=== PATIENT | male | born 1950 | race Caucasian/White ===

== ENCOUNTER → 2018-06-12 11:51 | Outpatient (CLI) | payer MEDICARE, SELFPAY ==
--- NOTE | 2018-06-12 13:00 | MRI_ITS ---
STUDY: MR PELVIS WITH T WITHOUT CONTRAST REASON FOR EXAM: Male, 67 years old. History of rectal cancer with colectomy. Elevated CEA. Abnormal CT scan. TECHNIQUE: Standardized fat and water weighted pulse sequences were obtained in all 3 orthogonal planes, pre-and post contrast administration. 20 IV Dotarem was administered for the contrast portion of the examination. COMPARISON: CT abdomen and pelvis 05/16/2018, 04/04/2016. FINDINGS: Osseous structures: Abnormal marrow signal characteristics of the pattern most consistent with red marrow reconversion. No defined focal lytic or blastic lesions are apparent. Body wall soft tissues: No acute process. Small bowel: Evaluated portions of small bowel appear normal. Mesentery: No mesenteric lymphadenopathy. Lymphadenopathy: There is no apparent inguinal, iliac chain or perirectal lymphadenopathy. Urinary bladder: Mild circumferential thickening of the wall with minimal trabeculation. Prostate: Normal seminal vesicles. No significant prostatomegaly. There are no defined T2 hypointense lesions of the central or peripheral prostate gland. Large bowel: There is mild scattered diverticulosis of the sigmoid colon. Anastomosis of the distal sigmoid colon at the anorectal angle, rectal resection. No evidence of acute diverticulitis. At the level of the anastomosis, anteriorly, along the right anterolateral margin of the rectum, spanning between the 9:00 and 12:00 positions, cystlike macrolobulated focus which may represent a cluster of cysts closely contiguous, measuring approximately 17 mm transverse, 9.1 mm anterior-posterior, 8.7 mm craniocaudal. Process is nonenhancing, no soft tissue masslike features. Distal to the cystlike process, the anus appears normal. Small lobulations similar to the cystlike cluster, in the same position, and of the same size or visible on the CT scan of 04/04/2016. No apparent significant change. MRI/Pelvis W/WO Contrast IMPRESSION: Thin-walled cystlike process without enhancement associated with the right anterior lateral margin of the rectal wall at and immediately below the margin of the anastomosis appear to be stable in size and morphology compared to CT imaging of 04/04/2016 with no evidence of masslike soft tissue or abnormal enhancement. Most likely associated with postsurgical changes. Electronically Signed: Nahid Hdz MD at 11:00 EDT Tel , Service support ,
== END ==
PROVIDERS: Family Provider Family Medicine; PCP Family Medicine; Referring Provider Family Medicine; Visit Provider Family Medicine
DX: R97.0 Elevated carcinoembryonic antigen [CEA] (principal); R93.89 Abnormal findings on diagnostic imaging of other specified body structures; Z85.048 Personal history of other malignant neoplasm of rectum, rectosigmoid junction, and anus
CPT/HCPCS: 72197; A9575

== ENCOUNTER → 2020-09-01 10:07 | Outpatient (CLI) | payer MEDICARE, SELFPAY ==
[2020-06-18 08:22] VITALS: BMI 33.1
--- NOTE | 2020-09-01 12:44 | PFTCOMP ---
COMPLETE PULMONARY FUNCTION TEST INTERPRETATION Brief HPI: Patient is a 69 year old male, currently under the care of myself, who presents to [facility] for complete pulmonary function tests secondary to diagnosis of dyspnea. Respiratory therapist reports good effort and reproducible results. Interpretation: Forced expiration spirometry shows no large airways obstructive ventilatory defect with an FEV1 of 87% predicted. There is no significant bronchodilator response by strict ATS criteria. Spirograms are of good quality and plateau normally. The respiratory flow volume loop shows a normal pattern. Lung volumes by body plethysmography show a decreased total lung capacity at 4.8 L, 80% predicted. All other lung volumes are reduced symmetrically. Diffusion capacity by carbon monoxide is decreased at 53% predicted. The airway resistance is normal. No previous pulmonary function tests were available for review. Impression: Mild restrictive ventilatory defect with a disproportionate reduction in diffusing capacity
== END ==
PROVIDERS: PCP Family Medicine; Referring Provider Internal Medicine Critical Care Medicine; Visit Provider Internal Medicine Critical Care Medicine
DX: R06.00 Dyspnea, unspecified (principal); R93.89 Abnormal findings on diagnostic imaging of other specified body structures
CPT/HCPCS: 94060; 94726; 94729

== ENCOUNTER → 2020-09-03 10:51 | Outpatient (CLI) | payer MEDICARE, SELFPAY ==
[2020-06-18 08:22] VITALS: BMI 33.1
[2020-09-03 11:10] VITALS: PULSE 56; PULSE 63; PULSE 71; PULSE 77; PULSE 80; PULSE 82; PULSE 94; O2SAT 91; O2SAT 92; O2SAT 93; O2SAT 96
--- NOTE | 2020-09-03 14:19 | PCM.PSN.6M ---
PSN 6 Minute Walk Test 6 Minute Walk Test 6 Minute Walk Test: 6 Minute Walk Test PSN:6-Minute Walk Test Start: 09/03/20 11:10 Freq: Status: Active Protocol: RESP.6MINW Document 09/03/20 11:10 CORRIE (Rec: 09/03/20 11:13 [id number]) 6 Minute Walk Test Date Performed 09/03/20 Time Performed 11:15 Height 5 ft 8 in Weight: 94.347 kg Weight in Pounds 208.[address]: Collin Benson FIO2 (% Oxygen) 21 Assistive device used: None Pre-test Oxygen Delivery Method Room Air Pulse Ox (%) 96 Pulse Rate (60-100 beats/min) 56 L Dyspnea Anupama Scale (0-10) 0 Exertion Anupama Scale (6-20) 6 1st minute Oxygen Delivery Method Room Air Pulse Ox (%) 93 Pulse Rate (60-100 beats/min) 82 2nd minute Oxygen Delivery Method Room Air Pulse Ox (%) 91 Pulse Rate (60-100 beats/min) 94 3rd minute Oxygen Delivery Method Room Air Pulse Ox (%) 91 Pulse Rate (60-100 beats/min) 80 4th minute Oxygen Delivery Method Room Air Pulse Ox (%) 92 Pulse Rate (60-100 beats/min) 82 5th minute Oxygen Delivery Method Room Air Pulse Ox (%) 92 Pulse Rate (60-100 beats/min) 71 6th minute Oxygen Delivery Method Room Air Pulse Ox (%) 92 Pulse Rate (60-100 beats/min) 77 Post-test Oxygen Delivery Method Room Air Pulse Ox (%) 96 Pulse Rate (60-100 beats/min) 63 Dyspnea Anupama Scale (0-10) 2 Exertion Anupama Scale (6-20) 6 Full Laps Walked 13 Partial Lap, Number of Tiles Walked 20 Total Distance Walked (ft) 787 Interpretation Interpretation: The patient was able to ambulate 787 feet over the course of 6 minutes on room air with no assistive devices or breaks. The patient did experience significant desaturation from a baseline of 96% to as low as 91%. No significant tachycardia was noted. These findings are consistent with a respiratory limitation exercise tolerance. Recommendations Recommendations: No supplemental oxygen is indicated at this time. However, patient will need to be followed closely given level of desaturation.
== END ==
PROVIDERS: PCP Family Medicine; Referring Provider Internal Medicine Critical Care Medicine; Visit Provider Internal Medicine Critical Care Medicine
DX: R93.89 Abnormal findings on diagnostic imaging of other specified body structures (principal)
CPT/HCPCS: 94618

== ENCOUNTER → 2020-11-09 12:45 | Outpatient (CLI) | payer MEDICARE, SELFPAY ==
[2020-09-22 05:39] VITALS: BMI 32.3
== END ==
PROVIDERS: PCP Family Medicine; Visit Provider Internal Medicine Critical Care Medicine
DX: G47.10 Hypersomnia, unspecified (principal)
CPT/HCPCS: 95806

== ENCOUNTER 2021-04-19 11:00 | Outpatient (CLI) | payer MEDICARE, SELFPAY | END 2021-04-19 23:59 | disposition home or self-care (01) | LOC: SL 12:24 | PROVIDERS: PCP Family Medicine; Visit Provider Nurse Practitioner Acute Care | DX: G47.33 Obstructive sleep apnea (adult) (pediatric) (principal) | CPT/HCPCS: 98960; G0463 ==

== ENCOUNTER → 2023-10-11 | Outpatient (CLI) | payer MEDICARE, SELFPAY ==
[2023-10-11 13:36] LABS: Amphetamine Urine VISTA NEGATIVE (<1000 ng/mL); Barbiturate Urine VISTA NEGATIVE (< 200 ng/mL); Benzodiazepine Urine VISTA NEGATIVE (< 200 ng/mL); Cocaine Urine VISTA NEGATIVE (< 300 ng/mL); Ecstacy Urine VISTA NEGATIVE (< 500 ng/mL); Methadone Urine VISTA NEGATIVE (< 300 ng/mL); PCP Urine VISTA NEGATIVE (< 25 ng/mL); THC Urine VISTA NEGATIVE (< 50 ng/mL); Vista UDS pH Range 7
== END | disposition home or self-care (01) ==
PROVIDERS: PCP Family Medicine; Referring Provider Anesthesiology Pain Medicine; Visit Provider Anesthesiology Pain Medicine
DX: F11.20 Opioid dependence, uncomplicated (principal)
CPT/HCPCS: 80307

== ENCOUNTER → 2023-12-01 | Outpatient (CLI) | payer MEDICARE, SELFPAY | END | disposition home or self-care (01) | PROVIDERS: PCP Family Medicine; Referring Provider Nurse Practitioner Acute Care; Visit Provider Nurse Practitioner Acute Care | DX: J84.10 Pulmonary fibrosis, unspecified (principal) | CPT/HCPCS: 94010; 94060; 94726; 94729 ==

== ENCOUNTER → 2023-12-05 | Outpatient (CLI) | payer MEDICARE, SELFPAY ==
[2023-12-05 13:00] VITALS: PULSE 74; PULSE 77; PULSE 79; PULSE 91; PULSE 94; PULSE 99; O2SAT 80; O2SAT 87; O2SAT 88; O2SAT 91; O2SAT 92; O2SAT 98
--- NOTE | 2023-12-05 13:41 | CPS ---
Pt states he wears oxygen at 3 lpm pulse dose. Pt wanted to be placed on oxygen at continuous flow when qualification requirement was met. Pt does not feel the pulse dose is enough for him. Pt was started on room air and at 1 minute into walk pt was placed on 2 lpm continuous. At minute 3 pt went up to 3 lpm. Minute 4 pt was increased to 4lpm and minute 5 to 6lpm (tank does not offer a 5 lpm flow). Pt finished walk at 6 lpm continous. Pt stated his S.O.B was somewhat severe at rest on room air and continued to feel the same throughout the test. Pt states he feels he has become unaware of any change in how S.O.B he feels since he feels it is severe all the time.
--- NOTE | 2023-12-11 10:03 | PCM.PSN.6M ---
PSN 6 Minute Walk Test 6 Minute Walk Test 6 Minute Walk Test: 6 Minute Walk Test PSN:6-Minute Walk Test Start: 12/05/23 13:35 Freq: Status: Active Protocol: RESP.6MINW Document 12/05/23 13:00 AE (Rec: 12/05/23 13:55 AEH [id number]) 6 Minute Walk Test Date Performed 12/05/23 Time Performed 13:00 Height 5 ft 8 in Weight: 220 lb Weight in Pounds 220.[address]: Cristi Assistive device used: Cane Pre-test Oxygen Delivery Method Room Air Pulse Ox (%) 92 Pulse Rate (60-100 beats/min) 74 Dyspnea Anupama Scale (0-10) 3 Exertion Anupama Scale (6-20) 0 1st minute Oxygen Delivery Method Room Air Pulse Ox (%) 80 Pulse Rate (60-100 beats/min) 79 Dyspnea Anupama Scale (0-10) 3 Reported Symptoms Increased Work of Breathing 2nd minute Oxygen Flow Rate (L/min) (L/min) 2 Oxygen Delivery Method Nasal Cannula Pulse Ox (%) 91 Pulse Rate (60-100 beats/min) 99 Dyspnea Anupama Scale (0-10) 3 Reported Symptoms Increased Work of Breathing 3rd minute Oxygen Flow Rate (L/min) (L/min) 2 Oxygen Delivery Method Nasal Cannula Pulse Ox (%) 87 Pulse Rate (60-100 beats/min) 99 Dyspnea Anupama Scale (0-10) 3 Reported Symptoms Increased Work of Breathing 4th minute Oxygen Flow Rate (L/min) (L/min) 3 Oxygen Delivery Method Nasal Cannula Pulse Ox (%) 87 Pulse Rate (60-100 beats/min) 91 Dyspnea Anupama Scale (0-10) 3 Reported Symptoms Increased Work of Breathing 5th minute Oxygen Flow Rate (L/min) (L/min) 4 Oxygen Delivery Method Nasal Cannula Pulse Ox (%) 88 Pulse Rate (60-100 beats/min) 99 Dyspnea Anupama Scale (0-10) 3 Reported Symptoms Increased Work of Breathing 6th minute Oxygen Flow Rate (L/min) (L/min) 6 Oxygen Delivery Method Nasal Cannula Pulse Ox (%) 91 Pulse Rate (60-100 beats/min) 94 Dyspnea Anupama Scale (0-10) 3 Exertion Anupama Scale (6-20) 13 Reported Symptoms Increased Work of Breathing Post-test Oxygen Flow Rate (L/min) (L/min) 6 Oxygen Delivery Method Nasal Cannula Pulse Ox (%) 98 Pulse Rate (60-100 beats/min) 77 Dyspnea Anupama Scale (0-10) 3 Full Laps Walked 8 Partial Lap, Number of Tiles Walked 0 Total Distance Walked (ft) 472 12/05/23 13:41 Cardiopulmonary Services by [facility] Basilio Pt states he wears oxygen at 3 lpm pulse dose. Pt wanted to be placed on oxygen at continuous flow when qualification requirement was met. Pt does not feel the pulse dose is enough for him. Pt was started on room air and at 1 minute into walk pt was placed on 2 lpm continuous. At minute 3 pt went up to 3 lpm. Minute 4 pt was increased to 4lpm and minute 5 to 6lpm (tank does not offer a 5 lpm flow). Pt finished walk at 6 lpm continous. Pt stated his S.O.B was somewhat severe at rest on room air and continued to feel the same throughout the test. Pt states he feels he has become unaware of any change in how S.O.B he feels since he feels it is severe all the time. Initialized on 12/05/23 13:41 - END OF NOTE Interpretation Interpretation: The patient ambulated 472 feet over the course of 6 minutes beginning on room air with use of a cane. Pretesting oxygen saturation was noted to be 92% on room air. With ambulation, the patient desaturated on several occasions requiring supplemental oxygen at 6 L/min to maintain appropriate saturations with exertion. This testing indicated the presence of impaired walk distance along with significant exertional oxygen desaturation, consistent with a pulmonary limitation to exercise tolerance. Recommendations Recommendations: 6 L/min of continuous flow supplemental oxygen should be utilized with exertion.
== END | disposition home or self-care (01) ==
LOC: PSN 12:44
PROVIDERS: PCP Family Medicine; Referring Provider Nurse Practitioner Acute Care; Visit Provider Nurse Practitioner Acute Care
DX: J84.10 Pulmonary fibrosis, unspecified (principal)
CPT/HCPCS: 94618

== ENCOUNTER → 2023-12-26 | Outpatient (CLI) | payer MEDICARE, SELFPAY | END | disposition home or self-care (01) | LOC: SL 09:59 | PROVIDERS: PCP Family Medicine; Visit Provider Nurse Practitioner Acute Care | DX: G47.33 Obstructive sleep apnea (adult) (pediatric) (principal) | CPT/HCPCS: 98960; G0463 ==

== ENCOUNTER → 2023-12-28 | Outpatient (CLI) | payer MEDICARE, SELFPAY ==
--- OUTSIDE RECORDS SUMMARY | 2023-12-28 20:56 | XMS RPT_ITS | CCD ---
Author Organization [facility] Inform ion 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 Sabina Frank Attending Unavaila chandler Rivas, Dr. Sabina Frank Primary Care Unavaila chandler Rivas, Dr. Sabina Frank Primary Care Unavaila chandler Rivas, Dr. Sabina Frank Attending Unavaila ble Evelyn, Dr. Sabina Frank Attending Unavaila chandler Rivas, Dr. Sabina Frank Primary Care Unavaila Sabina Jernigan MD Primary Care Provider [phone] Sabina Rivas MD Primary Care Provider Sabina Rivas MD Primary Care Provider Sahra Holliday MD Primary Care Provider [phone] Sahra Holliday MD Unavailable Sahra Holliday MD Unavailable OSCAR PAYTON Attending Unavailable SABINA RIVAS Primary Care Unavailable OSCAR PAYTON Referring Unavailable OSCAR PAYTON Attending Unavailable SABINA RIVAS Referring Unavailable SABINA RIVAS Primary Care Unavailable SABINA RIVAS Primary Care Unavailable OSCAR PAYTON Attending Unavailable DAWNA BERNAL Referring Unavailable SABINA RVIAS Primary Care Unavailable OSCAR PAYTON Attending Unavailable DAWNA BERNAL Referring Unavailable SABINA RIVAS Primary Care Unavailable OSCAR PAYTON Referring Unavailable ROBERTO PURCELL Attending Unavailable OSCAR PAYTON Attending Unavailable DAWNA BERNAL Referring Unavailable SABINA RIVAS Primary Care Unavailable OSCAR PAYTON Attending Unavailable OSCAR PAYTON Referring Unavailable TOMSABINA LOREDO Primary Care Unavailable OSCAR PAYTON Attending Unavailable TOMSABINA LOREDO Primary Care Unavailable OSCAR PAYTON Referring Unavailable TOMBRENTONKSABINA Primary Care Unavailable HOMSY, ROBERTO Hawkins Attending Unavailable HOMSY, ROBERTO Hawkins Referring Unavailable TOMCHAKSABINA Referring Unavailable TOMCHAKSABINA Primary Care Unavailable HOMSY, ROBERTO Hawkins Attending Unavailable Sahra Holliday MD Primary Care Provider SAHRA HOLLIDAY Primary Care Unavailable FITZGERALD, JUAN CARLOS Borwn Referring Unavailable FITZGERALDJUAN CARLOS Attending Unavailable SABINA RIVAS Referring Unavailable TOMFACUNDO, SABINA FRANK Primary Care Unavailable TOMFACUNDO, SABINA FRANK Attending Unavailable TOMSABINA LOREDO Referring Unavailable TOMFACUNDO, SABINA FRANK Primary Care Unavailable TOMSABINA LOREDO Attending Unavailable SHYAM ALMANZAR Attending Unavailable SAHRA HOLLIDAY Primary Care Unavailable SABINA RIVAS Attending Unavailable SABINA RIVAS Referring Unavailable TOMSABINA LOREDO Primary Care Unavailable Sabina Rivas MD Primary Care Provider Sahra Holliday MD Primary Care Provider DANA ELDER Attending Unavailable SAHRA HOLLIDAY Primary Care Unavailable SAHRA HOLLIDAY Admitting Unavailable SABINA RIVAS Primary Care Unavailable ASMITA, ATISH P Attending Unavailable SAHRA HOLLIDAY Referring Unavailable SAHRA HOLLIDAY Primary Care Unavailable DANA ELDER Attending Unavailable CHRIS RAMSEY Attending Unavaila ble SABINA RIVAS Primary Care Unavailable ASMITA, ATISH P Admitting Unavailable ASMITA, ATISH P Attending Unavailable SABINA RIVAS Primary Care Unavailable SAHRA HOLLIDAY Primary Care Unavailable DANA ELDER Attending Unavailable DANA ELDER Referring Unavailable SAHRA HOLLIDAY Primary Care Unavailable SAHRA HOLLIDAY Primary Care Unavailable SABINA RIVAS Primary Care Unavailable ASMITA, ATISH P Attending Unavailable ASMITA, ATISH P Referring Unavailable TOMSABINA LOREDO Primary Care Unavailable ASMITA, ATISH P Attending Unavailable ASMITA, ATISH P Referring Unavailable SABINA RIVAS Primary Care Unavailable SAHRA HOLLIDAY Primary Care Unavailable Sahra Holliday MD Primary Care Provider [phone] VINNY HAN Referring Unavailable YEATER, SAHRA M Primary Care Unavailable VINNY HAN Referring Unavailable YEATER, SAHRA M Primary Care Unavailable VINNY HAN Referring Unavailable YEATER, SAHRA M Primary Care Unavailable VINNY HAN Referring Unavailable YEATER, SAHRA M Primary Care Unavailable HAN, VINNY WINSTON Referring Unavailable YEATER, SAHRA M Primary Care Unavailable RYANN AMBRIZ Attending Unavailable VINNY HAN Referring Unavailable YEATER, SAHRA M Primary Care Unavailable TOMCHAKevin, SABINA Garsia Primary Care Unavailable GABE MICHELE Attending Unavailable VINNY HAN Referring Unavailable YEATER, SAHRA M Primary Care Unavailable YEATER, SAHRA M Referring Unavailable YEATER, SAHRA M Primary Care Unavailable YEATER, SAHRA M Referring Unavailable YEATER, SAHRA M Primary Care Unavailable YEATER, SAHRA M Primary Care Unavailable YEATER, SAHRA M Primary Care Unavailable TOMFACUNDO, SABINA Garsia Primary Care Unavailable YEATER, SAHRA M Primary Care Unavailable SABINA PEREZ Referring Unavailable TOMCHAKevin, SABINA Garsia Primary Care Unavailable SABINA PEREZ Attending Unavailable SABINA PEREZ Attending Unavailable SABINA PEREZ Referring Unavailable TOMSABINA LOREDO Primary Care Unavailable SABINA PEREZ Attending Unavailable JERROD NORMAN Referring Unavailable TOMFACUNDO, SABINA Garsia Primary Care Unavailable JERROD NORMAN Attending Unavailable JERROD NORMAN Referring Unavailable TOMFACUNDO, SABINA Garsia Primary Care Unavailable JERROD NORMAN Attending Unavailable SABINA RIVAS Primary Care Unavailable SELF, SELF Referring Unavailable MEGA REED Attending Unavailable SABINA PEREZ Referring Unavailable TOMSABINA LOREDO Primary Care Unavailable TOMFACUNDO, SABINA Garsia Primary Care Unavailable SABINA PEREZ Attending Unavailable SELF, SELF Referring Unavailable MEGA REED Attending Unavailable VERONICA MEGA E Referring Unavailable TOMSABINA LOREDO Primary Care Unavailable TOMEKA ESCOBAR Attending Unavailable TOMSABINA LOREDO Primary Care Unavailable MEGA REED Referring Unavailable TOMFACUNDO, SABINA Garsia Primary Care Unavailable VERONICA, MEGA E Referring Unavailable TOMEKA ESCOBAR Attending Unavailable TOMFACUNDO, SAIBNA Garsia Primary Care Unavailable KENNY MASSEY Attending Unavailab SABINA Busby Referring Unavailable YEATER, SAHRA Pollard Attending Unavailable YEATER, SAHRA M Primary Care Unavailable YEATER, SAHRA M Attending Unavailable YEATER, SAHRA M Primary Care Unavailable YEATER, SAHRA M Attending Unavailable YEATER, SAHRA M Primary Care Unavailable YEATER, SAHRA M Attending Unavailable YEATER, SAHRA M Primary Care Unavailable YEATER, SAHRA M Attending Unavailable YEATER, SAHRA M Primary Care Unavailable YEATER, SAHRA M Attending Unavailable YEATER, SAHRA M Primary Care Unavailable YEATER, SAHRA M Attending Unavailable YEATER, SAHRA M Primary Care Unavailable YEATER, SAHRA M Attending Unavailable YEATER, SAHRA M Primary Care Unavailable YEATER, SAHRA M Attending Unavailable YEATER, SAHRA M Referring Unavailable YEATER, SAHRA M Primary Care Unavailable YEATER, SAHRA M Attending Unavailable YEATER, SAHRA M Primary Care Unavailable YEATER, SAHRA M Attending Unavailable YEATER, SAHRA M Primary Care Unavailable YEATER, SAHRA M Attending Unavailable YEATER, SAHRA M Referring Unavailable YEATER, SAHRA M Primary Care Unavailable YEATER, SAHRA M Attending Unavailable YEATER, SAHRA M Primary Care Unavailable YEATER, SAHRA M Attending Unavailable YEATER, SAHRA M Primary Care Unavailable YEATER, SAHRA M Attending Unavailable YEATER, SAHRA M Primary Care Unavailable YEATER, SAHRA M Attending Unavailable YEATER, SAHRA M Primary Care Unavailable YEATER, SAHRA M Attending Unavailable YEATER, SAHRA M Primary Care Unavailable YEATER, SAHRA M Attending Unavailable YEATER, SAHRA M Primary Care Unavailable YEATER, SAHRA M Attending Unavailable YEATER, SAHRA M Primary Care Unavailable YEATER, SAHRA M Attending Unavailable YEATER, SAHRA M Primary Care Unavailable YEATER, SAHRA M Attending Unavailable YEATER, SAHRA M Primary Care Unavailable YEATER, SAHRA M Attending Unavailable YEATER, SAHRA M Primary Care Unavailable YEATER, SAHRA M Attending Unavailable YEATER, SAHRA M Primary Care Unavailable YEATER, SAHRA M Attending Unavailable YEATER, SAHRA M Primary Care Unavailable Medications Current Medications Medication Drug Class(es) Dates Sig (Normalized) Sig (Original) acetaminophen 325 mg / HYDROcodone bitartrate 5 mg oral tablet (20 sources) Opioid Agonist Start: 2023 End: 2023 take 1 tablet by mouth every four hours for pain HYDROcodone-aceta minophen ([place]) 5-325 mg tablet Indications: Right leg pain Take 1 tablet by mouth every 4 hours if needed for severe pain (7 - 10). 20 tablet 2023 Active Start: 03-27-2023 End: 04-10-2023 take 1 tablet by mouth twice daily HYDROcodone-acetaminophen ([place]) 5-325 mg tablet Take 1 tablet by mouth 2 times a day. 0 03/27/2023 04/10/2023 Start: 03-23-2018 End: 03-22-2023 take 5-325 tablets by mouth every six hours as needed hydroCODone-acetaminophen 5-325 MG table t Take by mouth every 6 hours as needed. 07/19/2022 Active Comment on above: Take 1 tablet by edil th every 6 hours as needed. [id number] 200 actuat albuterol 0.09 mg/actuat metered dose inhaler (20 sources) beta2-Adrenergic Agonist Start: 11-09-2023 take 2 puff(s) by inhalation every four hours for wheezing albuterol 90 mcg/actuation inhaler Indications: IPF (idiopathic pulmonary fibrosis) (Multi) Inhale 2 puffs every 4 hours if needed for wheezing or shortness of breath. 36 g 3 11/09/2023 Active Start: 07-13-2023 take 2 puff(s) by in halation every four hours for wheezing albuterol 90 mcg/actuation inhaler Indications: IPF (idiopathic pulmonary fibrosis) (Multi) Inhale 2 puffs every 4 hours if needed for wheezing or shortness of breath. 36 g 3 07/13/2023 Active Start: 04-26-2022 End: 07-13-2023 take 2 puff(s) by inhalation every four hours as needed Albuterol 108 (90 Base) MCG/ACT Aero Soln inhaler Inhale 2 puffs every 4 hours as needed. 07/19/2022 Active Start: 04-26-2022 take 2 puff(s) by in halation every four to six hours as needed albuterol 90 mcg/actuation inhaler 2 (two) puffs every 4 to 6 hours as needed . 04/26/2022 Active Comment on above: Inhale 2 Puffs as in structed every 4 hours as needed. amLODIPine 5 mg oral tablet (20 sources) Dihydropyridine Calcium Channel Margarita Start: 05-29-19 End: 06-14-19 take 1 tablet by mouth once daily amLODIPine (Norvasc) 5 mg tablet Indications: Hypertension, unspecified type Take 1 tablet (5 mg) by mouth once daily. 90 tablet 3 06/14/2023 06/13/2024 Active Comment on above: Take 1 tablet by edil th once daily. amoxicillin 875 mg / clavulanate 125 mg oral tablet (3 sources) Penicillin-class Antibacterial Start: 12-14-19 End: 12-21-19 take 1 tablet by mouth twice daily Amoxicillin-clavula jordan 875-125 MG tablet Take 1 tablet by mouth 2 times daily. 2023 Active baclofen 10 mg oral tablet (6 sources) gamma-Aminobutyric Acid-ergic Agonist End: 12-22-19 take 1 tablet by mouth in the morning baclofen (Lioresal) 10 mg tablet Take 1 tablet (10 mg) by mouth at 3:00 in the morning. Active carvedilol 12.5 mg oral tablet (20 sources) alpha-Adrenergic Margarita, beta-Adrenergic Margarita Start: 07-19-19 End: 04-28-19 take 1 tablet by mouth twice daily at mealtime carvedilol (Coreg) 12.5 mg tablet Indications: Pulmonary hypertension (Multi) Take 1 tablet (12.5 mg) by mouth 2 times a day with meals. 180 tablet 3 04/28/2023 04/27/2024 Active Start: 05-27-2020 End: 05-29-2020 take 12.5 mg by mouth twice daily at mealtime 12.5 mg, Oral, 2 times daily, First dose on Mon05/27/20 at 2130 Give carvedilol with food to reduce risk of hypotension / dizziness. Separate from admin of HAILY inhibitors by two hours. Comment on above: Take 1 tablet (12.5 mg) by mouth 2 times a day with meals. celecoxib 200 mg oral capsule (20 sources) Nonsteroidal Anti-inflammatory Drug Start: 05-27-2020 End: 05-29-2020 take 200 mg by mouth twice daily at mealtime 200 mg, Oral, 2 times daily, First dose on Mon05/27/20 at 2130 Give with Food Start: 07-31-2003 End: 07-31-2024 take 1 capsule by mouth once daily celecoxib (CeleBREX) 200 mg capsule Indications: Right leg pain Take 1 capsule (200 mg) by mouth once daily. 90 capsule 3 08/01/2023 07/31/2024 Active Comment on above: Take one(1) capsule daily. cephalexin 500 mg oral capsule (2 sources) Cephalosporin Antibacterial Start: take 1 capsule by mouth three times daily cephALEXin (KEFLEX) 500 MG capsule Take 1 (one) capsule (500 mg total) by mouth 3 (three) times a day . 9 capsule 06/28/2023 Active cholecalciferol 0.05 mg oral tablet (16 sources) Vitamin D take 1 tablet by mouth once daily cholecalciferol (Vitamin D3) 50 MCG (2000 UT) tablet Take 1 tablet (50 mcg) by mouth once daily. Active clotrimazole 10 mg oral lozenge (17 sources) Azole Antifungal Start: take 1 tablet by mouth four times daily as needed clotrimazole (Mycelex) 10 mg ashlyn Indications: Oral yeast infection Take 1 tablet (10 mg) by mouth 4 times a day as needed (as needed). 90 Ashlyn 1 10/03/2023 Active take 1 tablet by mouth five time s daily Clotrimazole 10 MG Ashlyn 1 tablet by Mouth/Throat route 5 times daily. Active take 1 tablet by mouth five time s daily clotrimazole (Mycelex) 10 mg ashlyn Take 1 tablet (10 mg) by mouth 5 times a day. Active dexamethasone 1 mg/ml / neomycin 3.5 mg/ml / polymyxin b [id number] unt/ml ophthalmic suspension (8 sources) Aminoglycoside Antibacterial, Polymyxin-class Antibacterial, Corticosteroid Start: 11-13-2023 take 1 drop(s) into the eye(s) once daily [id number] (Maxitrol) 3.5mg/mL-10,000 unit/mL-0.1 % ophthalmic suspension Indications: Watery eyes Administer 1 drop into both eyes once daily. 11856 mL 1 11/13/2023 Active Start: 05-22-2023 take 1 drop(s) into the eye(s) once daily rhesowag-xeyyqpyhn-lzcCLCMRdmfha (Maxitr ol) 3.5mg/mL-10,000 unit/mL-0.1 % ophthalmic suspension Administer 1 drop into both eyes once daily. 05/22/2023 Active Start: 05-22-2023 End: 06-05-2023 take 1 drop(s) into the eye(s) four times daily GGYHYTUQ-[id number]-[id number] 3.5 MG/ML-10 ,000 UNIT/ML-0.1% EYE DROPS Use 1 Drop in both eyes four times daily for 14 days. 5 mL 0 05/22/2023 06/05/2023 Active Comment on above: Use 1 Drop in both e yes four times daily for 14 days. doxycycline hyclate 100 mg oral capsule (5 sources) Tetracycline-class Drug Start: 06-08-2023 End: 06-15-2023 doxycycline (Vibramycin) 100 mg capsule Indications: Congestion of nasal sinus Take 1 capsule (100 mg) by mouth 2 times a day for 7 days. Take with at least 8 ounces (large glass) of water, do not lie down for 30 minutes after 14 capsule 06/08/2023 06/15/2023 Active Start: 01-30-2023 End: 02-15-2023 take 1 tablet by mouth twice daily doxycycline (Adoxa) 100 mg tablet Indications: Cellulitis of hand, right Take 1 tablet (100 mg) by mouth 2 times a day for 10 days. Take with a full glass of water and do not lie down for at least 30 minutes after 20 tablet 0 01/30/2023 02/15/2023 Discontinued (Med List Cleanup) finasteride 5 mg oral tablet (20 sources) 5-alpha Reductase Inhibitor Start: 05-09-2022 End: 05-14-2024 take 1 tablet by mouth once daily finasteride (Proscar) 5 mg tablet Indications: Benign prostatic hyperplasia with nocturia Take 1 tablet (5 mg) by mouth once daily. 90 tablet 3 05/15/2023 05/14/2024 Active Comment on above: Take 1 tablet (5 mg) by mouth once daily. fluticasone propionate 0.05 mg/actuat metered dose nasal spray (17 sources) Corticosteroid Start: 10-26-2023 take 2 spray(s) nasal route once daily fluticasone (Flonase) 50 mcg/actuation nasal spray Indications: Nasal congestion Administer 2 sprays into each nostril once daily. 16 g 3 10/26/2023 Active Start: 07-27-2023 take 2 spray(s) nasa l route once daily fluticasone (Flonase) 50 mcg/actuation nasal spray Indications: Nasal congestion Administer 2 sprays into each nostril once daily. 16 g 3 07/27/2023 Active Start: 12-22-2020 End: 07-27-2023 take 2 spray(s) nasal route once daily fluticasone (Flonase) 50 mcg/actuation nasal spray Administer 2 sprays into each nostril once daily. 12/22/2020 07/27/2023 Discontinued (Reorder) 60 actuat fluticasone propionate 0.25 mg/actuat / salmeterol 0.05 mg/actuat dry powder inhaler (20 sources) Corticosteroid, beta2-Adrenergic Agonist Start: 06-18-2022 take 1 puff(s) by mouth twice daily Advair Diskus 250-50 mcg/dose diskus inhaler INHALE 1 PUFF TWICE DAILY EVERY DAY. Rinse mouth after use. 06/18/2022 Active fluticasone-umecl idin-vilanter (Trelegy Ellipta) 200-62.5-25 mcg DsDv (11 sources) Start: 07-14-2022 End: 07-14-2023 fluticasone-umecl idin-vilanter (Trelegy Ellipta) 200-62.5-25 mcg DsDv Indications: Obstructive lung disease (generalized) (HCC) Inhale 1 (one) Inhalation. daily . 60 each 11 07/14/2022 07/14/2023 Active furosemide 40 mg oral tablet (20 sources) Loop Diuretic Start: 10-27-2023 End: 10-26-2024 take 1 tablet by mouth twice daily furosemide (Lasix) 40 MG tablet Take 1 (one) tablet (40 mg total) by mouth 2 (two) times a day . 60 tablet 11 10/27/2023 10/26/2024 Active Start: 04-19-2023 End: 09-11-2024 take 1 tablet by mouth once daily furosemide (Lasix) 40 mg tablet Indications: IPF (idiopathic pulmonary fibrosis) (Multi) , Chronic hypoxemic respiratory failure (Multi) , Peripheral edema Take 1 tablet (40 mg) by mouth once daily. 60 tablet 3 09/12/2023 09/11/2024 Active End: 10-27-2023 take 2 tablets by mouth once daily furosemide (LASIX) 20 MG tablet Take 2 (two) tablets (40 mg total) by mouth daily . 10/27/2023 Discontinued (Prescriber Discontinued) Comment on above: Take 1 tablet by [facility] once daily. gabapentin 300 mg oral capsule (20 sources) Anti-epileptic Agent Start: 12-22-2023 End: 01-21-2024 take 1 capsule by mouth twice daily Gabapentin 300 MG capsule Take 1 capsule by mouth 2 times daily. 60 capsule 12/22/2023 01/21/2024 Active Start: 08-28-2023 End: 12-22-2023 take 1 capsule by mouth once daily gabapentin (Neurontin) 300 mg capsule Indications: Right leg pain Take 1 capsule (300 mg) by mouth once daily. 90 capsule 1 08/28/2023 Active Start: 07-03-2023 take [address] [facility] once daily gabapentin (Neurontin) 100 mg capsule Indications: Right leg pain Take 1 capsule (100 mg) by mouth once daily. 90 capsule 2 07/03/2023 Active Start: 05-27-2023 End: 07-03-2023 take 1 capsule by mouth twice daily gabapentin (Neurontin) 100 mg capsule Take 1 capsule (100 mg) by mouth 2 times a day. 05/27/2023 07/03/2023 Discontinued (Reorder) Start: 01-07-2023 End: 04-26-2023 take 1 capsule by mouth twice daily gabapentin (Neurontin) 100 mg capsule Take 1 capsule (100 mg) by mouth 2 times a day. 0 01/07/2023 04/26/2023 Discontinued (Therapy completed) Start: 01-07-2023 take [address] [facility] once daily, then take 1 capsule by mouth once daily in the morning, then take 1 capsule by mouth once daily in the morning gabapentin (Neurontin) 100 mg capsule TAKE 1 CAPSULE BY MOUTH NIGHTLY FOR 3 DAYS then 1 capule EVERY MORNING and NIGHTLY FOR 3 DAYS then 1 capsule EVERY MORNING at lunch and NIGHTLY 0 01/07/2023 Active hydroCHLOROthiazide 12.5 mg / losartan potassium 100 mg oral tablet (20 sources) Thiazide Diuretic, Angiotensin 2 Receptor Margarita Start: 04-13-2023 take 1 tablet by mouth once losartan-hydroCHLOROthiazide (HYZAAR) 100-12.5 mg per tablet Take 1 tablet by mouth every afternoon. 0 04/13/2023 Active Start: 07-18-2022 End: 07-12-2024 take 1 tablet by mouth once daily losartan-hydrochlorothiazide (Hyzaar) 100-12.5 mg tablet Indications: Hypertension, unspecified type Take 1 tablet by mouth once daily. 90 tablet 3 07/13/2023 07/12/2024 Active Comment on above: Take 1 tablet by edil th every afternoon. lidocaine 0.05 mg/mg medicated patch (4 sources) Antiarrhythmic, Amide Local Anesthetic Start: 08-28-19 End: 12-26-19 apply 1 dose transdermal route every twelve hours, then apply 1 dose transdermal route every twelve hours lidocaine (Lidoderm) 5 % patch Indications: Right leg pain Place 1 patch over 12 hours on the skin once daily. Remove & discard patch within 12 hours or as directed by MD. 60 patch 2 12/26/2023 Active montelukast 10 mg oral tablet (20 sources) Leukotriene Receptor Antagonist Start: 09-07-19 End: 11-03-19 take 1 tablet by mouth once daily at bedtime montelukast (Singulair) 10 mg tablet Indications: Interstitial lung disease (Multi) Take 1 tablet (10 mg) by mouth once daily at bedtime. 90 tablet 3 02/08/2023 Active Comment on above: Take 1 tablet (10 mg ) by mouth once daily at bedtime. multivitamin (Multiple Vitamins) tablet (16 sources) Start: 10-26-19 take 1 tablet by mouth once daily multivitamin (Multiple Vitamins) tablet Take 1 tablet by mouth once daily. 10/25/2002 Active Start: 10-25-2002 take 1 tablet by edil th once daily multivitamin (Multiple Vitamins) tablet Take 1 tablet by mouth once daily. 0 10/25/2002 Active multivitamin with minerals tablet (20 sources) take 1 tablet by edil th once daily multivitamin with minerals tablet Take 1 (one) tablet by mouth daily . Active take 1 tablet by mouth once gabbie y multivitamin with minerals tablet Take 1 tablet by mouth once daily. Active take 1 tablet by mouth once gabbie y multivitamin with minerals tablet Take 1 tablet by mouth once daily. 0 Active take 1 tablet by mouth once gabbie y multivitamin with minerals tablet Take 1 (one) tablet by mouth daily . 0 Active take 1 tablet by mouth once gabbie y multivitamin with minerals tablet Take 1 tablet by mouth daily . 0 Active take 1 tablet by mouth once gabbie y multivitamin with minerals tablet Take 1 tablet by mouth daily . 0 Suspended mycophenolate mofetil 500 mg oral tablet (20 sources) Start: 05-12-2023 End: 12-26-2023 take 2 tablets by mouth twice daily mycophenolate (Cellcept) 500 mg tablet Indications: Interstitial lung disease (Multi) Take 2 tablets (1,000 mg) by mouth 2 times a day. 120 tablet 1 12/26/2023 Active Start: 12-26-2022 End: 03-10-2023 take 1 tablet by mouth twice daily, then take 2 tablets by mouth twice daily Mycophenolate mofetil (CELLCEPT) 500 MG tablet Indications: Interstitial lung disease , Hypersensitivity pneumonitis Take 1 tablet by mouth 2 times daily for 14 days, THEN 2 tablets 2 times daily. 268 tablet 12/26/2022 Active Comment on above: Take 2 tablets by [facility] two times a day. Naloxone (5 sources) Opioid Antagonist Start: 10-31-2023 End: 10-31-2023 naloxone 4 MG/0.1ML 1 spray by Nasal route once for 1 dose. Use only in case of medication overdose. Can repeat in alternating nostrils q 2-3 minutes if needed. 1 Each 10/31/2023 Active Start: 10-31-2023 naloxone (Narc an) 4 mg/0.1 mL nasal spray Administer 1 spray (4 mg) into affected nostril(s) if needed for respiratory depression. 10/31/2023 Active Oxygen (8 sources) oxygen gas Inhal e 4 L As directed. Active oxygen gas Inhal e 3 L As directed. 0 Active oxygen DME/Hospice (O2) ther apy (18 sources) oxygen DME/Hospi ce (O2) therapy Inhale 4 L/min at 240,000 mL/hr if needed for dizziness. via nasal canula Active oxygen DME/Hospi ce (O2) therapy Inhale 4 L/min at 240,000 mL/hr if needed for dizziness. via nasal canula 0 Active phenylephrine hydrochloride 25 mg/ml ophthalmic solution (1 source) alpha-1 Adrenergic Agonist Start: 05-22-2023 End: 05-22-2023 PHENYLephrine 2.5 % 1 Drop (AK-DILATE, ELIZABETH-SYNEPHRINE) microencapsulated potassium chloride 20 meq extended release oral tablet (12 sources) Start: 04-26-2023 End: 10-26-2024 take 1 tablet by mouth once daily Potassium chloride 20 MEQ Tab CR tablet Take 1 tablet by mouth daily. 04/26/2023 04/25/2024 Active Start: 05-27-2020 End: 05-27-2020 potassium chloride SA (K-DUR ,KLOR-CON) CR tablet 40 mEq Comment on above: Take 1 tablet by edil once daily. predniSONE 10 mg oral tablet (20 sources) Start: 06-08-2023 End: 06-13-2023 take 2 tablets by mouth once daily predniSONE (Deltasone) 20 mg tablet Indications: Congestion of nasal sinus Take 2 tablets (40 mg) by mouth once daily for 5 days. 10 tablet 06/08/2023 06/13/2023 Active Start: 05-18-2023 End: 06-14-2023 take 1 tablet by mouth once daily predniSONE (Deltasone) 5 mg tablet Indications: IPF (idiopathic pulmonary fibrosis) (Multi) , Chronic hypoxemic respiratory failure (Multi) Take 1 tablet (5 mg) by mouth once daily. 30 tablet 05/18/2023 06/14/2023 Discontinued (Med List Cleanup) Start: 04-19-2023 End: 03-10-2024 take 1 tablet by mouth once daily predniSONE (Deltasone) 10 mg tablet Indications: Interstitial lung disease (Multi) , Pulmonary hypertension (Multi) Take 1 tablet (10 mg) by mouth once daily. 90 tablet 1 09/12/2023 03/10/2024 Active Start: 03-29-2023 End: 04-19-2023 take 1 tablet by mouth once daily predniSONE (Deltasone) 20 mg tablet Indications: IPF (idiopathic pulmonary fibrosis) (CMS/HCC) , Chronic hypoxemic respiratory failure (CMS/HCC) Take 1 tablet (20 mg) by mouth once daily. 90 tablet 0 03/29/2023 04/19/2023 Discontinued (Reorder) Start: 12-26-2022 End: 03-10-2023 take 1 tablet by mouth once daily predniSONE (Deltasone) 20 mg tablet Indications: Interstitial lung disease (CMS/HCC) Take 1 tablet (20 mg) by mouth once daily. 30 tablet 0 02/08/2023 03/10/2023 Active Start: 12-22-2022 End: 02-22-2023 take 2 tablets by mouth once daily, then take 1.5 tablets by mouth once daily, then take 1 tablet by mouth once daily predniSONE 20 MG tablet Indications: Hypersensitivity pneumonitis Take 2 tablets by mouth daily for 14 days, THEN 1.5 tablets daily for 14 days, THEN 1 tablet daily. 79 tablet 0 12/26/2022 02/22/2023 Active Start: 07-06-2022 End: 07-20-2022 take 1 tablet by mouth once daily predniSONE (DELTASONE) 20 MG tablet Indications: ILD (interstitial lung disease) (HCC) Take 1 (one) tablet (20 mg total) by mouth daily for 14 days . 14 tablet 0 07/06/2022 07/20/2022 Active Comment on above: Take 1 tablet (5 mg) by mouth once daily. proparacaine hydrochloride 5 mg/ml ophthalmic solution (1 source) Local Anesthetic Start: 05-22-19 End: 05-22-19 proparacaine 0.5 % 1 Drop (ALCAINE) tamsulosin hydrochloride 0.4 mg oral capsule (20 sources) alpha-Adrenergic Margarita Start: 06-08-19 End: 02-09-20 take 1 capsule by mouth once daily tamsulosin (Flomax) 0.4 mg 24 hr capsule Indications: Benign prostatic hyperplasia with urinary frequency Take 1 capsule (0.4 mg) by mouth once daily. 90 capsule 3 02/08/2023 Active Trelegy Ellipta 200-62.5-25 mcg blister with device (19 sources) Start: 07-19-19 take 1 puff(s) by inhalation once daily Trelegy Ellipta 200-62.5-25 mcg blister with device Indications: Interstitial lung disease (Multi) Inhale 1 puff once daily. 60 each 5 07/19/2023 Active take 1 puff(s) by inhalation onc e daily Trelegy Ellipta 200-62.5-25 mcg blister with device Inhale 1 puff once daily. Active take 1 puff(s) by inhalation onc e daily Trelegy Ellipta 200-62.5-25 mcg blister with device Inhale 1 puff once daily. 0 Active Trelegy Ellipta 200-62.5-25 MCG/ACT Aerosol Powder, breath activated (8 sources) Start: 08-23-2022 take 1 puff(s) by inhalation once daily Trelegy Ellipta 200-62.5-25 MCG/ACT Aerosol Powder, breath activated Inhale 1 puff daily. 08/23/2022 Active Start: 08-23-2022 take 1 puff(s) by in halation once daily Trelegy Ellipta 200-62.5-25 MCG/ACT Aerosol Powder, breath activated Inhale 1 puff daily. 0 08/23/2022 Active tropicamide 10 mg/ml ophthalmic solution (1 source) Anticholinergic Start: 05-22-2023 End: 05-22-2023 tropicamide 1 % 1 Drop (MYDRIACYL) ubidecarenone 50 mg chewable tablet (16 sources) ubidecarenone (c oenzyme Q10) 50 mg tablet,chewable Chew 50 mg once daily. Active Completed/Discontinued Medications Medication Drug Class(es) Dates Sig (Normalized) Sig (Original) acetaminophen 325 mg oral tablet (2 sources) Start: End: take 1 tablet by mouth every six hours as needed acetaminophen (TYLENOL) tablet 650 mg albuterol 0.833 mg/ml / ipratropium bromide 0.167 mg/ml inhalant solution (1 source) Anticholinergic, beta2-Adrenergic Agonist Start: End: 1 take 3 mL by inhalation every two hours as needed 3 mL, Inhalation, Every 2 hour PRN (RT), wheezing, shortness of breath, Starting 05/27/20 at 2030 azithromycin 250 mg oral tablet (2 sources) Macrolide Antimicrobial Start: 4 End: 4 azithromycin (Zithromax) 250 mg tablet Indications: Interstitial lung disease (Multi) , Productive cough Take 2 tablets (500 mg) by mouth once daily for 1 day, THEN 1 tablet (250 mg) once daily for 4 days. Take 2 tabs (500 mg) by mouth today, than 1 daily for 4 days.. 6 tablet 2023 12/18/2023 cefTRIAXone (ROCEPHIN) 1000 mg in sodium chloride (NS) 0.9% 50 mL (vialmate) (FSED) (1 source) Start: 1 End: 1 cefTRIAXone (ROCEPHIN) 1000 mg in sodium chloride (NS) 0.9% 50 mL (vialmate) (FSED) esomeprazole 20 mg delayed release oral capsule (20 sources) Proton Pump Inhibitor Start: 3 NEXIUM 20MG CAPSULE Take one (1) capsule daily 0 10/25/2002 Active Comment on above: Take one (1) capsule daily 1 ml heparin sodium, porcine 5000 unt/ml injection (1 source) Unfractionated Heparin, Anti-coagulant Start: 1 End: 1 inject 5000 [IU] by subcutaneous injection every eight hours 5,000 Units, Subcutaneous, Every 8 hours scheduled, First dose on Mon05/27/20 at 2200 Notify physician if patient refuses. hydrOXYzine hydrochloride 25 mg oral tablet (17 sources) Antihistamine Start: 3 End: 4 hydrOXYzine HCL (Atarax) 25 mg tablet Take 1 tablet (25 mg) by mouth as needed at bedtime. 03/18/2022 2023 Discontinued (Med List Cleanup) 100 ml levoFLOXacin 5 mg/ml injection (1 source) Quinolone Antimicrobial Start: 1 End: 1 500 mg, Intravenous, at 100 mL/hr, Every 24 hours scheduled, First dose on Mon05/27/20 at 2130 Indication: Acute Bacterial exacerbation of Bronchitis (COPD) losartan potassium 100 mg oral tablet (1 source) Angiotensin 2 Receptor Margarita Start: 9 take 1 tablet by mouth once daily losartan (COZAAR) 100 mg tablet Take 100 mg by mouth once daily. 0 06/21/2018 Active Comment on above: Take 100 mg by mouth once daily. losartan (COZAAR) 100 mg, hydroCHLOROthiazide (HYDRODIURIL) 12.5 mg combo tab (1 source) Start: 1 End: 1 take 1 dose by mouth once daily Oral, Daily, First dose on Raquel 05/28/20 at 0900 MULTIPLE VITAMIN TABLET (1 source) Start: 3 MULTIPLE VITAMIN TABLET Take one(1) tablet daily. 0 10/25/2002 Active Comment on above: Take one(1) tablet d aily. yjmguzrt-ybsv-EW-calcium -mins 9 mg iron-400 mcg tablet 1 tablet (1 source) Start: 1 End: 1 take 1 tablet by mouth once daily 1 tablet, Oral, Daily, First dose on Raquel 05/28/20 at 0900 nitroglycerin 0.4 mg sublingual tablet (1 source) Nitrate Vasodilator Start: 1 End: 1 nitroGLYCERIN (NITROSTAT) SL tablet 0.4 mg 2 ml ondansetron 2 mg/ml injection (1 source) Serotonin-3 Receptor Antagonist Start: 1 End: 1 take 4 mg intravenous route every six hours as needed 4 mg, Intravenous, Every 6 hours PRN, nausea, vomiting, Starting 05/27/20 at 2030 oxyCODONE hydrochloride 5 mg oral tablet (15 sources) Opioid Agonist Start: 3 End: 4 take 1 tablet by mouth every six hours as needed oxyCODONE (Roxicodone) 5 mg immediate release tablet Take 1 tablet (5 mg) by mouth every 6 hours if needed for severe pain (7 - 10). 02/14/2023 2023 Discontinued (Med List Cleanup) pantoprazole 40 mg delayed release oral tablet (1 source) Proton Pump Inhibitor Start: End: take 40 mg by mouth once daily 40 mg, Oral, Daily, First dose on Raquel 05/28/20 at 0900 DO NOT CRUSH OR CHEW. perfluorohexyloctane, PF, (MIEBO) 100 % drop (1 source) Start: 4 take 1 drop(s) into the eye(s) four times daily perfluorohexyloct ane, PF, (MIEBO) 100 % drop Use 1 Drop in both eyes four times daily. 5 mL 2 05/22/2023 Active Comment on above: Use 1 Drop in both e yes four times daily. perflutren lipid microspheres (DEFINITY) 0.143 mg/mL solution 0-10 mL of mixture (1 source) Start: 1 End: 1 perflutren lipid microspheres (DEFINITY) 0.143 mg/mL solution 0-10 mL of mixture SAW PALMETTO ORAL (14 sources) End: 4 take 1200 mg by mouth once daily SAW PALMETTO ORAL Take 1,200 mg by mouth once daily. 2023 Discontinued (Med List Cleanup) take 1200 mg by mouth once daily SAW PALMETTO ORAL Take 1,200 mg by mouth once daily. Active take 1200 mg by mouth once daily SAW PALMETTO ORAL Take 1,200 mg by mouth once daily. 0 Active Sodium Chloride (1 source) Start: 05-27-2020 End: 05-27-2020 sodium chloride (PF) (NS) flush 5 mL TRELEGY ELLIPTA 200-62.5-25 mcg inhalation powder (1 source) Start: 05-12-2023 take 1 puff(s) by inhalation once daily TRELEGY ELLIPTA 200-62.5-25 mcg inhalation powder Inhale 1 Puff as instructed once daily. 0 05/12/2023 Active Comment on above: Inhale 1 Puff as ins tructed once daily. Problems Active Problems Problem Classification Problem Date Documented Da te Episodic/Chronic Cancer of colon (4 sources) Malignant tumor of colon; Translations: [Malignant neoplasm of colon, unspecified] Onset: 10-04-2023 02-09-2006 Chronic Cancer of rectum and anus (1 source) Malignant tumor of rectum; Translations: [Malignant neoplasm of rectum] Onset: 01-25-2005 01-25-2005 Chronic Cataract (1 source) Bilateral senile combined form cataracts of eyes; Translations: [Combined forms of age-related cataract, bilateral] 05-22-2023 Chronic Chronic obstructive pulmonary disease and bronchiectasis (1 source) Bronchiectasis, uncomplicated; Translations: [Bronchiectasis, uncomplicated] Onset: 06-16-2022 Chronic Chronic obstructive pulmonary disease and bronchiectasis (1 source) Bronchitis; Translations: [Bronchitis, not specified as acute or chronic] 12-22-2022 Episodic Conditions associated with dizziness or vertigo (1 source) Dizziness; Translations: [Dizziness] Episodic Congestive heart failure; nonhypertensive (6 sources) Chronic diastolic (congestive) heart failure; Translations: [Heart failure, unspecified] Onset: 11-09-2023 Chronic Coronary atherosclerosis and other heart disease (1 source) Atherosclerotic heart disease of [place] coronary artery without angina pectoris; Translations: [Athscl heart disease of [place] coronary artery w/o ang pctrs] Onset: 06-16-2022 Chronic Diabetes mellitus without complication (20 sources) Type 2 diabetes mellitus without complication; Translations: [Type 2 diabetes mellitus without complications] Onset: 04-19-2023 04-19-2023 Chronic Essential hypertension (5 sources) Essential hypertension; Translations: [Essential (primary) hypertension] Onset: 06-14-2023 05-22-2023 Chronic Heart valve disorders (20 sources) Mitral valve regurgitation; Translations: [Nonrheumatic mitral (valve) insufficiency] Onset: 02-02-2023 02-08-2023 Chronic Hyperplasia of prostate (20 sources) Urinary frequency due to benign prostatic hypertrophy; Translations: [Benign prostatic hyperplasia with lower urinary tract symptoms] Onset: 02-23-2023 02-08-2023 Chronic Immunizations and screening for infectious disease (1 source) Increased immunoglobulin; Translations: [Other specified abnormal immunological findings in serum] 09-01-2022 Episodic Inflammation; infection of eye (except that caused by tuberculosis or sexually transmitteddisease) (1 source) Bilateral punctate keratitis of eyes; Translations: [Punctate keratitis, bilateral] 05-22-2023 Chronic Late effects of cerebrovascular disease (20 sources) Residual cognitive deficit as late effect of cerebrovascular accident; Translations: [Unspecified symptoms and signs involving cognitive functions following cerebral infarction] Onset: 02-15-2023 02-15-2023 Chronic Lung disease due to external agents (5 sources) Bird-fanciers' lung; 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 fancier's lung] Onset: 05-01-2023 11-03-2022 Chronic Lymphadenitis (1 source) Localized enlarged lymph nodes; Translations: [Localized enlarged lymph nodes] Onset: 06-16-2022 Episodic Nonspecific chest pain (3 sources) Chest pain; Translations: [Chest pain, unspecified] Onset: 10-27-2023 10-27-2023 Episodic Open wounds of extremities (5 sources) Laceration of lower limb; Translations: [Laceration without foreign body, left lower leg, subsequent encounter] Onset: 06-28-2023 07-03-2023 Episodic Osteoarthritis (18 sources) Bilateral primary osteoarthritis of hip; Translations: [Primary coxarthrosis, bilateral] Onset: 11-09-2021 04-07-2023 Chronic Other aftercare (2 sources) Taking high risk medication; Translations: [Other child care worker (current) drug therapy] 12-26-2022 Episodic Other aftercare (2 sources) Other fdc (current) drug therapy; Translations: [Other child care worker (current) drug therapy] Onset: 05-01-2023 Episodic Other aftercare (2 sources) Encounter for therapeutic drug level monitoring; Translations: [Encounter for therapeutic drug level monitoring] Onset: 12-22-2023 Episodic Other bone disease and musculoskeletal deformities (2 sources) Other osteonecrosis, left femur; Translations: [Other osteonecrosis, left femur (CMS/HCC)] Onset: 04-07-2023 Chronic Other circulatory disease (4 sources) Respiratory crackles; Translations: [Other specified symptoms and signs involving the circulatory and respiratory systems] 04-19-2023 Episodic Other connective tissue disease (1 source) Pain in right thigh; Translations: [Pain in right thigh] Onset: 04-22-2022 Episodic Other connective tissue disease (20 sources) Pain in right lower limb; Translations: [Pain in right leg] Onset: 04-07-2023 02-08-2023 Episodic Other eye disorders (1 source) Bilateral epiphora of eyes; Translations: [Unspecified epiphora, bilateral] 05-18-2023 Episodic Other eye disorders (1 source) Bilateral epiphora of eyes due to tear drainage disorder; Translations: [Epiphora due to insufficient drainage, bilateral] 05-22-2023 Episodic Other eye disorders (1 source) Meibomian gland dysfunction of bilateral eyes; Translations: [Meibomian gland dysfunction right eye, upper and lower eyelids] 05-22-2023 Episodic Other gastrointestinal disorders (4 sources) Diarrhea; Translations: [Diarrhea, unspecified] Onset: 10-04-2023 02-14-2006 Episodic Other injuries and conditions due to external causes (3 sources) Unspecified injury of right quadriceps muscle, fascia and tendon, initial encounter; Translations: [Unsp injury of right quadriceps musc/fasc/tend, init] Onset: 04-22-2022 Episodic Other injuries and conditions due to external causes (1 source) Injury of quadriceps muscle; Translations: [Unspecified injury of unspecified quadriceps muscle, fascia and tendon, initial encounter] 03-15-2023 Episodic Other lower respiratory disease (3 sources) Pulmonary fibrosis, unspecified; Translations: [Pulmonary fibrosis, unspecified] Onset: 06-16-2022 Chronic Other lower respiratory disease (20 sources) Interstitial lung disease; Translations: [Interstitial pulmonary disease, unspecified] Onset: 09-19-2022 07-06-2022 Chronic Other lower respiratory disease (20 sources) Idiopathic pulmonary fibrosis; Translations: [Idiopathic pulmonary fibrosis] Onset: 03-01-2023 09-01-2022 Chronic Other lower respiratory disease (6 sources) Idiopathic pulmonary fibrosis; Translations: [Idiopathic pulmonary fibrosis] Onset: 09-01-2022 Chronic Other lower respiratory disease (14 sources) Interstitial pulmonary disease, unspecified; Translations: [Interstitial pulmonary disease, unspecified] Onset: 09-19-2022 Chronic Other lower respiratory disease (4 sources) Productive cough ; Translations: [Productive cough] 2023 Episodic Other lower respiratory disease (2 sources) Shortness of breath; Translations: [Shortness of breath] Onset: 11-13-2023 Episodic Other nervous system disorders (1 source) Right leg peripheral neuropathy; Translations: [Meralgia paresthetica, right lower limb] 12-22-2023 Chronic Other nervous system disorders (2 sources) Meralgia paresthetica, right lower limb; Translations: [Meralgia paresthetica, right lower limb] Onset: 12-22-2023 Chronic Other nutritional; endocrine; and metabolic disorders (9 sources) Obese class I; Translations: [Obesity, unspecified] Onset: 09-19-2022 12-26-2022 Chronic Other nutritional; endocrine; and metabolic disorders (2 sources) Obesity, unspecified; Translations: [Obesity, unspecified] Onset: 09-19-2022 Chronic Other nutritional; endocrine; and metabolic disorders (6 sources) Morbid obesity; Translations: [Morbid (severe) obesity due to excess calories] Onset: 09-12-2023 10-04-2023 Chronic Other upper respiratory disease (3 sources) Congestion of nasal sinus; Translations: [Nasal congestion] 03-01-2023 Episodic Pulmonary heart disease (20 sources) Pulmonary hypertension; Translations: [Pulmonary hypertension, unspecified] Onset: 02-08-2023 07-06-2022 Chronic Pulmonary heart disease (1 source) Other diseases of pulmonary vessels; Translations: [Other diseases of pulmonary vessels] Onset: 06-16-2022 Episodic Residual codes; unclassified (2 sources) Peripheral edema; Translations: [Edema, unspecified] 06-14-2023 Episodic Respiratory failure; insufficiency; arrest (adult) (20 sources) Chronic hypoxemic respiratory failure; Translations: [Chronic respiratory failure with hypoxia] Onset: 12-26-2022 09-01-2022 Chronic Retinal detachments; defects; vascular occlusion; and retinopathy (1 source) Nonexudative age-related macular degeneration; Translations: [Nonexudative age-related macular degeneration, bilateral, early dry stage] 05-22-2023 Chronic Secondary malignancies (20 sources) Secondary malignant neoplasm of intrapelvic lymph nodes; Translations: [Secondary and unspecified malignant neoplasm of intrapelvic lymph nodes] Onset: 01-25-2005 03-01-2023 Chronic Spondylosis; intervertebral disc disorders; other back problems (4 sources) Lumbosacral radiculopathy; Translations: [Radiculopathy, lumbosacral region] Onset: 12-01-2023 10-31-2023 Episodic Substance-related disorders (5 sources) Abuse of nonpsychotropic analgesic drugs; Translations: [Abuse of other non-psychoactive substances] Onset: 04-19-2023 04-19-2023 Chronic Unclassified (2 sources) mitral valve disease Onset: 03-24-2023 Unclassified (2 sources) Other specified cough; Translations: [Other specified cough] Onset: 10-26-2023 Unclassified (2 sources) discuss pending surgery Onset: 02-23-2023 Past or Other Problems Problem Classification Problem Date Documented Da te Episodic/Chronic Administrative/social admission (20 sources) Patient encounter status; Translations: [Persons encountering health services in other specified circumstances] Onset: 02-23-2023 02-08-2023 Episodic Fluid and electrolyte disorders (7 sources) Hypokalemia; Translations: [Hypokalemia] Onset: 04-26-2023 04-26-2023 Episodic Genitourinary symptoms and ill-defined conditions (4 sources) Nocturia; Translations: [Frequency of micturition] Onset: 02-08-2023 Episodic Other circulatory disease (2 sources) Other specified symptoms and signs involving the circulatory and respiratory systems; Translations: [Other specified symptoms and signs involving the circulatory and respiratory systems] Onset: 04-19-2023 Episodic Other connective tissue disease (2 sources) Pain in right leg; Translations: [Pain in right leg] Onset: 04-26-2023 Episodic Other diseases of kidney and ureters (2 sources) Disorder of kidney and ureter, unspecified; Translations: [Disorder of kidney and ureter, unspecified] Onset: 01-30-2023 Episodic Other eye disorders (2 sources) Unspecified epiphora, bilateral; Translations: [Unspecified epiphora, bilateral] Onset: 05-18-2023 Episodic Other injuries and conditions due to external causes (2 sources) Unspecified injury of left lower leg, initial encounter; Translations: [Unspecified injury of left lower leg, initial encounter] Onset: 12-28-2022 Episodic Other injuries and conditions due to external causes (2 sources) Unspecified injury of unspecified quadriceps muscle, fascia and tendon, initial encounter; Translations: [Unspecified injury of unspecified quadriceps muscle, fascia and tendon, initial encounter] Onset: 03-15-2023 Episodic Other lower respiratory disease (2 sources) Dyspnea, unspecified; Translations: [Dyspnea, unspecified] Onset: 12-28-2022 Episodic Other non-traumatic joint disorders (9 sources) Pain in right hip; Translations: [Pain in right hip] Onset: 11-09-2021 Episodic Other non-traumatic joint disorders (10 sources) Pain in right hip joint; Translations: [Pain in right hip] Onset: 04-07-2023 04-07-2023 Episodic Other non-traumatic joint disorders (6 sources) Hip pain; Translations: [Pain in right hip] Onset: 05-11-2023 10-04-2023 Episodic Other upper respiratory disease (2 sources) Nasal congestion; Translations: [Nasal congestion] Onset: 06-08-2023 07-27-2023 Episodic Other upper respiratory disease (1 source) Nasal congestion; Translations: [Nasal congestion] Onset: 06-08-2023 Episodic Pneumonia (except that caused by tuberculosis or sexually transmitted disease) (20 sources) Community acquired pneumonia; Translations: [Pneumonia] Onset: 05-27-2020 05-27-2020 Episodic Residual codes; unclassified (2 sources) Edema, unspecified; Translations: [Edema, unspecified] Onset: 07-13-2023 Episodic Skin and subcutaneous tissue infections (3 sources) Cellulitis of right hand; Translations: [Cellulitis of right upper limb] Onset: 01-30-2023 01-30-2023 Episodic Sprains and strains (5 sources) Rupture of quadriceps tendon; Translations: [Strain of right quadriceps muscle, fascia and tendon, subsequent encounter] Onset: 02-15-2023 02-15-2023 Episodic Unclassified (18 sources) Onset: 02-08-2023 Resolved: 10-26-2023 02-08-2023 Unclassified (2 sources) Other specified cough; Translations: [Other specified cough] Onset: 10-26-2023 Results Test Name Value Interpretation Reference Range Facility HbA1c (Bld) [Mass fraction]o n 12-15-2023 Average glucose Estimated from glycated hemoglobin (Bld) [Mass/Vol] 186 mg/dL Not Established [facility] Interpretation and review of laboratory results Abnormal [facility] Diagnosis of Diabetes-Adults Non-Diabetic: < or = 5.6% Increased risk for developing diabetes: 5.7-6.4% Diagnostic of diabetes: > or = 6.5% [facility] Hemoglobin A1con 12-15-2023 HbA1c (Bld) [Mass fraction] 8.1 % High See comment [facility] XR Chest 2 Viewson 4 1. Worsening bilater al multifocal patchy airspace is worse at the bases with worse multifocal pneumonia high in the differential. A component of mild edema may be present. Recommend radiographic follow-up to resolution in 3-[address] for complete evaluation MACRO: None Signed by: Dc Gross 12/15/2023 5:42 PM Dictation workstation: [id number] [facility] Interpreted By: Dc Bae, STUDY: XR CHEST 2 VIEWS; 2023 11:49 am INDICATION: Signs/Symptoms:increasing shortness of breath, look for pneumonia. ,J84.9 Interstitial pulmonary disease, unspecified,R05.8 Other specified cough COMPARISON: 11/13/2023 ACCESSION NUMBER(S): [id number] ORDERING CLINICIAN: SAHRA HOLLIDAY FINDINGS: CARDIOMEDIASTINAL SILHOUETTE: There is moderate large of the cardiac silhouette. LUNGS: There is patchy airspace disease in the lungs bilaterally especially at the bases. There is a component of vascular congestion. Aeration has worsened from the prior. There is no effusion ABDOMEN: No remarkable upper abdominal findings. BONES: No acute osseous changes. [facility] Dc Gross MD - 12/15/2023 Interpreted By: Dc Gross, STUDY: XR CHEST 2 VIEWS; 2023 11:49 am INDICATION: Signs/Symptoms:increasing shortness of breath, look for pneumonia. ,J84.9 Interstitial pulmonary disease, unspecified,R05.8 Other specified cough COMPARISON: 11/13/2023 ACCESSION NUMBER(S): [id number] ORDERING CLINICIAN: SAHRA HOLLIDAY FINDINGS: CARDIOMEDIASTINAL SILHOUETTE: There is moderate large of the cardiac silhouette. LUNGS: There is patchy airspace disease in the lungs bilaterally especially at the bases. There is a component of vascular congestion. Aeration has worsened from the prior. There is no effusion ABDOMEN: No remarkable upper abdominal findings. BONES: No acute osseous changes. IMPRESSION: 1. Worsening bilateral multifocal patchy airspace is worse at the bases with worse multifocal pneumonia high in the differential. A component of mild edema may be present. Recommend radiographic follow-up to resolution in 3-[address] for complete evaluation MACRO: None Signed by: Dc Gross 12/15/2023 5:42 PM Dictation workstation: [id number] [facility] Work Phone: XR Chest 2 ViewsOrdered By: Dc Gross on 12-15-2023 [facility] Work Phone: Basic metabolic 2000 panelon 2023 Anion gap [Moles/Vol] 16 mmol/L 10 - 20 mmol/L [facility] Calcium [Mass/Vol] 9.3 mg/dL 8.6 - 10. 3 mg/dL [facility] Chloride [Moles/Vol] 95 mmol/L Low 98 - 107 mmol/L [facility] CO2 [Moles/Vol] 33 mmol/L High 21 - 32 mmol/L [facility] Creatinine [Mass/Vol] 1.47 mg/dL High 0.50 - 1.30 mg/dL [facility] GFR/1.73 sq M.predicted among non-blacks MDRD (S/P/Bld) [Vol rate/Area] 50 mL/min/{1.73_m2} Low - PINF [facility] Comment on above: Calculations of dee mated GFR are performed using the 2020 CKD-EPI Study Refit equation without the race variable for the IDMS-Traceable creatinine methods. https://jasn.asnjournals.org/content/early/ASN.14018922 88 Glucose [Mass/Vol] 137 mg/dL High 74 - 99 mg/dL [facility] Interpretation and review of laboratory results Abnormal [facility] Potassium [Moles/Vol] 3.7 mmol/L 3.5 - 5.3 mmol/L [facility] Sodium [Moles/Vol] 140 mmol/L 136 - 145 mmol/L [facility] Urea nitrogen [Mass/Vol] 26 mg/dL High 6 - 23 mg/dL [facility] Anion gap [Moles/Vol] 16 mmol/L Normal 10-20 [facility] Comment on above: Performed By: #### 2 4321-2 #### FLORI PIKE ([id number]) [facility] ([facility]) [facility] [place] [address] Calcium [Mass/Vol] 9.3 mg/dL Normal 8.6-10.3 [facility] Comment on above: Performed By: #### 2 4321-2 #### FLORI PIKE ([id number]) [facility] ([facility]) [address] [place] [address] Chloride [Moles/Vol] 95 mmol/L Low 98-107 [facility] Comment on above: Performed By: #### 2 4321-2 #### FLORI PIKE ([id number]) [facility] ([facility]) [facility] [place] [address] CO2 [Moles/Vol] 33 mmol/L High 21-32 [facility] Comment on above: Performed By: #### 2 4321-2 #### FLORI PIKE ([id number]) [facility] ([facility]) [address] [place] [address] Creatinine [Mass/Vol] 1.47 mg/dL High 0.50-1.30 [facility] Comment on above: Performed By: #### 2 4321-2 #### FLORI PIKE ([id number]) [facility] ([facility]) [address] [place] [address] Glomerular filtration rate/1.73 sq M.predicted 50 mL/min/1.73m*2 Low >60 [facility] Comment on above: Result Comment: Calc ulations of estimated GFR are performed using the 2020 CKD-EPI Study Refit equation without the race variable for the IDMS-Traceable creatinine methods. https://jasn.asnjournals.org/content//ASN.00095978 88 Performed By: #### 2 4321-2 #### FLORI PIKE ([id number]) [facility] ([facility]) [address] [place] [address] Glucose [Mass/Vol] 137 mg/dL High 74-99 [facility] Comment on above: Performed By: #### 2 4321-2 #### FLORI PIKE ([id number]) [facility] ([facility]) [address] [place] [address] Potassium [Moles/Vol] 3.7 mmol/L Normal 3.5-5.3 [facility] Comment on above: Performed By: #### 2 4321-2 #### FLORI PIKE ([id number]) [facility] ([facility]) [address] [place] [address] Sodium [Moles/Vol] 140 mmol/L Normal 136-145 [facility] Comment on above: Performed By: #### 2 4321-2 #### FLORI PIKE ([id number]) [facility] ([facility]) [address] [place] [address] Urea nitrogen [Mass/Vol] 26 mg/dL High 6-23 [facility] Comment on above: Performed By: #### 2 4321-2 #### FLORI PIKE ([id number]) [facility] ([facility]) [address] [place] [address] HbA1c (Bld) [Mass fraction]o n 2023 Average glucose Estimated from glycated hemoglobin (Bld) [Mass/Vol] 186 mg/dL Normal Not Established [facility] Comment on above: Order Comment: Diagn osis of Diabetes-Adults Non-Diabetic: < or = 5.6% Increased risk for developing diabetes: 5.7-6.4% Diagnostic of diabetes: > or = 6.5% Performed By: #### 4 548-4 #### SHANNEN Hawkins ([id number]) [facility] ([facility]) [id number] [place] [address] Hemoglobin A1c/Hemoglobin.to justin 2023 HbA1c (Bld) [Mass fraction] 8.1 % High See comment [facility] Comment on above: Order Comment: Diagn osis of Diabetes-Adults Non-Diabetic: < or = 5.6% Increased risk for developing diabetes: 5.7-6.4% Diagnostic of diabetes: > or = 6.5% Performed By: #### 4 548-4 #### SHANNEN Hawkins ([id number]) [facility] ([facility]) [address] [place] [address] XR CHEST 2 VIEWSon XR CHEST 2 VIEWS Interpreted By: Dc Bae, STUDY: XR CHEST 2 VIEWS; 2023 11:49 am INDICATION: Signs/Symptoms:increasing shortness of breath, look for pneumonia. ,J84.9 Interstitial pulmonary disease, unspecified,R05.8 Other specified cough COMPARISON: 11/13/2023 ACCESSION NUMBER(S): [id number] ORDERING CLINICIAN: SAHRA HOLLIDAY FINDINGS: CARDIOMEDIASTINAL SILHOUETTE: There is moderate large of the cardiac silhouette. LUNGS: There is patchy airspace disease in the lungs bilaterally especially at the bases. There is a component of vascular congestion. Aeration has worsened from the prior. There is no effusion ABDOMEN: No remarkable upper abdominal findings. BONES: No acute osseous changes. IMPRESSION: 1. Worsening bilateral multifocal patchy airspace is worse at the bases with worse multifocal pneumonia high in the differential. A component of mild edema may be present. Recommend radiographic follow-up to resolution in 3-[address] for complete evaluation MACRO: None Signed by: Dc Gross 12/15/2023 5:42 PM Dictation workstation: [id number] [facility] XR Chest 2 Viewson Radiology Study observation (narrative) [facility] Work Phone: BASIC METABOLIC PANELon 11-27 Anion gap [Moles/Vol] 21 mmol/L High 10-20 [facility] Comment on above: Order Comment: [facility] has implemented the eGFR calculation approach that does not have a coefficient for race that conforms to the NKF-ASN Task Force Recommendations. Performed By: #### 4 6124 #### LAB [address] [address] Adair Krishna M.D. [id number] Calcium [Mass/Vol] 10.1 mg/dL Normal 8.4-10.2 [facility] Comment on above: Order Comment: [facility] has implemented the eGFR calculation approach that does not have a coefficient for race that conforms to the NKF-ASN Task Force Recommendations. Performed By: #### 4 6124 #### LAB [address] [address] Adair Krishna M.D. [id number] Chloride [Moles/Vol] 93 mmol/L Low 98-108 [facility] Comment on above: Order Comment: [facility] has implemented the eGFR calculation approach that does not have a coefficient for race that conforms to the NKF-ASN Task Force Recommendations. Performed By: #### 4 6124 #### [facility] [address] [address] Adair Krishna M.D. [id number] Creatinine [Mass/Vol] 1.54 mg/dL High 0.80-1.30 [facility] Comment on above: Order Comment: [facility] has implemented the eGFR calculation approach that does not have a coefficient for race that conforms to the NKF-ASN Task Force Recommendations. Performed By: #### 4 6160 #### LAB [address] [address] Adair Krishna M.D. [id number] EGFR 47 mL/min/1.73 m2 Low >=60 [facility] Comment on above: Order Comment: [facility] has implemented the eGFR calculation approach that does not have a coefficient for race that conforms to the NKF-ASN Task Force Recommendations. Result Comment: Dee mated GFR was calculated using the 2020 CKD-EPI creatinine equation. Performed By: #### 4 6115 #### LAB [address] [address] Adair Krishna M.D. [id number] Glucose [Mass/Vol] 163 mg/dL High 65-99 [facility] Comment on above: Order Comment: [facility] has implemented the eGFR calculation approach that does not have a coefficient for race that conforms to the NKF-ASN Task Force Recommendations. Performed By: #### 4 6124 #### LAB [address] [address] Adair Krishna M.D. [id number] HCO3 (Bld) [Moles/Vol] 28 mmol/L Normal 21-32 [facility] Comment on above: Order Comment: [facility] has implemented the eGFR calculation approach that does not have a coefficient for race that conforms to the NKF-ASN Task Force Recommendations. Performed By: #### 4 6150 #### [facility] LAB [address] [place], [place] [address] Adair Krishna M.D. [id number] Potassium [Moles/Vol] 3.0 mmol/L Low 3.5-5.1 [facility] Comment on above: Order Comment: [facility] has implemented the eGFR calculation approach that does not have a coefficient for race that conforms to the NKF-ASN Task Force Recommendations. Performed By: #### 4 6155 #### [facility] [address] [place], [place] [address] Adair Krishna M.D. [id number] Sodium [Moles/Vol] 139 mmol/L Normal 135-145 [facility] Comment on above: Order Comment: [facility] has implemented the eGFR calculation approach that does not have a coefficient for race that conforms to the NKF-ASN Task Force Recommendations. Performed By: #### 4 6124 #### LAB [address] [address] Adair Krishna M.D. [id number] Urea nitrogen [Mass/Vol] 52 mg/dL High 8-25 [facility] Comment on above: Order Comment: [facility] has implemented the eGFR calculation approach that does not have a coefficient for race that conforms to the NKF-ASN Task Force Recommendations. Performed By: #### 4 6124 #### LAB [address] [address] Adair Krishna M.D. [id number] Urea nitrogen/Creatinine [Mass ratio] 33.8 mg/mg High 10.0-20.0 [facility] Comment on above: Order Comment: [facility] has implemented the eGFR calculation approach that does not have a coefficient for race that conforms to the NKF-ASN Task Force Recommendations. Performed By: #### 4 6124 #### LAB [address] [place], [place] [address] Adair Krishna M.D. [id number] MRI SPINE LUMBAR WITHOUT CON TRASTon 12-03-2023 MRI SPINE LUMBAR WITHOUT CONTRAST EXAM: MRI SPINE LUMBAR WITHOUT CONTRAST HISTORY: Low back pain with right leg pain and paresthesias. Right hip pain for one year. COMPARISON: Lumbar spine x-rays from 10/31/2023. TECHNIQUE: Multiplanar and multisequence imaging of the lumbar spine was performed without contrast. FINDINGS: Anterolisthesis of L5 on S1 measures 10 mm and relates to chronic L5 pars defects. There is moderate to severe degenerative disc disease at L3-L4, L4-L5 and L5-S1 with disc height loss and endplate spurring. There is also moderate to severe degenerative disc disease at T11-T12. Heterogeneity of the bone marrow signal is most consistent with mixed red and fatty marrow. The visualized aorta is normal in diameter. The upper sacrum is intact. The conus terminates at the L1 level. L5-S1: Anterolisthesis of L5 on S1 measures 10 mm and relates to chronic L5 pars defects. There is moderate to severe degenerative disc disease and severe right greater than left facet arthropathy. A broad-based disc protrusion measures 5 mm in AP dimension with changes resulting in severe left greater than right foraminal narrowing and abutment of the L5 nerve roots bilaterally. L4-L5: There is a broad-based disc protrusion measuring up to 7 mm in AP dimension with moderate to severe facet arthropathy and prominent posterior epidural fat. Changes result in moderate lateral recess narrowing bilaterally and severe right and moderate left foraminal narrowing with abutment and compression of the right L4 nerve root. Correlation for right L4 radiculopathy would be helpful. L3-L4: A broad-based disc protrusion measures 6 mm in AP dimension with moderate to severe facet arthropathy and prominent posterior epidural fat. Changes result in moderate central narrowing with the thecal sac measuring 7 mm in AP dimension. There is moderate to marked lateral recess narrowing bilaterally and moderately severe right and mild to moderate left foraminal narrowing. L2-L3: There is a broad-based disc protrusion and moderate facet arthropathy resulting in mild bilateral foraminal narrowing without central stenosis. L1-L2: There is no focal disc herniation. There is no central or foraminal stenosis. IMPRESSION: 1. Anterolisthesis of L5 on S1 measures 10 mm with chronic L5 pars defects. There is a broad-based disc protrusion resulting in severe bilateral foraminal narrowing with abutment of the L5 nerve roots bilaterally. 2. There is also a broad-based disc protrusion at L4-L5 with moderate to severe facet arthropathy resulting in severe right and moderate left foraminal narrowing with abutment and compression of the right L4 nerve root. Correlation for right L4 radiculopathy would be helpful. 3. There is moderate central narrowing at L3-L4 related to a broad-based disc protrusion, facet arthropathy and prominent posterior epidural fat. Moderately severe right and mild to moderate left foraminal narrowing is also present at L3-L4. Normal [facility] BASIC METABOLIC PANELon 09- Anion gap [Moles/Vol] 22 mmol/L High -20 [facility] Comment on above: Order Comment: [facility] has implemented the eGFR calculation approach that does not have a coefficient for race that conforms to the NKF-ASN Task Force Recommendations. Performed By: #### 4 6124 #### LAB [address] [place], [place] [address] Adair Krishna M.D. [id number] Calcium [Mass/Vol] 9.4 mg/dL Normal 8.4-10.2 [facility] Comment on above: Order Comment: [facility] has implemented the eGFR calculation approach that does not have a coefficient for race that conforms to the NKF-ASN Task Force Recommendations. Performed By: #### 4 6124 #### LAB [address] [address] Adair Krishna M.D. [id number] Chloride [Moles/Vol] 94 mmol/L Low 98-108 [facility] Comment on above: Order Comment: [facility] has implemented the eGFR calculation approach that does not have a coefficient for race that conforms to the NKF-ASN Task Force Recommendations. Performed By: #### 4 6124 #### LAB [address] [address] Adair Krishna M.D. [id number] Creatinine [Mass/Vol] 1.31 mg/dL High 0.80-1.30 [facility] Comment on above: Order Comment: [facility] has implemented the eGFR calculation approach that does not have a coefficient for race that conforms to the NKF-ASN Task Force Recommendations. Performed By: #### 4 6155 #### LAB [address] [place], [place] [address] Adair Krishna M.D. [id number] EGFR 57 mL/min/1.73 m2 Low >=60 [facility] Comment on above: Order Comment: [facility] has implemented the eGFR calculation approach that does not have a coefficient for race that conforms to the NKF-ASN Task Force Recommendations. Result Comment: Dee mated GFR was calculated using the 2020 CKD-EPI creatinine equation. Performed By: #### 4 6170 #### LAB [address] [address] Adair Krishna M.D. [id number] Glucose [Mass/Vol] 220 mg/dL High 65-99 [facility] Comment on above: Order Comment: [facility] has implemented the eGFR calculation approach that does not have a coefficient for race that conforms to the NKF-ASN Task Force Recommendations. Performed By: #### 4 6124 #### LAB [address] [address] Adair Krishna M.D. [id number] HCO3 (Bld) [Moles/Vol] 23 mmol/L Normal 21-32 [facility] Comment on above: Order Comment: [facility] has implemented the eGFR calculation approach that does not have a coefficient for race that conforms to the NKF-ASN Task Force Recommendations. Performed By: #### 4 6124 #### LAB [address] [address] Adair Krishna M.D. [id number] Potassium [Moles/Vol] 3.8 mmol/L Normal 3.5-5.1 [facility] Comment on above: Order Comment: [facility] has implemented the eGFR calculation approach that does not have a coefficient for race that conforms to the NKF-ASN Task Force Recommendations. Performed By: #### 4 6124 #### LAB [address] [address] Adair Krishna M.D. [id number] Sodium [Moles/Vol] 135 mmol/L Normal 135-145 [facility] Comment on above: Order Comment: [facility] has implemented the eGFR calculation approach that does not have a coefficient for race that conforms to the NKF-ASN Task Force Recommendations. Performed By: #### 4 6124 #### [facility] [address] [address] Adair Krishna M.D. [id number] Urea nitrogen [Mass/Vol] 33 mg/dL High 8-25 [facility] Comment on above: Order Comment: [facility] has implemented the eGFR calculation approach that does not have a coefficient for race that conforms to the NKF-ASN Task Force Recommendations. Performed By: #### 4 6124 #### LAB [address] [place], [place] [address] Adair Krishna M.D. [id number] Urea nitrogen/Creatinine [Mass ratio] 25.2 mg/mg High 10.0-20.0 [facility] Comment on above: Order Comment: [facility] has implemented the eGFR calculation approach that does not have a coefficient for race that conforms to the NKF-ASN Task Force Recommendations. Performed By: #### 4 6124 #### LAB [address] [place], [place] [address] Adair Krishna M.D. [id number] XR CHEST 2 VIEWSon XR CHEST 2 VIEWS Interpreted By: Dc Bae, STUDY: XR CHEST 2 VIEWS; 11/13/2023 4:31 pm INDICATION: Signs/Symptoms:shortness of breath. ,J84.9 Interstitial pulmonary disease, unspecified (Multi),I27.20 Pulmonary hypertension, unspecified (Multi),I34.0 Nonrheumatic mitral (valve) insufficiency COMPARISON: 01/06/2021 ACCESSION NUMBER(S): [id number] ORDERING CLINICIAN: SAHRA HOLLIDAY FINDINGS: CARDIOMEDIASTINAL SILHOUETTE: There is enlarged of the cardiac silhouette, similar to the prior. There is mild pulmonary edema.. LUNGS: The lungs are hyperinflated with areas of scarring and fibrosis. No focal lung consolidation or effusion seen ABDOMEN: No remarkable upper abdominal findings. BONES: No acute osseous changes. IMPRESSION: 1. Chronic lung disease with areas of fibrosis and scarring 2. Enlarged cardiac silhouette with mild edema MACRO: None Signed by: Dc Gross 11/14/2023 8:25 PM Dictation workstation: [id number] [facility] XR SPINE LUMBAR 4+ VIEWSon 0 11-01-2023 XR SPINE LUMBAR 4+ VIEWS EXAM: XR SPINE LUMBAR 4+ VIEWS CLINICAL INDICATION: LBP COMPARISON: None TECHNIQUE: 5 views of the lumbar spine obtained FINDINGS: There are 5 nonrib-bearing lumbar-type vertebra. Vertebral body heights are maintained without evidence for acute fracture. Grade 2 anterolisthesis of L5 on S1. Alignment is not significantly changed with flexion and extension. Mild to moderate multilevel degenerative changes of the lumbar spine. IMPRESSION: Mild to moderate multilevel degenerative changes of the lumbar spine without evidence for acute fracture or dynamic instability. Normal [facility] XR Spine Lumbar and Sacrum 5 Viewson 11-01-2023 IMPRESSION: Mild to moderate multilevel degenerative changes of the lumbar spine without evidence for acute fracture or dynamic instability. RADIOLOGY EXAM: XR SPINE LUMBA R 4+ VIEWS CLINICAL INDICATION: LBP COMPARISON: None TECHNIQUE: 5 views of the lumbar spine obtained FINDINGS: There are 5 nonrib-bearing lumbar-type vertebra. Vertebral body heights are maintained without evidence for acute fracture. Grade 2 anterolisthesis of L5 on S1. Alignment is not significantly changed with flexion and extension. Mild to moderate multilevel degenerative changes of the lumbar spine. RADIOLOGY Florentino Gandara MD - 11/01/2023 EXAM: XR SPINE LUMBAR 4+ VIEWS CLINICAL INDICATION: LBP COMPARISON: None TECHNIQUE: 5 views of the lumbar spine obtained FINDINGS: There are 5 nonrib-bearing lumbar-type vertebra. Vertebral body heights are maintained without evidence for acute fracture. Grade 2 anterolisthesis of L5 on S1. Alignment is not significantly changed with flexion and extension. Mild to moderate multilevel degenerative changes of the lumbar spine. IMPRESSION IMPRESSION: Mild to moderate multilevel degenerative changes of the lumbar spine without evidence for acute fracture or dynamic instability. [facility] XR Spine Lumbar and Sacrum 5 ViewsOrdered By: Florentino Gandara on 11-01-2023 [facility] Work Phone: XR Spine Lumbar and Sacrum 5 Viewson 10-31-2023 Radiology Study observation (narrative) [facility] CBC WITH AUTO DIFFERENTIALon 10-27-2023 AUTO NRBC 0.0 % Normal [facility] Comment on above: Performed By: #### L [id number] #### [facility] LAB [address] [place], [place] [address] Adair Krishna M.D. [id number] AUTO NRBC ABS COUNT 0.00 K/mcL Normal 0.00-0.00 [facility] Comment on above: Performed By: #### L [id number] #### [facility] LAB [address] [address] Adair Krishna M.D. [id number] BASOPHILS ABSOLUTE COUNT 0.04 K/mcL Normal 0.00-0.30 [facility] Comment on above: Performed By: #### L [id number] #### LAB [address] [address] Adair Krishna M.D. [id number] Basophils/100 WBC (Bld) 0.5 % Normal [facility] Comment on above: Performed By: #### L [id number] #### [facility] [address] [address] Adair Krishna M.D. [id number] Eosinophils (Bld) [#/Vol] 0.11 10*3/uL Normal 0.00-0.50 [facility] Comment on above: Performed By: #### L [id number] #### LAB [address] [place] [address] Adair Krishna M.D. [id number] Eosinophils/100 WBC (Bld) 1.5 % Normal [facility] Comment on above: Performed By: #### L [id number] #### LAB [address] [place] [address] Adair Krishna M.D. [id number] Erythrocyte distribution width (RBC) [Ratio] 13.0 % Normal 11.6-14.8 [facility] Comment on above: Performed By: #### L [id number] #### LAB [address] [address] Adair Krishna M.D. [id number] Hematocrit (Bld) [Volume fraction] 35.1 % Low 41.0-53.0 [facility] Comment on above: Performed By: #### L [id number] #### LAB [address] [place] [address] Adair Krishna M.D. [id number] Hemoglobin (Bld) [Mass/Vol] 11.5 g/dL Low 13.5-17.5 [facility] Comment on above: Performed By: #### L [id number] #### LAB [address] [address] Adair Krishna M.D. [id number] IG ABSOLUTE 0.12 K/mcL Normal 0.00-0.30 [facility] Comment on above: Performed By: #### L [id number] #### LAB [address] [address] Adair Krishna M.D. [id number] IG PERCENT 1.60 % Normal [facility] Comment on above: Result Comment: The IG parameter is the percentage of metamyelocytes, myelocytes and promyelocytes. An immature granulocyte count (IG) of 1% or more suggests the possibility of infection, an IG count of 3% is very likely related to an infection. Performed By: #### L [id number] #### LAB [address] [address] Adair Krishna M.D. [id number] Lymphocytes (Bld) [#/Vol] 0.81 10*3/uL Low 0.90-4.00 [facility] Comment on above: Performed By: #### L [id number] #### LAB [address] [address] Adair Krishna M.D. [id number] Lymphocytes/100 WBC (Bld) 10.9 % Normal [facility] Comment on above: Performed By: #### L [id number] #### LAB [address] [address] Adair Krishna M.D. [id number] MCH (RBC) [Entitic mass] 36.1 pg High 26.0-34.0 [facility] Comment on above: Performed By: #### L [id number] #### LAB [address] [address] Adair Krishna M.D. [id number] MCV (RBC) [Entitic vol] 110.0 fL High 80.0-100.0 [facility] Comment on above: Performed By: #### L [id number] #### LAB [address] [place] [address] Adair Krishna M.D. [id number] MEAN CORPUSCULAR HEMOGLOBIN CONC 32.8 g/dL Normal 31.0-37.0 [facility] Comment on above: Performed By: #### L [id number] #### LAB [address] [address] Adair Krishna M.D. [id number] Monocytes (Bld) [#/Vol] 0.64 10*3/uL Normal 0.30-0.90 [facility] Comment on above: Performed By: #### L [id number] #### LAB [address] [address] Adair Krishna M.D. [id number] Monocytes/100 WBC (Bld) 8.6 % Normal [facility] Comment on above: Performed By: #### L [id number] #### LAB [address] [address] Adair Krishna M.D. [id number] NEUTROPHILS ABSOLUTE COUNT 5.69 K/mcL Normal 1.70-7.00 [facility] Comment on above: Performed By: #### L [id number] #### LAB [address] [address] Adair Krishna M.D. [id number] Neutrophils/100 WBC (Bld) 76.9 % Normal [facility] Comment on above: Performed By: #### L [id number] #### LAB [address] [address] Adair Krishna M.D. [id number] Platelet mean volume (Bld) [Entitic vol] 9.8 fL Normal 9.4-12.4 [facility] Comment on above: Performed By: #### L [id number] #### LAB [address] [address] Adair Krishna M.D. [id number] Platelets (Bld) [#/Vol] 166 10*3/uL Normal 150-400 [facility] Comment on above: Performed By: #### L [id number] #### LAB [address] [place] [address] Adair Krishna M.D. [id number] RBC (Bld) [#/Vol] 3.19 10*6/uL Low 4.50-5.90 [facility] Comment on above: Performed By: #### L [id number] #### LAB [address] [place], [place] [address] Adair Krishna M.D. [id number] WBC (Bld) [#/Vol] 7.41 10*3/uL Normal 4.50-11.00 [facility] Comment on above: Performed By: #### L [id number] #### LAB [address] [place], [place] [address] Adair Krishna M.D. [id number] NT PRO BNPon 10-27-2023 Natriuretic peptide.B prohormone N-Terminal [Mass/Vol] 85 pg/mL 0 - 300 pg/mL [facility] Natriuretic peptide B (Bld) [Mass/Vol] 85 pg/mL Normal 0-300 [facility] Comment on above: Order Comment: Pride Study Cut-offs Rule In: < /= 50 Years >450 pg/mL 51 Years - 75 Years >900 pg/mL 76 Years - 99 Years >1800 pg/mL Rule Out: All patients <300 pg/mL Performed By: #### 4 [id number] #### LAB [address] [place], [place] [address] Adair Krishna M.D. [id number] Natriuretic peptide.B prohor fernanda N-Terminal [Mass/Vol]on 10-27-2023 Interpretation and review of laboratory results Normal [facility] Pride Study Cut-offs Rule In: < /= 50 Years >450 pg/mL 51 Years - 75 Years >900 pg/mL 76 Years - 99 Years >1800 pg/mL Rule Out: All patients <300 pg/mL [facility] XR CHEST AP/PA AND LATon XR CHEST AP/PA AND LAT EXAMINATION: XR CHEST AP/PA AND LAT HISTORY: ORDERING SYSTEM PROVIDED HISTORY: dyspnea, TECHNOLOGIST PROVIDED HISTORY: Illness/Other Reason for exam: dyspnea, Mitral valve insufficiency, unspecified etiology Cancer History: yes Surgery, RadiationHistory: unk Encounter Type: Initial Additional signs and symptoms: pt states SOB x 2weeks, former smoker, denies chest pain ORDERING SYSTEM PROVIDED DIAGNOSIS CODES: I34.0 Mitral valve insufficiency, unspecified etiology COMPARISON: 12/28/2022 FINDINGS: Two-view chest x-ray. No pneumothorax, pleural effusion or focal airspace consolidation. Cardiomegaly. Mild diffuse pulmonary vascular congestion, progressed from prior. Bony thorax is unremarkable. IMPRESSION: Mild CHF. Workstation ID: [id number] Dictated by: FLORENTINO GANDARA on MonOct 27, 2023 2:01:23 PM EDT Transcribed by: FLORENTINO GANDARA on MonOct 27, 2023 2:01:23 PM EDT Finalized by: FLORENTINO GANDARA on MonOct 27, 2023 2:01:23 PM EDT [facility] Comment on above: Order Comment: Injur y/Trauma or Illness?:Illness/Other How long have you had these symptoms (acute/chronic)?:Acute Reason for exam?:dyspnea, Mitral valve insufficiency, unspecified etiology History of cancer?:yes Surgeries, chemotherapy, or radiation?:unk Type of Exam?:Initial Additional signs and symptoms?:pt states SOB x 2weeks, former smoker, denies chest pain XR Chest PA and Lateral and AP lateral-decubituson 10-27-2023 Mild CHF. Workstation ID: [id number] Truckily EXAMINATION: XR CHEST AP/PA AND LAT HISTORY: ORDERING SYSTEM PROVIDED HISTORY: dyspnea, TECHNOLOGIST PROVIDED HISTORY: Illness/Other Reason for exam: dyspnea, Mitral valve insufficiency, unspecified etiology Cancer History: yes Surgery, RadiationHistory: unk Encounter Type: Initial Additional signs and symptoms: pt states SOB x 2weeks, former smoker, denies chest pain ORDERING SYSTEM PROVIDED DIAGNOSIS CODES: I34.0 Mitral valve insufficiency, unspecified etiology COMPARISON: 12/28/2022 FINDINGS: Two-view chest x-ray. No pneumothorax, pleural effusion or focal airspace consolidation. Cardiomegaly. Mild diffuse pulmonary vascular congestion, progressed from prior. Bony thorax is unremarkable. [employer] Florentino Gandara MD - 10/27/2023 EXAMINATION: XR CHEST AP/PA AND LAT HISTORY: ORDERING SYSTEM PROVIDED HISTORY: dyspnea, TECHNOLOGIST PROVIDED HISTORY: Illness/Other Reason for exam: dyspnea, Mitral valve insufficiency, unspecified etiology Cancer History: yes Surgery, RadiationHistory: unk Encounter Type: Initial Additional signs and symptoms: pt states SOB x 2weeks, former smoker, denies chest pain ORDERING SYSTEM PROVIDED DIAGNOSIS CODES: I34.0 Mitral valve insufficiency, unspecified etiology COMPARISON: 12/28/2022 FINDINGS: Two-view chest x-ray. No pneumothorax, pleural effusion or focal airspace consolidation. Cardiomegaly. Mild diffuse pulmonary vascular congestion, progressed from prior. Bony thorax is unremarkable. IMPRESSION: Mild CHF. Workstation ID: [id number] [facility] Radiology Study observation (narrative) [facility] XR Chest PA and Lateral and AP lateral-decubitusOrdered By: Florentino Gandara on 10-27-2023 [facility] Work Phone: Suture Removalon 07-13-2023 Sahra Holliday MD 07/13/2023 12:11 PM Suture Removal Date/Time: 07/13/2023 12:06 PM Performed by: Sahra Holliday MD Authorized by: Sahra Holliday MD Consent: Consent obtained: Verbal Consent given by: Patient Risks, benefits, and alternatives were discussed: yes Risks discussed: Bleeding, pain and wound separation Alternatives discussed: Delayed treatment Sondheimer protocol: Patient identity confirmed: Verbally with patient Location: Location: Lower extremity Lower extremity location: Leg Leg location: L lower leg Procedure details: Wound appearance: No signs of infection, good wound healing and clean Number of naomi removed: 12 Post-procedure details: Post-removal: Dressing applied Procedure completion: Tolerated well, no immediate complications [facility] Work Phone: [facility] Work Phone: ED Prov Noteon 06-28-2023 ED Prov Note HPI: 06/28/2023, Time: @NOWNR@ Annie Matthews Kvng is a 72 y.o. male presenting to the ED for laceration to the left leg after 8 foot gait fell onto his leg, beginning earlier today ago. The complaint has been constant, moderate in severity, and worsened by changing position. Bleeding nearly controlled. No numbness of the leg and no foreign body sensation ROS: Pertinent positives and negatives are stated within HPI, all other systems reviewed and are negative. PAST HISTORY Past Medical History: @[facility]@ Past Surgical History: has a past surgical history that includes Colectomy; rotator cuff surgery (Bilateral); tonsillectomy; Cardiac catheterization (Bilateral, 03/24/2023); and Cardiac Catheterization (N/A, 03/24/2023). Social History: reports that he has quit smoking. His smoking use included cigarettes. He smoked an average of 2 packs per day. He has never used smokeless tobacco. He reports that he does not currently use alcohol. He reports that he does not use drugs. Family History: family history includes COPD in his sister; Cancer in his brother; Heart attack in his son; Heart disease in his mother and son. The patient's home medications have been reviewed. Allergies: Patient has no known allergies. RESULTS All laboratory and radiology results have been personally reviewed by myself LABS: Results for orders placed or performed during the hospital encounter of 03/24/23 Basic Metabolic Panel Result Value Ref Range Sodium 140 135 - 145 mmol/L Potassium 4.0 3.5 - 5.1 mmol/L Chloride 104 98 - 108 mmol/L Bicarbonate 28 21 - 32 mmol/L Anion Gap 12 10 - 20 mmol/L Glucose 123 (H) 65 - 99 mg/dL BUN 21 8 - 25 mg/dL Creatinine 1.04 0.80 - 1.30 mg/dL eGFR 75 >=60 mL/min/1.73 m2 BUN/Creatinine Ratio 20.2 (H) 10.0 - 20.0 Calcium 9.6 8.4 - 10.2 mg/dL CBC Auto Differential Result Value Ref Range WBC 9.70 4.50 - 11.00 K/mcL RBC 3.37 (L) 4.50 - 5.90 M/mcL Hemoglobin 12.6 (L) 13.5 - 17.5 g/dL Hematocrit 37.7 (L) 41.0 - 53.0 % MCV 111.9 (H) 80.0 - 100.0 fL MCH 37.4 (H) 26.0 - 34.0 pg MCHC 33.4 31.0 - 37.0 g/dL Platelets 188 150 - 400 K/mcL RDW - CV 13.5 11.6 - 14.8 % MPV 9.4 9.4 - 12.4 fL Neutrophils 70.9 % Lymphocytes 19.8 % Monocytes 7.4 % Eosinophils 0.2 % Basophils 0.3 % IG Percent 1.40 % Neutrophils Abs 6.87 1.70 - 7.00 K/mcL Lymphocytes Abs 1.92 0.90 - 4.00 K/mcL Monocytes Abs 0.72 0.30 - 0.90 K/mcL Eosinophils Abs 0.02 0.00 - 0.50 K/mcL Basophils Abs 0.03 0.00 - 0.30 K/mcL IG Absolute 0.14 0.00 - 0.30 K/mcL Nucleated RBC 0.0 % Nucleated RBC Abs 0.00 0.00 - 0.00 K/mcL RADIOLOGY: Interpreted by Radiologist. No orders to display NURSING NOTES AND VITALS REVIEWED - The nursing notes within the ED encounter and vital signs as below have been reviewed. BP (!) 156/91 (BP Location: Left arm, Patient Position: Sitting) Pulse 89 Temp 97.5 degrees F (36.4 degrees C) (Oral) Resp 18 Ht 5' 8 Wt 96.2 kg (212 lb) SpO2 91% BMI 32.23 kg/m Oxygen Saturation Interpretation: Normal P HYSICAL EXAM Constitutional/General: Alert and oriented x3, well appearing, non toxic in NAD Head: NC/AT Eyes: PERRL, EOMI Mouth: Oropharynx clear, handling secretions, no trismus Neck: Supple, full ROM, no meningeal signs Pulmonary: Lungs clear to auscultation bilaterally, no wheezes, rales, or rhonchi. Not in respiratory distress Cardiovascular: Regular rate and rhythm, no murmurs, gallops, or rubs. 2+ distal pulses Abdomen: Soft, non tender, non distended, Extremities: Moves all extremities x 4. Warm and well perfused, left le cm long laceration and about point 5 cm wide, no foreign body, sensation intact Skin: warm and dry without rash Neurologic: GCS 15, Psych: Normal Affect ---- ED COURSE/MEDICAL DECISION MAKING -- Medications cephALEXin (KEFLEX) capsule 500 mg (has no administration in time range) Medical Decision Making: Wound cleaned thoroughly with Betadine and normal saline solution and irrigated with 250 mL of normal saline, reapproximated with #12 naomi with no complications and procedure tolerated well Counseling: The emergency provider has spoken with the patient and discussed today's results, in addition to providing specific details for the plan of care and counseling regarding the diagnosis and prognosis. Questions are answered at this time and they are agreeable with the plan. ------- IMPRESSION AND DISPOSITION ------- IMPRESSION 1. Laceration of left lower extremity, initial encou (more content not included)... Normal [facility] Basic metabolic 2000 panelon 05-15-2023 Anion gap [Moles/Vol] 13 mmol/L Normal 10-20 [facility] Comment on above: Performed By: #### 2 4321-2 #### FLORI PIKE ([id number]) [facility] ([facility]) [address] [place] [address] Calcium [Mass/Vol] 8.8 mg/dL Normal 8.6-10.3 [facility] Comment on above: Performed By: #### 2 4321-2 #### FLORI PIKE ([id number]) [facility] ([facility]) [address] [place] [address] Chloride [Moles/Vol] 101 mmol/L Normal 98-107 [facility] Comment on above: Performed By: #### 2 4321-2 #### FLORI PIKE ([id number]) [facility] ([facility]) [address] [place] [address] CO2 [Moles/Vol] 30 mmol/L Normal 21-32 [facility] Comment on above: Performed By: #### 2 4321-2 #### FLORI PIKE ([id number]) [facility] ([facility]) [address] [place] [address]65[address] Creatinine [Mass/Vol] 1.16 mg/dL Normal 0.50-1.30 [facility] Comment on above: Performed By: #### 2 4321-2 #### FLORI PIKE ([id number]) [facility] ([facility]) [address] [place] [address]7912 Glomerular filtration rate/1.73 sq M.predicted 66 mL/min/1.73m*2 Normal >60 [facility] Comment on above: Result Comment: Calc ulations of estimated GFR are performed using the 2020 CKD-EPI Study Refit equation without the race variable for the IDMS-Traceable creatinine methods. https://jasn.asnjournals.org/content/early/ASN.95785531 88 Performed By: #### 2 4321-2 #### FLORI PIKE ([id number]) [facility] ([facility]) [address] [place] [address] Glucose [Mass/Vol] 111 mg/dL High 74-99 [facility] Comment on above: Performed By: #### 2 4321-2 #### FLORI PIKE ([id number]) [facility] ([facility]) [address] [place] [address]75 Potassium [Moles/Vol] 3.5 mmol/L Normal 3.5-5.3 [facility] Comment on above: Performed By: #### 2 4321-2 #### FLORI PIKE ([id number]) [facility] ([facility]) [address] [place] [address] 50007 Sodium [Moles/Vol] 140 mmol/L Normal 136-145 [facility] Comment on above: Performed By: #### 2 4321-2 #### FLORI PIKE ([id number]) [facility] ([facility]) [address] [place] [address] Urea nitrogen [Mass/Vol] 23 mg/dL Normal 6-23 [facility] Comment on above: Performed By: #### 2 4321-2 #### FLORI PIKE ([id number]) [facility] ([facility]) [address] [place] [address] Acetaminophenon 04-19-2023 Acetaminophen [Mass/Vol] 10.8 ug/mL Normal 10.0-30.0 [facility] Comment on above: Performed By: #### 3 298-7 #### FLORI PIKE ([id number]) [facility] ([facility]) [address] [place] [address] Comprehensive metabolic 2000 panelon 04-19-2023 Albumin BCP dye [Mass/Vol] 3.9 g/dL Normal 3.4-5.0 [facility] Comment on above: Performed By: #### 2 4323-8 #### FLORI PIKE ([id number]) [facility] ([facility]) [address] [place] [address]80 ALP [Catalytic activity/Vol] 41 U/L Normal 33-136 [facility] Comment on above: Performed By: #### 2 4323-8 #### FLORI PIKE ([id number]) [facility] ([facility]) [address] [place] [address] ALT With P-5'-P [Catalytic activity/Vol] 30 U/L Normal 10-52 [facility] Comment on above: Result Comment: Kelly ents treated with Sulfasalazine may generate falsely decreased results for ALT. Performed By: #### 2 4323-8 #### FLORI PIKE ([id number]) [facility] ([facility]) [address] [place] [address] Anion gap [Moles/Vol] 15 mmol/L Normal 10-20 [facility] Comment on above: Performed By: #### 2 4323-8 #### FLORI PIKE ([id number]) [facility] ([facility]) [address] [place] [address] AST With P-5'-P [Catalytic activity/Vol] 17 U/L Normal 9-39 [facility] Comment on above: Performed By: #### 2 4323-8 #### FLORI PIKE ([id number]) [facility] ([facility]) [address] [place] [address] Bilirubin [Mass/Vol] 0.4 mg/dL Normal 0.0-1.2 [facility] Comment on above: Performed By: #### 2 4323-8 #### FLORI PIKE ([id number]) [facility] ([facility]) [address] [place] [address] Calcium [Mass/Vol] 9.2 mg/dL Normal 8.6-10.3 [facility] Comment on above: Performed By: #### 2 4323-8 #### FLORI PIKE ([id number]) [facility] ([facility]) [address] [place] [address] Chloride [Moles/Vol] 105 mmol/L Normal 98-107 [facility] Comment on above: Performed By: #### 2 4323-8 #### FLORI PIKE ([id number]) [facility] ([facility]) [address] [place] [address] CO2 [Moles/Vol] 25 mmol/L Normal 21-32 [facility] Comment on above: Performed By: #### 2 4323-8 #### FLORI PIKE ([id number]) [facility] ([facility]) [address] [place] [address] Creatinine [Mass/Vol] 0.98 mg/dL Normal 0.50-1.30 [facility] Comment on above: Performed By: #### 2 4323-8 #### FLORI PIKE ([id number]) [facility] ([facility]) [address] [place] [address] 24597 Glomerular filtration rate/1.73 sq M.predicted 81 mL/min/1.73m*2 Normal >60 [facility] Comment on above: Result Comment: Calc ulations of estimated GFR are performed using the 2020 CKD-EPI Study Refit equation without the race variable for the IDMS-Traceable creatinine methods. https://jasn.asnjournals.org/content//ASN.70787384 88 Performed By: #### 2 4323-8 #### FLORI PIKE ([id number]) [facility] ([facility]) [address] [place] [address] 60493 Glucose [Mass/Vol] 117 mg/dL High 74-99 [facility] Comment on above: Performed By: #### 2 432-8 #### FLORI PIKE ([id number]) [facility] ([facility]) [address] [place] [address]64[address] Potassium [Moles/Vol] 3.3 mmol/L Low 3.5-5.3 [facility] Comment on above: Performed By: #### 2 4323-8 #### FLORI PIKE ([id number]) [facility] ([facility]) [address] [place] [address] 32675 Protein [Mass/Vol] 6.4 g/dL Normal 6.4-8.2 [facility] Comment on above: Performed By: #### 2 4323-8 #### FLORI PIKE ([id number]) [facility] ([facility]) [address] [place] [address] Sodium [Moles/Vol] 142 mmol/L Normal 136-145 [facility] Comment on above: Performed By: #### 2 4323-8 #### FLORI PIKE ([id number]) [facility] ([facility]) [address] [place] [address] Urea nitrogen [Mass/Vol] 31 mg/dL High 6-23 [facility] Comment on above: Performed By: #### 2 4323-8 #### FLORI PIKE ([id number]) [facility] ([facility]) [facility] [place] [address] HbA1c (Bld) [Mass fraction]o n 04-19-2023 Average glucose Estimated from glycated hemoglobin (Bld) [Mass/Vol] 177 mg/dL Normal Not Established [facility] Comment on above: Order Comment: Diagn osis of Diabetes-Adults Non-Diabetic: < or = 5.6% Increased risk for developing diabetes: 5.7-6.4% Diagnostic of diabetes: > or = 6.5% Monitoring of Diabetes Age (y)....................... Therapeutic Goal (%) Adults: >18.........................<7.0 Pediatrics: 13-18...................<7.5 Pediatrics: 7-12....................<8.0 Pediatrics: 0-6..................... 7.5-8.5 [place] [employer]. Diabetes Care 33(S1), Feb 2009 Performed By: #### 4 548-4 #### FLORI PIKE ([id number]) [facility] ([facility]) [address] [place] [address] 30068 Hemoglobin A1c/Hemoglobin.to justin 04-19-2023 HbA1c (Bld) [Mass fraction] 7.8 % High see below [facility] Comment on above: Order Comment: Diagn osis of Diabetes-Adults Non-Diabetic: < or = 5.6% Increased risk for developing diabetes: 5.7-6.4% Diagnostic of diabetes: > or = 6.5% Monitoring of Diabetes Age (y)....................... Therapeutic Goal (%) Adults: >18.........................<7.0 Pediatrics: 13-18...................<7.5 Pediatrics: 7-12....................<8.0 Pediatrics: 0-6..................... 7.5-8.5 [place] [employer]. Diabetes Care 33(S1), Feb 2009 Performed By: #### 4 548-4 #### RUBY SHAHZAD ([id number]) [facility] ([facility]) [address] [place] [address] LEFT AND RIGHT HEART CATHon 03-24-2023 LEFT AND RIGHT HEART CATH This is a summary report. The complete report is available in the patient's medical record. If you cannot access the medical record, please contact the sending organization for a detailed fax or copy. Impression: Non obstructive coronary artery disease Mild pre-capillary pulmonary hypertension Normal right heart filling pressures Normal left heart filling pressures Normal cardiac output and cardiac index Recommendations: Continue medical therapy Follow-up with primary care physician Evaluate for non-cardiac etiologies Continue to follow with pulmonology for his ILD Coronary Findings Diagnostic Dominance: Right Left Main: The vessel was visualized by angiography, is moderate in size and is angiographically normal. Left Anterior Descending: The vessel was visualized by angiography. There is mild diffuse disease throughout the vessel. Left Circumflex: The vessel was visualized by angiography. There is mild diffuse disease throughout the vessel. Right Coronary Artery: The vessel was visualized by angiography. There is mild diffuse disease throughout the vessel. Intervention No interventions have been documented. Right Heart Catheterization The right heart filling pressure was normal. The pulmonary capillary wedge pressure was normal. The mean pulmonary arterial pressure was elevated. Normal cardiac output/index by Mlyes. The pulmonary artery pressure index was normal. Hemodynamic Findings: Left Heart: Aortic Opening Pressure: 210/133/159 mmHg Aortic Closing Pressure: 165/97/120 mmHg LV Pressure: 163 mmHg, LV end diastolic pressure 18 mmHg Systolic LV pressure in LV prior to pullback: 163 mmHg Systolic pressure in aorta after pullback: 163 mmHg, aortic valve gradient not significant Right Heart Catheterization: Right Atrial Pressure: A wave 11 mmHg, V wave 10 mmHg, mean RA 5 mmHg Right Ventricular Pressure: 47 mmHg, RV end diastolic pressure 5 mmHg Pulmonary Artery Pressure: 48/17 mmHg, mean PA 22 mmHg Pulmonary Capillary Wedge Pressure: A wave 16 mmHg, V wave 17 mmHg, mean PCWP 11 mmHg Cardiac Output: 5.2 L/min Cardiac Index: 2.5 L/min/m2 PA saturation 60.4 % RA saturation 60.2 % AO saturation 87.0 % SVR 1633 dynes*sec/cm5 PVR 167 dynes*sec/cm5 . Normal [facility] ECHOCARDIOGRAM TRANSESOPHAGE Christine 03-20-2023 ECHOCARDIOGRAM TRANSESOPHAGEAL Patient Info Name: ANNIE CALDERON Age: 72 years : 1950 Gender: Male Ht: 173 cm Wt: 96 kg BSA: 2.17 m2 HR: 92 bpm BP: 120 / 78 mmHg Heart Rhythm: Sinus Rhythm Technical Quality: Good Exam Date: 03/20/2023 8:48 AM Patient Status: Outpatient Plasma Processor: Yuki Luther RCDS Exam Type: ECHOCARDIOGRAM TRANSESOPHAGEAL Study Info Indications I34.0 - Nonrheumatic mitral (valve) insufficiency Referring Physician: CARLOS GONZÁLES [id number] BMI: 32.08 kg/m2 Summary 1. Bileaflet mitral valve prolase involving the A2/P2 scallops with flail chordal structure seen on view 47. 2. Mitral valve regurgitant volume by PISA is mild to moderate, 31 ml. Mitral valve effective regurgitant orifice by PISA is 0.2 cm2 . MR VCA .2 cm2 on 3 d. VCD .2 cm. 3. Left ventricular systolic function is normal with an estimated ejection fraction of 65%. History/Risk Factors Hypertension: Yes Chronic Lung Disease: Yes Tobacco Use: Former Family History: Coronary Artery Disease History/Risk Factors Interstitial lung disease on home O2. Medications See anesthesia note. Procedure Details The patient arrived in a fasting state after obtaining informed consent. Timeout performed. The transesophageal probe was passed into the posterior pharynx, mid-esophagus, distal esophagus. Imaging was performed at multiple levels. The patient tolerated the procedure well and there were no complications. The patient was transferred out of the examination area in satisfactory condition. 3D images were acquired. 9ml agitated saline administered. H and p reviewed and pt examined-I concur with recent H and P. No changes. it is papropriate to proceed with the procedure. risks and benefits have been reviewed and infromed consent obtained. Left Ventricle Left ventricular chamber dimension is normal. Left ventricular systolic function is normal with an estimated ejection fraction of 65%. Mitral valve doppler does not suggest restrictive physiology. Right Ventricle Right ventricular size and systolic function are normal. Procedure(s): Complete two-dimensional, color flow and Doppler transesophageal study is performed. Left Atria Left atrial chamber dimension is moderately enlarged. Right Atria Right atrium was not well visualized. Atrial Septum There is no right to left shunting on saline contrast injection. No obvious interatrial shunt is evident on color flow Doppler. Aortic Valve The aortic valve is trileaflet. There is no aortic valve regurgitation. There is no aortic valve stenosis. The aortic valve is trileaflet. There is no aortic valve stenosis. There is no aortic valve regurgitation. Pulmonic Valve The pulmonic valve is normal. There is no pulmonic valve stenosis. There is no pulmonic regurgitation. Mitral Valve Mitral valve regurgitant volume by PISA is mild to moderate, 31 ml. Mitral valve effective regurgitant orifice by PISA is 0.2 cm2 . MR VCA .2 cm2 on 3 d. VCD .2 cm. Tricuspid Valve There is no pulmonary hypertension, estimated right ventricle systolic pressure is 34 mmHg. The tricuspid valve leaflets are normal. There is no significant tricuspid valve stenosis. There is trace tricuspid valve regurgitation. There is no pulmonary hypertension, estimated right ventricle systolic pressure is 34 mmHg. Pulmonary Veins Doppler velocity profiles are normal indicating no obstruction of flow, normal left-sided filling pressures. Pericardium/Pleural There is a trivial pericardial effusion. The pericardium appears normal. There is a trivial pericardial effusion. Aorta Normal aortic root appearance and dimension. No atheromatous plaque was detected in the visualized segment(s) of the aorta. The aortic root is normal measuring 3.5 cm with an index of 1.6 cm/m2. Mitral Valve Name Value Normal MV Regurgitation Doppler MR VTI 163 cm MR PISA Radius 0.7 cm MR PISA Alias Velocity 33 cm/s MR ERO (PISA) 0.19 cm2 MR Volume (PISA) 31 ml MV Diastolic Function MV E Peak Velocity 0.61 m/s MV A Peak Velocity 0.54 m/s MV E/A 1.1 Tricuspid Valve Name Value Normal TV Regurgitation Doppler TR Peak Velocity 2.43 m/s TR Peak Gradient 24 mmHg Estimated PAP/RSVP PA Systolic Pressure 34 mmHg <=36 Aorta --------- (more content not included)... Normal [facility] Basic metabolic 2000 panelon 02-28-2023 Anion gap [Moles/Vol] 12 mmol/L 10 - 20 mmol/L [facility] Calcium [Mass/Vol] 8.7 mg/dL 8.4 - 10. 2 mg/dL [facility] Chloride [Moles/Vol] 105 mmol/L 98 - 108 mmol/L [facility] Creatinine [Mass/Vol] 1.10 mg/dL 0.80 - 1.30 mg/dL [facility] GFR/1.73 sq M.predicted CKD-EPI (S/P/Bld) [Vol rate/Area] 70 - PINF [facility] Comment on above: Estimated GFR was ca lculated using the 2020 CKD-EPI creatinine equation. Glucose [Mass/Vol] 181 mg/dL High 65 - 99 mg/dL [facility] HCO3 [Moles/Vol] 25 mmol/L 21 - 32 mmol/L [facility] Interpretation and review of laboratory results Abnormal [facility] Potassium [Moles/Vol] 3.8 mmol/L 3.5 - 5.1 mmol/L [facility] Sodium [Moles/Vol] 138 mmol/L 135 - 145 mmol/L [facility] Urea nitrogen [Mass/Vol] 24 mg/dL 8 - 25 mg/dL [facility] Urea nitrogen/Creatinine [Mass ratio] 21.8 mg/mg High 10.0 - 20.0 [facility] has implemented the eGFR calculation approach that does not have a coefficient for race that conforms to the NKF-ASN Task Force Recommendations. [facility] ECG 12 leadon 02-28-2023 Atrial Rate [facility] P [place] [facility] P-R Interval [facility] Q-T Interval [facility] Q-T Interval (corrected) [facility] QRS Duration [facility] QTC Calculation (Bezet) [facility] R [place] [facility] T [place] [facility] Ventricular Rate [facility] th [facility] ECHOCARDIOGRAM LIMITEDon ECHOCARDIOGRAM LIMITED Patient Info Name: ANNIE CALDERON Age: 72 years : 1950 Gender: Male Ht: 173 cm Wt: 93 kg BSA: 2.14 m2 HR: 94 bpm BP: 169 / 98 mmHg Heart Rhythm: Sinus Rhythm Technical Quality: Fair Exam Date: 02/22/2023 2:21 PM Patient Status: Outpatient Plasma Processor: Ryann Leonardo, MICHAEL, RVT Exam Type: ECHOCARDIOGRAM LIMITED Study Info Indications I34.0 - Nonrheumatic mitral (valve) insufficiency Referring Physician: CARLOS GONZÁLES [id number] BMI: 31.17 kg/m2 Summary 1. Limited two-dimensional, Doppler interrogation and color flow transthoracic echocardiogram is performed. 2. RV size and function not well assessed on this limited imaging. 3. Grossly normal LV size and function based on limited imaging. 4. Mitral valve leaflets not well-visualized. Do not appear thickened or prolapsed. ERO 0.3 cm2, regurgitant volume 52 cc. Consistent with at least moderate MR. No pulmonary vein Doppler obtained. 5. No tricuspid Doppler obtained therefore RVSP unable to be estimate. History/Risk Factors Hypertension: Yes Dyslipidemia: No Myocardial Infarction (IL): No Diabetes Mellitus: No COPD: No Tobacco Use: Former Family History: Coronary Artery Disease History/Risk Factors asthma, murmur, PHTN. Prior Interventions Pacemaker: No PCI: No CABG: No ICD: No Procedure(s): Limited two-dimensional, Doppler interrogation and color flow transthoracic echocardiogram is performed. Left Ventricle Grossly normal LV size and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 0.9 % Normal 0.0 - 2.0 [facility] Comment on above: Performed By: #### C BCDF #### [address] [address] Eosinophils (Bld) [#/Vol] 0.10 10*3/uL Normal 0.00 - 0.40 [facility] Comment on above: Performed By: #### C BCDF #### [address] [address] Eosinophils/100 WBC (Bld) 2.8 % Normal 0.0 - 6.0 [facility] Comment on above: Performed By: #### C BCDF #### [address] [address] Erythrocyte distribution width (RBC) [Ratio] 12.5 % Normal 11.5 - 14.5 [facility] Comment on above: Performed By: #### C BCDF #### [address] [address] Hematocrit (Bld) [Volume fraction] 39.7 % Low 41.0 - 52.0 [facility] Comment on above: Performed By: #### C BCDF #### [address] [address] Hemoglobin (Bld) [Mass/Vol] 14.1 g/dL Normal 13.5 - 17.5 [facility] Comment on above: Performed By: #### C BCDF #### [address] [address] Lymphocytes (Bld) [#/Vol] 1.40 10*3/uL Normal 0.80 - 3.00 [facility] Comment on above: Performed By: #### C BCDF #### [address] [address] Lymphocytes/100 WBC (Bld) 32.0 % Normal 13.0 - 44.0 [facility] Comment on above: Performed By: #### C BCDF #### [address] [address] MCHC (RBC) [Mass/Vol] 35.6 g/dL Normal 32.0 - 36.0 [facility] Comment on above: Performed By: #### C BCDF #### [address] [address] MCV (RBC) [Entitic vol] 106 fL High 80 - 100 [facility] Comment on above: Performed By: #### C BCDF #### [address] [address] Monocytes (Bld) [#/Vol] 0.40 10*3/uL Normal 0.05 - 0.80 [facility] Comment on above: Performed By: #### C BCDF #### [address] [address] Monocytes/100 WBC (Bld) 9.7 % Normal 2.0 - 10.0 [facility] Comment on above: Performed By: #### C BCDF #### [address] [address] Neutrophils (Bld) [#/Vol] 2.30 10*3/uL Normal 1.60 - 5.50 [facility] Comment on above: Result Comment: Perc ent differential counts (%) should be interpreted in the context of the absolute cell counts (cells/L). Performed By: #### C BCDF #### [address] [address] Neutrophils/100 WBC (Bld) 54.6 % Normal 40.0 - 80.0 [facility] Comment on above: Performed By: #### C BCDF #### [address] [address] Platelets (Bld) [#/Vol] 191 10*3/uL Normal 150 - 450 [facility] Comment on above: Performed By: #### C BCDF #### [address] [address] RBC 3.75 x10E12/L Low 4.50 - 5.90 [facility] Comment on above: Performed By: #### C BCDF #### [address] [address] WBC (Bld) [#/Vol] 4.2 10*3/uL Low 4.4 - 11.3 [facility] Comment on above: Performed By: #### C BCDF #### [address] [address] COMPREHENSIVE PANELon 2021 Albumin [Mass/Vol] 4.3 g/dL Normal 3.4 - 5.0 [facility] Comment on above: Performed By: #### C MP #### [address] [address] ALP [Catalytic activity/Vol] 39 U/L Normal 33 - 136 [facility] Comment on above: Performed By: #### C MP #### [address] [address] ALT [Catalytic activity/Vol] 22 U/L Normal 10 - 52 [facility] Comment on above: Result Comment: Kelly ents treated with Sulfasalazine may generate falsely decreased results for ALT. Performed By: #### C MP #### [address] [address] Anion gap [Moles/Vol] 11 mmol/L Normal 10 - 20 [facility] Comment on above: Performed By: #### C MP #### [address] [address] AST [Catalytic activity/Vol] 22 U/L Normal 9 - 39 [facility] Comment on above: Performed By: #### C MP #### [address] [address] Bilirubin [Mass/Vol] 0.8 mg/dL Normal 0.0 - 1.2 [facility] Comment on above: Performed By: #### C MP #### [address] [address] Calcium [Mass/Vol] 9.3 mg/dL Normal 8.6 - 10.3 [facility] Comment on above: Performed By: #### C MP #### [address] [address] Chloride [Moles/Vol] 105 mmol/L Normal 98 - 107 [facility] Comment on above: Performed By: #### C MP #### [address] [address] Creatinine [Mass/Vol] 0.95 mg/dL Normal 0.50 - 1.30 [facility] Comment on above: Performed By: #### C MP #### [address] [address] GFR/1.73 sq M.predicted among non-blacks MDRD (S/P/Bld) [Vol rate/Area] 85 mL/min/{1.73_m2} Normal >90 [facility] Comment on above: Result Comment: CALC ULATIONS OF ESTIMATED GFR ARE PERFORMED USING THE 2020 CKD-EPI STUDY REFIT EQUATION WITHOUT THE RACE VARIABLE FOR THE IDMS-TRACEABLE CREATININE METHODS. https://jasn.asnjournals.org/content//ASN.90999529 88 Performed By: #### C MP #### [address] [address] Glucose [Mass/Vol] 117 mg/dL High 74 - 99 [facility] Comment on above: Performed By: #### C MP #### [address] [address] HCO3 (Bld) [Moles/Vol] 27 mmol/L Normal 21 - 32 [facility] Comment on above: Performed By: #### C MP #### [address] [address] Potassium [Moles/Vol] 3.6 mmol/L Normal 3.5 - 5.3 [facility] Comment on above: Performed By: #### C MP #### [address] [address] Protein [Mass/Vol] 7.4 g/dL Normal 6.4 - 8.2 [facility] Comment on above: Performed By: #### C MP #### [address] [address] Sodium [Moles/Vol] 139 mmol/L Normal 136 - 145 [facility] Comment on above: Performed By: #### C MP #### [address] [address] Urea nitrogen [Mass/Vol] 19 mg/dL Normal 6 - 23 [facility] Comment on above: Performed By: #### C MP #### [address] [address] FERRITINon 05-04-2021 FERRITIN 559 ug/L High 20 - 300 [facility] Comment on above: Performed By: #### F ERRI #### [address] [address] HEMOGLOBIN A1Con 05-04-2021 Glucose [Mass/Vol] 120 mg/dL Normal [facility] Comment on above: Performed By: #### H BA1E #### [address] [address] HbA1c (Bld) [Mass fraction] 5.8 % Abnormal [facility] Comment on above: Result Comment: Diag nosis of Diabetes-Adults Non-Diabetic: < or = 5.6% Increased risk for developing diabetes: 5.7-6.4% Diagnostic of diabetes: > or = 6.5% . Monitoring of Diabetes Age (y) Therapeutic Goal (%) Adults: >18 <7.0 Pediatrics: 13-18 <7.5 7-12 <8.0 0- 6 7.5-8.5 [place] [employer]. Diabetes Care 33(S1), Feb 2009. Performed By: #### H BA1E #### [address] [address] IRON + TIBCon 05-04-2021 % SATURATION 48 % High 25 - 45 [facility] Comment on above: Performed By: #### I RONT #### [address] [address] Iron [Mass/Vol] 139 ug/dL Normal 35 - 150 [facility] Comment on above: Performed By: #### I RONT #### [address] [address] TIBC 289 ug/dL Normal 240 - 445 [facility] Comment on above: Performed By: #### I RONT #### [address] [address] LIPID PANEL (CORONARY RISK 2 )on 05-04-2021 Cholesterol [Mass/Vol] 138 mg/dL Normal 0 - 199 [facility] Comment on above: Result Comment: . AGE DESIRABLE BORDERLINE HIGH HIGH 0-19 Y 0 - 169 170 - 199 >/= 200 20-24 Y 0 - 189 190 - 224 >/= 225 >24 Y 0 - 199 200 - 239 >/= 240 All ranges are based on fasting samples. Specific therapeutic targets will vary based on patient-specific cardiac risk. . Pediatric guidelines reference:Pediatrics 2011, 128(S5). Adult guidelines reference: NCEP ATPIII Guidelines, WILIAN 2001, 258:2486-97 . Venipuncture immediately after or during the administration of Metamizole may lead to falsely low results. Testing should be performed immediately prior to Metamizole dosing. Performed By: #### L IPID #### [address] [address] Cholesterol in HDL [Mass/Vol] 36.0 mg/dL Abnormal [facility] Comment on above: Result Comment: . AGE VERY LOW LOW NORMAL HIGH 0-19 Y < 35 < 40 40-45 ---- 20-24 Y ---- < 40 >45 ---- >24 Y ---- < 40 40-60 >60 . Performed By: #### L IPID #### [address] [address] Cholesterol in LDL [Mass/Vol] 68 mg/dL Normal 0 - 99 [facility] Comment on above: Result Comment: . NEAR BORD AGE DESIRABLE OPTIMAL HIGH HIGH VERY HIGH 0-19 Y 0 - 109 --- 110-129 >/= 130 ---- 20-24 Y 0 - 119 --- 120-159 >/= 160 ---- >24 Y 0 - 99 100-129 130-159 160-189 >/=190 . Performed By: #### L IPID #### [address] [address] Cholesterol in VLDL [Mass/Vol] 34 mg/dL Normal 0 - 40 [facility] Comment on above: Performed By: #### L IPID #### [address] [address] Cholesterol.total/C holesterol in HDL [Mass ratio] 3.8 {ratio} Normal [facility] Comment on above: Result Comment: REF VALUES DESIRABLE < 3.4 HIGH RISK > 5.0 Performed By: #### L IPID #### [address] [address] Triglyceride [Mass/Vol] 171 mg/dL High 0 - 149 [facility] Comment on above: Result Comment: . AGE DESIRABLE BORDERLINE HIGH HIGH VERY HIGH 0 D-90 D 19 - 174 ---- ---- ---- 91 D- 9 Y 0 - 74 75 - 99 >/= 100 ---- 10-19 Y 0 - 89 90 - 129 >/= 130 ---- 20-24 Y 0 - 114 115 - 149 >/= 150 ---- >24 Y 0 - 149 150 - 199 200- 499 >/= 500 . Venipuncture immediately after or during the administration of Metamizole may lead to falsely low results. Testing should be performed immediately prior to Metamizole dosing. Performed By: #### L IPID #### [address] [address] MAGNESIUMon 05-04-2021 Magnesium [Mass/Vol] 1.88 mg/dL Normal 1.60 - 2.40 [facility] Comment on above: Performed By: #### M G #### [address] [address] RED CELL MORPHOLOGYon 2021 RBC morphology finding Nom (Bld) SEE BELOW Normal [facility] Comment on above: Performed By: #### M ORP2 #### [address] [address] VITAMIN D, 25-HYDROXYon VITAMIN D, 25-HYDROXY 31 ng/mL Normal [facility] Comment on above: Result Comment: . DEFICIENCY: < 20 NG/ML INSUFFICIENCY: 20-29 NG/ML SUFFICIENCY: 30-100 NG/ML THIS ASSAY ACCURATELY QUANTIFIES THE SUM OF VITAMIN D3, 25-HYDROXY AND VIT D2,25-HYDROXY. Performed By: #### H BA1E #### [address] [address] COMPREHENSIVE PANELon 2020 Albumin [Mass/Vol] 4.0 g/dL Normal 3.4 - 5.0 [facility] Comment on above: Performed By: #### C MP #### [address] [address] ALP [Catalytic activity/Vol] 37 U/L Normal 33 - 136 [facility] Comment on above: Performed By: #### C MP #### [address] [address] ALT [Catalytic activity/Vol] 31 U/L Normal 10 - 52 [facility] Comment on above: Result Comment: Kelly ents treated with Sulfasalazine may generate falsely decreased results for ALT. Performed By: #### C MP #### [address] [address] Anion gap [Moles/Vol] 13 mmol/L Normal 10 - 20 [facility] Comment on above: Performed By: #### C MP #### [address] [address] AST [Catalytic activity/Vol] 28 U/L Normal 9 - 39 [facility] Comment on above: Performed By: #### C MP #### [address] [address] Bilirubin [Mass/Vol] 0.8 mg/dL Normal 0.0 - 1.2 [facility] Comment on above: Performed By: #### C MP #### [address] [address] Calcium [Mass/Vol] 8.9 mg/dL Normal 8.6 - 10.3 [facility] Comment on above: Performed By: #### C MP #### [address] [address] Chloride [Moles/Vol] 105 mmol/L Normal 98 - 107 [facility] Comment on above: Performed By: #### C MP #### [address] [address] Creatinine [Mass/Vol] 0.99 mg/dL Normal 0.50 - 1.30 [facility] Comment on above: Performed By: #### C MP #### [address] [address] GFR- AM. >60 Normal >60 [facility] Comment on above: Result Comment: CALC ULATIONS OF ESTIMATED GFR ARE PERFORMED USING THE MDRD STUDY EQUATION FOR THE IDMS-TRACEABLE CREATININE METHODS. CLIN CHEM 2007;53:766-72 Performed By: #### C MP #### [address] [address] GFR-NON AM. >60 Normal >60 [facility] Comment on above: Performed By: #### C MP #### [address] [address] Glucose [Mass/Vol] 112 mg/dL High 74 - 99 [facility] Comment on above: Performed By: #### C MP #### [address] [address] HCO3 (Bld) [Moles/Vol] 24 mmol/L Normal 21 - 32 [facility] Comment on above: Performed By: #### C MP #### [address] [address] Potassium [Moles/Vol] 3.5 mmol/L Normal 3.5 - 5.3 [facility] Comment on above: Performed By: #### C MP #### [address] [address] Protein [Mass/Vol] 6.8 g/dL Normal 6.4 - 8.2 [facility] Comment on above: Performed By: #### C MP #### [address] [address] Sodium [Moles/Vol] 138 mmol/L Normal 136 - 145 [facility] Comment on above: Performed By: #### C MP #### [address] [address] Urea nitrogen [Mass/Vol] 17 mg/dL Normal 6 - 23 [facility] Comment on above: Performed By: #### C MP #### [address] [address] HEMOGLOBIN A1Con 02-04-2021 Glucose [Mass/Vol] 148 mg/dL Normal [facility] Comment on above: Performed By: #### H BA1E #### [address] [address] HbA1c (Bld) [Mass fraction] 6.8 % Abnormal [facility] Comment on above: Result Comment: Diag nosis of Diabetes-Adults Non-Diabetic: < or = 5.6% Increased risk for developing diabetes: 5.7-6.4% Diagnostic of diabetes: > or = 6.5% . Monitoring of Diabetes Age (y) Therapeutic Goal (%) Adults: >18 <7.0 Pediatrics: 13-18 <7.5 7-12 <8.0 0- 6 7.5-8.5 [place] [employer]. Diabetes Care 33(S1), Feb 2009. Performed By: #### H BA1E #### [address] [address] MAGNESIUMon 02-04-2021 Magnesium [Mass/Vol] 1.70 mg/dL Normal 1.60 - 2.40 [facility] Comment on above: Performed By: #### M G #### [facility] [address] [place] [address] ECHOCARDIOGRAM COMPLETEon Aortic valve area 3.70845 cm [facility] AV mean gradient 4.29998 mmHg [facility] AV peak gradient 6.51736 mmHg [facility] EF 66.7257 % [facility] Patient Info Name: Melissa CALDERON Age: 69 years : 1950 Gender: Male Ht: 173 cm Wt: 97 kg BSA: 2.18 m2 HR: 61 bpm BP: 110 / 69 mmHg Heart Rhythm: Sinus Rhythm Technical Quality: Good Exam Date: 05/29/2020 8:03 AM Patient Status: Inpatient Plasma Processor: Valerio Horta RCDS Exam Type: ECHOCARDIOGRAM COMPLETE Study Info Indications - - Dyspnea R06.00 - Dyspnea, unspecified Referring Physician: DORITA GAONA ; [id number] BMI: 32.39 kg/m2 Summary 1. Left ventricular systolic function is normal with an ejection fraction by Biplane Method of Discs of 67 %. 2. Mild RV enlargement with normal RV function. 3. Impaired LV relaxation. 4. There is moderate mitral valve regurgitation. History/Risk Factors Tobacco Use: Former Procedure(s): Complete two-dimensional, color flow and Doppler transthoracic echocardiogram is performed. Left Ventricle Left ventricular chamber dimension is normal. Left ventricular systolic function is normal with an ejection fraction by Biplane Method of Discs of 67 %. Normal left ventricular mass. Left ventricular segmental wall motion is normal. The left ventricular diastolic function is grade I diastolic dysfunction, consistent with low or normal atrial pressures. Right Ventricle Right ventricular chamber dimension is mildly enlarged. Right ventricular systolic function is normal. Left Atria Left atrial chamber is normal with a left atrial volume index of 25 ml/m2 by BP MOD. Right Atria Right atrial chamber dimension is normal. Aortic Valve The aortic valve is trileaflet. There is no aortic valve stenosis with a peak velocity of 1.5 m/s, mean gradient of 4 mmHg, and aortic valve area of 3.1 cm2. There is no aortic valve regurgitation. Pulmonic Valve The pulmonic valve is normal. There is no pulmonic valve stenosis. There is no pulmonic regurgitation. Mitral Valve The mitral valve has thickened leaflets. There is no mitral valve stenosis. There is moderate mitral valve regurgitation. Tricuspid Valve The tricuspid valve leaflets are normal. There is no significant tricuspid valve stenosis. There is trace tricuspid valve regurgitation. There is borderline pulmonary hypertension, estimated right ventricle systolic pressure is 40 mmHg. Pericardium/Pleural The pericardium appears normal. There is no pericardial effusion. Inferior Vena Cava Normal inferior vena cava with >50% collapse upon inspiration consistent with normal right atrial pressure. Aorta The aortic measurements are indexed to age and body surface area. The aortic root is normal measuring 3.4 cm with an index of 1.6 cm/m2. Left Ventricular Outflow Tract Name Value Normal LVOT 2D LVOT Diameter 2.1 cm LVOT Doppler LVOT Peak Velocity 1.1 m/s LVOT Peak Gradient 5 mmHg LVOT Mean Gradient 3 mmHg LVOT VTI 25 cm LVOT VTI/AV VTI Ratio 0.9 LVOT Stroke Volume 90 ml LVOT Stroke Index 41.25 ml/m2 LVOT CO 7.5 l/min LVOT CI 3.4 L/min/m2 Pulmonic Valve Name Value Normal PV Doppler PV Peak Velocity 1.13 m/s PV Peak Gradient 5 mmHg Mitral Valve Name Value Normal MV Doppler MV Peak Velocity 1.23 m/s MV Peak Gradient 6 mmHg MV Mean Gradient 2 mmHg MV VTI 41 cm MV Decel [place] 298 cm/s2 MV PHT 88 ms MV Area (PHT) 2.5 cm2 4.0-5.0 MV Area (Cont Eq VTI) 2.2 cm2 MV Area Index (Cont Eq VTI) 1.00 cm2/m2 MV Regurgitation Doppler MR VTI 207 cm MR PISA Radius 1.0 cm MR PISA Alias Velocity 31 cm/s MR ERO (PISA) 0.22 cm2 MR Volume (PISA) 47 ml MV Diastolic Function MV E Peak Velocity 1 m/s MV A Peak Velocity 1 m/s MV E/A 0.8 MV Decel Time 303 ms MV Annular TDI MV Septal e' Velocity 4.6 cm/s >=8.0 MV E/e' (Septal) 19.6 <=8.0 MV Lateral e' Velocity 5.0 cm/s >=10.0 MV E/e' (Lateral) 18.0 <=8.0 MV e' Average 4.81 MV E/e' (Average) 18.8 Tricuspid Valve Name Value Normal TV Regurgitation Doppler TR Peak Velocity 3.03 m/s TR Peak Gradient 31 mmHg Estimated PAP/RSVP RA Pressure 3 mmHg <=5 PA Systolic Pressure 40 mmHg <=36 RV Systolic Pressure 40 mmHg <36 Aorta Name Value Normal Ascending Aorta Ao Root Diameter (2D) 3.4 cm 3.1-3.7 Ao Root Diam Index (2D) 1.6 cm/m2 1.5-1.9 Aortic Valve Name Value Normal AV Doppler AV Peak Velocity 1.5 m/s AV Peak Gradient 7 mmHg AV Mean Gradient 4 mmHg AV VTI 29 cm AV Area (Cont Eq VTI) 3.1 cm2 AV Area Index (Cont Eq VTI) 1 cm2/m2 AV Area (Cont Eq Delfina) 2.7 cm2 AV Area Index (Cont Eq Delfina) 1 cm2/m2 LVOT Vmax/AV Vmax 0.77 LVOT VTI/AV VTI Ratio 0.9 AV Regurgitation 2D LVOT Area 3.5 cm2 Ventricles Name Value Normal LV Dimensions 2D/MM IVS Diastolic Thickness (2D) 0.9 cm 0.6-1.0 LVID Diastole (2D) 5.6 cm 4.2-5.8 LVIW Diastolic Thickness (2D) 1.1 cm 0.6-1.0 LVID Systole (2D) 3.4 cm 2.5-4.0 LVOT Diameter 2.1 cm LV Mass (2D Cubed) 228.64 g 88.00-224.00 LV Mass Index (2D Cubed) 105 g/m2 49-115 Relative Wall Thickness (2D) 0.39 <=0.42 LV Fractional Shortening/Ejection Fraction 2D/MM LV Fractional Shortening (2D) 40 % 25-43 LV EF (2D Teicholz) 70 % 52-72 LV Diastolic Volume (4C MOD) 125 ml LV Systolic Volume (4C MOD) 40 ml LV EF (4C MOD) 68 % LV Diastolic Volume (2C MOD) 104 ml LV Systolic Volume (2C MOD) 37 ml LV EF (2C MOD) 65 % LV Diastolic Volume (BP MOD) 115 ml 62-150 LV Diastolic Volume Index (BP MOD) 52 ml/m2 34-74 LV Systolic Volume (BP MOD) 38 ml 21-61 LV Systolic Volume Index (BP MOD) 17 ml/m2 11-31 LV EF (BP MOD) 67 % 55-70 LV Diastolic Length (4C) 8.0 cm LV Systolic Length (4C) 6.3 cm LV Stroke Volume (4C MOD) 85 ml LV SI (4C MOD) 39.04 ml/m2 RV Dimensions 2D/MM RVID Diastole (2D) 4.1 cm 2.5-3.5 TAPSE 2.7 cm >=1.7 RV Systolic Function RV s' Velocity 0.2 m/s 0.1-0.2 Atria Name Value Normal LA Dimensions LA Volume (4C MOD) 53 ml LA Volume (2C MOD) 57 ml LA Volume (4C A-L) 54 ml LA Volume (2C A-L) 61 ml LA Volume (BP A-L) 59 ml LA Volume Index (BP A-L) 27 ml/m2 <=34 LA Volume (BP MOD) 56 ml LA Volume Index (BP MOD) 25 ml/m2 16-34 RA Dimensions RA Systolic Major [place] Length (4C) 6.42 cm <=5.30 RA Area (4C) 20.2 cm2 <=18.0 RA Area (4C) Index 9 cm2/m2 RA ESV (4C MOD) 53 ml 18-32 RA ESV Index (4C MOD) 24 ml/m2 <=32 Report Signatures Finalized by Kamilla Anaya MD on 05/29/2020 09:56 AM [facility] Interface, Rad In artlab Xper Ech[employer]acs - 05/29/2020 9:57 AM EDT Patient Info Name: ANNIE CALDERON Age: 69 years : 1950 Gender: Male Ht: 173 cm Wt: 97 kg BSA: 2.18 m2 HR: 61 bpm BP: 110 / 69 mmHg Heart Rhythm: Sinus Rhythm Technical Quality: Good Exam Date: 05/29/2020 8:03 AM Patient Status: Inpatient Plasma Processor: Valerio Horta RCDS Exam Type: ECHOCARDIOGRAM COMPLETE Study Info Indications - - Dyspnea R06.00 - Dyspnea, unspecified Referring Physician: DORITA GAONA ; [id number] BMI: 32.39 kg/m2 Summary 1. Left ventricular systolic function is normal with an ejection fraction by Biplane Method of Discs of 67 %. 2. Mild RV enlargement with normal RV function. 3. Impaired LV relaxation. 4. There is moderate mitral valve regurgitation. History/Risk Factors Tobacco Use: Former Procedure(s): Complete two-dimensional, color flow and Doppler transthoracic echocardiogram is performed. Left Ventricle Left ventricular chamber dimension is normal. Left ventricular systolic function is normal with an ejection fraction by Biplane Method of Discs of 67 %. Normal left ventricular mass. Left ventricular segmental wall motion is normal. The left ventricular diastolic function is grade I diastolic dysfunction, consistent with low or normal atrial pressures. Right Ventricle Right ventricular chamber dimension is mildly enlarged. Right ventricular systolic function is normal. Left Atria Left atrial chamber is normal with a left atrial volume index of 25 ml/m2 by BP MOD. Right Atria Right atrial chamber dimension is normal. Aortic Valve The aortic valve is trileaflet. There is no aortic valve stenosis with a peak velocity of 1.5 m/s, mean gradient of 4 mmHg, and aortic valve area of 3.1 cm2. There is no aortic valve regurgitation. Pulmonic Valve The pulmonic valve is normal. There is no pulmonic valve stenosis. There is no pulmonic regurgitation. Mitral Valve The mitral valve has thickened leaflets. There is no mitral valve stenosis. There is moderate mitral valve regurgitation. Tricuspid Valve The tricuspid valve leaflets are normal. There is no significant tricuspid valve stenosis. There is trace tricuspid valve regurgitation. There is borderline pulmonary hypertension, estimated right ventricle systolic pressure is 40 mmHg. Pericardium/Pleural The pericardium appears normal. There is no pericardial effusion. Inferior Vena Cava Normal inferior vena cava with >50% collapse upon inspiration consistent with normal right atrial pressure. Aorta The aortic measurements are indexed to age and body surface area. The aortic root is normal measuring 3.4 cm with an index of 1.6 cm/m2. Left Ventricular Outflow Tract Name Value Normal LVOT 2D LVOT Diameter 2.1 cm LVOT Doppler LVOT Peak Velocity 1.1 m/s LVOT Peak Gradient 5 mmHg LVOT Mean Gradient 3 mmHg LVOT VTI 25 cm LVOT VTI/AV VTI Ratio 0.9 LVOT Stroke Volume 90 ml LVOT Stroke Index 41.25 ml/m2 LVOT CO 7.5 l/min LVOT CI 3.4 L/min/m2 Pulmonic Valve Name Value Normal PV Doppler PV Peak Velocity 1.13 m/s PV Peak Gradient 5 mmHg Mitral Valve Name Value Normal MV Doppler MV Peak Velocity 1.23 m/s MV Peak Gradient 6 mmHg MV Mean Gradient 2 mmHg MV VTI 41 cm MV Decel [place] 298 cm/s2 MV PHT 88 ms MV Area (PHT) 2.5 cm2 4.0-5.0 MV Area (Cont Eq VTI) 2.2 cm2 MV Area Index (Cont Eq VTI) 1.00 cm2/m2 MV Regurgitation Doppler MR VTI 207 cm MR PISA Radius 1.0 cm MR PISA Alias Velocity 31 cm/s MR ERO (PISA) 0.22 cm2 MR Volume (PISA) 47 ml MV Diastolic Function MV E Peak Velocity 1 m/s MV A Peak Velocity 1 m/s MV E/A 0.8 MV Decel Time 303 ms MV Annular TDI MV Septal e' Velocity 4.6 cm/s >=8.0 MV E/e' (Septal) 19.6 <=8.0 MV Lateral e' Velocity 5.0 cm/s >=10.0 MV E/e' (Lateral) 18.0 <=8.0 MV e' Average 4.81 MV E/e' (Average) 18.8 Tricuspid Valve Name Value Normal TV Regurgitation Doppler TR Peak Velocity 3.03 m/s TR Peak Gradient 31 mmHg Estimated PAP/RSVP RA Pressure 3 mmHg <=5 PA Systolic Pressure 40 mmHg <=36 RV Systolic Pressure 40 mmHg <36 Aorta Name Value Normal Ascending Aorta Ao Root Diameter (2D) 3.4 cm 3.1-3.7 Ao Root Diam Index (2D) 1.6 cm/m2 1.5-1.9 Aortic Valve Name Value Normal AV Doppler AV Peak Velocity 1.5 m/s AV Peak Gradient 7 mmHg AV Mean Gradient 4 mmHg AV VTI 29 cm AV Area (Cont Eq VTI) 3.1 cm2 AV Area Index (Cont Eq VTI) 1 cm2/m2 AV Area (Cont Eq Delfina) 2.7 cm2 AV Area Index (Cont Eq Delfina) 1 cm2/m2 LVOT Vmax/AV Vmax 0.77 LVOT VTI/AV VTI Ratio 0.9 AV Regurgitation 2D LVOT Area 3.5 cm2 Ventricles Name Value Normal LV Dimensions 2D/MM IVS Diastolic Thickness (2D) 0.9 cm 0.6-1.0 LVID Diastole (2D) 5.6 cm 4.2-5.8 LVIW Diastolic Thickness (2D) 1.1 cm 0.6-1.0 LVID Systole (2D) 3.4 cm 2.5-4.0 LVOT Diameter 2.1 cm LV Mass (2D Cubed) 228.64 g 88.00-224.00 LV Mass Index (2D Cubed) 105 g/m2 49-115 Relative Wall Thickness (2D) 0.39 <=0.42 LV Fractional Shortening/Ejection Fraction 2D/MM LV Fractional Shortening (2D) 40 % 25-43 LV EF (2D Teicholz) 70 % 52-72 LV Diastolic Volume (4C MOD) 125 ml LV Systolic Volume (4C MOD) 40 ml LV EF (4C MOD) 68 % LV Diastolic Volume (2C MOD) 104 ml LV Systolic Volume (2C MOD) 37 ml LV EF (2C MOD) 65 % LV Diastolic Volume (BP MOD) 115 ml 62-150 LV Diastolic Volume Index (BP MOD) 52 ml/m2 34-74 LV Systolic Volume (BP MOD) 38 ml 21-61 LV Systolic Volume Index (BP MOD) 17 ml/m2 11-31 LV EF (BP MOD) 67 % 55-70 LV Diastolic Length (4C) 8.0 cm LV Systolic Length (4C) 6.3 cm LV Stroke Volume (4C MOD) 85 ml LV SI (4C MOD) 39.04 ml/m2 RV Dimensions 2D/MM RVID Diastole (2D) 4.1 cm 2.5-3.5 TAPSE 2.7 cm >=1.7 RV Systolic Function RV s' Velocity 0.2 m/s 0.1-0.2 Atria Name Value Normal LA Dimensions LA Volume (4C MOD) 53 ml LA Volume (2C MOD) 57 ml LA Volume (4C A-L) 54 ml LA Volume (2C A-L) 61 ml LA Volume (BP A-L) 59 ml LA Volume Index (BP A-L) 27 ml/m2 <=34 LA Volume (BP MOD) 56 ml LA Volume Index (BP MOD) 25 ml/m2 16-34 RA Dimensions RA Systolic Major [place] Length (4C) 6.42 cm <=5.30 RA Area (4C) 20.2 cm2 <=18.0 RA Area (4C) Index 9 cm2/m2 RA ESV (4C MOD) 53 ml 18-32 RA ESV Index (4C MOD) 24 ml/m2 <=32 Report Signatures Finalized by Kamilla Anaya MD on 05/29/2020 09:56 AM [facility] Stool/GI PCR Panelon 021 Adenovirus 40+41 DNA ELODIA+non-probe Ql (Stl) Not Detected Not Detected [facility] Astrovirus subtypes 1-8 RNA ELODIA+non-probe Ql (Stl) Not Detected Not Detected [facility] C. cayetanensis DNA ELODIA+non-probe Ql (Stl) Not Detected Not Detected [facility] C. coli+jejuni+upsalie nsis DNA ELODIA+non-probe Ql (Stl) Not Detected Not Detected [facility] C. difficile toxin A+B tcdA+tcdB genes ELODIA+non-probe Ql (Stl) Not Detected Not Detected [facility] Cryptosporidium sp DNA ELODIA+non-probe Ql (Stl) Not Detected Not Detected [facility] E. coli enteroaggregative Dennise plasmid aggR+aatA genes ELODIA+non-probe Ql (Stl) Not Detected Not Detected [facility] E. coli enteropathogenic eae gene ELODIA+non-probe Ql (Stl) Not Detected Not Detected [facility] E. coli enterotoxigenic ltA+st1a+st1b genes ELODIA+non-probe Ql (Stl) Not Detected Not Detected [facility] E. coli stx1+stx2 genes ELODIA+non-probe Ql (Stl) Not Detected Not Detected [facility] E. histolytica DNA ELODIA+non-probe Ql (Stl) Not Detected Not Detected [facility] G. lamblia DNA ELODIA+non-probe Ql (Stl) Not Detected Not Detected [facility] Interpretation and review of laboratory results Normal [facility] Norovirus genogroup I+II RNA ELODIA+non-probe Ql (Stl) Not Detected Not Detected [facility] P. shigelloides DNA ELODIA+non-probe Ql (Stl) Not Detected Not Detected [facility] Rotavirus A RNA ELODIA+non-probe Ql (Stl) Not Detected Not Detected [facility] S. enterica+bongori DNA ELODIA+non-probe Ql (Stl) Not Detected Not Detected [facility] Sapovirus genogroups I+II+IV+V RNA ELODIA+non-probe Ql (Stl) Not Detected Not Detected [facility] Shigella species+EIEC invasion plasmid antigen H ipaH gene ELODIA+non-probe Ql (Stl) Not Detected Not Detected [facility] V. cholerae DNA ELODIA+non-probe Ql (Stl) Not Detected Not Detected [facility] V. cholerae+parahaemol yticus+vulnificus DNA ELODIA+non-probe Ql (Stl) Not Detected Not Detected [facility] Y. enterocolitica DNA ELODIA+non-probe Ql (Stl) Not Detected Not Detected [facility] Results of PCR testi ng for stool pathogens must be taken into clinical context when making treatment decisions. Most gastrointestinal infections due to common bacterial and viral causes are self-limited in nature and do not require antimicrobial therapy. The use of antimicrobial therapy must be carefully weighed against unintended and potentially harmful consequences. The role of antimicrobial therapy depends on the implicated pathogen. In general, antimicrobial agents are only used to treat parasitic infections as well as select bacterial infections. [facility] CBC WITH AUTO DIFFERENTIALon 05-28-2020 Basophils (Bld) [#/Vol] 0.03 10*3/uL [facility] Basophils/100 WBC (Bld) 0.5 % [facility] Eosinophils (Bld) [#/Vol] 0.06 10*3/uL [facility] Eosinophils/100 WBC (Bld) 1.0 % [facility] Erythrocyte distribution width (RBC) [Entitic vol] 12.5 % 11.6 - 14.8 % [facility] Hematocrit (Bld) [Volume fraction] 40.5 % Low 41.0 - 53.0 % [facility] Hemoglobin (Bld) [Mass/Vol] 14.0 g/dL 13.5 - 17.5 g/dL [facility] Immature granulocytes (Bld) [#/Vol] 0.03 10*3/uL [facility] Immature granulocytes/100 WBC (Bld) 0.50 % [facility] Comment on above: The IG parameter is the percentage of metamyelocytes, myelocytes and promyelocytes. An immature granulocyte count (IG) of 1% or more suggests the possibility of infection, an IG count of 3% is very likely related to an infection. Interpretation and review of laboratory results Abnormal [facility] Lymphocytes (Bld) [#/Vol] 1.60 10*3/uL [facility] Lymphocytes/100 WBC (Bld) 26.6 % [facility] MCH (RBC) [Entitic mass] 36.2 pg High 26.0 - 34.0 pg [facility] MCHC (RBC) [Mass/Vol] 34.6 g/dL 31.0 - 37.0 g/dL [facility] MCV (RBC) [Entitic vol] 104.7 fL High 80.0 - 100.0 fL [facility] Monocytes (Bld) [#/Vol] 0.51 10*3/uL [facility] Monocytes/100 WBC (Bld) 8.5 % [facility] Neutrophils (Bld) [#/Vol] 3.78 10*3/uL [facility] Neutrophils/100 WBC (Bld) 62.9 % [facility] Nucleated RBC (Bld) [#/Vol] 0.00 10*3/uL [facility] Nucleated RBC/100 WBC (Bld) [Ratio] 0.0 % [facility] Platelet mean volume (Bld) [Entitic vol] 9.7 fL 9.4 - 12.4 fL [facility] Platelets (Bld) [#/Vol] 165 10*3/uL [facility] RBC (Bld) [#/Vol] 3.87 10*6/uL Low [facility] WBC (Bld) [#/Vol] 6.01 10*3/uL [facility] Hemoglobin A1con 05-28-2020 Average glucose Estimated from glycated hemoglobin mass conc (Bld) 131 mg/dL High 68 - 114 mg/dL [facility] HbA1c (Bld) [Mass fraction] 6.2 % High 4.0 - 5.6 % [facility] Interpretation and review of laboratory results Abnormal [facility] Normal: 4.0% - 5.6% Increased risk for diabetes: 5.7% - 6.4% Diabetes: >= 6.5% Pediatrics: No established reference range Estimated average glucose: 68-114 mg/dL [facility] Magnesiumon 05-28-2020 Magnesium [Mass/Vol] 2.0 mg/dL 1.6 - 2.4 mg/dL [facility] Otheron 05-28-2020 Interpretation and review of laboratory results Normal [facility] Renal Function Panelon 05-28 Albumin [Mass/Vol] 3.7 g/dL 3.2 - 5.2 g/dL [facility] Anion gap [Moles/Vol] 11 mmol/L 10 - 20 mmol/L [facility] Calcium [Mass/Vol] 9.3 mg/dL 8.4 - 10. 2 mg/dL [facility] Chloride [Moles/Vol] 106 mmol/L 98 - 108 mmol/L [facility] Creatinine [Mass/Vol] 1.30 mg/dL 0.80 - 1.30 [facility] GFR/1.73 sq M predicted among non-blacks MDRD (S/P/Bld) [Vol rate/Area] The eGFR should be used for monitoring renal function only and not for medication dosing. [facility] GFR/1.73 sq M.predicted CKD-EPI (S/P/Bld) [Vol rate/Area] 55 Low >=60 mL/min/1.73 m2 [facility] Glucose [Mass/Vol] 129 mg/dL High 65 - 99 mg/dL [facility] HCO3 [Moles/Vol] 25 mmol/L 21 - 32 mmol/L [facility] Interpretation and review of laboratory results Abnormal [facility] Phosphate [Mass/Vol] 2.4 mg/dL 2.3 - 3.7 mg/dL [facility] Potassium [Moles/Vol] 3.9 mmol/L 3.5 - 5.1 mmol/L [facility] Sodium [Moles/Vol] 138 mmol/L 135 - 145 mmol/L [facility] Urea nitrogen [Mass/Vol] 16 mg/dL 8 - 25 mg/dL [facility] Urea nitrogen/Creatinine [Mass ratio] 12.3 mg/mg [facility] TSHon 05-28-2020 TSH Qn 1.40 m[IU]/L [facility] COVID-19, Molecularon 2020 Interpretation and review of laboratory results Normal [facility] SARS-CoV-2 Not Detected Not Detected [facility] Comment on above: This test was perfor med under the FDA's Emergency Use Authorization (EUA). Testing was performed using the [employer] ID NOW COVID-19 assay on the ID NOW platform. This test has not been approved for use in asymptomatic patients and its performance in this patient population has not been evaluated. Negative results do not rule out the presence of SARS-CoV-2/COVID-19. Fact sheets for the EUA can be found at the following links: For Healthcare Providers: https://www.fda.gov/media/095772/download For Patients: https://www.fda.gov/media/658067/download CT HEAD OR BRAIN WITHOUT CON TRASTon 05-27-2020 No intracranial hemo rrhage or mass effect. [employer] Workstation ID: [id number] [facility] EXAMINATION: CT HEAD OR BRAIN WITHOUT CONTRAST HISTORY: ORDERING SYSTEM PROVIDED HISTORY: Dizziness, non-specific, TECHNOLOGIST PROVIDED HISTORY: Illness/Other Reason for exam: Dizziness, non-specific Encounter Type: Initial Additional signs and symptoms: none ORDERING SYSTEM PROVIDED DIAGNOSIS CODES: COMPARISON: 03/04/2008. TECHNIQUE: CT examination of the head without IV contrast. Dose reduction techniques were achieved by using automated exposure control and/or adjustment of mA and/or kV according to patient size and/or use of iterative reconstruction technique. FINDINGS: Prominence of the cortical sulci is compatible with mild cerebral volume loss. Ventricles are normal in size. No extraaxial collection. No intracranial hemorrhage. No mass effect or edema. Mild periventricular white matter low attenuation likely relates to chronic small vessel ischemic changes. No CT evidence of large territorial infarction. Visualized paranasal sinuses are well aerated. Mastoids are clear. Calvarium is unremarkable. [facility] Interface, Rad In Fu ji Speechq - 05/27/2020 6:42 PM EDT EXAMINATION: CT HEAD OR BRAIN WITHOUT CONTRAST HISTORY: ORDERING SYSTEM PROVIDED HISTORY: Dizziness, non-specific, TECHNOLOGIST PROVIDED HISTORY: Illness/Other Reason for exam: Dizziness, non-specific Encounter Type: Initial Additional signs and symptoms: none ORDERING SYSTEM PROVIDED DIAGNOSIS CODES: COMPARISON: 03/04/2008. TECHNIQUE: CT examination of the head without IV contrast. Dose reduction techniques were achieved by using automated exposure control and/or adjustment of mA and/or kV according to patient size and/or use of iterative reconstruction technique. FINDINGS: Prominence of the cortical sulci is compatible with mild cerebral volume loss. Ventricles are normal in size. No extraaxial collection. No intracranial hemorrhage. No mass effect or edema. Mild periventricular white matter low attenuation likely relates to chronic small vessel ischemic changes. No CT evidence of large territorial infarction. Visualized paranasal sinuses are well aerated. Mastoids are clear. Calvarium is unremarkable. IMPRESSION: No intracranial hemorrhage or mass effect. /[facility] Workstation ID: [id number] [facility] CT PULMONARY ARTERIESon 04-29 Interface, Rad In ji Speechq - 05/27/2020 6:47 PM EDT EXAMINATION: CT PULMONARY ARTERIES HISTORY: ORDERING SYSTEM PROVIDED HISTORY: Pneumonia, TECHNOLOGIST PROVIDED HISTORY: Illness/Other Reason for exam: Pneumonia Encounter Type: Initial Additional signs and symptoms: none ORDERING SYSTEM PROVIDED DIAGNOSIS CODES: J18.9 Community acquired pneumonia, unspecified laterality R42 Dizziness COMPARISON: None. TECHNIQUE: CT angiography of the pulmonary arteries following the administration of intravenous contrast. Coronal and sagittal MIP images were performed. Dose reduction techniques were achieved by using automated exposure control and/or adjustment of mA and/or kV according to patient size and/or use of iterative reconstruction technique. CONTRAST: IOPAMIDOL 76 % INTRAVENOUS SOLUTION - 75 mL, FINDINGS: Pulmonary arteries: There is good opacification of the pulmonary vasculature. No abnormal vascular cut-offs or filing defects to suggest presence of pulmonary emboli. Mediastinum: Trachea and central airways are patent. Thoracic aorta is normal caliber. Cardiomegaly. No pericardial effusion. Multiple small mildly prominent lymph nodes, for example (short-axis dimension): Subcarinal 1.3 cm, right lower paratracheal 0.7 cm, AP window 0.8 cm, right midparatracheal 0.8 cm. Prominent hilar lymph nodes measuring up to 1.0 x 0.9 and 1.0 x 0.6 cm on the left. Pleural cavity: No pneumothorax. No pleural effusion. Lungs: Evaluation is somewhat degraded by motion. Mild peripherally oriented ground-glass infiltrates are seen throughout the lungs. No dense airspace consolidation. No evidence of overt honeycombing. Chest wall/axilla: No axillary lymphadenopathy. Visualized upper abdomen: No acute findings. Small sliding-type hiatal hernia. Osseous structures: No destructive lesions. IMPRESSION: No evidence of pulmonary embolism. Normal caliber abdominal aorta without dissection. Mild multifocal, multilobar peripherally oriented ground-glass opacities. Differential considerations include atypical pneumonia or pulmonary fibrosis. No recent comparison is available. Recommend 2-month CT follow-up. Mildly prominent mediastinal and hilar lymph nodes, favored to be reactive. Small sliding-type hiatal hernia. [employer] Workstation ID: [id number] [facility] EXAMINATION: CT PULM ONARY ARTERIES HISTORY: ORDERING SYSTEM PROVIDED HISTORY: Pneumonia, TECHNOLOGIST PROVIDED HISTORY: Illness/Other Reason for exam: Pneumonia Encounter Type: Initial Additional signs and symptoms: none ORDERING SYSTEM PROVIDED DIAGNOSIS CODES: J18.9 Community acquired pneumonia, unspecified laterality R42 Dizziness COMPARISON: None. TECHNIQUE: CT angiography of the pulmonary arteries following the administration of intravenous contrast. Coronal and sagittal MIP images were performed. Dose reduction techniques were achieved by using automated exposure control and/or adjustment of mA and/or kV according to patient size and/or use of iterative reconstruction technique. CONTRAST: IOPAMIDOL 76 % INTRAVENOUS SOLUTION - 75 mL, FINDINGS: Pulmonary arteries: There is good opacification of the pulmonary vasculature. No abnormal vascular cut-offs or filing defects to suggest presence of pulmonary emboli. Mediastinum: Trachea and central airways are patent. Thoracic aorta is normal caliber. Cardiomegaly. No pericardial effusion. Multiple small mildly prominent lymph nodes, for example (short-axis dimension): Subcarinal 1.3 cm, right lower paratracheal 0.7 cm, AP window 0.8 cm, right midparatracheal 0.8 cm. Prominent hilar lymph nodes measuring up to 1.0 x 0.9 and 1.0 x 0.6 cm on the left. Pleural cavity: No pneumothorax. No pleural effusion. Lungs: Evaluation is somewhat degraded by motion. Mild peripherally oriented ground-glass infiltrates are seen throughout the lungs. No dense airspace consolidation. No evidence of overt honeycombing. Chest wall/axilla: No axillary lymphadenopathy. Visualized upper abdomen: No acute findings. Small sliding-type hiatal hernia. Osseous structures: No destructive lesions. [facility] No evidence of pulmo nary embolism. Normal caliber abdominal aorta without dissection. Mild multifocal, multilobar peripherally oriented ground-glass opacities. Differential considerations include atypical pneumonia or pulmonary fibrosis. No recent comparison is available. Recommend 2-month CT follow-up. Mildly prominent mediastinal and hilar lymph nodes, favored to be reactive. Small sliding-type hiatal hernia. [employer] Workstation ID: [id number] [facility] ECG 12-LEADon 05-27-2020 Atrial Rate 58 BPM [facility] P [place] 31 degrees [facility] P-R Interval 162 ms [facility] Q-T Interval 404 ms [facility] QRS Duration 92 ms [facility] QTC Calculation (Bezet) 396 ms [facility] R [place] 17 degrees [facility] T [place] 25 degrees [facility] Ventricular Rate [address] [facility] th Sinus bradycardia Otherwise normal ECG ECG Cart Interpretation see physician note for interpretation. Confirmed by Teoiflo Chamberlain ([id number]) on 05/27/2020 5:33:58 PM [facility] Atrial Rate 66 BPM [facility] P [place] 24 degrees [facility] P-R Interval 174 ms [facility] Q-T Interval 402 ms [facility] QRS Duration 92 ms [facility] QTC Calculation (Bezet) 421 ms [facility] R [place] 17 degrees [facility] T [place] 22 degrees [facility] Ventricular Rate 66 BPM [facility] Normal sinus rhythm Normal ECG ECG Cart Interpretation see physician note for interpretation. Confirmed by Teofilo Chamberlain ([id number]) on 05/27/2020 5:31:47 PM [facility] Otheron 05-27-2020 Interpretation and review of laboratory results Normal [facility] POC Basic Metabolic Panelon 05-27-2020 Calcium.ionized (Bld) [Mass/Vol] 4.6 mg/dL 4.5 - 5.3 mg/dL [facility] Chloride [Moles/Vol] 103 mmol/L 98 - 108 mmol/L [facility] CO2 [Moles/Vol] 25 mmol/L 21 - 32 mmol/L [facility] Creatinine [Mass/Vol] 1.02 mg/dL 0.80 - 1.30 [facility] GFR/1.73 sq M.predicted MDRD (S/P/Bld) [Vol rate/Area] 74 mL/min/{1.73_m2} >=60 mL/min/1.73 m2 [facility] Glucose [Mass/Vol] 147 mg/dL High 65 - 99 mg/dL [facility] Interpretation and review of laboratory results Abnormal [facility] Potassium [Moles/Vol] 3.4 mmol/L Low 3.5 - 5.1 mmol/L [facility] Sodium [Moles/Vol] 139 mmol/L 135 - 145 mmol/L [facility] Urea nitrogen [Mass/Vol] 19 mg/dL 8 - 25 mg/dL [facility] POC CBC and Differentialon 05-27-2020 Basophils (Bld) [#/Vol] 0.01 10*3/uL [facility] Basophils/100 WBC (Bld) 0.2 % [facility] Eosinophils (Bld) [#/Vol] 0.02 10*3/uL [facility] Eosinophils/100 WBC (Bld) 0.5 % [facility] Erythrocyte distribution width (RBC) [Entitic vol] 12.1 % 11.6 - 14.8 % [facility] Hematocrit (Bld) [Volume fraction] 39.4 % Low 41.0 - 53.0 % [facility] Hemoglobin (Bld) [Mass/Vol] 13.4 g/dL Low 13.5 - 17.5 g/dL [facility] Immature granulocytes (Bld) [#/Vol] 0.02 10*3/uL [facility] Immature granulocytes/100 WBC (Bld) 0.50 % [facility] Comment on above: The IG parameter is the percentage of metamyelocytes, myelocytes and promyelocytes. An immature granulocyte count (IG) of 1% or more suggests the possibility of infection, an IG count of 3% is very likely related to an infection. Interpretation and review of laboratory results Abnormal [facility] Lymphocytes (Bld) [#/Vol] 1.15 10*3/uL [facility] Lymphocytes/100 WBC (Bld) 27.6 % [facility] MCH (RBC) [Entitic mass] 36.4 pg High 26.0 - 34.0 pg [facility] MCHC (RBC) [Mass/Vol] 34.0 g/dL 31.0 - 37.0 g/dL [facility] MCV (RBC) [Entitic vol] 107.1 fL High 80.0 - 100.0 fL [facility] Monocytes (Bld) [#/Vol] 0.33 10*3/uL [facility] Monocytes/100 WBC (Bld) 7.9 % [facility] Neutrophils (Bld) [#/Vol] 2.64 10*3/uL [facility] Neutrophils/100 WBC (Bld) 63.3 % [facility] Platelet mean volume (Bld) [Entitic vol] 9.5 fL 9.4 - 12.4 fL [facility] Platelets (Bld) [#/Vol] 162 10*3/uL [facility] RBC (Bld) [#/Vol] 3.68 10*6/uL Low [facility] WBC (Bld) [#/Vol] 4.17 10*3/uL Low [facility] POC Liver Panel Pluson 05-27 Albumin [Mass/Vol] 3.7 g/dL 3.2 - 5.2 g/dL [facility] ALP [Catalytic activity/Vol] 42 U/L 40 - 150 U/L [facility] ALT [Catalytic activity/Vol] 44 U/L High 0 - 40 U/L [facility] Amylase [Catalytic activity/Vol] 64 U/L 25 - 115 U/L [facility] AST [Catalytic activity/Vol] 42 U/L 0 - 45 U/L [facility] Bilirubin [Mass/Vol] 0.9 mg/dL 0.0 - 1.3 mg/dL [facility] Gamma glutamyl transferase [Catalytic activity/Vol] 39 U/L 11 - 51 U/L [facility] Interpretation and review of laboratory results Abnormal [facility] Protein [Mass/Vol] 7.4 g/dL 6.0 - 8.0 g/dL [facility] POC PT/INRon 05-27-2020 INR Coag (Bld) [Relative time] 1.0 {INR} [facility] POC Troponin Ion 05-27-2020 Interpretation and review of laboratory results Normal [facility] Troponin I.cardiac [Mass/Vol] ng/mL <0.05 ng/mL [facility] Troponin I.cardiac [Mass/Vol] ng/mL <0.05 ng/mL [facility] POC Urinalysis Dipstick, Aut oon 05-27-2020 Bilirubin Ql (U) Negative Negative [facility] Glucose Ql (U) Negative Negative mg/dL [facility] Hemoglobin Ql (U) Negative Negative [facility] Interpretation and review of laboratory results Normal [facility] Ketones Ql (U) Negative Negative mg/dL [facility] Leukocyte esterase Test strip Ql (U) Negative Negative [facility] Nitrite Ql (U) Negative Negative [facility] pH (U) 5.5 [pH] [facility] Protein Ql (U) Negative Negative mg/dL [facility] Specific gravity (U) [Rel density] 1.025 [facility] Urobilinogen Qn (U) 0.2 mg/dL <2.0 [facility] XR Chest 1 Viewon 05-27-2020 Ill-defined ground-g lass opacities scattered throughout the mid and lower lung zones, suggestive of multifocal pneumonia/atypical viral infectious process. /[facility] Workstation ID: [id number] [facility] EXAMINATION: XR CHES T PA/AP HISTORY: ORDERING SYSTEM PROVIDED HISTORY: Dizziness hypertensive urgency, TECHNOLOGIST PROVIDED HISTORY: Illness/Other Reason for exam: hypertension, dizziness Cancer History: no Surgery, RadiationHistory: no Encounter Type: Initial Additional signs and symptoms: no ORDERING SYSTEM PROVIDED DIAGNOSIS CODES: COMPARISON: None. FINDINGS: One-view chest x-ray. No pneumothorax. Ill-defined ground-glass opacities throughout the mid and lower lung zones. No significant pleural effusions. Heart is normal in size. Bony thorax is unremarkable. [facility], Rad In Fu ji Speechq - 05/27/2020 6:53 PM EDT EXAMINATION: XR CHEST PA/AP HISTORY: ORDERING SYSTEM PROVIDED HISTORY: Dizziness hypertensive urgency, TECHNOLOGIST PROVIDED HISTORY: Illness/Other Reason for exam: hypertension, dizziness Cancer History: no Surgery, RadiationHistory: no Encounter Type: Initial Additional signs and symptoms: no ORDERING SYSTEM PROVIDED DIAGNOSIS CODES: COMPARISON: None. FINDINGS: One-view chest x-ray. No pneumothorax. Ill-defined ground-glass opacities throughout the mid and lower lung zones. No significant pleural effusions. Heart is normal in size. Bony thorax is unremarkable. IMPRESSION: Ill-defined ground-glass opacities scattered throughout the mid and lower lung zones, suggestive of multifocal pneumonia/atypical viral infectious process. /[facility] Workstation ID: [id number] [facility] CEA-EIAon 10-31-2018 CEA-EIA 5.5 ng/mL High 0.0-4.7 [facility] Comment on above: Result Comment: Nons mokers <3.9 Smokers <5.6 [facility] Electrochemiluminescence Immunoassay (ECLIA) Values obtained with different assay methods or kits cannot be used interchangeably. Results cannot be interpreted as absolute evidence of the presence or absence of malignant disease. Performed At: [facility] [id number] Kieran Moore PhD Ph:[phone] Performed By: #### 2 [id number] #### [facility] [employer] [address] [place] [address] CMPon 10-30-2018 Albumin [Mass/Vol] 4.2 g/dL Normal 3.4-5.0 [facility] Comment on above: Performed By: #### 2 [id number] #### [facility] [employer] [address] [place] [address]103 Albumin/Globulin [Mass ratio] 1.6 {ratio} Normal 1.1-1.9 [facility] Comment on above: Performed By: #### 2 [id number] #### [facility] [address] [place] [address] 88714 Alk Phos 47 Int._Unit/L Normal 33-136 [facility] Comment on above: Performed By: #### 2 [id number] #### [facility] [address] [place] [address] [id number] ALT [Catalytic activity/Vol] 48 Int._Unit/L Normal 10-52 [facility] Comment on above: Performed By: #### 2 [id number] #### [facility] [address] [place] [address] 50759 Anion gap [Moles/Vol] 11 mmol/L Normal 10-20 [facility] Comment on above: Performed By: #### 2 [id number] #### [facility] [address] [place] [address] 17783 AST [Catalytic activity/Vol] 33 Int._Unit/L Normal 9-39 [facility] Comment on above: Performed By: #### 2 [id number] #### [facility] [address] [place] [address] 85445 Bili Total 0.58 mg/dL Normal 0.00-1.20 [facility] Comment on above: Performed By: #### 2 [id number] #### [facility] [address] [place] [address] 41051 Calcium [Mass/Vol] 8.9 mg/dL Normal 8.6-10.3 [facility] Comment on above: Performed By: #### 2 [id number] #### [employer] [address] [place] [address]95 Chloride [Moles/Vol] 104 mmol/L Normal 98-107 [facility] Comment on above: Performed By: #### 2 [id number] #### [employer] [address] [place] [address] 30283 CO2 [Moles/Vol] 25.0 mmol/L Normal 21.0-32.0 [facility] Comment on above: Performed By: #### 2 [id number] #### [facility] [employer] [address] [place] [address] 39995 Creatinine [Mass/Vol] 1.0 mg/dL Normal 0.5-1.3 [facility] Comment on above: Performed By: #### 2 [id number] #### [facility] [employer] [address] [place] [address] 91083 Globulin (S) [Mass/Vol] 3.0 g/dL Normal 2.0-4.0 [facility] Comment on above: Performed By: #### 2 [id number] #### [facility] [employer] [address] [place] [address] 51421 Glucose [Mass/Vol] 156 mg/dL High 70-99 [facility] Comment on above: Performed By: #### 2 [id number] #### [facility] [employer] [address] [place] [address] 16369 Potassium [Moles/Vol] 3.8 mmol/L Normal 3.5-5.3 [facility] Comment on above: Performed By: #### 2 [id number] #### [facility] [employer] [address] [place] [address] 35900 Protein [Mass/Vol] 6.9 g/dL Normal 6.4-8.2 [facility] Comment on above: Performed By: #### 2 [id number] #### [facility] [employer] [address] [place] [address] 68872 Sodium [Moles/Vol] 137 mmol/L Normal 136-145 [facility] Comment on above: Performed By: #### 2 [id number] #### [facility] [employer] [address] [place] [address] 93191 Urea nitrogen [Mass/Vol] 18 mg/dL Normal 6-23 [facility] Comment on above: Performed By: #### 2 [id number] #### [facility] [address] [place] [address] 43289 Urea nitrogen/Creatinine [Mass ratio] 18.0 ratio Normal 5.4-30.0 [facility] Comment on above: Performed By: #### 2 [id number] #### [employer] [facility] [place] [address] [id number] 10-30-2018 HbA1c (Bld) [Mass fraction] 6.1 % Normal 4.0-6.3 [facility] Comment on above: Performed By: #### 2 [id number] #### [facility] [employer] [address] [place] [address] Lipid Profileon 10-30-2018 Cholesterol [Mass/Vol] 127 mg/dL Normal 0-199 [facility] Comment on above: Result Comment: TOTA L CHOLEESTEROL: <200 NORMAL 200 - 239 BORDERLINE HIGH >240 HIGH Performed By: #### 3 [id number] #### [facility] [address] [place] [address] 46764 Cholesterol in HDL [Mass/Vol] 38 mg/dL Low 40-60 [facility] Comment on above: Performed By: #### 3 [id number] #### [facility] [address] [place] [address] 12868 Cholesterol in LDL [Mass/Vol] 43 mg/dL Normal 0-130 [facility] Comment on above: Result Comment: <100 OPTIMAL 100-129 NEAR / ABOVE OPTIMAL 130-159 BORDERLINE HIGH 160-189 HIGH >190 VERY HIGH CALC LDL NOT VALID WHEN TRIGLYCERIDE IS >400 MG/DL Performed By: #### 3 [id number] #### [facility] [address] [place] [address] 33882 Cholesterol in VLDL [Mass/Vol] 46 mg/dL High 0-40 [facility] Comment on above: Performed By: #### 3 [id number] #### [facility] [address] [place] [address] 35249 Triglyceride [Mass/Vol] 229 mg/dL High 0-149 [facility] Comment on above: Result Comment: AGE DESIRABLE BORDERLINE HIGH 91 D - 9 Y 0 - 74 75 - 99 > 100 10 - 19 Y 0 - 89 90 - 129 > 130 20 -24 Y 0 - 114 115 - 149 > 150 > 25 0 - 149 150 - 199 200 - 499 Performed By: #### 3 [id number] #### [facility] [address] [place] [address] 12951 Magnesiumon 10-30-2018 Magnesium [Mass/Vol] 1.7 Int._Unit/L Normal 1.6-2.4 [facility] Comment on above: Performed By: #### 2 [id number] #### [facility] [address] [place], [place] [id number] PSA Totalon 10-30-2018 PSA Total 1.32 ng/mL Normal [facility] Comment on above: Result Comment: AGE- SPECIFIC REFERENCE RANGES FOR SERUM PSA REFERENCE RANGE NG/ML AGE ASIANS BLACKS WHITE 40-49 0-2 0-2 0-2.5 50-59 0-3 0-4 0-3.5 60-69 0-4 0-4.5 0-4.5 70-79 0-5 0-5.5 0-6.5 PSA INCREASES WITH AGE, RACE, AND EJACULATION WITHIN 48 HRS. [facility] VOL24,NO.2, , PG.339 Performed By: #### 1 [id number] #### [facility] [email or web address] [address] [place] [address] TSHon 10-30-2018 TSH Qn 1.71 mcIU/mL Normal 0.30-5.60 [facility] Comment on above: Performed By: #### 2 [id number] #### [facility] [email or web address] [address] [place] [address] eGFRon 10-30-2018 GFR/1.73 sq M predicted among non-blacks MDRD (S/P/Bld) [Vol rate/Area] mL/min/{1.73_m2} Normal [facility] Comment on above: Order Comment: Order added by Discern Expert. Performed By: #### 1 [id number] #### [facility] [employer] [address] [place] [id number] BUNon 06-11-2018 Urea nitrogen [Mass/Vol] 14 mg/dL Normal 6-23 [facility] Comment on above: Performed By: #### 2 [id number] #### [facility] [employer] [facility] [place] [id number] Creatinineon 06-11-2018 Creatinine [Mass/Vol] 1.1 mg/dL Normal 0.5-1.3 [facility] Comment on above: Performed By: #### 2 [id number] #### [facility] [address] [place] [address] eGFRon 06-11-2018 GFR/1.73 sq M predicted among non-blacks MDRD (S/P/Bld) [Vol rate/Area] mL/min/{1.73_m2} Normal [facility] Comment on above: Order Comment: Order added by Discern Expert. Performed By: #### 1 [id number] #### [facility] [address] [place] [address] CT Abdomen/Pelvis w/ Contras ton 05-17-2018 CT Abdomen/Pelvis w/ Contrast Exam Date/Time: 05/16/2018 15:26 EDT Reason for Exam: ELEVATED CEA HX OF RECTAL CA Report STUDY: CT abdomen and pelvis with contrast CT Abdomen/Pelvis w/ Contrast; 05/16/2018 3:26 pm INDICATION: ELEVATED CEA HX OF RECTAL CA. COMPARISON: None. ACCESSION NUMBER(S): ORDERING CLINICIAN: Sabina Rivas TECHNIQUE: CT of the abdomen was performed. Contiguous axial images were obtained at 3 mm slice thickness through the abdomen. Coronal and sagittal reconstructions at 3 mm slice thickness were performed. 150 mL of contrast material Omnipaque 350 were administered intravenously without immediate complication. FINDINGS: LOWER CHEST: Chronic interstitial fibrosis is seen, at the lung bases bilaterally. The heart is normal in size without evidence of pericardial effusion. No pleural effusion is evident. ABDOMEN: LIVER, GALLBLADDER, BILE DUCTS: The liver is normal in size and attenuation. No intrahepatic mass lesion is seen. There are no dilated intrahepatic ducts. Cholecystectomy clips are present. PANCREAS: The pancreas is unremarkable. SPLEEN: Within normal limits. ADRENAL GLANDS: Normal adrenal glands unchanged from the previous examination. KIDNEYS URETERS AND URINARY BLADDER The kidneys are normal in size and nephrographic pattern. A cyst is seen in the mid lateral aspect of the right kidney measuring 2 cm in size and another in the left kidney laterally measuring 8.7 mm in size unchanged from the previous examinations. The ureters are normal in course and caliber. The urinary bladder is unremarkable. Exam Date/Time: 05/16/2018 15:26 EDT Report BOWEL: Anastomotic sutures are seen, in the rectum. There is a nodular density, from the right lateral superior aspect of the rectum at image 133/163, adjacent to the suture line. This is also seen on the previous examination of 06/22/2016. The small bowel loops are normal in size. A hiatal hernia is noted. PROSTATE: The prostate is normal in size for the patient's age and bulges into the urinary bladder. VESSELS: The aorta and IVC are within normal limits. PERITONEUM/RETROPERITONEUM /LYMPH NODES: No free fluid is seen in the abdomen. There is no para-aortic, mesenteric or pelvic lymphadenopathy. ABDOMINAL WALL: Within normal limits. BONES: No suspicious osseous lesions are present. Mild degenerative changes are present, in the sacroiliac joints. IMPRESSION: 1. No evidence of metastatic disease to the liver or the pelvic lymph nodes. 2. Soft tissue density, adjacent to the suture line in the rectum on the right side. Further evaluation with MRI of the rectum is recommended at [facility]. 3. FINAL REPORT Dictated: 05/17/2018 4:43 pm Arash Schroeder MD Signed (Electronic Signature): 05/17/2018 4:43 pm Signed by: Arash Schroeder MD Technologist: [facility] PROBING OF NASOLACRIMAL DUCT , WITH OR WITHOUT IRRIGATION [facility] Vital Signs Date Time Vital Sign Value Performing Clinician Facility 12-26-2023 14:48-0400 Body height 167.6 cm Sahra Holliday MD Work Phone: [facility] 12-26-2023 14:48-0400 Body mass index (BMI) [Ratio] 35.67 kg/m2 Sahra Holliday MD Work Phone: [facility] 12-26-2023 14:48-0400 Body weight 100.25 kg Sahra Holliday MD Work Phone: [facility] 12-26-2023 14:48-0400 Diastolic blood pressure 80 mm[Hg] Sahra Holliday MD Work Phone: [facility] 12-26-2023 14:48-0400 Heart rate 78 /min Sahra Holliday MD Work Phone: [facility] 12-26-2023 14:48-0400 SaO2% (BldA) [Mass fraction] 87 % Sahra Holliday MD Work Phone: [facility] 12-26-2023 14:48-0400 Systolic blood pressure 130 mm[Hg] Sahra Holliday MD Work Phone: [facility] 12-22-2023 12:43-0400 Body height 172.7 cm Mega Reed SALES ACCOUNT COORDINATOR-ADMINISTRATIVE ASSISTANT OFFICE MANAGER [facility] 12-22-2023 12:43-0400 Body mass index (BMI) [Ratio] 33.45 kg/m2 [employer] SALES ACCOUNT COORDINATOR-ADMINISTRATIVE ASSISTANT OFFICE MANAGER [facility] 12-22-2023 12:43-0400 Body weight 99.79 kg Mega Reed SALES ACCOUNT COORDINATOR-ADMINISTRATIVE ASSISTANT OFFICE MANAGER Work Phone: [facility] 12-22-2023 12:43-0400 Diastolic blood pressure 57 mm[Hg] Mega Reed SALES ACCOUNT COORDINATOR-ADMINISTRATIVE ASSISTANT OFFICE MANAGER [facility] 12-22-2023 12:43-0400 Heart rate 65 /min Mega Reed SALES ACCOUNT COORDINATOR-ADMINISTRATIVE ASSISTANT OFFICE MANAGER Work Phone: [facility] 12-22-2023 12:43-0400 Respiratory rate 20 /min [employer] SALES ACCOUNT COORDINATOR-ADMINISTRATIVE ASSISTANT OFFICE MANAGER Work Phone: [facility] 12-22-2023 12:43-0400 SaO2% (BldA) [Mass fraction] 93 % [employer] SALES ACCOUNT COORDINATOR-ADMINISTRATIVE ASSISTANT OFFICE MANAGER Work Phone: [facility] 12-22-2023 12:43-0400 Systolic blood pressure 108 mm[Hg] Mega Reed SALES ACCOUNT COORDINATOR-ADMINISTRATIVE ASSISTANT OFFICE MANAGER Work Phone: [facility] 2023 10:01-0400 Body height 167.6 cm Sahra Holliday MD Work Phone: [facility] 2023 10:01-0400 Body mass index (BMI) [Ratio] 36.06 kg/m2 Sahra Holliday MD Work Phone: [facility] 2023 10:01-0400 Body weight 101.33 kg Sahra Holliday MD Work Phone: [facility] 2023 10:01-0400 Diastolic blood pressure 60 mm[Hg] Sahra Holliday MD Work Phone: [facility] 2023 10:01-0400 Heart rate 45 /min Sahra Holliday MD Work Phone: [facility] 2023 10:01-0400 SaO2% (BldA) [Mass fraction] 93 % Sahra Holliday MD Work Phone: [facility] 2023 10:01-0400 Systolic blood pressure 128 mm[Hg] Sahra Holliday MD Work Phone: [facility] 10-27-2023 11:36-0400 Body height 172.7 cm Dana Elder ADMINISTRATIVE ASSISTANT OFFICE MANAGER Work Phone: [facility] 10-27-2023 11:36-0400 Body mass index (BMI) [Ratio] 34.36 kg/m2 Dana Elder ADMINISTRATIVE ASSISTANT OFFICE MANAGER Work Phone: [facility] 10-27-2023 11:36-0400 Body weight 102.51 kg Dana Elder ADMINISTRATIVE ASSISTANT OFFICE MANAGER Work Phone: [facility] 10-27-2023 11:36-0400 Diastolic blood pressure 87 mm[Hg] Dana Elder ADMINISTRATIVE ASSISTANT OFFICE MANAGER Work Phone: [facility] 10-27-2023 11:36-0400 Heart rate 74 /min Dana Elder ADMINISTRATIVE ASSISTANT OFFICE MANAGER Work Phone: [facility] 10-27-2023 11:36-0400 SaO2% (BldA) [Mass fraction] 94 % Dana Elder ADMINISTRATIVE ASSISTANT OFFICE MANAGER Work Phone: [facility] 10-27-2023 11:36-0400 Systolic blood pressure 136 mm[Hg] Dana Elder ADMINISTRATIVE ASSISTANT OFFICE MANAGER Work Phone: [facility] 09-28-2023 11:16-0400 Body height 172.7 cm Jerrod Norman MD Work Phone: [facility] 09-28-2023 11:16-0400 Body mass index (BMI) [Ratio] 34.52 kg/m2 Jerrod Norman MD Work Phone: [facility] 09-28-2023 11:16-0400 Body weight 102.97 kg Jerrod Norman MD Work Phone: [facility] 07-27-2023 08:56-0400 Body height 167.6 cm Sahra Holliday MD Work Phone: [facility] 07-27-2023 08:56-0400 Body mass index (BMI) [Ratio] 34.85 kg/m2 Sahra Holliday MD Work Phone: [facility] 07-27-2023 08:56-0400 Body weight 97.93 kg Sahra Holliday MD Work Phone: [facility] 07-27-2023 08:56-0400 Diastolic blood pressure 78 mm[Hg] Sahra Holliday MD Work Phone: [facility] 07-27-2023 08:56-0400 Heart rate 88 /min Sahra Holliday MD Work Phone: [facility] 07-27-2023 08:56-0400 SaO2% (BldA) [Mass fraction] 94 % Sahra Holliday MD Work Phone: [facility] 07-27-2023 08:56-0400 Systolic blood pressure 128 mm[Hg] Sahra Holliday MD Work Phone: [facility] 07-13-2023 10:17-0400 Body height 167.6 cm Sahra Holliday MD Work Phone: [facility] 07-13-2023 10:17-0400 Body mass index (BMI) [Ratio] 35.77 kg/m2 Sahra Holliday MD Work Phone: [facility] 07-13-2023 10:17-0400 Body weight 100.52 kg Sahra Holliday MD Work Phone: [facility] 07-13-2023 10:17-0400 Diastolic blood pressure 80 mm[Hg] Sahra Holliday MD Work Phone: [facility] 07-13-2023 10:17-0400 Heart rate 67 /min Sahra Holliday MD Work Phone: 4(755)565-685290 [place] [address] 07-13-2023 10:17-0400 SaO2% (BldA) [Mass fraction] 95 % Sahra Holliday MD Work Phone: 2(896)629-940590 [place] [address] 07-13-2023 10:17-0400 Systolic blood pressure 134 mm[Hg] Sahra Holliday MD Work Phone: 5(391)053-564290 [place] [address] 07-03-2023 16:20-0400 Body height 167.6 cm Sahra Holliday MD Work Phone: 9(617)[phone] [address] 07-03-2023 16:20-0400 Body mass index (BMI) [Ratio] 35.28 kg/m2 Sahra Holliday MD Work Phone: 4(567)229-146990 [place] [address] 07-03-2023 16:20-0400 Body weight 99.16 kg Sahra Holliday MD Work Phone: 5(336)494-448290 [place] [address] 07-03-2023 16:20-0400 Diastolic blood pressure 64 mm[Hg] Sahra Holliday MD Work Phone: 1(292)789-202790 [place] [address] 07-03-2023 16:20-0400 Heart rate 85 /min Sahra Holliday MD Work Phone: 2(005)[phone] [place] [address] 07-03-2023 16:20-0400 SaO2% (BldA) [Mass fraction] 95 % Sahra Holliday MD Work Phone: 2(005)148-226890 [place] [address] 07-03-2023 16:20-0400 Systolic blood pressure 130 mm[Hg] Sahra Holliday MD Work Phone: 7(902)395-567090 [place] [address] 06-14-2023 10:47-0400 Body height 167.6 cm Sahra Holliday MD Work Phone: [facility] 06-14-2023 10:47-0400 Body mass index (BMI) [Ratio] 35.44 kg/m2 Sahra Holliday MD Work Phone: [facility] 06-14-2023 10:47-0400 Body weight 99.61 kg Sahra Holliday MD Work Phone: [facility] 06-14-2023 10:47-0400 Diastolic blood pressure 88 mm[Hg] Sahra Holliday MD Work Phone: [facility] 06-14-2023 10:47-0400 Heart rate 73 /min Sahra Holliday MD Work Phone: [facility] 06-14-2023 10:47-0400 SaO2% (BldA) [Mass fraction] 97 % Sahra Holliday MD Work Phone: [facility] 06-14-2023 10:47-0400 Systolic blood pressure 134 mm[Hg] Sahra Holliday MD Work Phone: 4(804)156-300290 [place] [address] 06-08-2023 11:30-0400 Body height 167.6 cm Sahra Holliday MD Work Phone: [facility] 06-08-2023 11:30-0400 Body mass index (BMI) [Ratio] 35.04 kg/m2 Sahra Holliday MD Work Phone: [facility] 06-08-2023 11:30-0400 Body weight 98.48 kg Sahra Holliday MD Work Phone: 3(749)173-516290 [place] [address] 06-08-2023 11:30-0400 Diastolic blood pressure 76 mm[Hg] Sahra Holliday MD Work Phone: [facility] 06-08-2023 11:30-0400 Heart rate 76 /min Sahra Holliday MD Work Phone: [facility] 06-08-2023 11:30-0400 SaO2% (BldA) [Mass fraction] 92 % Sahra Holliday MD Work Phone: [facility] 06-08-2023 11:30-0400 Systolic blood pressure 122 mm[Hg] Sahra Holliday MD Work Phone: [facility] 05-18-2023 09:37-0400 Body height 167.6 cm Sahra Holliday MD Work Phone: [facility] 05-18-2023 09:37-0400 Body mass index (BMI) [Ratio] 35.09 kg/m2 Sahra Holliday MD Work Phone: [facility] 05-18-2023 09:37-0400 Body weight 98.61 kg Sahra Holliday MD Work Phone: [facility] 05-18-2023 09:37-0400 Diastolic blood pressure 72 mm[Hg] Sahra Holliday MD Work Phone: [facility] 05-18-2023 09:37-0400 Heart rate 83 /min Sahra Holliday MD Work Phone: [facility] 05-18-2023 09:37-0400 SaO2% (BldA) [Mass fraction] 92 % Sahra Holliday MD Work Phone: [facility] 05-18-2023 09:37-0400 Systolic blood pressure 130 mm[Hg] Sahra Holliday MD Work Phone: [facility] 04-26-2023 [id number] Body height 167.6 cm Sahra Holliday MD Work Phone: [facility] 04-26-2023 10:11-0500 Body mass index (BMI) [Ratio] 34.25 kg/m2 Sahra Holliday MD Work Phone: [facility] 04-26-2023 [id number] Body weight 96.25 kg Sahra Holliday MD Work Phone: [facility] 04-26-2023 10:11-0500 Diastolic blood pressure 76 mm[Hg] Sahra Holliday MD Work Phone: [facility] 04-26-2023 10:11-0500 Heart rate 84 /min Sahra Holliday MD Work Phone: [facility] 04-26-2023 10:11-0500 SaO2% (BldA) [Mass fraction] 96 % Sahra Holliday MD Work Phone: [facility] 04-26-2023 10:11-0500 Systolic blood pressure 120 mm[Hg] Sahra Holliday MD Work Phone: 3(025)371-067690 [place] [address] 04-19-2023 08:51-0500 Body height 167.6 cm Sahra Holliday MD Work Phone: 6(163)449-886490 [place] [address] 04-19-2023 08:51-0500 Body mass index (BMI) [Ratio] 34.73 kg/m2 Sahra Holliday MD Work Phone: 7(003)310-919090 [place] [address] 04-19-2023 08:51-0500 Body weight 97.61 kg Sahra Holliday MD Work Phone: 4(164)841-522990 [place] [address] 04-19-2023 08:51-0500 Diastolic blood pressure 60 mm[Hg] Sahra Holliday MD Work Phone: 5(554)472-291990 [place] [address] 04-19-2023 08:51-0500 Heart rate 90 /min Sahra Holliday MD Work Phone: [facility] 04-19-2023 08:51-0500 SaO2% (BldA) [Mass fraction] 89 % Sahra Holliday MD Work Phone: 3(007)049-600690 [place] [address] 04-19-2023 08:51-0500 Systolic blood pressure 126 mm[Hg] Sahra Holliday MD Work Phone: 3(450)025-635790 [place] [address] 03-29-2023 10:13-0500 Body height 167.6 cm Sahra Holliday MD Work Phone: 2(732)689-053690 [place] [address] 03-29-2023 10:13-0500 Body mass index (BMI) [Ratio] 34.3 kg/m2 Sahra Holliday MD Work Phone: [facility] 03-29-2023 10:13-0500 Body weight 96.39 kg Sahra Holliday MD Work Phone: [facility] 03-29-2023 10:13-0500 Diastolic blood pressure 62 mm[Hg] Sahra Holliday MD Work Phone: [facility] 03-29-2023 10:13-0500 Heart rate 72 /min Sahra Holliday MD Work Phone: [facility] 03-29-2023 10:13-0500 SaO2% (BldA) [Mass fraction] 91 % Sahra Holliday MD Work Phone: [facility] 03-29-2023 10:13-0500 Systolic blood pressure 116 mm[Hg] Sahra Holliday MD Work Phone: 5(236)400-477190 [place] [address] 03-15-2023 09:59-0500 Body height 167.6 cm Sahra Holliday MD Work Phone: 6(990)485-716290 [place] [address] 03-15-2023 09:59-0500 Body mass index (BMI) [Ratio] 34.36 kg/m2 Sahra Holliday MD Work Phone: [facility] 03-15-2023 09:59-0500 Body weight 96.57 kg Sahra Holliday MD Work Phone: [facility] 03-15-2023 09:59-0500 Diastolic blood pressure 72 mm[Hg] Sahra Holliday MD Work Phone: [facility] 03-15-2023 09:59-0500 Heart rate 93 /min Sahra Holliday MD Work Phone: [facility] 03-15-2023 09:59-0500 SaO2% (BldA) [Mass fraction] 90 % Sahra Holliday MD Work Phone: [facility] 03-15-2023 09:59-0500 Systolic blood pressure 120 mm[Hg] Sahra Holliday MD Work Phone: [facility] 03-01-2023 10:12-0500 Body height 167.6 cm Sahra Holliday MD Work Phone: [facility] 03-01-2023 10:12-0500 Body mass index (BMI) [Ratio] 34.98 kg/m2 Sahra Holliday MD Work Phone: [facility] 03-01-2023 10:12-0500 Body weight 98.29 kg Sahra Holliday MD Work Phone: [facility] 03-01-2023 10:12-0500 Diastolic blood pressure 70 mm[Hg] Sahra Holliday MD Work Phone: [facility] 03-01-2023 10:12-0500 Heart rate 98 /min Sahra Holliday MD Work Phone: [facility] 03-01-2023 10:12-0500 SaO2% (BldA) [Mass fraction] 87 % Sahra Holliday MD Work Phone: [facility] 03-01-2023 10:12-0500 Systolic blood pressure 128 mm[Hg] Sahra Holliday MD Work Phone: [facility] 02-28-2023 09:54-0500 Diastolic blood pressure 78 mm[Hg] Carlos Gonzáles MD Work Phone: [facility] 02-28-2023 09:54-0500 Systolic blood pressure 120 mm[Hg] Carlos Gonzáles MD Work Phone: [facility] 02-28-2023 09:53-0500 Body height 172.7 cm Carlos Gonzáles MD Work Phone: [facility] 02-28-2023 09:53-0500 Body mass index (BMI) [Ratio] 32.1 kg/m2 Carlos Gonzáles MD Work Phone: [facility] 02-28-2023 09:53-0500 Body weight 95.75 kg Carlos Gonzáles MD Work Phone: [facility] 02-28-2023 09:53-0500 Heart rate 92 /min Carlos Gonzáles MD Work Phone: [facility] 02-28-2023 09:53-0500 SaO2% (BldA) [Mass fraction] 87 % Carlos Gonzáles MD Work Phone: [facility] 02-23-2023 08:09-0500 Body height 167.6 cm Sahra Holliday MD Work Phone: [facility] 02-23-2023 08:09-0500 Body mass index (BMI) [Ratio] 34.81 kg/m2 Sahra Holliday MD Work Phone: [facility] 02-23-2023 08:09-0500 Body weight 97.84 kg Sahra Holliday MD Work Phone: 5(944)029-303490 [place] [address] 02-23-2023 08:09-0500 Diastolic blood pressure 76 mm[Hg] Sahra Holliday MD Work Phone: [facility] 02-23-2023 08:09-0500 Heart rate 96 /min Sahra Holliday MD Work Phone: [facility] 02-23-2023 08:09-0500 SaO2% (BldA) [Mass fraction] 91 % Sahra Holliday MD Work Phone: [facility] 02-23-2023 08:09-0500 Systolic blood pressure 132 mm[Hg] Sahra Holliday MD Work Phone: 8(893)666-360090 [place] [address] 02-15-2023 10:06-0500 SaO2% (BldA) [Mass fraction] 96 % Sahra Holliday MD Work Phone: [facility] 02-15-2023 09:16-0500 Body height 167.6 cm Sahra Holliday MD Work Phone: [facility] 02-15-2023 09:16-0500 Body mass index (BMI) [Ratio] 34.02 kg/m2 Sahra Holliday MD Work Phone: [facility] 02-15-2023 09:16-0500 Body weight 95.62 kg Sahra Holliday MD Work Phone: [facility] 02-15-2023 09:16-0500 Diastolic blood pressure 58 mm[Hg] Sahra Holliday MD Work Phone: [facility] 02-15-2023 09:16-0500 Heart rate 87 /min Sahra Holliday MD Work Phone: [facility] 02-15-2023 09:16-0500 Systolic blood pressure 112 mm[Hg] Sahra Holliday MD Work Phone: [facility] 02-08-2023 08:59-0500 Body height 167.6 cm Sahra Holliday MD Work Phone: [facility] 02-08-2023 08:59-0500 Body mass index (BMI) [Ratio] 33.96 kg/m2 Sahra Holliday MD Work Phone: [facility] 02-08-2023 08:59-0500 Body weight 95.44 kg Sahra Holliday MD Work Phone: [facility] 02-08-2023 08:59-0500 Diastolic blood pressure 72 mm[Hg] Sahra Holliday MD Work Phone: [facility] 02-08-2023 08:59-0500 Heart rate 78 /min Sahra Holliday MD Work Phone: [facility] 02-08-2023 08:59-0500 SaO2% (BldA) [Mass fraction] 96 % Sahra Holliday MD Work Phone: [facility] 02-08-2023 08:59-0500 Systolic blood pressure 142 mm[Hg] Sahra Holliday MD Work Phone: [facility] 01-30-2023 11:51-0500 Body height 167.6 cm Gabe TAPIA Work Phone: [facility] 01-30-2023 11:51-0500 Body mass index (BMI) [Ratio] 32.93 kg/m2 Gabe Lillie SALES ACCOUNT COORDINATOR-ADMINISTRATIVE ASSISTANT OFFICE MANAGER Work Phone: [facility] 01-30-2023 11:51-0500 Body temperature 97.9 [degF] Gabe Michele SALES ACCOUNT COORDINATOR-ADMINISTRATIVE ASSISTANT OFFICE MANAGER Work Phone: [facility] 01-30-2023 11:51-0500 Body weight 92.53 kg Gabe Michele SALES ACCOUNT COORDINATOR-ADMINISTRATIVE ASSISTANT OFFICE MANAGER Work Phone: [facility] 01-30-2023 11:51-0500 Diastolic blood pressure 90 mm[Hg] Gabe Lillie SALES ACCOUNT COORDINATOR-ADMINISTRATIVE ASSISTANT OFFICE MANAGER Work Phone: [facility] 01-30-2023 11:51-0500 Heart rate 77 /min Gabe Michele SALES ACCOUNT COORDINATOR-ADMINISTRATIVE ASSISTANT OFFICE MANAGER Work Phone: [facility] 01-30-2023 11:51-0500 Respiratory rate 16 /min Gabe Michele SALES ACCOUNT COORDINATOR-ADMINISTRATIVE ASSISTANT OFFICE MANAGER Work Phone: 9(991)[phone] [place] [address] 01-30-2023 11:51-0500 SaO2% (BldA) [Mass fraction] 93 % Gabe Farooqkevin SALES ACCOUNT COORDINATOR-ADMINISTRATIVE ASSISTANT OFFICE MANAGER Work Phone: [facility] 01-30-2023 11:51-0500 Systolic blood pressure 136 mm[Hg] Gabe Bulmaroluis armando SALES ACCOUNT COORDINATOR-ADMINISTRATIVE ASSISTANT OFFICE MANAGER Work Phone: [facility] 12-26-2022 14:25-0400 Body height 172.7 cm Oscar Payton MD Work Phone: [facility] 12-26-2022 14:25-0400 Body mass index (BMI) [Ratio] 29.86 kg/m2 Oscar Payton MD Work Phone: [facility] 12-26-2022 14:25-0400 Body temperature 97.39 [degF] Oscar Payton MD Work Phone: [facility] 12-26-2022 14:25-0400 Body weight 89.09 kg Oscar Payton MD Work Phone: [facility] 12-26-2022 14:25-0400 Diastolic blood pressure 78 mm[Hg] Oscar Payton MD Work Phone: [facility] 12-26-2022 14:25-0400 Heart rate 78 /min Oscar Payton MD Work Phone: [facility] 12-26-2022 14:25-0400 SaO2% (BldA) [Mass fraction] 94 % Oscar Payton MD Work Phone: [facility] Comment on above: 4L 12-26-2022 14:25-0400 Systolic blood pressure 120 mm[Hg] Oscar Payton MD Work Phone: [facility] 11-03-2022 10:08-0400 Body height 172.7 cm Dawna Bernal MD Work Phone: [facility] 11-03-2022 10:08-0400 Body mass index (BMI) [Ratio] 31.25 kg/m2 Dawna Bernal MD Work Phone: [facility] 11-03-2022 10:08-0400 Body temperature 98.2 [degF] Dawna Bernal MD Work Phone: [facility] 11-03-2022 10:08-0400 Body weight 93.21 kg Dawna Bernal MD Work Phone: [facility] 11-03-2022 10:08-0400 Diastolic blood pressure 98 mm[Hg] Dawna Bernal MD Work Phone: [facility] 11-03-2022 10:08-0400 Heart rate 71 /min Dawna Bernal MD Work Phone: [facility] 11-03-2022 10:08-0400 SaO2% (BldA) [Mass fraction] 94 % Dawna Bernal MD Work Phone: [facility] 11-03-2022 10:08-0400 Systolic blood pressure 169 mm[Hg] Dawna Bernal MD Work Phone: [facility] 09-01-2022 09:44-0400 Body height 172.7 cm Dawna Bernal MD Work Phone: [facility] 09-01-2022 09:44-0400 Body mass index (BMI) [Ratio] 31.7 kg/m2 Dawna Bernal MD Work Phone: [facility] 09-01-2022 09:44-0400 Body temperature 99.1 [degF] Dawna Bernal MD Work Phone: [facility] 09-01-2022 09:44-0400 Body weight 94.58 kg Dawna Bernal MD Work Phone: [facility] 09-01-2022 09:44-0400 Diastolic blood pressure 78 mm[Hg] Dawna Bernal MD Work Phone: [facility] 09-01-2022 09:44-0400 Heart rate 60 /min Dawna Bernal MD Work Phone: [facility] 09-01-2022 09:44-0400 Respiratory rate 16 /min Dawna Bernal MD Work Phone: [facility] 09-01-2022 09:44-0400 SaO2% (BldA) [Mass fraction] 88 % Dawna Bernal MD Work Phone: [facility] 09-01-2022 09:44-0400 Systolic blood pressure 134 mm[Hg] Dawna Bernal MD Work Phone: [facility] 07-06-2022 08:52-0400 Body height 172.7 cm Dawna Bernal MD Work Phone: [facility] 07-06-2022 08:52-0400 Body mass index (BMI) [Ratio] 32.77 kg/m2 Dawna Bernal MD Work Phone: [facility] 07-06-2022 08:52-0400 Body temperature 99.1 [degF] Dawna Bernal MD Work Phone: [facility] 07-06-2022 08:52-0400 Body weight 97.75 kg Dawna Bernal MD Work Phone: [facility] 07-06-2022 08:52-0400 Diastolic blood pressure 81 mm[Hg] Dawna Bernal MD Work Phone: [facility] 07-06-2022 08:52-0400 Heart rate 76 /min Dawna Bernal MD Work Phone: [facility] 07-06-2022 08:52-0400 Respiratory rate 16 /min Dawna Bernal MD Work Phone: [facility] 07-06-2022 08:52-0400 SaO2% (BldA) [Mass fraction] 76 % Dawna Bernal MD Work Phone: [facility] Comment on above: on room air with rest approx 7minutes we nt to 91% room air 07-06-2022 08:52-0400 Systolic blood pressure 167 mm[Hg] Dawna Bernal MD Work Phone: [facility] 05-29-2020 07:01-0400 Body Temperature 98.01 [degF] [facility] 05-29-2020 07:01-0400 BP Diastolic 76 mm[Hg] [facility] 05-29-2020 07:01-0400 BP Systolic 124 mm[Hg] [facility] 05-29-2020 07:01-0400 Pulse (Heart Rate) 63 /min [facility] 05-29-2020 07:01-0400 Pulse Oximetry 96 % [facility] 05-29-2020 07:01-0400 Respiratory Rate 16 /min [facility] 05-27-2020 20:19-0400 BMI (Body Mass Index) 32.39 kg/m2 [facility] 05-27-2020 20:19-0400 Body weight 96.62 kg [facility] 05-27-2020 20:19-0400 Height 172.7 cm [facility] 05-27-2020 18:44-0400 Body Temperature 98.01 [degF] Dorita [facility] 05-27-2020 18:44-0400 BP Diastolic 86 mm[Hg] Dorita [facility] 05-27-2020 18:44-0400 BP Systolic 150 mm[Hg] Dorita [facility] 05-27-2020 18:44-0400 Pulse (Heart Rate) 62 /min [facility] 05-27-2020 18:44-0400 Respiratory Rate 20 /min [facility] 05-27-2020 18:30-0400 Pulse Oximetry 94 % Dorita [facility] 05-27-2020 11:46-0400 BMI (Body Mass Index) 33.36 kg/m2 [facility] 05-27-2020 11:46-0400 Body weight 96.62 kg [facility] 05-27-2020 11:46-0400 Height 170.2 cm [facility] Encounters Encounter Date Encounter Type Care Provider Facility Start: 01-18-2024 ambulatory MEGA REED [facility] Start: 01-16-2024 ambulatory [facility] Start: 12-26-2023 End: 12-26-2023 ambulatory [facility] Start: 12-26-2023 End: 12-26-2023 Office outpatient visit 40 minutes Sahra Holliday MD Work Phone: [facility] Comment on above: Right leg pain; Interstitial lung disease (Multi) Start: 12-25-2023 ambulatory SABINA RIVAS [facility] Start: 12-22-2023 End: 12-22-2023 Office outpatient new 30 minutes Mega Reed SALES ACCOUNT COORDINATOR-ADMINISTRATIVE ASSISTANT OFFICE MANAGER Work Phone: [facility] Comment on above: Lateral femoral cuta neous neuropathy, right (Primary Dx); Hip pain, right; Encounter for medication monitoring Start: 12-22-2023 ambulatory MEAG REED [facility] Start: 12-19-2023 ambulatory SABINA RIVAS [facility] Start: 2023 End: 2023 Subsequent hospital visit by physician Freddie X-Ray 1 [facility] Comment on above: Interstitial lung di sease (Multi); Productive cough Start: 2023 End: 2023 ambulatory [facility] Start: 2023 End: 2023 Office outpatient visit 25 minutes Sahra Holliday MD Work Phone: [facility] Comment on above: Hypokalemia (Primary Dx); Interstitial lung disease (Multi); Productive cough; Type 2 diabetes mellitus without complication, without long-term current use of insulin (Multi); Right leg pain Start: 2023 End: 2023 ambulatory [facility] Start: 12-07-2023 End: 12-11-2023 [facility] Start: 12-07-2023 End: 12-07-2023 ambulatory [facility] Start: 12-01-2023 ambulatory SABINA PEREZ [facility] Start: 12-01-2023 End: 12-01-2023 Subsequent hospital visit by physician Sabina Perez DO Work Phone: [facility] Comment on above: Arrived Start: 11-16-2023 End: 11-16-2023 ambulatory [facility] Start: 11-15-2023 End: 11-19-2023 Orders Only Cami Harmon RN [facility] Comment on above: Medication managemen t (Primary Dx) Start: 11-13-2023 End: 11-13-2023 ambulatory [facility] Start: 11-13-2023 End: 11-13-2023 ambulatory [facility] Start: 11-09-2023 End: 11-09-2023 ambulatory [facility] Start: 11-08-2023 [facility] Start: 10-31-2023 ambulatory SABINA PEREZ [facility] Start: 10-31-2023 End: 10-31-2023 Subsequent hospital visit by physician Sabina Perez DO Work Phone: [facility] Start: 10-31-2023 ambulatory SABINA Desouza [facility] Start: 10-27-2023 End: 10-31-2023 ambulatory [facility] Start: 10-27-2023 End: 10-27-2023 Office outpatient visit 15 minutes Dana Elder [facility] Work Phone: [facility] Comment on above: Chest pain, unspecif ied type (Primary Dx); Mitral valve insufficiency, unspecified etiology Start: 10-27-2023 End: 10-31-2023 ambulatory DANA TEOFILO [facility] Start: 10-26-2023 End: 10-26-2023 ambulatory [facility] Start: 09-28-2023 End: 09-28-2023 Office outpatient new 30 minutes Jerrod Norman MD Work Phone: [facility] Comment on above: Right hip pain (Prim mihaela Dx) Start: 09-28-2023 ambulatory JERROD NORMAN [facility] Start: 09-28-2023 End: 09-28-2023 Subsequent hospital visit by physician Jerrod Norman MD Work Phone: [facility] Radiology Start: 09-12-2023 End: 09-12-2023 ambulatory [facility] Amb[facility] Start: 08-28-2023 End: 08-28-2023 ambulatory [facility] Start: 07-27-2023 End: 07-27-2023 Office outpatient visit 25 minutes Sahra Holliday MD Work Phone: [facility] ([place], [place]) Comment on above: Nasal congestion (Pr imary Dx); Laceration of left lower extremity, subsequent encounter; Interstitial lung disease (Multi); Right leg pain Start: 07-27-2023 End: 07-27-2023 ambulatory [facility] Start: 07-13-2023 End: 07-13-2023 Office outpatient visit 15 minutes Sahra Holliday MD Work Phone: [facility] ([place], [place]) Comment on above: Laceration of left l ower extremity, subsequent encounter (Primary Dx); Pulmonary hypertension (Multi); Benign prostatic hyperplasia with nocturia; Hypertension, unspecified type; IPF (idiopathic pulmonary fibrosis) (Multi); Chronic hypoxemic respiratory failure (Multi); Peripheral edema Start: 07-13-2023 End: 07-13-2023 [facility] Start: 07-04-2023 End: 07-04-2023 [facility] Start: 07-04-2023 End: 07-04-2023 Office outpatient visit 40 minutes Sahra Holliday MD Work Phone: [facility] ([place], [place]) Comment on above: Interstitial lung di sease (Multi) (Primary Dx); Pulmonary hypertension (Multi); Benign prostatic hyperplasia with nocturia; Nonrheumatic mitral valve regurgitation; Chronic hypoxemic respiratory failure (Multi) Start: 07-03-2023 End: 07-03-2023 Office outpatient visit 25 minutes Sahra Holliday MD Work Phone: [facility] ([place], [place]) Comment on above: Right leg pain (Prim mihaela Dx); Laceration of left lower extremity, subsequent encounter Start: 07-03-2023 End: 07-03-2023 [facility] Start: 06-28-2023 End: 06-28-2023 Emergency department patient visit SHYAM RICHARDSONAmy ALMANZAR [facility] Start: 06-27-2023 End: 06-27-2023 [facility] Start: 06-14-2023 End: 06-14-2023 Office outpatient visit 25 minutes Sahra Holliday MD Work Phone: [facility] ([place], [place]) Comment on above: Congestion of nasal sinus (Primary Dx); Hypertension, unspecified type; Right leg pain; IPF (idiopathic pulmonary fibrosis) (Multi); Chronic hypoxemic respiratory failure (Multi); Respiratory crackles of both lungs; Peripheral edema Start: 06-14-2023 End: 06-14-2023 [facility] Start: 06-08-2023 End: 06-08-2023 [facility] Start: 06-08-2023 End: 06-08-2023 Office outpatient visit 25 minutes Sahra Holliday MD Work Phone: [facility] ([place], [place]) Comment on above: Congestion of nasal sinus (Primary Dx); IPF (idiopathic pulmonary fibrosis) (CMS/HCC); Chronic hypoxemic respiratory failure (CMS/HCC) Start: 06-02-2023 End: 06-02-2023 ambulatory [facility] Start: 05-26-2023 End: 05-26-2023 ambulatory RYANN AMBRIZ [facility] Start: 05-22-2023 End: 05-22-2023 ambulatory SAHRA HOLLIDAY Facility:[facility] Start: 05-22-2023 End: 05-22-2023 Patient encounter procedure Juan Carlos Fitzgerald MD Work Phone: Ophthalmology Comment on above: Epiphora due to insu fficient drainage of both sides (Primary Dx); Meibomian gland dysfunction (MGD) of upper and lower lids of both eyes; Punctate keratitis of both eyes; Nonexudative age-related macular degeneration, bilateral, early dry stage; Combined forms of age-related cataract of both eyes; Essential hypertension; IPF (idiopathic pulmonary fibrosis) (HCC); Benign prostatic hyperplasia with lower urinary tract symptoms, symptom details unspecified Start: 05-18-2023 End: 05-18-2023 Office outpatient visit 25 minutes Sahra Holliday MD Work Phone: [facility] ([place], [place]) Comment on above: Watery eyes (Primary Dx); IPF (idiopathic pulmonary fibrosis) (CMS/HCC); Chronic hypoxemic respiratory failure (CMS/HCC); Respiratory crackles of both lungs; Hypokalemia; Benign prostatic hyperplasia with urinary frequency; Interstitial lung disease (CMS/HCC) Start: 05-18-2023 End: 05-18-2023 ambulatory SAHRA HOLLIDAY [facility] Ambulatory Start: 05-15-2023 End: 05-15-2023 ambulatory SAHRA HOLLIDAY [facility] Start: 05-11-2023 End: 05-11-2023 ambulatory [facility] Start: 05-04-2023 End: 05-04-2023 ambulatory [facility] Start: 05-02-2023 End: 05-02-2023 ambulatory [facility] Start: 05-01-2023 ambulatory OSCAR gagnony:[facility] Start: 05-01-2023 End: 05-01-2023 Subsequent hospital visit by physician Oscar Payton MD Work Phone: [facility] Comment on above: Arrived Start: 04-26-2023 End: 04-26-2023 Office outpatient visit 25 minutes Sahra Holliday MD Work Phone: [facility] ([place], [place]) Comment on above: IPF (idiopathic pulm onary fibrosis) (CMS/HCC) (Primary Dx); Chronic hypoxemic respiratory failure (CMS/HCC); Respiratory crackles of both lungs; Hypokalemia; Type 2 diabetes mellitus without complication, without long-term current use of insulin (CMS/HCC); Right leg pain Start: 04-26-2023 End: 04-26-2023 ambulatory [facility] Start: 04-19-2023 End: 04-19-2023 ambulatory [facility] Start: 04-19-2023 End: 04-19-2023 Office outpatient visit 25 minutes Sahra Holliday MD Work Phone: [facility] ([place], [place]) Comment on above: Acetaminophen abuse (Primary Dx); Type 2 diabetes mellitus without complication, without long-term current use of insulin (CMS/HCC); IPF (idiopathic pulmonary fibrosis) (CMS/HCC); Chronic hypoxemic respiratory failure (CMS/HCC); Respiratory crackles of both lungs; Interstitial lung disease (CMS/HCC) Start: 04-14-2023 End: 04-14-2023 ambulatory [facility] Start: 04-07-2023 End: 04-07-2023 ambulatory [facility] Start: 03-29-2023 End: 03-29-2023 Office outpatient visit 25 minutes Sahra Holliday MD Work Phone: [facility] ([place], [place]) Comment on above: IPF (idiopathic pulm onary fibrosis) (CMS/HCC) (Primary Dx); Chronic hypoxemic respiratory failure (CMS/HCC); Right leg pain; Mitral valve insufficiency, unspecified etiology; Coordination of complex care Start: 03-29-2023 End: 03-29-2023 ambulatory [facility] Start: 03-27-2023 Documentation procedure Hailey west RN [facility] Start: 03-24-2023 End: 03-24-2023 ambulatory [facility] Start: 03-20-2023 End: 03-20-2023 ambulatory [facility] Start: 03-15-2023 End: 03-15-2023 ambulatory [facility] Start: 03-15-2023 End: 03-15-2023 Office outpatient visit 25 minutes Sahra Holliday MD Work Phone: [facility] ([place], [place]) Comment on above: Injury of quadriceps muscle (Primary Dx); Right leg pain Start: 03-06-2023 Documentation procedure Hailey west RN [facility] Start: 03-01-2023 End: 03-01-2023 Office outpatient visit 25 minutes Sahra Holliday MD Work Phone: 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); IPF (idiopathic pulmonary fibrosis) (CMS/HCC); Chronic hypoxemic respiratory failure (CMS/HCC) Start: 03-01-2023 End: 03-01-2023 ambulatory [facility] Start: 02-28-2023 End: 03-04-2023 Orders Only Hailey Guzman RN [facility] Comment on above: Mitral valve insuffi ciency, unspecified etiology (Primary Dx) Start: 02-28-2023 End: 02-28-2023 Office outpatient new 60 minutes Sahra Holliday MD Work Phone: [facility] Comment on above: Mitral valve insuffi ciency, unspecified etiology (Primary Dx); ILD (interstitial lung disease) (HCC); Pulmonary hypertension (HCC) Start: 02-23-2023 End: 02-23-2023 ambulatory [facility] Start: 02-23-2023 End: 02-23-2023 Office outpatient visit 40 minutes Sahra Holliday MD Work Phone: [facility] ([place], [place]) Comment on above: Benign prostatic hyp erplasia with nocturia (Primary Dx); Interstitial lung disease (CMS/HCC); Dependence on continuous supplemental oxygen Start: 02-22-2023 End: 02-22-2023 ambulatory SABINA FRANK [facility] Start: 02-15-2023 End: 02-15-2023 Office outpatient visit 25 minutes Sahra Holliday MD Work Phone: [facility] ([place], [place]) Comment on above: Rupture of right carie driceps tendon, subsequent encounter (Primary Dx); Coordination of complex care; Interstitial lung disease (CMS/HCC) Start: 02-15-2023 End: 02-15-2023 ambulatory [facility] Start: 02-13-2023 ambulatory CHRIS MCNEAL [facility] Amb[facility] Start: 02-10-2023 Orders Only Barbi Adkins RN [facility] Comment on above: Mitral valve insuffi ciency, unspecified etiology (Primary Dx) Start: 02-08-2023 End: 02-08-2023 ambulatory [facility] Start: 02-08-2023 End: 02-08-2023 Office outpatient new 60 minutes Sahra Holliday MD Work Phone: [facility] ([place], [place]) Comment on above: Encounter to [facility] (Primary Dx); Mitral valve insufficiency, unspecified etiology; Interstitial lung disease (CMS/HCC); Benign prostatic hyperplasia with urinary frequency; Right leg pain Start: 02-02-2023 ambulatory SABINA RIVAS Facilit y:[facility] Start: 02-02-2023 ambulatory SABINA RIVAS Facilit y:[facility] Start: 01-30-2023 End: 01-30-2023 Patient encounter procedure Gabe Michele SALES ACCOUNT COORDINATOR-ADMINISTRATIVE ASSISTANT OFFICE MANAGER Work Phone: [facility] Comment on above: Cellulitis of hand, right (Primary Dx) Start: 01-30-2023 End: 01-30-2023 ambulatory SABINA Garsia YOLANDAKevin [facility] Start: 12-28-2022 End: 12-29-2022 [facility] Start: 12-26-2022 ambulatory OSCAR Arteaga lity:[facility] Start: 12-26-2022 ambulatory OSCAR Arteaga lity:[facility] Start: 12-26-2022 End: 12-26-2022 Office outpatient visit 25 minutes Oscar Payton MD Work Phone: [facility] Comment on above: Interstitial lung di sease (Primary Dx); Obesity (BMI 30.0-34.9); Chronic hypoxemic respiratory failure; Hypersensitivity pneumonitis; High risk medication use Start: 12-26-2022 End: 12-26-2022 Subsequent hospital visit by physician Oscar Payton MD Work Phone: [facility] Comment on above: Arrived Start: 12-22-2022 Orders Only Dawna Bernal MD Work Phone: [facility] Comment on above: Bronchitis (Primary Dx) Start: 11-03-2022 End: 11-03-2022 Office outpatient visit 15 minutes Dawna Bernal MD Work Phone: [facility] Comment on above: Pneumonitis, hyperse nsitivity, harper (HCC) (Primary Dx) Start: 09-29-2022 ambulatory SABINA RIVAS Facilit y:[facility] Start: 09-19-2022 ambulatory SABINA RIVAS Facilit y:[facility] Start: 09-19-2022 ambulatory SABINA RIVAS Facilit y:[facility] Start: 09-01-2022 ambulatory Facility:[facility] Start: 09-01-2022 End: 09-01-2022 Office outpatient visit 40 minutes Dawna Bernal MD Work Phone: [facility] Comment on above: IPF (idiopathic pulm onary fibrosis) ([facility]) (Primary Dx); Elevated IgE level; Chronic respiratory failure with hypoxia (HCC) Start: 07-06-2022 End: 07-06-2022 Office outpatient new 60 minutes Dawna Bernal MD Work Phone: [facility] Comment on above: ILD (interstitial qi ng disease) ([facility]) (Primary Dx); Pulmonary hypertension (HCC) Start: 06-16-[address] Sabina Rivas Facility:[id number] Start: 04-22-[address] Sabina Rivas Facility:[id number] Start: 11-09-[address] Sabina Rivas Facility:[id number] Start: 05-27-2020 End: 05-29-2020 Evaluation and management of inpatient Generic [facility] Work Phone: [facility] Start: 05-27-2020 End: 05-27-2020 Emergency department patient visit Dorita Gaona Work Phone: [facility] Emergency Department Procedures Date Procedure Procedure Detail Performing Clinician Start: 10-31-2023 Radex spine lumbosac ral minimum 4 views Sabina Perez DO Work Phone: Start: 10-27-2023 Ecg routine ecg w/le ast 12 lds w/i&r Dana Elder CNP Work Phone: Start: 07-13-2023 SUTURE REMOVAL Sahra Holliday MD Work Phone: Start: 06-27-2023 FOLLOW UP IN FAMILY MEDICINE SAHRA HOLLIDAY Start: 06-02-2023 FOLLOW UP IN PHYSICAL THERAPY VINNY HAN Start: 05-26-2023 FOLLOW UP IN PHYSICAL THERAPY VINNY HAN Start: 05-22-2023 Probe nasolacrimal d uct w/wo irrigation Juan Carlos Fitzgerald MD Work Phone: Start: 05-18-2023 FOLLOW UP IN FAMILY MEDICINE SAHRA HOLLIDAY Start: 05-15-2023 Basic metabolic 2000 panel - Serum or Plasma SAHRA HOLLIDAY Start: 05-11-2023 FOLLOW UP IN PHYSICAL THERAPY VINNY HAN Start: 05-08-2023 Colonoscopy Juan Carlos león MD Work Phone: Start: 05-04-2023 FOLLOW UP IN PHYSICAL THERAPY VINNY HAN Start: 05-02-2023 FOLLOW UP IN PHYSICAL THERAPY VINNY HAN Start: 05-01-2023 Spmtry w/vc expirato ry whitney w/wo mxml vol vntj Oscar Payton MD Work Phone: Start: 04-19-2023 Acetaminophen [Mass/ volume] in Serum or Plasma SHARA MG Start: 04-19-2023 Comprehensive metabo lic 2000 panel - Serum or Plasma SAHRA MG Start: 04-19-2023 Hemoglobin A1c/Hemoglobin.total in Blood SAHRAMelissa HOLLIDAY Start: 04-14-2023 FOLLOW UP IN PHYSICAL THERAPY VINNYRADHA HAN Start: 04-07-2023 AMB REFERRAL TO PHYS ICAL THERAPY VINNY GUILLE Start: 03-01-2023 Follow-up visit Follow-up SAHRA HOLLIDAY Start: 02-28-2023 Ecg routine ecg w/le ast 12 lds w/i&r Carlos Gonzáles MD Work Phone: Start: 02-02-2023 Follow-up visit Follow-up ROBERTO PURCELL Start: 01-30-2023 TISSUE/WOUND CULTURE/SMEAR VINNY GUILLE Start: 01-30-2023 Creatinine [Mass/vol ume] in Serum or Plasma SAHRA HOLLIDAY Start: 12-26-2022 Spmtry w/vc expirato ry whitney w/wo mxml vol vntj Oscar Payton MD Work Phone: Start: 12-26-2022 Blood count hemoglobin Oscar Payton MD Work Phone: Start: 05-04-2021 Lipid 1996 panel - S kwadwo or Plasma Gabe Michele SALES ACCOUNT COORDINATOR-ADMINISTRATIVE ASSISTANT OFFICE MANAGER Work Phone: Start: 05-29-2020 Echocardiography Nhan Mendez Work Phone: Start: 05-28-2020 Gastrointestinal pat hogens DNA and RNA panel - Stool by ELODIA with non-probe detection Willie Nair Work Phone: Start: 05-28-2020 Hemoglobin A1c/Hemoglobin.total in Blood Kel Yeung Work Phone: Start: 05-28-2020 Complete blood count with white cell differential, automated Kel Yeung Work Phone: Start: 05-28-2020 Complete blood count with white cell differential, manual Kel Yeung Work Phone: Start: 05-28-2020 Magnesium [Mass/volu me] in Serum or Plasma Kel Yeung Work Phone: Start: 05-28-2020 Renal function 2000 panel - Serum or Plasma Kel Yueng Work Phone: Start: 05-28-2020 Thyrotropin [Units/v olume] in Serum or Plasma by Detection limit <= 0.005 mIU/L Kel Yeung Work Phone: Start: 05-27-2020 CT angiography of pu lmonary artery Dorita Gaona Work Phone: Start: 05-27-2020 Assay of troponin quantitative Dorita Gaona Work Phone: Start: 05-27-2020 12 lead ECG Dorita R ingyesenia Work Phone: Start: 05-27-2020 Assay of troponin quantitative Dorita Gaona Work Phone: Start: 05-27-2020 Basic metabolic pane l calcium ionized Dorita Gaona Work Phone: Start: 05-27-2020 Albumin serum plasma /whole blood Dorita Gaona Work Phone: Start: 05-27-2020 Prothrombin time Faye daniela Jimenez Work Phone: Start: 05-27-2020 Blood count complete auto&auto difrntl wbc Dorita Gaona Work Phone: Start: 05-27-2020 COVID-19, MOLECULAR Charlie valery Gaona Work Phone: Start: 05-27-2020 12 lead ECG Dorita Hou gilson Work Phone: Start: 05-27-2020 CT of head without contrast Dorita Gaona Work Phone: Start: 05-27-2020 Radiologic exam ches t single view Dorita Gaona Work Phone: Start: 05-27-2020 Urnls dip stick/tabl et rgnt auto w/o microscopy Dorita Gaona Work Phone: Start: 01-01-2009 Colonoscopy Dana wall CNP Work Phone: Plan of Treatment Date Care Activity Detail Author Start: 04-07-2033 DTaP/Tdap/Td Vaccines (2 - Td or Tdap) DTaP/Tdap/Td Vaccines (2 - Td or Tdap) [facility] Start: 04-07-2033 Tetanus vaccination [facility] Start: 04-07-2033 Urine microalbumin profile DTaP,Tdap,Td Vaccine (2 - Td or Tdap) [facility] Start: 05-07-2028 Screening for malignant neoplasm of colon [facility] Start: 05-14-2026 Diabetes Screening Diabetes Screening [facility] Start: 05-04-2026 Lipid panel [facility] Start: 12-13-2024 Creatinine measurement Creatinine Level [facility] Start: 12-13-2024 Potassium measurement Potassium Level [facility] Start: 03-15-2024 Hemoglobin A1c measurement Diabetes: Hemoglobin A1C [facility] Start: 02-03-2024 Echocardiography Echocardiogram [facility] Start: 01-23-2024 End: 01-23-2024 Patient encounter procedure 01/23/2024 11:40 AM EST Office Visit [place] [id number] [phone] Sahra Holliday MD [address] [address] [facility] Start: 01-18-2024 End: 01-18-2024 Patient encounter procedure 01/18/2024 9:30 AM EST Office Visit [facility] [address] [facility] [address] Mega Reed, SALES ACCOUNT COORDINATOR-ADMINISTRATIVE ASSISTANT OFFICE MANAGER [address] [facility] [place] [address] [facility] Start: 01-16-2024 End: 01-16-2024 Patient encounter procedure 01/16/2024 11:30 AM EST Office Visit [facility] [address] [place] [address] Tomeka Escobar MD [address] [place] [address] [facility] Start: 12-26-2023 End: 12-26-2023 Patient encounter procedure 12/26/2023 2:40 PM EDT Office Visit [address] [phone] Sahra Holliday MD [address] [address] [facility] Start: 12-22-2023 End: 12-23-2023 DRUG SCREEN MED COMPLIANCE I DRUG SCREEN MED COMPLIANCE I Lab Routine Encounter for medication monitoring Expected: 12/22/2023, Expires: 12/23/2023 [facility] Comment on above: Expected: 12/22/2023, Expires: Start: 12-19-2023 End: 12-19-2023 Patient encounter procedure 12/19/2023 10:30 AM EDT Office Visit [facility] [address] [place] [address] Sabina Perez, [address] [facility] [place] [address] [facility] Start: 12-08-2023 End: 12-08-2023 Patient encounter procedure 12/08/2023 3:30 PM EDT Office Visit [facility] [address] 3rd [place] [phone] Dana Elder, ADMINISTRATIVE ASSISTANT OFFICE MANAGER [address] [place] [address] [facility] Start: 11-28-2023 End: 11-28-2023 Patient encounter procedure 11/28/2023 1:00 PM EDT Office Visit [facility] [address] [facility] [place] [address] Sabina Perez DO [address] [place] [address] [facility] Start: 11-08-2023 End: 11-08-2023 Patient encounter procedure 11/08/2023 10:00 AM EDT Office Visit [facility] [address] [place] [address] Kenny Massey MD [address] [place] [address] [facility] Start: 11-03-2023 End: 10-26-2024 Basic metabolic 2000 panel - Serum or Plasma Basic metabolic panel Lab Routine Mitral valve insufficiency, unspecified etiology Expected: 11/03/2023 (Approximate), Expires: 10/26/2024 [facility] Work Phone: Comment on above: Expected: 11/03/2023 (Approximate), Expi res: 10/26/2024 Start: 10-29-2023 COVID-19 VACCINE ( season) COVID-19 VACCINE ( season) [facility] Start: 10-29-2023 COVID-19 Vaccine ( season) COVID-19 Vaccine ( season) [facility] Start: 10-29-2023 Influenza vaccination INFLUENZA VACCINE (#1) [facility] Start: 10-18-2023 Hemoglobin A1c measurement A1C [facility] Start: 09-12-2023 End: 09-12-2023 Patient encounter procedure 09/12/2023 10:40 AM EDT Office Visit [facility] [place] [address] [place] [address] Sahra Holliday MD [address] [place] [address] [facility] [place] Start: 07-27-2023 End: 07-27-2023 Patient encounter procedure 07/27/2023 9:00 AM EDT Office Visit [facility] [place] [address] [place] [address] Sahra Holliday MD [address] [place] [address] [facility] [place] Start: 07-26-2023 End: 07-26-2023 Patient encounter procedure 07/26/2023 11:00 AM EDT Office Visit [facility] [address] [facility] [address] [place] [phone] Harry Ramirez MD MPH [address] [facility] [address] [place] [address] [facility] Start: 07-18-2023 Hemoglobin A1c measurement Diabetes: Hemoglobin A1C [facility] Start: 07-13-2023 End: 07-13-2023 Patient encounter procedure 07/13/2023 10:20 AM EDT Office Visit [facility] [place] [address] [place] [address] Sahra Holliday MD [address] [address] [facility] [place] Start: 07-04-2023 End: 07-04-2023 Patient encounter procedure 07/04/2023 4:20 PM EDT Office Visit [facility] [place] [address] [place] [address] Sahra Holldiay MD [address] [place] [phone] [facility] [place] Start: 06-30-2023 COVID-19 Vaccine () COVID-19 Vaccine () [facility] Start: 06-20-2023 End: 06-20-2023 Patient encounter procedure 06/20/2023 10:20 AM EDT Office Visit [facility] [place] [address] [place] [phone] Sahra Holliday MD [address] [place] [phone] [facility] [place] Start: 06-15-2023 End: 06-15-2023 Patient encounter procedure 06/15/2023 9:30 AM EDT Appointment [facility] [address] [facility] [address] [place] [address] [phone] Frederick Lloyd MD [address] [facility] [place] [address] [facility] Start: 06-14-2023 End: 06-14-2023 Patient encounter procedure 06/14/2023 11:40 AM EDT Office Visit [facility] [place] [address] [place] [address] Sahra Holliday MD [address] [place] [phone] [facility] [place] Start: 06-02-2023 End: 06-02-2023 ambulatory 06/02/2023 12:45 PM EDT Treatment [facility] [address] [place] [address] Aaron Holguin, PT [address] [place] [address] [facility] Start: 05-26-2023 End: 05-26-2023 ambulatory 05/26/2023 12:30 PM EDT Treatment [address] [place] [address] Ryann Ambriz, DINKEY DISPATCHER [address] [place] [address] [facility] Start: 05-19-2023 End: 05-19-2023 ambulatory 05/19/2023 12:30 PM EDT Treatment [address] [address] Ryann Ambriz, DINKEY DISPATCHER [address] [place] [address] [facility] Start: 05-18-2023 End: 05-18-2023 Patient encounter procedure 05/18/2023 9:40 AM EDT Office Visit [facility] ([place], [place]) [address] [place] [address] Sahra Holliday MD [address] [place] [address] [facility] [place] Start: 05-11-2023 End: 05-11-2023 ambulatory 05/11/2023 1:00 PM EDT Treatment [address] [address] Aaron Holguin, PT [address] [place] [address] [facility] Start: 05-04-2023 End: 05-04-2023 ambulatory 05/04/2023 2:45 PM EST Treatment [address] [place] [address] Tesha Harman A, DINKEY DISPATCHER [address] [place] [address] [facility] Start: 05-02-2023 End: 05-02-2023 ambulatory 05/02/2023 2:00 PM EST Treatment [address] [address] Tesha Harman A, DINKEY DISPATCHER [address] [place] [address] [facility] Start: 04-27-2023 End: 04-27-2023 ambulatory 04/27/2023 2:45 PM EST Treatment [address] [place] [address] Tesha Harman A, DINKEY DISPATCHER [address] [place] [phone] [facility] Start: 04-26-2023 End: 04-26-2024 Basic metabolic 2000 panel - Serum or Plasma Basic metabolic panel Lab Routine Hypokalemia Expected: 04/26/2023 (Approximate), Expires: 04/26/2024 [facility] Service Area Work Phone: Comment on above: Expected: 04/26/2023 (Approximate), Expi res: 04/26/2024 Start: 04-26-2023 COVID-19 Vaccine (4 - Pfizer series) COVID-19 Vaccine (4 - Pfizer series) [facility] Start: 04-26-2023 COVID-19 Vaccine () COVID-19 Vaccine () [facility] Start: 04-26-2023 End: 04-26-2023 Patient encounter procedure 04/26/2023 10:20 AM EST Office Visit [facility] ([place], [place]) [address] [place] [address] Sahra Holliday MD [address] [place] [address] [facility] ([place] [place] Start: 04-25-2023 End: 04-25-2023 ambulatory 04/25/2023 2:45 PM EST Treatment [facility] [address] [place] [address] Tesha Harman, DINKEY DISPATCHER [address] [place] [phone] [facility] Start: 04-20-2023 End: 04-20-2023 ambulatory 04/20/2023 2:00 PM EST Treatment [address] [place] [address] Tesha Harman, DINKEY DISPATCHER [address] [place] [address] [facility] Start: 04-19-2023 End: 04-19-2024 Acetaminophen [Mass/volume] in Serum or Plasma [facility] Service Area Work Phone: Comment on above: Expected: 04/19/2023 (Approximate), Expi res: 04/19/2024 Start: 04-19-2023 End: 04-19-2024 Comprehensive metabolic 2000 panel - Serum or Plasma [facility] Work Phone: Comment on above: Expected: 04/19/2023 (Approximate), Expi res: 04/19/2024 Start: 04-19-2023 End: 04-19-2024 Hemoglobin A1c/Hemoglobin.total in Blood [facility] Work Phone: Comment on above: Expected: 04/19/2023 (Approximate), Expi res: 04/19/2024 Start: 04-12-2023 End: 04-12-2023 Patient encounter procedure 04/12/2023 10:20 AM EST Office Visit [facility] ([place], [place]) [address] [place] [address] Sahra Holliday MD [address] [facility] [place] [address] [facility] ([place] [place] Start: 03-29-2023 End: 03-29-2023 Patient encounter procedure 03/29/2023 10:20 AM EST Office Visit [facility] ([place] [place] [address] [facility] [place] [address] Sahra Holliday MD [address] [facility] [facility] [address] [facility] [place] Start: 03-24-2023 End: 03-24-2023 Admission to same day surgery center [facility] Cardiovascular Lab Comment on above: Left and Right Heart Cath Start: 03-24-2023 Subsequent hospital visit by physician [facility] Procedural Care Unit Start: 03-23-2023 End: 12-27-2023 Measurement of respiratory function PFT STANDARD PFT Routine Interstitial lung disease Hypersensitivity pneumonitis High risk medication use Expected: 03/23/2023, Expires: 12/27/[address] [facility] Comment on above: Expected: 03/23/2023, Expires: Start: 03-20-2023 End: 03-20-2023 Patient encounter procedure 03/20/2023 9:00 AM EST Appointment [facility] Cardiac Non-Invasive Lab [address] [place] [id number] Carlos Gonzáles MD [address] [place] [address] [facility] Non-Invasive [facility] Start: 03-15-2023 End: 03-15-2023 Patient encounter procedure 03/15/2023 10:20 AM EST Office Visit [facility] ([place] [place]) [address] [place] [address] Sahra Holliday MD [address] [place] [phone] [facility] [place] Start: 03-10-2023 End: 03-10-2023 Patient encounter procedure 03/10/2023 8:30 AM EST Office Visit [facility] [address] [facility] [place] [phone] Carlos Gonzáles MD [address] [place] [address] [facility] Start: 03-02-2023 End: 03-02-2023 ambulatory 03/02/2023 3:30 PM EST Evaluation [facility] [address] [place] [address] Barrera Ash, PT [address] [facility] [place] [address] [facility] Start: 03-01-2023 End: 03-01-2023 Patient encounter procedure 03/01/2023 10:20 AM EST Office Visit [facility] ([place] [place]) [address] [place] [address] Sahra Holliday MD [address] [place] [address] [facility] [place] Start: 02-27-2023 Advance Directive Discussion Advance Directive Discussion [facility] Start: 02-27-2023 Depression Assessment Depression Assessment [facility] Start: 02-22-2023 End: 02-22-2023 Patient encounter procedure 02/22/2023 2:15 PM EST Appointment [facility] [address] [facility] [place] [phone] Carlos Gonzáles MD [address] [place] [address] [facility] Start: 02-15-2023 End: 02-15-2023 Patient encounter procedure 02/15/2023 9:20 AM EST Office Visit [facility] ([place] [place]) [address] [place] [address] Sahra Holliday MD [address] [place] [address] [facility] [place] Start: 02-08-2023 End: 02-08-2023 Patient encounter procedure 02/08/2023 8:40 AM EST Office Visit [facility] ([place] [place]) [address] [place] [address] Sahra Holliday MD [address] [place] [address] [facility] [place] Start: 02-02-2023 End: 02-02-2023 Patient encounter procedure [facility] Start: 01-23-2023 End: 01-23-2023 Patient encounter procedure Pulmonary Testing [facility] Start: 12-30-2022 Administration of herpes zoster vaccine Zoster Vaccines (2 of 2) [facility] Start: 12-30-2022 Zoster vaccine hzv live for subcutaneous use ZOSTER (SHINGLES) VACCINE (2 of [address]) [facility] Start: 12-30-2022 Zoster Vaccines (2 of 2) Zoster Vaccines (2 of 2) [facility] Start: 11-03-2022 End: 11-03-2022 Patient encounter procedure 11/03/2022 10:00 AM EDT Office Visit [facility] [address] [place] [address] Dawna Bernal MD [address] [place] [address] [facility] Start: 10-28-2022 COVID-19 Vaccine ( season) COVID-19 Vaccine () [facility] Start: 10-28-2022 Influenza vaccination [facility] Start: 09-01-2022 End: 09-01-2022 Patient encounter procedure 09/01/2022 9:40 AM EDT Office Visit [facility] [address] [place] [address] Dawna Bernal MD [address] [place] [address] [facility] Start: 07-06-2022 End: 07-07-2023 Complete PFT with Pre and Post Bronchodilator Complete PFT with Pre and Post Bronchodilator PFT Routine ILD (interstitial lung disease) (HCC) Expected: 07/06/2022, Expires: 07/07/2023 [facility] Comment on above: Expected: 07/06/2022, Expires: 4 Start: 07-06-2022 End: 09-06-2023 Echocardiography Echocardiogram complete Echocardiography Routine ILD (interstitial lung disease) (HCC) Pulmonary hypertension (HCC) Expected: 07/06/2022, Expires: 09/06/2023 [facility] Comment on above: Expected: 07/06/2022, Expires: 4 Start: 05-04-2022 Diabetes mellitus screening Diabetes Screening [facility] Start: 05-04-2022 Lipid panel Lipid Panel [facility] Start: 08-04-2021 Hemoglobin A1c measurement Diabetes: Hemoglobin A1C [facility] Start: 01-21-2021 COVID-19 Vaccine (4 - Booster for Pfizer series) COVID-19 Vaccine (4 - Booster for Pfizer series) [facility] Start: 01-21-2021 COVID-19 Vaccine (4 - Pfizer risk series) COVID-19 Vaccine (4 - Pfizer risk series) [facility] Start: 01-21-2021 COVID-19 Vaccine (4 - Pfizer series) COVID-19 Vaccine (4 - Pfizer series) [facility] Start: 01-01-2019 Screening for malignant neoplasm of colon [facility] Start: 2013 Abdominal aortic aneurysm screening [facility] Start: 2013 Fall risk assessment Falls Risk Assessment [facility] Start: 1998 Administration of herpes zoster vaccine Zoster Vaccines (1 of 2) [facility] Start: 1998 Prostate specific antigen measurement PROSTATE CANCER SCREENING DISCUSSION [facility] Start: 1998 Screening for malignant neoplasm of colon [facility] Start: 1993 Screening for malignant neoplasm of colon [facility] Start: 1988 Lipid panel LIPID SCREENING [facility] Start: 1970 DTaP/Tdap/Td Vaccines (1 - Tdap) DTaP/Tdap/Td Vaccines (1 - Tdap) [facility] Start: 12-15-1967 Hepatitis A Vaccines (1 of 2 - Risk 2-dose series) Hepatitis A Vaccines (1 of 2 - Risk 2-dose series) [facility] Start: 12-15-1967 Third diphtheria, tetanus and acellular pertussis (DTaP) vaccination TDAP (ADULT) [facility] Start: 12-15-1967 Urine screening for protein Diabetes: Urine Protein Screening [facility] Start: 1966 Hepatitis C antibody, confirmatory test Hepatitis C Screening [facility] Start: 1966 Hepatitis C screening Hepatitis C Screening [facility] Start: 1960 Adolescent depression screening assessment Depression Screening (PHQ9) [facility] Start: 1960 Depression screening using PHQ-9 (Patient Health Questionnaire 9) score [facility] Start: 1958 Diabetic foot examination [facility] Start: 1958 Glaucoma screening [facility] Start: 1958 Urine screening for protein Urine Microalbumin [facility] Start: 12-15-1951 History and physical examination, annual for health maintenance Wellness Visit [facility] Start: 12-15-1951 Medicare Wellness Visit Medicare Wellness Visit [facility] Start: 1948 Abdominal aortic aneurysm screening [facility] Start: 1948 Fall risk assessment Falls Risk Assessment [facility] Start: 1948 Hepatitis C screening HEPATITIS C VIRUS SCREENING [facility] Start: 1948 Medicare Annual Wellness Visit Medicare Annual Wellness Visit (AWV) [facility] Start: 1948 Potassium [Moles/volume] in Serum or Plasma POTASSIUM [facility] Start: 1948 Prostate specific antigen measurement PSA Level [facility] Start: 1948 Screening for malignant neoplasm of colon [facility] Start: 1948 Tetanus vaccination [facility] Start: 1948 US scan of abdominal aorta Abdominal Aortic Ultrasound [facility] Start: 1948 Yearly Adult Physical Yearly Adult Physical [facility] 12 lead ECG ECG 12 lead ECG Routine Chest pain, unspecified type 10/27/2023 11:26 AM EDT [facility] End: 07-07-2023 6-minute walk test 6 minute walk PFT Routine ILD (interstitial lung disease) [facility] 1 Occurrences starting 07/06/2022 until 07/07/2023 [facility] Comment on above: 1 Occurrences starting 07/06/2022 until 07/07/2023 End: 07-07-2023 REBECCA measurement Antinuclear antibody (REBECCA) Lab Routine ILD (interstitial lung disease) ([facility]) 1 Occurrences starting 07/06/2022 until 07/07/2023 [facility] Comment on above: 1 Occurrences starting 07/06/2022 until 07/07/2023 REBECCA measurement Antinuclear anti body (REBECCA) Lab Routine ILD (interstitial lung disease) ([facility]) 07/06/2022 9:32 AM EDT [facility] End: 07-07-2023 Anti-proteinase 3 Anti-proteinase 3 Lab Routine ILD (interstitial lung disease) ([facility]) 1 Occurrences starting 07/06/2022 until 07/07/2023 [facility] Comment on above: 1 Occurrences starting 07/06/2022 until 07/07/2023 Anti-proteinase 3 Anti-proteinas e 3 Lab Routine ILD (interstitial lung disease) ([facility]) 07/06/2022 9:32 AM EDT [facility] End: 07-07-2023 Autoantibody measurement MyoMarker Panel 3 Plus Lab Routine ILD (interstitial lung disease) ([facility]) 1 Occurrences starting 07/06/2022 until 07/07/2023 [facility] Comment on above: 1 Occurrences starting 07/06/2022 until 07/07/2023 Autoantibody measurement MyoMark er Panel 3 Plus Lab Routine ILD (interstitial lung disease) ([facility]) 07/06/2022 9:32 AM EDT [facility] End: 05-27-2020 Bacteria identified Cx Nom (Bld) Blood Culture Aerobic/Anaerobic Microbiology Routine Once for 1 Occurrences starting 05/27/2020 until 05/27/2020 [facility] Comment on above: Once for 1 Occurrences starting 05/28/19 21 until 05/27/2020 Bacteria identified Cx Nom (Bld) Blood Culture Aerobic/Anaerobic Microbiology Routine 05/27/2020 12:48 PM EDT [facility] Bacteria identified in Unspecified specimen by Culture Tissue/Wound Culture/Smear Microbiology Routine Cellulitis of hand, right Ordered: 01/30/2023 [facility] Service Area Work Phone: Comment on above: Ordered: 01/30/2023 End: 11-14-2024 Basic metabolic 2000 panel - Serum or Plasma Basic metabolic panel Lab Routine Medication management 1 Occurrences starting 11/15/2023 until 11/14/2024 [facility] Work Phone: Comment on above: 1 Occurrences starting 11/15/2023 until 11/14/2024 End: 07-07-2023 Complete blood count with white cell differential, manual CBC and Differential (with platelet count) Lab Routine ILD (interstitial lung disease) ([facility] 1 Occurrences starting 07/06/2022 until 07/07/2023 [facility] Comment on above: 1 Occurrences starting 07/06/2022 until 07/07/2023 Complete blood count with white cell differential, manual CBC and Differential (with platelet count) Lab Routine ILD (interstitial lung disease) ([facility]) 07/06/2022 9:32 AM EDT [facility] End: 07-07-2023 Dilute [place] viper venom time Lupus Anticoagulant Lab Routine ILD (interstitial lung disease) ([facility]) 1 Occurrences starting 07/06/2022 until 07/07/2023 [facility] Comment on above: 1 Occurrences starting 07/06/2022 until 07/07/2023 Dilute [place] viper venom time Lupus Anticoagulant Lab Routine ILD (interstitial lung disease) ([facility]) 07/06/2022 9:32 AM EDT [facility] End: 04-13-2024 Echocardiogram limited Echocardiogram limited Echocardiography Routine Mitral valve insufficiency, unspecified etiology 1 Occurrences starting 02/10/2023 until 04/13/2024 [facility] Work Phone: Comment on above: 1 Occurrences starting 02/10/2023 until 04/13/2024 End: 07-07-2023 Fungus serologic study Fungal Serologies (complement fixation and immunodiffusion) Lab Routine ILD (interstitial lung disease) ([facility] 1 Occurrences starting 07/06/2022 until 07/07/2023 [facility] Comment on above: 1 Occurrences starting 07/06/2022 until 07/07/2023 Fungus serologic study Fungal Se rologies (complement fixation and immunodiffusion) Lab Routine ILD (interstitial lung disease) ([facility]) 07/06/2022 9:32 AM EDT [facility] End: 07-07-2023 Immunoglobulin E measurement IgE level Lab Routine ILD (interstitial lung disease) ([facility]) 1 Occurrences starting 07/06/2022 until 07/07/2023 [facility] Comment on above: 1 Occurrences starting 07/06/2022 until 07/07/2023 Immunoglobulin E measurement IgE level Lab Routine ILD (interstitial lung disease) ([facility]) 07/06/2022 9:32 AM EDT [facility] End: 07-07-2023 Immunoglobulin G subclass measurement IgG Subclasses Lab Routine ILD (interstitial lung disease) ([facility]) 1 Occurrences starting 07/06/2022 until 07/07/2023 [facility] Comment on above: 1 Occurrences starting 07/06/2022 until 07/07/2023 Immunoglobulin G subclass measurement IgG Subclasses Lab Routine ILD (interstitial lung disease) ([facility]) 07/06/2022 9:32 AM EDT [facility] End: 07-07-2023 Immunoglobulin measurement Quantitative Immunoglobulins Lab Routine ILD (interstitial lung disease) ([facility]) 1 Occurrences starting 07/06/2022 until 07/07/2023 [facility] Comment on above: 1 Occurrences starting 07/06/2022 until 07/07/2023 Immunoglobulin measurement Quantitative Immunoglobulins Lab Routine ILD (interstitial lung disease) ([facility]) 07/06/2022 9:32 AM EDT [facility] End: 07-07-2023 Merlyn 1 Antibody, IgG Merlyn 1 Antibody, IgG Lab Routine ILD (interstitial lung disease) ([facility]) 1 Occurrences starting 07/06/2022 until 07/07/2023 [facility] Comment on above: 1 Occurrences starting 07/06/2022 until 07/07/2023 Merlyn 1 Antibody, IgG Merlyn 1 Antibody , IgG Lab Routine ILD (interstitial lung disease) ([facility]) 07/06/2022 9:32 AM EDT [facility] End: 05-27-2020 Legionella antigen assay Legionella Antigen, Urine Microbiology Routine Once for 1 Occurrences starting 05/27/2020 until 05/27/2020 [facility] Comment on above: Once for 1 Occurrences starting 05/28/19 21 until 05/27/2020 Measurement of respiratory function PFT STANDARD PFT Routine Pulmonary hypertension Interstitial lung disease 12/26/2022 1:42 PM EDT [facility] Measurement of respiratory function PFT STANDARD PFT Routine Interstitial lung disease Hypersensitivity pneumonitis High risk medication use 05/01/2023 3:30 PM EST [facility] End: 12-01-2023 MR Lumbar spine WO contrast [facility] Work Phone: Comment on above: 1 Occurrences starting 12/01/2023 until 12/01/2023 End: 07-07-2023 Rheumatoid factor, quantitative Rheumatoid factor Lab Routine ILD (interstitial lung disease) ([facility] 1 Occurrences starting 07/06/2022 until 07/07/2023 [facility] Comment on above: 1 Occurrences starting 07/06/2022 until 07/07/2023 Rheumatoid factor, quantitative Rheumatoid factor Lab Routine ILD (interstitial lung disease) (HCC) 07/06/2022 9:32 AM EDT [facility] End: 07-07-2023 Scleroderma Antibody (SCL-70) [facility] Comment on above: 1 Occurrences starting 07/06/2022 until 07/07/2023 Scleroderma Antibody (SCL-70) [facility] End: 07-07-2023 Serum A1 antitrypsin measurement [id number] Lab Routine ILD (interstitial lung disease) (HCC) 1 Occurrences starting 07/06/2022 until 07/07/2023 [facility] Comment on above: 1 Occurrences starting 07/06/2022 until 07/07/2023 Serum A1 antitrypsin measurement [id number] Lab Routine ILD (interstitial lung disease) (HCC) 07/06/2022 9:32 AM EDT [facility] End: 07-07-2023 Serum anti-cardiolipin measurement Anticardiolipin Antibody Lab Routine ILD (interstitial lung disease) (HCC) 1 Occurrences starting 07/06/2022 until 07/07/2023 [facility] Work Phone: Comment on above: 1 Occurrences starting 07/06/2022 until 07/07/2023 Serum anti-cardiolip in measurement Anticardiolipin Antibody Lab Routine ILD (interstitial lung disease) [facility]) 07/06/2022 9:32 AM EDT [facility] End: 07-07-2023 Serum IgG IF anti-neutrophil cytoplasmic antibody measurement Anti-Neutrophilic Cytoplasmic Antibody (ANCA) Lab Routine ILD (interstitial lung disease) ([facility] 1 Occurrences starting 07/06/2022 until 07/07/2023 [facility] Comment on above: 1 Occurrences starting 07/06/2022 until 07/07/2023 Serum IgG IF anti-neutrophil cytoplasmic antibody measurement Anti-Neutrophilic Cytoplasmic Antibody (ANCA) Lab Routine ILD (interstitial lung disease) ([facility]) 07/06/2022 9:32 AM EDT [facility] End: 05-27-2020 Streptococcus pneumoniae antigen assay S. pneumoniae Urine Antigen Microbiology Routine Once for 1 Occurrences starting 05/27/2020 until 05/27/2020 [facility] Comment on above: Once for 1 Occurrences starting 05/28/19 21 until 05/27/2020 End: 05-01-2023 TOTAL HEMOGLOBIN [facility] Comment on above: One Time for 1 Occurrences starting 05/2023 until 05/01/2023 End: 04-28-2024 Transesophageal echocardiography Echocardiogram transesophageal Echocardiography Routine Mitral valve insufficiency, unspecified etiology 1 Occurrences starting 02/28/2023 until 04/28/2024 [facility] Work Phone: Comment on above: 1 Occurrences starting 02/28/2023 until 04/28/2024 End: 2023 XR Chest 2 Views [facility] Service Area Work Phone: Comment on above: Once for 1 Occurrences starting 12/14/19 24 until 2023 XR Pelvis and Hip - right Views XR HIP WITH PELVIS RIGHT Imaging Routine Right hip pain 09/28/2023 10:43 AM EDT [facility] Work Phone: [place] Immunizations Immunization Date Immunization Notes Care Provider Fa cili 03-01-2023 influenza virus vaccine, unspecified formulation Jerrod Norman MD Work Phone: [facility] 11-04-2022 zoster vaccine, unspecified formulation Oscar Payton MD Work Phone: [facility] 02-02-2022 influenza virus vaccine, unspecified formulation Oscar Payton MD Work Phone: [facility] 03-31-2009 novel [id number], all formulations Juan Carlos Fitzgerald MD Work Phone: [facility] 12-27-2005 influenza virus vaccine, unspecified formulation Juan Carlos Fitzgerald MD Work Phone: [facility] Work Phone: Payers Date Payer Category Payer Medicare [id number] 2021 Medicare (Managed Care) [employer] [id number] 2021 Private Health Insurance [id number] 2020 Medicare [id number] 2017 Medicare [employer] [facility] ADVANTAGE CHOICE PPO [id number] 2017-Present [id number]. [id number] 1948 Unknown [id number] 2.840.1.871776.3.579.2. 1068 1948 Unknown [id number] 2.0.1.250478.3.579.2. 1068 1948 Unknown [id number] 2.16.840.1.405767.3.579.2. 1069 1948 Unknown [id number] 2.16.840.1.282502.3.579.2. 478 1948 Unknown [id number] 2.16.840.1.389545.3.579.2. 594 1948 Unknown [id number] 2.16.840.1.192463.3.579.2. 594 1948 Unknown [id number] 2.16.840.1.805261.3.579.2. 594 1948 Unknown [id number] 2.16.840.1.310520.3.579.2. 594 1948 Unknown [id number] 2.16.840.1.292495.3.579.2. 594 1948 Unknown [id number] 2.16.840.1.242625.3.579.2. 594 1948 Unknown [id number] 2.16.840.1.341859.3.579.2. 594 1948 Unknown [id number] 2.16.840.1.166508.3.579.2. 594 1948 Unknown [id number] 2.16.840.1.989822.3.579.2. 594 1948 Unknown [id number] 2.16.840.1.820748.3.579.2. 594 1948 Unknown [id number] 2.16.840.1.047569.3.579.2. 902 1948 Unknown [id number] 2.16.840.1.363550.3.579.2. 902 1948 Unknown [id number] 2.16.840.1.867402.3.579.2. 902 1948 Unknown [id number] 2.16.840.1.261563.3.579.2. 902 1948 Unknown [id number] 2.16.840.1.793239.3.579.2. 903 1948 Unknown [id number] 2.16.840.1.255169.3.579.2. 903 1948 Unknown [id number] 2.16.840.1.831981.3.579.2. 1948 Unknown [id number] 2.16.840.1.589115.3.579.2. 1948 Unknown [id number] 2.16.840.1.344744.3.579.2. 1948 Unknown [id number] 2.16.840.1.879612.3.579.2. 1948 Unknown [id number] 2.16.840.1.394244.3.579.2. 1948 Unknown [id number] 2.16.840.1.505107.3.579.2. 3 1948 Unknown [id number] 2.16.840.1.432009.3.579.2. 3 1948 Unknown [id number] 2.16.840.1.157455.3.579.2. 903 1948 Unknown [id number] 2.16.840.1.774998.3.579.2. 1948 Unknown [id number] 2.16.840.1.133288.3.579.2. 903 1948 Unknown [id number] 2.16.840.1.652363.3.579.2. 3 1948 Unknown [id number] 2.16.840.1.607898.3.579.2. 1243 1948 Unknown [id number] 2.16.840.1.186107.3.579.2. 1243 1948 Unknown [id number] 2.16.840.1.804837.3.579.2. 1243 1948 Unknown [id number] 2.16.840.1.734598.3.579.2. 1243 1948 Unknown [id number] 2.16.840.1.003399.3.579.2. 1243 1948 Unknown [id number] 2.16.840.1.147990.3.579.2. 1243 1948 Unknown [id number] 2.16.840.1.853196.3.579.2. 1243 1948 Unknown [id number] 2.16.840.1.103486.3.579.2. 1243 1948 Unknown [id number] 2.16.840.1.304302.3.579.2. 1243 1948 Unknown [id number] 2.16.840.1.891501.3.579.2. 1245 1948 Unknown [id number] 2.16.840.1.294565.3.579.2. 1245 1948 Unknown [id number] 2.16.840.1.200828.3.579.2. 1245 1948 Unknown [id number] 2.16.840.1.418483.3.579.2. 1245 1948 Unknown [id number] 2.16.840.1.103208.3.579.2. 983 1948 Unknown [id number] 2.16.840.1.807973.3.579.2. 983 1948 Unknown [id number] 2.16.840.1.908200.3.579.2. 983 1948 Unknown [id number] 2.16.840.1.697850.3.579.2. 983 1948 Unknown [id number] 2.16.840.1.058698.3.579.2. 983 1948 Unknown [id number] 2.16.840.1.779814.3.579.2. 983 1948 Unknown [id number] 2.16.840.1.628880.3.579.2. 983 1948 Unknown [id number] 2.16.840.1.382426.3.579.2. 983 1948 Unknown [id number] 2.16.840.1.150131.3.579.2. 983 1948 Unknown [id number] 2.16.840.1.886370.3.579.2. 983 1948 Unknown [id number] 2.16.840.1.945075.3.579.2. 983 1948 Unknown [id number] 2.16.840.1.676683.3.579.2. 1244 1948 Unknown [id number] 2.16.840.1.257294.3.579.2. 1244 1948 Unknown [id number] 2.16.840.1.704031.3.579.2. 1244 1948 Unknown [id number] 2.16.840.1.940075.3.579.2. 1244 1948 Unknown [id number] 2.16.840.1.875768.3.579.2. 1244 1948 Unknown [id number] 2.16.840.1.980409.3.579.2. 1244 1948 Unknown [id number] 2.16.840.1.230159.3.579.2. 1244 1948 Unknown [id number] 2.16.840.1.357124.3.579.2. 1244 1948 Unknown [id number] 2.16.840.1.057720.3.579.2. 1244 1948 Unknown [id number] 2.16.840.1.356297.3.579.2. 1244 1948 Unknown [id number] 2.16.840.1.950837.3.579.2. 1244 1948 Unknown [id number] 2.16.840.1.112073.3.579.2. 124 1948 Unknown [id number] 2.16.840.1.525409.3.579.2. 1244 1948 Unknown [id number] 2.16.840.1.907899.3.579.2. 124 1948 Unknown [id number] 2.16.840.1.372578.3.579.2. 1244 1948 Unknown [id number] 2.16.840.1.352081.3.579.2. 124 1948 Unknown [id number] 2.16.840.1.521633.3.579.2. 124 1948 Unknown [id number] 2.16.840.1.809417.3.579.2. 1244 1948 Unknown [id number] 2.16.840.1.939212.3.579.2. 124 1948 Unknown [id number] 2.16.840.1.953245.3.579.2. 124 1948 Unknown [id number] 2.16.840.1.146011.3.579.2. 124 1948 Unknown [id number] 2.16.840.1.071747.3.579.2. 124 1948 Unknown [id number] 2.16.840.1.322576.3.579.2. 1244 1948 Unknown [id number] 2.16.840.1.004332.3.579.2. 1244 Social History Date Type Detail Facility Start: 05-27-2020 End: 06-08-2023 Tobacco smoking status NHIS Former smoker [facility] Start: 05-27-2020 End: 06-08-2023 Tobacco use and exposure Never used [facility] Start: 05-27-2020 End: 12-22-2023 Alcohol intake Ex-drinker (finding) [facility] Start: 1950 Sex Assigned At Not on file [facility] Start: 06-26-2022 End: 12-26-2023 Exposure to SARS-CoV-2 (event) Not sure [facility] End: 01-30-1990 History of tobacco use Current smoker [facility] End: 01-30-1990 History of tobacco use Cigarette Smoker [facility] Start: 07-06-2022 End: 2023 Cigarettes smoked current (pack per day) - Reported 2 [facility] Start: 06-13-2022 End: 2023 Tobacco use panel [facility] Start: 07-06-2022 Tobacco Comment 20 years ago [facility] Start: 07-06-2022 Alcohol Comment occassionally [facility] Start: 06-13-2022 Gender identity Identifies as male gender (finding) [facility] Start: 06-13-2022 Sexual orientation Heterosexual (finding) [facility] History of tobacco use Passive smoker [facility] Work Phone: Start: 02-08-2023 End: 12-26-2023 Alcohol intake Current drinker of alcohol (finding) [facility] Work Phone: Start: 02-08-2023 Alcohol Comment occasional [facility] Work Phone: National Score (1-10 0), lower number is lower risk 63 [facility] Start: 05-22-2023 Alcohol Comment Occasionally [facility] Clinical Notes 07-06-2022 to 12-26-2023 Sahra Holliday MD - 12/26/2023 2:40 PM EDTEmma Lr - 12/22/2023 1:00 PM REGINA Chavez - 12/22/2023 1:00 PM EDTPatient Julian Holliday MD - 2023 10:00 AM EDT Note Date & Type Note Facility 12-26-2023 History of Presen t illness Narrative Subjective: Annie Calderon is a 73 y.o. male who presents to clinic today for Follow-up (1 MO FU ) He saw pulmonary BACK HOE OPERATOR on 11/28/23, at that time they opted to repeat sleep study and redo walking oximetry testing as well as repeat PFTs. He may be getting a bipap from the pulmonology office. He notes that the antibiotics were helpful and he's feeling a bit better than last night. They will not do his nerve testing if he is on antibiotics. He continues to hack up green sputum. He continues to have significant chronic pain of his right hip. Its been bothering him dramatically. He's been taking more pain medication and it helps him to function. He's been taking antacids. This is helping with his abdominal pain. Review of Systems Assessment/Plan: Annie Calderon is a 73 y.o. male who presents to clinic today to address the following issues: 1. Right leg pain lidocaine (Lidoderm) 5 % patch 2. Interstitial lung disease (Multi) mycophenolate (Cellcept) 500 mg tablet I called and had a conversation with Richa Parson nurse practitioner at [facility]. She feels that in this case is to complex to be managed in their office well. She suggested potentially using chronic prednisone 3 times weekly to help manage inflammation as well as symptoms. Additionally he will be getting sleep study done there in 2 days. They are hoping to get BiPAP covered to help with his sleep at night. For the time being we will remain off of antibiotics as he really wishes to get his hip procedure done at [facility]. As soon as this procedure is done we may consider 3 times weekly azithromycin If any calls in with increased sputum production and worsening breathing it would be reasonable to treat him with Augmentin and azithromycin. Additionally due to his significant right leg pain we need his lidocaine prescription. Problem List Items Addressed This Visit Interstitial lung disease (Multi) Overview Thought to be possibly due to bird exposure. Follows at [facility]. Seeing a order booker. Currently on prednisone as well as trelegy ellipta. Relevant Medications mycophenolate (Cellcept) 500 mg tablet Right leg pain Overview Severe right leg/hip pain after torn quadriceps muscle. Following with pain management in [place]. Relevant Medications lidocaine (Lidoderm) 5 % patch There are no Patient Instructions on file for this visit. Follow up: 1 month Return precautions discussed. An After Visit Summary was given to the patient. All questions were answered and patient in agreement with plan. Objective: BP 130/80 Pulse 78 Ht 1.676 m (5' 6 ) Wt 100 kg (221 lb) SpO2 (!) 87% BMI 35.67 kg/m Physical Exam Vitals and nursing note reviewed. Constitutional: General: He is not in acute distress. Appearance: He is obese. He is ill-appearing. HENT: Head: Normocephalic and atraumatic. Mouth/Throat: Mouth: Mucous membranes are moist. Eyes: General: No scleral icterus. Right eye: No discharge. Left eye: No discharge. Extraocular Movements: Extraocular movements intact. Conjunctiva/sclera: Conjunctivae normal. Pulmonary: Effort: Respiratory distress present. Comments: Nasal cannula in place bibasilar crackles upper airway wheezing Skin: General: Skin is dry. Neurological: General: No focal deficit present. Mental Status: He is alert and oriented to person, place, and time. Psychiatric: Thought Content: Thought content normal. Judgment: Judgment normal. I spent 44 minutes in total time for this visit including all related clinical activities before, during, and after the visit excluding other billable activities/procedure time. Sahra Holliday MD documented in this encounter [facility] Work Phone: 12-22-2023 History of Presen t illness Narrative Nurse Note: Review of Systems Constitutional: Positive for fatigue. HENT: Negative. Eyes: Positive for photophobia. Respiratory: Negative. Cardiovascular: Negative. Endocrine: Negative. Genitourinary: Negative. Musculoskeletal: Negative. Skin: Negative. Allergic/Immunologic: Negative. Neurological: Negative. Hematological: Negative. Psychiatric/Behavioral: Negative. Nursing Assessment: Physical Exam Thank you for the referral of Annie Calderon. As you know, he is a very pleasant 73 y.o. male who presents with right hip pain. The patient began to notice this pain generator has been going on for awhile. Annie does recall an inciting event. Pain is described as Aching, Stabbing, and Sharp and is currently rated 9/10, and at it's most severe is rated 10/10. Pain is increased with standing and walking and is relieved by relaxation and pain medication. The patient states that pain is worst all the time. The patient admits to having numbness/tingling bilateral legs. Annie admits to having weakness. The patient denies to falls within the last 3 months. The patient denies bowel/bladder incontinence. Treatment modalities that have been used include relaxation and pain medication. The patient admits to having injection therapy. The patient does not report spine surgery. Diagnostic studies include XR Right Hip. Patient denies tobacco use. Audit-C Questionnaire How often do you have a drink containing alcohol? (0) never 2. How many standard drinks containing alcohol do you have on a typical day? (0) 1 or 2 3. How often do you have six or more drinks on one occasion? (0) never *A score of 3 or more in women or 4 or more in men is a positive score that requires education. Nurse Note: Review of Systems Constitutional: Positive for fatigue. HENT: Negative. Eyes: Positive for photophobia. Respiratory: Negative. Cardiovascular: Negative. Endocrine: Negative. Genitourinary: Negative. Musculoskeletal: Negative. Skin: Negative. Allergic/Immunologic: Negative. Neurological: Negative. Hematological: Negative. Psychiatric/Behavioral: Negative. Nursing Assessment: Physical Exam Thank you for the referral of Annie Calderon. As you know, he is a very pleasant 73 y.o. male who presents with right hip pain. The patient began to notice this pain generator has been going on for awhile. Annie does recall an inciting event. Pain is described as Aching, Stabbing, and Sharp and is currently rated 9/10, and at it's most severe is rated 10/10. Pain is increased with standing and walking and is relieved by relaxation and pain medication. The patient states that pain is worst all the time. The patient admits to having numbness/tingling bilateral legs. Annie admits to having weakness. The patient denies to falls within the last 3 months. The patient denies bowel/bladder incontinence. Treatment modalities that have been used include relaxation and pain medication. The patient admits to having injection therapy. The patient does not report spine surgery. Diagnostic studies include XR Right Hip. Patient denies tobacco use. Audit-C Questionnaire How often do you have a drink containing alcohol? (0) never 2. How many standard drinks containing alcohol do you have on a typical day? (0) 1 or 2 3. How often do you have six or more drinks on one occasion? (0) never *A score of 3 or more in women or 4 or more in men is a positive score that requires education. Past Medical History: Diagnosis Date Arrhythmia Arthritis Hypertension Lung disease JOSE (obstructive sleep apnea) No past surgical history on file. Psychological/Psychiatric History: The patient has not been evaluated by a psychiatrist or psychologist. Social History: Social History Socioeconomic History Marital status: Tobacco Use Smoking status: Former Types: Cigarettes Smokeless tobacco: Never Substance and Sexual Activity Alcohol use: Not Currently Drug use: Not Currently Family History: The patient denies any family history of autoimmune or connective tissue disorders. Physical Examination: Vitals: 12/22/23 1243 BP: 108/57 Pulse: 65 Resp: 20 SpO2: 93% Constitutional The patient is awake, alert, well developed, well nourished and well groomed. The patient is pleasant and cooperative. The patient is a good historian and is very helpful with the history and physical examination. Head The skull is normocephalic, atraumatic and without masses. The patient's facial expression and facial contours are normal; the parotid glands are not enlarged. The sinuses are non-tender. There is symmetry of the nasolabial folds. There is no facial droop. Eyes The eyelids are without lesions. The sclera is white and the conjunctiva pink. No tearing noted at baseline. No scarring noted. ENT External inspection of ears and nose is without scars, lesions or masses. Hearing appears to be grossly intact. The nasal mucosa is pink and without discharge. The septum is midline. The turbinates are not enlarged. The buccal mucosa is pink; there is no cyanosis. The lips are normal color; there are no ulcers, masses or lesions. The mucosa of the oropharynx is moist, The tongue is midline. Neck The neck is supple and the trachea is midline. No erythema or visible venous distension. No scaring noted. Respiratory The patient is relaxed and breathes without effort. The patient is not cyanotic and does not use the accessory muscles of respiration. The chest expands symmetrically upon inspiration. Cardiovascular There is no pitting edema of the lower extremities. Extremities are warm. Gastrointestinal The abdomen is soft and nontender; there is no guarding or rigidity. Neurologic Cranial Nerves 2-12 are grossly intact. The deep tendon reflexes of the in bilateral upper and bilateral lower extremities are symmetrical;. Plantar reflexes (Babinski): toes are downgoing. Cerebellar function is normal; Romberg's test is negative. The gait is abnormal. No ankle or wrist clonus present. Negative Magaña's sign. Psychiatric The patient is oriented to person, place, and time. Speech is fluent and words are clear. Thought processes are coherent, insight is good. There are no obsessive, compulsive, phobic or delusional thoughts; there are no illusions or hallucinations. The patient's fund of knowledge: awareness of current events and past history is appropriate for age. The patient's higher cognitive functions are intact. The patient's mood is neutral and the affect appropriate MSK L-Spine Assessment Lumbar Radiculopathy: Positive Dermatomal Distribution: L3, L4, L5, and S1 Right Straight Leg Test: Positive Right Facet Tenderness: Bilateral Facet Loading: Bilateral Sacroiliac Joint Maneuvers:Right+Chava, +thigh thrust, +yeomen's test The patient has Moderate Limitation difficulty transitioning from sitting to standing. The patient has an antalgic gait. The lumbar spine demonstrates a flexion biased curve. Palpation reveals tenderness over the Bilateral lumbar spine. Lumbosacral range of motion is limited in flexion, extension, Bilateral rotation, Bilateral lateral bend. There is no deformity to the lumbosacral spine. CHAVA Skyler test produces pain in the Right lumbar spine. There is no abnormality in muscle tone in the lumbosacral spine. Trigger points are not present in the lumbosacral spine musculature. Muscle strength is 5/5 in the bilateral lower extremities. Right hip Significant pain with internal and external rotation, altered sensation following lateral femoral cutaneous nerve Assessment: ICD-10-CM 1. 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 Hip pain, right M25.551 3. Encounter for medication monitoring Z51.81 73 y.o. male w/PMHx of interstitial lung disease, hypoemia requiring continuous o2, DM2 who presents for evaluation of right hip pain Injections: right L4-5 and L5-S1 TFESI Dr. Lovelace 04/06/23, 07/01/23 with mild relief for a day. Right IA hip injection 04/25/[address] Lovelace with mild relief for a day. Right L3-4 and L4-5 TFESI on 11/21/[address] Lovelace with no relief. Meds: failed baclofen, tylenol, ibuprofen. Currently on gabapentin 300mg daily, hydrocodone-acetaminophen 5-325mg q6hrs PRN and celebrex 200mg daily with mild relief Imagin12/01/23 Lumbar MRI: Anterolisthesis of L5 on S1 measures 10 mm and relates to chronic L5 pars defects. There is moderate to severe degenerative disc disease at L3-L4, L4-L5 and L5-S1 with disc height loss and endplate spurring. There is also moderate to severe degenerative disc disease at T11-T12. Heterogeneity of the bone marrow signal is most consistent with mixed red and fatty marrow. The visualized aorta is normal in diameter. The upper sacrum is intact. The conus terminates at the L1 level. L5-S1: Anterolisthesis of L5 on S1 measures 10 mm and relates to chronic L5 pars defects. There is moderate to severe degenerative disc disease and severe right greater than left facet arthropathy. A broad-based disc protrusion measures 5 mm in AP dimension with changes resulting in severe left greater than right foraminal narrowing and abutment of the L5 nerve roots bilaterally. L4-L5: There is a broad-based disc protrusion measuring up to 7 mm in AP dimension with moderate to severe facet arthropathy and prominent posterior epidural fat. Changes result in moderate lateral recess narrowing bilaterally and severe right and moderate left foraminal narrowing with abutment and compression of the right L4 nerve root. Correlation for right L4 radiculopathy would be helpful. L3-L4: A broad-based disc protrusion measures 6 mm in AP dimension with moderate to severe facet arthropathy and prominent posterior epidural fat. Changes result in moderate central narrowing with the thecal sac measuring 7 mm in AP dimension. There is moderate to marked lateral recess narrowing bilaterally and moderately severe right and mild to moderate left foraminal narrowing. L2-L3: There is a broad-based disc protrusion and moderate facet arthropathy resulting in mild bilateral foraminal narrowing without central stenosis. L1-L2: There is no focal disc herniation. There is no central or foraminal stenosis. Referrals/consults: Dr Perez PT: in the past without improvement Labs: 12/14/23 A1c 8.1%, BUN 26 Cr 1.47 eGFR 50 The patient has had over 3 months of moderate to severe right hip pain with functional impairment and inadequate response to conservative care including NSAIDS (unless there are contraindication such as concurrent blood thinners), multiple oral or topical pain medications, and home exercise program/physical therapy. Patient has completed >6 weeks of guided home exercise program and/or formal physical therapy program without relief of their symptoms. I have reviewed the imaging of the lumbar spine and right hip and no red flags were identified. The Oswestry Disability Index was completed, and the patient scored a 62%. The patient noted the following: the patient has moderate or greater pain, the patient has pain that limits and/or needs help to manage their personal care, pain prevents from lifting heavy weights, pain prevents patient from walking 0.5 mile or less, pain limits ability to sit for 60 minutes or less, the patient has pain that prevents them from standing for 60 minutes or less, Pain limits the patient to 6 hours of sleep or less, the patient's social life is restricted by pain, and pain restricts journeys of 1 hour or less We discussed the risks and benefits of the procedure with the patient, and we are NOT planning on using sedation as outlined in the guidelines from Medicare unless there is a documented reason that sedation would be strongly recommended. The procedure will be completed with fluoroscopic guidance. Plan: -right Lateral femoral cutaneous nerve block x2 working towards RFA -request records from [facility] Pain Management Dr Han and Dr Lovelace -currently on hydrocodone acetaminophen 5-325mg q6hrs PRN, celebrex 200mg daily and gabapentin 300mg daily. Patient is unsure if his medications are helpful, he is high risk for opioid therapy with chronic oxygen dependency and interstitial lung disease -increase gabapentin 300mg BID, risks vs benefits reviewed -UDS, DINKEY DISPATCHER reviewed and signed -continue HEP as tolerated -we discussed alternative interlaminar ESIs and SCS trial should pt fail nerve block, pt will think more about this -follow-up after injection Thank you for the opportunity to participate in the care of your patient. Sincerely, REGINA Cintron documented in this encounter [facility] 12-22-2023 Instructions Bri Lr - 12/22/2023 1:00 PM EDT Images from the original note were not included. Hip Bursitis: Exercises Introduction Here are some examples of exercises for you to try. The exercises may be suggested for a condition or for rehabilitation. Start each exercise slowly. Ease off the exercises if you start to have pain. You will be told when to start these exercises and which ones will work best for you. How to do the exercises Hip external rotator stretch Lie on your back with both knees bent and your feet flat on the floor. Put the ankle of your affected leg on your opposite thigh near your knee. Use your opposite hand to gently pull your knee across your body toward your shoulder. For example, to stretch your left hip, use your right hand to pull your left knee toward your right shoulder. Hold the stretch for 15 to 30 seconds. Repeat 2 to 4 times. It's a good idea to repeat these steps with your other leg. Iliotibial band stretch Stand a few inches from a wall, with your affected hip toward the wall. If you are not steady on your feet, hold on to a chair or counter. Stand on the leg with the affected hip. Then cross your other leg in front of it. Let your affected hip drop out to the side of your body and against the wall. Then lean away from your affected hip until you feel a stretch. You can take the arm that's against the wall and raise it over your head as you lean away from your hip. Hold the stretch for 15 to 30 seconds. Repeat 2 to 4 times. It's a good idea to repeat these steps with your other hip. Hip abduction (lying on side) Lie on your side, with your affected leg on top. You can use your hand or a pillow to support your head. Keep your knee straight and your leg in a straight line with your body. Lift your affected leg straight up toward the ceiling, about 12 inches off the floor. Hold for about 6 seconds, then slowly lower your leg. Repeat 8 to 12 times. It's a good idea to repeat these steps on your other side. Keep your kneecap pointing forward. Don't let your hip drop back. Clamshell for hip problems Lie on your side, with your affected leg on top and your head propped on a pillow. Keep your feet and knees together and your knees bent. Raise your top knee, but keep your feet together. Do not let your hips roll back. Your legs should open up like a clamshell. Hold for about 6 seconds. Slowly lower your knee back down. Repeat 8 to 12 times. Follow-up care is a fisher part of your treatment and safety. Be sure to make and go to all appointments, and call your doctor if you are having problems. It's also a good idea to know your test results and keep a list of the medicines you take. Current as of: September 12, 2022 Content Version: 14.2023 [employer]. Care instructions adapted under license by your healthcare professional. If you have questions about a medical condition or this instruction, always ask your healthcare professional. [employer] disclaims any warranty or liability for your use of this information. [employer] https://www.Mindful[employer]Fire Diagnosticsction .[employer] JOSHUA Manning, [facility] [address] [address] [facility] [email or web address].communitycounseling. info [address] [place], [place] [address] [employer] [email or web address] [facility] [id number] [facility] [id number] [place] [id number] documented in this encounter [facility] 12-22-2023 Miscellaneous Notes Addended by: LIBERTAD DRIVER on: 12/22/2023 02:44 PM Modules accepted: Orders documented in this encounter [facility] 12-22-2023 Note Addended by: LIBERTAD DRIVER on: 12/22/2023 02:44 PM Modules accepted: Orders [facility] 2023 History of Presen t illness Narrative Subjective: Annie Calderon is a 73 y.o. male who presents to clinic today for Cough (X 4 DAYS) and Nasal Congestion (NEG COVID ) He notes that he's hacking and not feeling well and bringing up phlegm. He saw the order booker who says he needs 6L of oxygen. He notes that he can tell he needs more oxygen when he's moving. He also notes some increasing SOB while being out working at his house. Review of Systems Assessment/Plan: Annie Calderon is a 73 y.o. male who presents to clinic today to address the following issues: 1. Hypokalemia Basic metabolic panel 2. Interstitial lung disease (Multi) XR chest 2 views azithromycin (Zithromax) 250 mg tablet amoxicillin-pot clavulanate (Augmentin) 875-125 mg tablet 3. Productive cough XR chest 2 views azithromycin (Zithromax) 250 mg tablet amoxicillin-pot clavulanate (Augmentin) 875-125 mg tablet 4. Type 2 diabetes mellitus without complication, without long-term current use of insulin (Multi) Hemoglobin A1c 5. Right leg pain HYDROcodone-acetaminophen ([place]) 5-325 mg tablet Productive Cough: - Acute problem, unresolved, new to this provider, requires further workup and treatment - will treat for presumed CAP with azithromycin and augmentin, discussed that if he is worsening he needs to be seen at the hospital with his significant comorbidiites. - chest xray ordered Refilled his norco for his right hip pain. Seymour did desat to 86% on 4L oxygen after walking 4 minutes. Problem List Items Addressed This Visit Interstitial lung disease (Multi) Overview Thought to be possibly due to bird exposure. Follows at [facility]. Seeing a order booker. Currently on prednisone as well as trelegy ellipta. Relevant Medications amoxicillin-pot clavulanate (Augmentin) 875-125 mg tablet Other Relevant Orders XR chest 2 views (Completed) Right leg pain Overview Severe right leg/hip pain after torn quadriceps muscle. Following with pain management in [place]. Relevant Medications HYDROcodone-acetaminophen ([place]) 5-325 mg tablet Type 2 diabetes mellitus without complication, without long-term current use of insulin (Multi) Overview Previously controlled without medication but he has been on chronic steroids due to ILD. Most recent hgba1c 04/21/23 7.8. Relevant Orders Hemoglobin A1c (Completed) Other Visit Diagnoses Hypokalemia - Primary Relevant Orders Basic metabolic panel (Completed) Productive cough Relevant Medications amoxicillin-pot clavulanate (Augmentin) 875-125 mg tablet Other Relevant Orders XR chest 2 views (Completed) There are no Patient Instructions on file for this visit. Follow up: 1 week Return precautions discussed. An After Visit Summary was given to the patient. All questions were answered and patient in agreement with plan. Objective: BP 128/60 Pulse (!) 45 Ht 1.676 m (5' 6 ) Wt 101 kg (223 lb 6.4 oz) SpO2 93% BMI 36.06 kg/m Physical Exam Vitals and nursing note reviewed. Constitutional: General: He is not in acute distress. Appearance: He is obese. He is not ill-appearing. Comments: Nasal cannula in place HENT: Head: Normocephalic and atraumatic. Mouth/Throat: Mouth: Mucous membranes are moist. Eyes: General: No scleral icterus. Right eye: No discharge. Left eye: No discharge. Extraocular Movements: Extraocular movements intact. Conjunctiva/sclera: Conjunctivae normal. Cardiovascular: Rate and Rhythm: Normal rate and regular rhythm. Pulmonary: Effort: No respiratory distress. Breath sounds: Wheezing present. Comments: Bilateral basal crackles Musculoskeletal: Right lower leg: Edema present. Left lower leg: Edema present. Skin: General: Skin is dry. Neurological: General: No focal deficit present. Mental Status: He is alert and oriented to person, place, and time. Psychiatric: Thought Content: Thought content normal. Judgment: Judgment normal. I spent 20 minutes in total time for this visit including all related clinical activities before, during, and after the visit excluding other billable activities/procedure time. Sahra Holliday MD documented in this encounter [facility] Work Phone: 12-07-2023 Note [facility] NOTE HISTORY OF PRESENT ILLNESS Mr. Annie Calderon is a 72 y.o. pleasant male with known interstitial lung disease following with pulmonology, mitral regurgitation (mild to moderate) with bileaflet mitral valve prolapse involving the A2/P2 scallops with flail chordal structure, hypertension, pulmonary hypertension, use of home oxygen who presents today for re-evaluation of his shortness of breath and lower extremity edema since his last visit to our office 3 weeks ago. At his last visit on 10/27/2023 he had been complaining of dull chest pain and increased lower extremity edema, abdominal bloating and increased dyspnea. At that time he had acute on chronic diastolic heart failure related to his history of mild to moderate mitral regurgitation. ACC C. He had salt indiscretion. We increased his Lasix to 40 mg twice a day and added K-Dur 20 mEq daily. Chest x-ray showed mild CHF. Today he states feels improved with less lower extremity edema, no chest pain no abdominal bloating. Main issue has been his right hip which has made him more sedentary. He wears chronic oxygen therapy. [facility] Current Outpatient Medications Medication Instructions Advair Diskus 250-50 mcg/dose diskus inhaler INHALE 1 PUFF TWICE DAILY EVERY DAY. Rinse mouth after use. albuterol 90 mcg/actuation inhaler 2 puffs, Every 4 to 6 hours as needed amLODIPine (NORVASC) 5 mg, Oral, Daily carvediloL (COREG) 12.5 mg, Oral, 2 times daily celecoxib (CELEBREX) 200 mg, Oral, Daily cephALEXin (KEFLEX) 500 mg, Oral, 3 times daily esomeprazole (NEXIUM) 20 mg, Oral, Every morning before breakfast finasteride (PROSCAR) 5 mg, Oral, Daily furosemide (LASIX) 40 mg, Oral, 2 times daily HYDROcodone-acetaminophen (NORCO) 5-325 mg per tablet Oral, Every 6 hours PRN losartan-hydrochlorothiazide (HYZAAR) 100-12.5 mg per tablet 1 tablet, Oral, Daily montelukast (SINGULAIR) 10 mg, Oral, Every evening multivitamin with minerals tablet 1 tablet, Oral, Daily potassium chloride SA (K-DUR,KLOR-CON) 20 MEQ tablet 20 mEq, Oral, Daily tamsulosin (FLOMAX) 0.4 mg capsule TAKE 1 CAPSULE BY MOUTH EVERY DAY 1/2 HOUR following the same meal each day CARDIOVASCULAR & METABOLIC PROBLEMS Nonobstructive CAD Mitral Valve insufficiency/regurgitation Pulmonary HTN ILD Oxygen use at home ASSESSMENT & PLAN: This is a pleasant 72-year-old gentleman who follows with Dr. Gonzáles for his history of mitral regurgitation noted to be mild to moderate on HOSSEIN of February 2023. He has been compliant with his Lasix twice a day therapy and potassium supplementation. He feels significantly improved. His weight is down. He has no abdominal fullness, less bilateral lower extremity edema. Continues to wear chronic nasal cannula oxygen. Most recently has had issues with his right hip discomfort and [facility] He is hoping that he can obtain an injection to help with discomfort. He admits to salt indiscretion at times. He states that he is trying to minimize processed foods. On physical examination lungs are improved, trace bilateral peripheral lower extremity edema. Abdomen is soft. Chronic diastolic HF related to history of mild to moderate mitral regurgitation. Volume status and symptoms improved. ACC B/C. Salt indiscretion less. Recommend low-sodium diet to follow. Weight daily and record. Recommend then BMP today to assess renal function, electrolytes. May decrease Lasix daily and instruct to take extra tablet as needed for increased shortness of breath, abdominal bloating and bilateral peripheral edema. Dr. Gonzáles in 6 months CARDIAC DIAGNOSTICS ECG (I independently reviewed EKG and revealed, Normal sinus rhythm with PVC ventricular rate 75 bpm QTc 384 ms): 10/27/2023 RHC/LHC 03/24/2023 Non obstructive coronary artery disease Mild pre-capillary pulmonary hypertension Normal right heart filling pressures Normal left heart filling pressures Normal cardiac output and cardiac index Transesophageal Echocardiogram 03/20/2023 Summary 1. Bileaflet mitral valve prolase involving the A2/P2 scallops with flail chordal structure seen on view 47. 2. Mitral valve regurgitant volume by PISA is mild to moderate, 31 ml. Mitral valve effective regurgitant orifice by PISA is 0.2 cm2 . MR VCA .2 cm2 on 3 d. VCD .2 cm. 3. Left ventricular systolic function is normal with an estimated ejection fraction of 65%. OBJECTIVES BP 135/80 (BP Location: Left arm, Patient Position: Sitting, BP Cuff Size: Adult) Pulse 91 Ht 5' 8 Wt 99.8 kg (220 lb) SpO2 96% BMI 33.45 kg/m General Appearance: Chronically ill-looking male. Not in acute distress. Wearing nasal cannula oxygen Respiratory: Diminished posterior lungs bilaterally. Cardiovascular: good peripheral pulses. JVP difficult to assess due to body habitus. Regular rate and rhythm. Nor (more content not included)... [facility] 10-27-2023 Note [facility] STRUCTURAL CARDIOLOGY CLINIC NOTE HISTORY OF PRESENT ILLNESS Mr. Annie Calderon is a 72 y.o. pleasant male with known interstitial lung disease following with pulmonology, mitral regurgitation (mild to moderate) with bileaflet mitral valve prolapse involving the A2/P2 scallops with flail chordal structure, hypertension, pulmonary hypertension, use of home oxygen who presents today for complaints of dull chest pain and increased lower extremity edema, abdominal bloating, and increased dyspnea. Current Outpatient Medications Medication Instructions Advair Diskus 250-50 mcg/dose diskus inhaler INHALE 1 PUFF TWICE DAILY EVERY DAY. Rinse mouth after use. albuterol 90 mcg/actuation inhaler 2 puffs, Every 4 to 6 hours as needed amLODIPine (NORVASC) 5 mg, Oral, Daily carvediloL (COREG) 12.5 mg, Oral, 2 times daily celecoxib (CELEBREX) 200 mg, Oral, 2 times daily cephALEXin (KEFLEX) 500 mg, Oral, 3 times daily esomeprazole (NEXIUM) 20 mg, Oral, Every morning before breakfast finasteride (PROSCAR) 5 mg, Oral, Daily furosemide (LASIX) 40 mg, Oral, Daily HYDROcodone-acetaminophen (NORCO) 5-325 mg per tablet Oral, Every 6 hours PRN losartan-hydrochlorothiazide (HYZAAR) 100-12.5 mg per tablet 1 tablet, Oral, Daily montelukast (SINGULAIR) 10 mg, Oral, Every evening multivitamin with minerals tablet 1 tablet, Oral, Daily tamsulosin (FLOMAX) 0.4 mg capsule TAKE 1 CAPSULE BY MOUTH EVERY DAY 1/2 HOUR following the same meal each day CARDIOVASCULAR & METABOLIC PROBLEMS Nonobstructive CAD Mitral Valve insufficiency/regurgitation Pulmonary HTN ILD Oxygen use at home ASSESSMENT & PLAN: This is a pleasant 72-year-old gentleman who follows with Dr. Gonzáles for his history of mitral regurgitation noted to be mild to moderate on HOSSEIN of February 2023. Over the last month patient has had increased weight gain lower extremity edema, abdominal distention, increased on dyspnea and occasional midsternal chest dull discomfort. Patient is contributing this to decreased activity secondary to right lateral hip discomfort currently undergoing evaluation by [facility]. He also admits to eating a great deal of salt. He is not weighing himself daily. Known to have nonobstructive coronary disease on invasive angiography February 2023. He has been compliant with Lasix 40 mg daily, lisinopril hydrochlorothiazide, carvedilol, amlodipine therapy in addition to his noncardiac medications. He just saw his PCP yesterday who placed him on an antibiotic, doxycycline 100 mg twice a day for 10 days in addition to Flonase nasal spray for a productive cough. On physical examinationpatient is volume overloaded. He has significant abdominal distention and bilateral lower extremity edema with left leg worse than right. He wears chronic oxygen nasal cannula daily. Acute on chronic diastolic HF related to history of mild to moderate mitral regurgitation. ACC C. Salt indiscretion. Recommend low-sodium diet to follow. Weight daily and record. Today obtain CBC with differential, BMP, NT proBNP and chest x-ray PA lateral. Recommend then BMP in 1 week after the increase of diuretic therapy. Increase Lasix to 40 mg twice a day with the addition of adding K-Dur 20 mEq daily. RTC 2 weeks for volume evaluation. CARDIAC DIAGNOSTICS ECG (I independently reviewed EKG and revealed, Normal sinus rhythm with PVC ventricular rate 75 bpm QTc 384 ms): 10/27/2023 RHC/LHC 03/24/2023 Non obstructive coronary artery disease Mild pre-capillary pulmonary hypertension Normal right heart filling pressures Normal left heart filling pressures Normal cardiac output and cardiac index Transesophageal Echocardiogram 03/20/2023 Summary 1. Bileaflet mitral valve prolase involving the A2/P2 scallops with flail chordal structure seen on view 47. 2. Mitral valve regurgitant volume by PISA is mild to moderate, 31 ml. Mitral valve effective regurgitant orifice by PISA is 0.2 cm2 . MR VCA .2 cm2 on 3 d. VCD .2 cm. 3. Left ventricular systolic function is normal with an estimated ejection fraction of 65%. OBJECTIVES BP 136/87 (BP Location: Left arm, Patient Position: Sitting, BP Cuff Size: X-large Adult) Pulse 74 Ht 5' 8 Wt 102.5 kg (226 lb) SpO2 94% BMI 34.36 kg/m General Appearance: Chronically ill-looking male. Not in acute distress. Wearing nasal cannula oxygen Respiratory: Crackles bilaterally. Cardiovascular: good peripheral pulses. JVP difficult to assess due to body habitus. Regular rate and rhythm. Normal S1-S2. No murmur/gallop/rub. Abdomen: Firm and distended. Nontender. BRAYAN: 2+ left lower extremity taut and 1+ right lower extremity taut edema. Skin: no rash. No cyanosis. No clubbing of fingers. Dana Elder, MSN, SALES ACCOUNT COORDINATOR, ADMINISTRATIVE ASSISTANT OFFICE MANAGER Interventional Cardiology/Structural Heart Disease Team [facility] Heart & Vascular Physicians [facility] AUTHENTICATED BY DANA (more content not included)... [facility] 10-27-2023 History of Presen t illness Narrative [facility] STRUCTURAL CARDIOLOGY CLINIC NOTE HISTORY OF PRESENT ILLNESS Mr. Annie Calderon is a 72 y.o. pleasant male with known interstitial lung disease following with pulmonology, mitral regurgitation (mild to moderate) with bileaflet mitral valve prolapse involving the A2/P2 scallops with flail chordal structure, hypertension, pulmonary hypertension, use of home oxygen who presents today for complaints of dull chest pain and increased lower extremity edema, abdominal bloating, and increased dyspnea. Current Outpatient Medications Medication Instructions Advair Diskus 250-50 mcg/dose diskus inhaler INHALE 1 PUFF TWICE DAILY EVERY DAY. Rinse mouth after use. albuterol 90 mcg/actuation inhaler 2 puffs, Every 4 to 6 hours as needed amLODIPine (NORVASC) 5 mg, Oral, Daily carvediloL (COREG) 12.5 mg, Oral, 2 times daily celecoxib (CELEBREX) 200 mg, Oral, 2 times daily cephALEXin (KEFLEX) 500 mg, Oral, 3 times daily esomeprazole (NEXIUM) 20 mg, Oral, Every morning before breakfast finasteride (PROSCAR) 5 mg, Oral, Daily furosemide (LASIX) 40 mg, Oral, Daily HYDROcodone-acetaminophen (NORCO) 5-325 mg per tablet Oral, Every 6 hours PRN losartan-hydrochlorothiazide (HYZAAR) 100-12.5 mg per tablet 1 tablet, Oral, Daily montelukast (SINGULAIR) 10 mg, Oral, Every evening multivitamin with minerals tablet 1 tablet, Oral, Daily tamsulosin (FLOMAX) 0.4 mg capsule TAKE 1 CAPSULE BY MOUTH EVERY DAY 1/2 HOUR following the same meal each day CARDIOVASCULAR & METABOLIC PROBLEMS Nonobstructive CAD Mitral Valve insufficiency/regurgitation Pulmonary HTN ILD Oxygen use at home ASSESSMENT & PLAN: This is a pleasant 72-year-old gentleman who follows with Dr. Gonzáles for his history of mitral regurgitation noted to be mild to moderate on HOSSEIN of February 2023. Over the last month patient has had increased weight gain lower extremity edema, abdominal distention, increased on dyspnea and occasional midsternal chest dull discomfort. Patient is contributing this to decreased activity secondary to right lateral hip discomfort currently undergoing evaluation by [facility]. He also admits to eating a great deal of salt. He is not weighing himself daily. Known to have nonobstructive coronary disease on invasive angiography February 2023. He has been compliant with Lasix 40 mg daily, lisinopril hydrochlorothiazide, carvedilol, amlodipine therapy in addition to his noncardiac medications. He just saw his PCP yesterday who placed him on an antibiotic, doxycycline 100 mg twice a day for 10 days in addition to Flonase nasal spray for a productive cough. On physical examination patient is volume overloaded. He has significant abdominal distention and bilateral lower extremity edema with left leg worse than right. He wears chronic oxygen nasal cannula daily. Acute on chronic diastolic HF related to history of mild to moderate mitral regurgitation. ACC C. Salt indiscretion. Recommend low-sodium diet to follow. Weight daily and record. Today obtain CBC with differential, BMP, NT proBNP and chest x-ray PA lateral. Recommend then BMP in 1 week after the increase of diuretic therapy. Increase Lasix to 40 mg twice a day with the addition of adding K-Dur 20 mEq daily. RTC 2 weeks for volume evaluation. CARDIAC DIAGNOSTICS ECG (I independently reviewed EKG and revealed, Normal sinus rhythm with PVC ventricular rate 75 bpm QTc 384 ms): 10/27/2023 RHC/LHC 03/24/2023 Non obstructive coronary artery disease Mild pre-capillary pulmonary hypertension Normal right heart filling pressures Normal left heart filling pressures Normal cardiac output and cardiac index Transesophageal Echocardiogram 03/20/2023 Summary 1. Bileaflet mitral valve prolase involving the A2/P2 scallops with flail chordal structure seen on view 47. 2. Mitral valve regurgitant volume by PISA is mild to moderate, 31 ml. Mitral valve effective regurgitant orifice by PISA is 0.2 cm2 . MR VCA .2 cm2 on 3 d. VCD .2 cm. 3. Left ventricular systolic function is normal with an estimated ejection fraction of 65%. OBJECTIVES BP 136/87 (BP Location: Left arm, Patient Position: Sitting, BP Cuff Size: X-large Adult) Pulse 74 Ht 5' 8 Wt 102.5 kg (226 lb) SpO2 94% BMI 34.36 kg/m General Appearance: Chronically ill-looking male. Not in acute distress. Wearing nasal cannula oxygen Respiratory: Crackles bilaterally. Cardiovascular: good peripheral pulses. JVP difficult to assess due to body habitus. Regular rate and rhythm. Normal S1-S2. No murmur/gallop/rub. Abdomen: Firm and distended. Nontender. BRAYAN: 2+ left lower extremity taut and 1+ right lower extremity taut edema. Skin: no rash. No cyanosis. No clubbing of fingers. Dana Elder, MSN, SALES ACCOUNT COORDINATOR, ADMINISTRATIVE ASSISTANT OFFICE MANAGER Interventional Cardiology/Structural Heart Disease Team [facility] Heart & Vascular Physicians [facility] documented in this encounter [facility] 10-27-2023 Instructions Hailey Guzman RN - 10/27/2023 6:56 AM EDT ..How to contact your Care Team: Provider: Kate Elder CNP Nurse: Hailey Guzman RN In case of an emergency please call 911. REFILLS: When in need for refills please call your care team or the office at [phone]. Please include medication name, pharmacy name, and specify 30-day or 90-day supply. Please check with your pharmacy within 24 hours of request for your refill. You must follow up as directed to continue current refills. Thank you *Take lasix in AM, and second dose around 2pm. Please weigh yourself every morning, after using the restroom and before eating. Have on the same amount of clothing each time (or no clothes) and place your scale on a hard, flat surface. Eating a diet high in sodium (salt) is likely to cause you to retain fluid (swell up) and can make you more short of breath. Avoid the use of a salt shaker and avoid foods that are very high in salt (more than 600 mg per serving). Quit smoking, if you smoke. Avoid or limit alcohol and caffeine. Read your food labels, the recommendation is for less than 2,000 mg of sodium per day. Don't over drink fluids. You should have about 2 liters of fluid per day (8-8oz cups or 64 oz). Less can make you dehydrated and more can make you retain fluid (swell). 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 States he had a fall off a tractor a couple years ago and he tore a tendon in his thigh area. He states he was never able to get it repaired and now it is giving him a lot of issues. He is currently enrolled in a pain clinic in [place] and has had a series of injections in his hip recently and states that have not helped at all. He does suffers from interdigital lung disease and understand that he may not be a surgical candidate but would like to see if there is anything you can do to help him get some pain relief in his hip area. Date: 09/28/2023 11:17 AM Patient: Annie Calderon MR#: [id number] : 1950 Age: 72 y.o. Referring Physician: Self, Self Insurance: Payor: MEDICARE [employer] HMO OR PPO / Plan: MEDICARE [employer] HMO / Product Type: *No Product type* / Chief Complaint Patient presents with Right Hip - Pain Visit Vitals Ht 1.727 m (5' 8 ) Wt 103 kg (227 lb) BMI 34.52 kg/m Pain 1. Are you having pain? 2. On a scale from 1-10: Recent Labs No results found for: CRP No results found for: SEDRATE Lab Results Component Value Date WBC 13.94 (H) 12/26/2022 HGB 11.5 (L) 12/26/2022 HCT 34.2 (L) 12/26/2022 PLATELET 426 (H) 12/26/2022 MCV 113.2 (H) 12/26/2022 History Past Medical History: Diagnosis Date Hypertension Lung disease No past surgical history on file. Family History: His family history is not on file. Social History: His reports that he has quit smoking. His smoking use included cigarettes. He has never used smokeless tobacco. He reports that he does not currently use alcohol. He reports that he does not currently use drugs. Outpatient Medications Prior to Visit Medication Sig Dispense Refill Albuterol 108 (90 Base) MCG/ACT Aero Soln inhaler Inhale 2 puffs every 4 hours as needed. amLODIPine 5 MG tablet Take 1 tablet by mouth daily. carveDILOL 12.5 MG tablet Take 1 tablet by mouth 2 times daily. Celecoxib 200 MG capsule Take 1 capsule by mouth daily. esomeprazole [address] capsule Take 1 capsule by mouth daily. Finasteride 5 MG tablet Take 1 tablet by mouth daily. furOSEmide 40 MG tablet Take 1 tablet by mouth daily. hydroCODone-acetaminophen 5-325 MG tablet Take by mouth every 6 hours as needed. losartan-hydrochlorothiazide 100-12.5 MG tablet Take 1 tablet by mouth daily. Montelukast 10 MG tablet Take 1 tablet by mouth every evening. Mycophenolate mofetil (CELLCEPT) 500 MG tablet Take 2 tablet by mouth twice daily. 360 tablet 0 oxygen gas Inhale 4 L As directed. Potassium chloride 20 MEQ Tab CR tablet Take 1 tablet by mouth daily. predniSONE 10 MG tablet Take 1 tablet by mouth daily. Tamsulosin HCl 0.4 MG capsule Take 1 capsule by mouth daily. Trelegy Ellipta 200-62.5-25 MCG/ACT Aerosol Powder, breath activated Inhale 1 puff daily. No facility-administered medications prior to visit. Allergies: He has No Known Allergies. HPI: Annie is an established patient of [facility], here today for right hip pain. He is an established patient of [facility]. Primary complaint is pain, impairment and a decrease in quality of life secondary to the right hip pain. The pain radiates locally and is not associated with numbness or tingling. He is experiencing locking, popping, catching and clicking. States he had a fall off a tractor a couple years ago and he tore a tendon in his thigh area. He states he was never able to get it repaired and now it is giving him a lot of issues. He is currently enrolled in a pain clinic in [place] and has had a series of injections in his hip recently and states that have not helped at all.. His pain is a 10 on a 10 point scale today. At this time, he is weary of his symptoms and is here today to discuss scheduling a right total hip arthroplasty for optimal fdc management. PHYSICAL EXAM: This is an alert, oriented, and age-appropriate male. He is in no distress. Pleasant and cooperative. EXTREMITIES: The upper extremities have no gross deformity. Normal stability. 5/5 motor against resistant leg extension. Intact sensation. Normal coordination. Skin intact. Lower extremities have no gross deformity. Normal stability. 5/5 motor. Intact sensation. Normal coordination. Skin intact. right hip demonstrates 5/5 flexion, internal rotation, external rotation. Painful range of motion. Contralateral hip has full and supple motion. No pain. No impingement. No instability. Normal neurovascular status in lower extremities bilaterally. IMAGING: Plain film radiographs were reviewed. AP hip and pelvis series demonstrate mild arthritis to right hip, loss of joint space, subchondral sclerosis, osteophyte formation, and qlef-cl-adun contact. Reviewed right hip MRI, no evidence of significance muscle or tendon damage. IMPRESSION:1.) Radiculopathy, right leg pain 2.) Symptomatic mild right hip arthritis 3.) No evidence of significance muscle or tendon damage, MRI reviewed PLAN: I have reviewed my findings with the patient. We have gone over the diagnosis, radiographs, physical exam findings and treatment options together. We then discussed the nature of arthritis and its associated symptoms. We reviewed his MRI today and the hips look good with no evidence of muscle or tendon damage. We are going to refer him to Dr. Perez for radiculopathy for right leg pain. He will call us after seeing Dr. Perez. He has no further questions.Next appointment will be left open to him. I have reviewed the findings of my clinical staff below and agree with their assessment. Vitals: 09/28/23 1116 Weight: 103 kg (227 lb) Height: 1.727 m (5' 8 ) Pain Recent Labs No results found for: CRP No results found for: SEDRATE Lab Results Component Value Date WBC 13.94 (H) 12/26/2022 HGB 11.5 (L) 12/26/2022 HCT 34.2 (L) 12/26/2022 PLATELET 426 (H) 12/26/2022 MCV 113.2 (H) 12/26/2022 Past Medical History: Diagnosis Date Arrhythmia Arthritis Hypertension Lung disease JOSE (obstructive sleep apnea) No past surgical history on file. History reviewed. No pertinent family history. Social History Socioeconomic History Marital status: Tobacco Use Smoking status: Former Types: Cigarettes Smokeless tobacco: Never Substance and Sexual Activity Alcohol use: Not Currently Drug use: Not Currently Current Outpatient Medications: Albuterol 108 (90 Base) MCG/ACT Aero Soln inhaler, Inhale 2 puffs every 4 hours as needed., Disp: , Rfl: amLODIPine 5 MG tablet, Take 1 tablet by mouth daily., Disp: , Rfl: carveDILOL 12.5 MG tablet, Take 1 tablet by mouth 2 times daily., Disp: , Rfl: Celecoxib 200 MG capsule, Take 1 capsule by mouth daily., Disp: , Rfl: esomeprazole [address] capsule, Take 1 capsule by mouth daily., Disp: , Rfl: Finasteride 5 MG tablet, Take 1 tablet by mouth daily., Disp: , Rfl: furOSEmide 40 MG tablet, Take 1 tablet by mouth daily., Disp: , Rfl: hydroCODone-acetaminophen 5-325 MG tablet, Take by mouth every 6 hours as needed., Disp: , Rfl: losartan-hydrochlorothiazide 100-12.5 MG tablet, Take 1 tablet by mouth daily., Disp: , Rfl: Montelukast 10 MG tablet, Take 1 tablet by mouth every evening., Disp: , Rfl: Mycophenolate mofetil (CELLCEPT) 500 MG tablet, Take 2 tablet by mouth twice daily., Disp: 360 tablet, Rfl: 0 oxygen gas, Inhale 4 L As directed., Disp: , Rfl: Potassium chloride 20 MEQ Tab CR tablet, Take 1 tablet by mouth daily., Disp: , Rfl: predniSONE 10 MG tablet, Take 1 tablet by mouth daily., Disp: , Rfl: Tamsulosin HCl 0.4 MG capsule, Take 1 capsule by mouth daily., Disp: , Rfl: Trelegy Ellipta 200-62.5-25 MCG/ACT Aerosol Powder, breath activated, Inhale 1 puff daily., Disp: , Rfl: No Known Allergies documented in this encounter [facility] 07-27-2023 Evaluation + Plan note Associated Problem(s): Right leg pain - continue to follow [facility] pain management - unfortunately not aware of any stronger supplements/otc medicaitons to help with his pain, likely needs to utilize narcotics more frequently [facility] Work Phone: 07-27-2023 Miscellaneous Notes Associated Problem(s): Right leg pain - continue to follow [facility] pain management - unfortunately not aware of any stronger supplements/otc medicaitons to help with his pain, likely needs to utilize narcotics more frequently Associated Problem(s): Interstitial lung disease (Multi) Follow up already scheduled for August 2023. Will follow up in our office after that appointment, documented in this encounter [facility] Work Phone: 07-27-2023 Evaluation + Plan note Associated Problem(s): Interstitial lung disease (Multi) Follow up already scheduled for August 2023. Will follow up in our office after that appointment, [facility] Work Phone: 07-27-2023 History of Presen t illness Narrative Subjective: Annie Matthews Kvng Seymour Calderon is a 72 y.o. male who presents to clinic today for Follow-up (1 MO FU ) He continues to have a lot of pain in his right hip. He isnt having any improvement with OTC medications. He has improvement with his narcotics but then he is too tired to get much of anything done so he tries not to take these. He continues to have watery eyes. He took the eye drops prescribed by Dr. Fitzgerald, opthomalogy He notes that he has a lot of stress related to his grandson and that is not helpful for his chronic condiitons. Review of Systems Assessment/Plan: Annie Matthews Kvng Seymour Ballesteroslure is a 72 y.o. male with a history of ILD, pulmonary hypertension, hypertension who presents to clinic today to address the following issues: 1. Nasal congestion fluticasone (Flonase) 50 mcg/actuation nasal spray 2. Laceration of left lower extremity, subsequent encounter 3. Interstitial lung disease (Multi) 4. Right leg pain Nasal Congestion: - Chronic problem, unresolved, new to this provider, requires further workup and treatment - Discussed with pt that he should ocntinue to avoid oxymetolazine, recommended continued use of flonase Left leg laceration is healing quite well with no signs of infection Problem List Items Addressed This Visit Interstitial lung disease (Multi) Overview Thought to be possibly due to bird exposure. Follows at [facility]. Seeing a order booker. Currently on prednisone as well as trelegy ellipta. Current Assessment & Plan Follow up already scheduled for August 2023. Will follow up in our office after that appointment, Right leg pain Overview Severe right leg/hip pain after torn quadriceps muscle. Following with pain management in [place]. Current Assessment & Plan - continue to follow [facility] pain management - unfortunately not aware of any stronger supplements/otc medicaitons to help with his pain, likely needs to utilize narcotics more frequently Other Visit Diagnoses Nasal congestion - Primary Relevant Medications fluticasone (Flonase) 50 mcg/actuation nasal spray Laceration of left lower extremity, subsequent encounter There are no Patient Instructions on file for this visit. Follow up: 7 weeks or sooner as needed Return precautions discussed. An After Visit Summary was given to the patient. All questions were answered and patient in agreement with plan. Objective: BP 128/78 Pulse 88 Ht 1.676 m (5' 6 ) Wt 97.9 kg (215 lb 14.4 oz) SpO2 94% BMI 34.85 kg/m Physical Exam Vitals and nursing note reviewed. Constitutional: General: He is not in acute distress. Appearance: He is obese. He is not ill-appearing. Comments: He does not have nasal cannula in place, just on his lap HENT: Head: Normocephalic and atraumatic. Mouth/Throat: Mouth: Mucous membranes are moist. Eyes: General: No scleral icterus. Right eye: No discharge. Left eye: No discharge. Extraocular Movements: Extraocular movements intact. Conjunctiva/sclera: Conjunctivae normal. Pulmonary: Effort: No respiratory distress. Musculoskeletal: Right lower leg: Edema present. Left lower leg: Edema (2+ to the ankles) present. Skin: General: Skin is dry. Comments: Left villagomez with well healing laceration, no scabs left Neurological: General: No focal deficit present. Mental Status: He is alert and oriented to person, place, and time. Psychiatric: Thought Content: Thought content normal. Judgment: Judgment normal. I spent 13 minutes in total time for this visit including all related clinical activities before, during, and after the visit excluding other billable activities/procedure time. Sahra Holliday MD documented in this encounter [facility] Work Phone: 07-13-2023 History of Presen t illness Narrative Associated Order(s): Suture Removal Post-Procedure Diagnose(s): Laceration of left lower extremity, subsequent encounter Subjective: Annie Calderon is a 72 y.o. male who presents to clinic today for Suture / Staple Removal He had his dressing redone by his grandson a few days ago. It was cleaned at that time and he notes that it was dry and non painful. He has not had drainage from the site. No pain in left lower leg He is out of his lasix and notes that he ahs been having increasing lower leg swelling,. He has not been sleeping more at night. He also ntoes that if he puts his nasal cannula near his face he still keeps his O2 sats at goal and sleeps better at night. Review of Systems Assessment/Plan: Annie Calderon is a 72 y.o. male with a history of ILD, pulmonary hypertension, hypertension who presents to clinic today to address the following issues: 1. Laceration of left lower extremity, subsequent encounter 2. Pulmonary hypertension (Multi) 3. Benign prostatic hyperplasia with nocturia Referral to Adult Sleep Medicine 4. Hypertension, unspecified type losartan-hydrochlorothiazide (Hyzaar) 100-12.5 mg tablet 5. IPF (idiopathic pulmonary fibrosis) (Multi) albuterol 90 mcg/actuation inhaler furosemide (Lasix) 40 mg tablet 6. Chronic hypoxemic respiratory failure (Multi) furosemide (Lasix) 40 mg tablet 7. Peripheral edema furosemide (Lasix) 40 mg tablet Lasix sent in for peripheral edema. 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 He is okay with this as it helps with his symptoms. Problem List Items Addressed This Visit Pulmonary hypertension (Multi) Benign prostatic hyperplasia with nocturia Overview Currently taking Saw Avalon, Finasteride and tamsulosin and still having difficulty with nocturia and voiding every 1-2 hours. This is limiting how much he can wear his cpap and affecting his pulmonary hypertension. Relevant Orders Referral to Adult Sleep Medicine IPF (idiopathic pulmonary fibrosis) (Multi) Relevant Medications albuterol 90 mcg/actuation inhaler furosemide (Lasix) 40 mg tablet Chronic hypoxemic respiratory failure (Multi) Relevant Medications furosemide (Lasix) 40 mg tablet Other Visit Diagnoses Laceration of left lower extremity, subsequent encounter - Primary Hypertension, unspecified type Relevant Medications losartan-hydrochlorothiazide (Hyzaar) 100-12.5 mg tablet Peripheral edema Relevant Medications furosemide (Lasix) 40 mg tablet There are no Patient Instructions on file for this visit. Follow up: already scheduled for 2 weeks Return precautions discussed. An After Visit Summary was given to the patient. All questions were answered and patient in agreement with plan. Objective: BP 134/80 Pulse 67 Ht 1.676 m (5' 6 ) Wt 101 kg (221 lb 9.6 oz) SpO2 95% BMI 35.77 kg/m Physical Exam Vitals and nursing note reviewed. Constitutional: General: He is not in acute distress. Appearance: He is not ill-appearing. Comments: Nasal cannula in place HENT: Head: Normocephalic and atraumatic. Mouth/Throat: Mouth: Mucous membranes are moist. Eyes: General: No scleral icterus. Right eye: No discharge. Left eye: No discharge. Extraocular Movements: Extraocular movements intact. Conjunctiva/sclera: Conjunctivae normal. Pulmonary: Effort: No respiratory distress. Skin: General: Skin is dry. Comments: Well approximated well healing laceration over left lower leg that had [address] No signs of infection. Neurological: General: No focal deficit present. Mental Status: He is alert and oriented to person, place, and time. Psychiatric: Thought Content: Thought content normal. Judgment: Judgment normal. Patient ID: Annie Ahuja is a 72 y.o. male. Suture Removal Date/Time: 07/13/2023 12:06 PM Performed by: Sahra Holliday MD Authorized by: Sahra Holliday MD Consent: Consent obtained: Verbal Consent given by: Patient Risks, benefits, and alternatives were discussed: yes Risks discussed: Bleeding, pain and wound separation Alternatives discussed: Delayed treatment S[place]heimer protocol: Patient identity confirmed: Verbally with patient Location: Location: Lower extremity Lower extremity location: Leg Leg location: L lower leg Procedure details: Wound appearance: No signs of infection, good wound healing and clean Number of naomi removed: 12 Post-procedure details: Post-removal: Dressing applied Procedure completion: Tolerated well, no immediate complications I spent 20 minutes in total time for this visit including all related clinical activities before, during, and after the visit excluding other billable activities/procedure time. Sahra Holliday MD documented in this encounter [facility] Work Phone: 07-04-2023 History of Presen t illness Narrative Subjective: Annie Calderon is a 72 y.o. male who presents to clinic today for Family discussion Seymour came in with his daughter, Shantel, grandson, Christopher, and close friend/boom stick man Waqar Osborn. He came in to discuss his health and to get all of his family on the same page. Review of Systems Assessment/Plan: Annie Calderon is a 72 y.o. male with a history of ILD, pulmonary hypertension, hypertension who presents to clinic today to address the following issues: 1. Interstitial lung disease (Multi) 2. Pulmonary hypertension (Multi) 3. Benign prostatic hyperplasia with nocturia 4. Nonrheumatic mitral valve regurgitation 5. Chronic hypoxemic respiratory failure (Multi) He once again clarified that in the situation that he would need someone to make medical decisions he would like Waqar Osborn to do so. We discussed that he would like to be DNR and we also discussed that the conditions he has are progressive and likely will not improve or potentially even stabilize. I recommended that he would not be intubated in the situation that his breathing worsened or he had another insult such as influenza or pneumonia. He does not want to have fdc mechanical ventilation with a tracheostomy if he were to be intubated. We discussed the importance of him using his cpap machine to help minimize his progression of his pulmonary hypertension. He is not ready to discuss hospice at this time which I feel is reasonable as I do not have a hopsice qualifying diagnosis. We discussed that as his disease progresses that this may be something he is interested in pursuing. He did take copies of his DNR so that he can put them in his house. Waqar Osborn is going to send our office his advanced care planning documents and his living will. Problem List Items Addressed This Visit Interstitial lung disease (Multi) - Primary Overview Thought to be possibly due to bird exposure. Follows at [facility]. Seeing a order booker. Currently on prednisone as well as trelegy ellipta. Pulmonary hypertension (Multi) Benign prostatic hyperplasia with nocturia Overview Currently taking Saw Avalon, Finasteride and tamsulosin and still having difficulty with nocturia and voiding every 1-2 hours. This is limiting how much he can wear his cpap and affecting his pulmonary hypertension. Mitral valve insufficiency Chronic hypoxemic respiratory failure (Multi) There are no Patient Instructions on file for this visit. Follow up: 1 week staple removal Return precautions discussed. An After Visit Summary was given to the patient. All questions were answered and patient in agreement with plan. Objective: Physical Exam Nursing note reviewed. Constitutional: General: He is not in acute distress. Appearance: He is obese. He is not ill-appearing. Interventions: Nasal cannula in place. HENT: Head: Normocephalic and atraumatic. Mouth/Throat: Mouth: Mucous membranes are moist. Eyes: General: No scleral icterus. Right eye: No discharge. Left eye: No discharge. Extraocular Movements: Extraocular movements intact. Conjunctiva/sclera: Conjunctivae normal. Pulmonary: Effort: No respiratory distress. Skin: General: Skin is dry. Neurological: General: No focal deficit present. Mental Status: He is alert and oriented to person, place, and time. Psychiatric: Thought Content: Thought content normal. Judgment: Judgment normal. I spent 42 minutes in total time for this visit including all related clinical activities before, during, and after the visit excluding other billable activities/procedure time. Sahra Holliday MD documented in this encounter [facility] Work Phone: 07-03-2023 History of Presen t illness Narrative Subjective: Annie Calderon is a 72 y.o. male who presents to clinic today for ER FU Naomi in leg He had a gate fall on him 06/28/23. After this happened he had a large gauge and scrape on his villagomez. He went to [facility] and got naomi and was on antibiotics (Keflex). He had his daughte rin law look at his villagomez and she re wrapped it. He also notes that he is out of gabapentin. He has not noticed any increased pain. Review of Systems Assessment/Plan: Annie Calderon is a 72 y.o. male with a history of ILD, pulmonary hypertension, hypertension who presents to clinic today to address the following issues: 1. Right leg pain gabapentin (Neurontin) 100 mg capsule 2. Laceration of left lower extremity, subsequent encounter Laceration: healing without signs of infection. Re-wrapped and will remove sutures at future date. Utd on tetanus Pain in right leg: - decreased gabapentin per Seymour's request Problem List Items Addressed This Visit Right leg pain - Primary Overview Severe right leg/hip pain after torn quadriceps muscle. Following with pain management in [place]. Relevant Medications gabapentin (Neurontin) 100 mg capsule Other Visit Diagnoses Laceration of left lower extremity, subsequent encounter Patient Instructions [facility] at [phone] [facility] [address] Floor, [facility] [phone] [place] [address] Emergency Lines: 24-Hour Crisis: [phone] Crisis Text Line: Text 4HOPE to [id number] Follow up: 8 days for suture removal Return precautions discussed. An After Visit Summary was given to the patient. All questions were answered and patient in agreement with plan. Objective: BP 130/64 Pulse 85 Ht 1.676 m (5' 6 ) Wt 99.2 kg (218 lb 9.6 oz) SpO2 95% BMI 35.28 kg/m Physical Exam Vitals and nursing note reviewed. Constitutional: General: He is not in acute distress. Appearance: He is not ill-appearing. HENT: Head: Normocephalic and atraumatic. Mouth/Throat: Mouth: Mucous membranes are moist. Eyes: General: No scleral icterus. Right eye: No discharge. Left eye: No discharge. Extraocular Movements: Extraocular movements intact. Conjunctiva/sclera: Conjunctivae normal. Pulmonary: Effort: No respiratory distress. Skin: General: Skin is dry. Comments: Large well healing laceration on left villagomez with 11 naomi present, no signs of infection or overlying redness warmth, multiple scrapes Neurological: General: No focal deficit present. Mental Status: He is alert and oriented to person, place, and time. Psychiatric: Thought Content: Thought content normal. Judgment: Judgment normal. I spent 30 minutes in total time for this visit including all related clinical activities before, during, and after the visit excluding other billable activities/procedure time. Sahra Holliday MD documented in this encounter [facility] Work Phone: 07-03-2023 Instructions Sahra Holliday MD - 07/03/2023 4:20 PM EDT [facility] at [phone] [facility] [address] Floor, [facility] [phone] [place] [id number] Emergency Lines: 24-Hour Crisis: [phone] Crisis Text Line: Text [id number] to [id number] documented in this encounter [facility] Work Phone: 06-14-2023 Evaluation + Plan note Associated Problem(s): Right leg pain Seymour continues to have severe pain and is not getting significant relief from pain management. He has requested to see an external referral at [facility] to see if they may be willing to operate on his hip. Referral placed [facility] Work Phone: 06-14-2023 Miscellaneous Notes Associated Problem(s): Right leg pain Seymour continues to have severe pain and is not getting significant relief from pain management. He has requested to see an external referral at [facility] to see if they may be willing to operate on his hip. Referral placed documented in this encounter [facility] Work Phone: 06-14-2023 History of Presen t illness Narrative Subjective: Annie Matthews Calderonmoose Calderon is a 72 y.o. male who presents to clinic today for Follow-up (1 WK FU ) He notes that he didn't sleep well for the past few nights. He was up to urinate several times. He notes that he had to have all of his birds culled due to harper flu. He notes that he has been having leg swelling and has gained weight. He hasn't changed his diet. He also notes some mild chest pain on his right rib cage. This came after he coughed a lot last week. His congestion and respiratory productive cough have improved today. He notes that overall he is feeling much better than only solids for the last week. Review of Systems Assessment/Plan: Annie Calderon is a 72 y.o. male with a history of ILD, pulmonary hypertension, hypertension who presents to clinic today to address the following issues: 1. Congestion of nasal sinus Referral to ENT 2. Hypertension, unspecified type amLODIPine (Norvasc) 5 mg tablet 3. Right leg pain Referral to Orthopaedic Surgery 4. IPF (idiopathic pulmonary fibrosis) (Multi) furosemide (Lasix) 40 mg tablet 5. Chronic hypoxemic respiratory failure (Multi) furosemide (Lasix) 40 mg tablet 6. Respiratory crackles of both lungs 7. Peripheral edema furosemide (Lasix) 40 mg tablet Seymour continues to have extensive nasal congestion that is affecting his ability to wear his CPAP at night as well as making it difficult for him to breathe during the day. He does take Flonase and oxymetazoline daily. I have tried to work with him to cut back on oxygen improving but he feels that he is unable to do this. Due to this I am going to refer him to ENT and see if any other options are available to help with his chronic nasal congestion. Hypertension Refilled amlodipine Peripheral edema: He has had unintentional weight gain without change in his diet or exercise. Due to this and significant peripheral edema we will put him back on Lasix. I do think it may be worth further evaluation for possible heart failure but he did just recently have an echocardiogram and full cardiac workup done in February. Although he has had a little bit of chest pain I am not super concerned that this is coronary artery disease with him recently having catheterization as well as it being related to coughing. Problem List Items Addressed This Visit IPF (idiopathic pulmonary fibrosis) (Multi) Relevant Medications furosemide (Lasix) 40 mg tablet Chronic hypoxemic respiratory failure (Multi) Relevant Medications furosemide (Lasix) 40 mg tablet Right leg pain Overview Severe right leg/hip pain after torn quadriceps muscle. Following with pain management in [place]. Current Assessment & Plan Seymour continues to have severe pain and is not getting significant relief from pain management. He has requested to see an external referral at [facility] to see if they may be willing to operate on his hip. Referral placed Relevant Orders Referral to Orthopaedic Surgery Other Visit Diagnoses Congestion of nasal sinus - Primary Relevant Orders Referral to ENT Hypertension, unspecified type Relevant Medications amLODIPine (Norvasc) 5 mg tablet Respiratory crackles of both lungs Peripheral edema Relevant Medications furosemide (Lasix) 40 mg tablet Patient Instructions Take Lasix Follow up: 1 week Return precautions discussed. An After Visit Summary was given to the patient. All questions were answered and patient in agreement with plan. Objective: BP 134/88 Pulse 73 Ht 1.676 m (5' 6 ) Wt 99.6 kg (219 lb 9.6 oz) SpO2 97% BMI 35.44 kg/m Physical Exam Vitals and nursing note reviewed. Constitutional: General: He is not in acute distress. Appearance: He is not ill-appearing. HENT: Head: Normocephalic and atraumatic. Mouth/Throat: Mouth: Mucous membranes are moist. Eyes: General: No scleral icterus. Right eye: No discharge. Left eye: No discharge. Extraocular Movements: Extraocular movements intact. Conjunctiva/sclera: Conjunctivae normal. Pulmonary: Effort: No respiratory distress. Comments: Oxygen in place Musculoskeletal: Right lower leg: Edema present. Left lower leg: Edema present. Skin: General: Skin is dry. Neurological: General: No focal deficit present. Mental Status: He is alert and oriented to person, place, and time. Psychiatric: Thought Content: Thought content normal. Judgment: Judgment normal. I spent 18 minutes in total time for this visit including all related clinical activities before, during, and after the visit excluding other billable activities/procedure time. Sahra Holliday MD documented in this encounter [facility] Work Phone: 06-14-2023 Instructions Sahra Holliday MD - 06/14/2023 11:20 AM EDT Take Lasix documented in this encounter [facility] Work Phone: 06-08-2023 History of Presen t illness Narrative Subjective: Annie Matthews Calderon Seymour Calderon is a 72 y.o. male who presents to clinic today for Cough (HEAD AND CHEST CONGESTION, X3DAYS) He notes that he has been feeling like he has congestion and a cold He has been using flonase. He notes that hsi chest congestion started a few days ago and he is coughing up kenny/white chunks in the morning He is using nasal sprays to clear his sinuses but they haven't been working well He has been waking up short of breath and hacking up things overnight He continues to take zyrtec He also is taking flonase and singulair He does note that he mowed his lawn recently Answers submitted by the patient for this visit: Cough Questionnaire (Submitted on 06/08/2023) Chief Complaint: Cough Chronicity: new Onset: in the past 7 days Progression since onset: waxing and waning Frequency: every few hours Cough characteristics: productive of purulent sputum ear congestion: No heartburn: No hemoptysis: No nasal congestion: Yes sweats: No weight loss: No Aggravated by: nothing Review of Systems Constitutional: Negative for chills and fever. HENT: Negative for ear pain, postnasal drip, rhinorrhea and sore throat. Respiratory: Positive for cough, shortness of breath and wheezing. Cardiovascular: Negative for chest pain. Musculoskeletal: Negative for myalgias. Skin: Negative for rash. Neurological: Negative for headaches. Assessment/Plan: Annie Calderon is a 72 y.o. male with a history of ILD, pulmonary hypertension, hypertension who presents to clinic today to address the following issues: 1. Congestion of nasal sinus doxycycline (Vibramycin) 100 mg capsule predniSONE (Deltasone) 20 mg tablet 2. IPF (idiopathic pulmonary fibrosis) (CMS/HCC) 3. Chronic hypoxemic respiratory failure ([facility]) - Acute problem, unresolved, new to this provider, requires further workup and treatment - Seymour had worsening respiratory distress but was able to maintain oxygen saturations on 3L NC - discussed that he is on the fence of [facility] hospitalization and discussed return precautions, he will go to [facility] if worsening symptoms - will treat with doxycyline and increase his prednsione dose for now - close follow up with me to assess improvement Problem List Items Addressed This Visit IPF (idiopathic pulmonary fibrosis) (CMS/HCC) Chronic hypoxemic respiratory failure ([facility]) Other Visit Diagnoses Congestion of nasal sinus - Primary Relevant Medications doxycycline (Vibramycin) 100 mg capsule predniSONE (Deltasone) 20 mg tablet There are no Patient Instructions on file for this visit. Follow up: 6 days Return precautions discussed. An After Visit Summary was given to the patient. All questions were answered and patient in agreement with plan. Objective: BP 122/76 Pulse 76 Ht 1.676 m (5' 6 ) Wt 98.5 kg (217 lb 1.6 oz) SpO2 92% BMI 35.04 kg/m Physical Exam Vitals and nursing note reviewed. Constitutional: General: He is not in acute distress. Appearance: He is not ill-appearing. HENT: Head: Normocephalic and atraumatic. Right Ear: There is no impacted cerumen. Left Ear: There is no impacted cerumen. Ears: Comments: Left TM erythematous Nose: Congestion and rhinorrhea present. Mouth/Throat: Mouth: Mucous membranes are moist. Pharynx: Posterior oropharyngeal erythema present. No oropharyngeal exudate. Eyes: General: No scleral icterus. Right eye: No discharge. Left eye: No discharge. Extraocular Movements: Extraocular movements intact. Conjunctiva/sclera: Conjunctivae normal. Cardiovascular: Rate and Rhythm: Normal rate and regular rhythm. Pulmonary: Effort: Respiratory distress present. Breath sounds: Wheezing present. Comments: Diffuse crackles of lungs Lymphadenopathy: Cervical: No cervical adenopathy. Skin: General: Skin is dry. Neurological: General: No focal deficit present. Mental Status: He is alert and oriented to person, place, and time. Psychiatric: Thought Content: Thought content normal. Judgment: Judgment normal. I spent 15 minutes in total time for this visit including all related clinical activities before, during, and after the visit excluding other billable activities/procedure time. Sahra Holliday MD documented in this encounter [facility] Work Phone: 05-22-2023 Note HNO ID: [id number] Author: JUAN CARLOS FITZGERALD MD Service: ? Author Type: Physician Type: Progress Notes Filed: 05/22/2023 09:42 Note Text: ASSESSMENT/PLAN: 1. 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 - ICD9: 375.22, ICD10: H04.223 (primary diagnosis) - PROBING OF NASOLACRIMAL DUCT, WITH OR WITHOUT IRRIGATION Current Ophthalmic Meds [id number] 3.5 MG/ML-10,000 UNIT/ML-0.1% EYE DROPS Use 1 Drop in both eyes four times daily for 14 days. 2. Meibomian gland dysfunction (MGD) of upper and lower lids of both eyes - ICD9: 373.00, ICD10: H02.88A, H02.88B 3. Punctate keratitis of both eyes - ICD9: 370.21, ICD10: H16.143 Current Ophthalmic Meds perfluorohexyloctane, PF, (MIEBO) 100 % drop Use 1 Drop in both eyes four times daily. 4. Nonexudative age-related macular degeneration, bilateral, early dry stage - ICD9: 362.51, ICD10: H35.3131 Please monitor each eye daily with [employer]. AREDS 2 Vitamins are available over the counter at any drug store. 5. Combined forms of age-related cataract of both eyes - ICD9: 366.19, ICD10: H25.813 Not visually significant Both Eyes. Continue to monitor with Dr. Cole. 6. Essential hypertension - ICD9: 401.9, ICD10: I10 Continue to monitor with primary care physician. 7. IPF (idiopathic pulmonary fibrosis) (HCC) - ICD9: 516.31, ICD10: J84.112 Continue to monitor with primary care physician/Pulmonology. 8. Benign prostatic hyperplasia with lower urinary tract symptoms, symptom details unspecified - ICD9: 600.01, ICD10: N40.1 I have confirmed and edited as necessary the relevant HPI, ophthalmic history, ROS, and the neuro exam findings as obtained by others. I have seen and examined Annie Matthews Calderon. I have discussed the case and the management of this patient's care with the Resident/Fellow, if applicable. I also have reviewed and agree with the assessment and plan as stated above and agree with all of its relevant components. [facility] 05-22-2023 Instructions Juan Carlos Fitzgerald MD - 05/22/2023 9:42 AM EDT Current Ophthalmic Meds [id number] 3.5 MG/ML-10,000 UNIT/ML-0.1% EYE DROPS Use 1 Drop in both eyes four times daily for 14 days. Current Ophthalmic Meds perfluorohexyloctane, PF, (MIEBO) 100 % drop Use 1 Drop in both eyes four times daily. If you have any questions please contact our office at [phone]. After office hours or on the weekend, please call Dr. Fitzgerald on his cell phone at [phone]. documented in this encounter [facility] 03-25-2024 History of Presen t illness Narrative ASSESSMENT/PLAN: 1. 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 - ICD9: 375.22, ICD10: H04.223 (primary diagnosis) - PROBING OF NASOLACRIMAL DUCT, WITH OR WITHOUT IRRIGATION Current Ophthalmic Meds [id number] 3.5 MG/ML-10,000 UNIT/ML-0.1% EYE DROPS Use 1 Drop in both eyes four times daily for 14 days. 2. Meibomian gland dysfunction (MGD) of upper and lower lids of both eyes - ICD9: 373.00, ICD10: H02.88A, H02.88B 3. Punctate keratitis of both eyes - ICD9: 370.21, ICD10: H16.143 Current Ophthalmic Meds perfluorohexyloctane, PF, (MIEBO) 100 % drop Use 1 Drop in both eyes four times daily. 4. Nonexudative age-related macular degeneration, bilateral, early dry stage - ICD9: 362.51, ICD10: H35.3131 Please monitor each eye daily with [employer] Grid. AREDS 2 Vitamins are available over the counter at any drug store. 5. Combined forms of age-related cataract of both eyes - ICD9: 366.19, ICD10: H25.813 Not visually significant Both Eyes. Continue to monitor with Dr. Cole. 6. Essential hypertension - ICD9: 401.9, ICD10: I10 Continue to monitor with primary care physician. 7. IPF (idiopathic pulmonary fibrosis) (HCC) - ICD9: 516.31, ICD10: J84.112 Continue to monitor with primary care physician/Pulmonology. 8. Benign prostatic hyperplasia with lower urinary tract symptoms, symptom details unspecified - ICD9: 600.01, ICD10: N40.1 I have confirmed and edited as necessary the relevant HPI, ophthalmic history, ROS, and the neuro exam findings as obtained by others. I have seen and examined Annie Calderon. I have discussed the case and the management of this patient's care with the Resident/Fellow, if applicable. I also have reviewed and agree with the assessment and plan as stated above and agree with all of its relevant components. documented in this encounter [facility] 05-18-2023 Evaluation + Plan note Associated Problem(s): Interstitial lung disease (CMS/HCC) - continue to work to taper down steroids by decreasing prednisone from 10mg to 5mg for 1 month - continue cellcept - continue trelegy [facility] Work Phone: 05-18-2023 Miscellaneous Notes Associated Problem(s): Interstitial lung disease (CMS/HCC) - continue to work to taper down steroids by decreasing prednisone from 10mg to 5mg for 1 month - continue cellcept - continue trelegy documented in this encounter [facility] Work Phone: 05-18-2023 History of Presen t illness Narrative Subjective: Annie Calderon is a 72 y.o. male who presents to clinic today for Follow-up (3 WK FU LABS) Pulmonology Follow Up: He notes that he is supossed to be taking Cellcept 4x daily. - he notes that when he takes it 4x daily he gets very tired - his order booker notes that his lungs aren't going to get better - He stopped taking his potassium due to flank pain. He notes that he's eating a lot of potassium He hasn't changed his diet but has had weight gain He notes that his right hip pain has improved down to a 5-6/10 - he's been doing his exercises at home - he thinks PT has been helpful Review of Systems Assessment/Plan: Annie Calderon is a 72 y.o. male with a history of ILD, pulmonary hypertension, hypertension who presents to clinic today to address the following issues: 1. Watery eyes Referral to Ophthalmology 2. IPF (idiopathic pulmonary fibrosis) (CMS/HCC) Follow Up In Primary Care - Established predniSONE (Deltasone) 5 mg tablet Follow Up In Primary Care - Established 3. Chronic hypoxemic respiratory failure (CMS/HCC) Follow Up In Primary Care - Established predniSONE (Deltasone) 5 mg tablet Follow Up In Primary Care - Established 4. Respiratory crackles of both lungs Follow Up In Primary Care - Established 5. Hypokalemia Follow Up In Primary Care - Established 6. Benign prostatic hyperplasia with urinary frequency 7. Interstitial lung disease (CMS/HCC) Watery Eyes: - Chronic problem, unresolved, new to this provider, requires further workup and treatment - Discussed with pt that I am unsure what is causing this but with it affecting his driving I would recommend an evaluation with an unit technician Problem List Items Addressed This Visit Interstitial lung disease (CMS/HCC) Overview Thought to be possibly due to bird exposure. Follows at [facility]. Seeing a order booker. Currently on prednisone as well as trelegy ellipta. Current Assessment & Plan - continue to work to taper down steroids by decreasing prednisone from 10mg to 5mg for 1 month - continue cellcept - continue trelegy IPF (idiopathic pulmonary fibrosis) (CMS/HCC) Relevant Medications predniSONE (Deltasone) 5 mg tablet Other Relevant Orders Follow Up In Primary Care - Established Chronic hypoxemic respiratory failure (CMS/HCC) Relevant Medications predniSONE (Deltasone) 5 mg tablet Other Relevant Orders Follow Up In Primary Care - Established Other Visit Diagnoses Watery eyes - Primary Relevant Orders Referral to Ophthalmology Respiratory crackles of both lungs Hypokalemia Benign prostatic hyperplasia with urinary frequency Patient Instructions Have Kenny look into Trelegy Copay card online for you. Follow up: 1 month or sooner as needed Return precautions discussed. An After Visit Summary was given to the patient. All questions were answered and patient in agreement with plan. Objective: BP 130/72 Pulse 83 Ht 1.676 m (5' 6 ) Wt 98.6 kg (217 lb 6.4 oz) SpO2 92% BMI 35.09 kg/m Physical Exam Vitals and nursing note reviewed. Constitutional: General: He is not in acute distress. Appearance: He is obese. He is not ill-appearing. HENT: Head: Normocephalic and atraumatic. Mouth/Throat: Mouth: Mucous membranes are moist. Eyes: General: No scleral icterus. Right eye: No discharge. Left eye: No discharge. Extraocular Movements: Extraocular movements intact. Conjunctiva/sclera: Conjunctivae normal. Pulmonary: Effort: No respiratory distress. Skin: General: Skin is dry. Neurological: General: No focal deficit present. Mental Status: He is alert and oriented to person, place, and time. Psychiatric: Thought Content: Thought content normal. Judgment: Judgment normal. I spent 26 minutes in total time for this visit including all related clinical activities before, during, and after the visit excluding other billable activities/procedure time. Sahra Holliday MD documented in this encounter [facility] Work Phone: 05-18-2023 Instructions Sahra Holliday MD - 05/18/2023 9:40 AM EDT Have Kenny look into [employer] card online for you. documented in this encounter [facility] Work Phone: 04-26-2023 Evaluation + Plan note Associated Problem(s): Right leg pain Chronic, improving - continue to follow with pain management [facility] Work Phone: 04-26-2023 Evaluation + Plan note Associated Problem(s): Type 2 diabetes mellitus without complication, without long-term current use of insulin ([facility]) Chronic, worsening - discussed with Seymour that we need to see what his order booker thinks about his chronic steroids and if we should discontinue or continue, if continuing will plan to start metformin at follow up appointment [facility] Work Phone: 04-26-2023 Miscellaneous Notes Associated Problem(s): Right leg pain Chronic, improving - continue to follow with pain management Associated Problem(s): Type 2 diabetes mellitus without complication, without long-term current use of insulin ([facility]) Chronic, worsening - discussed with Seymour that we need to see what his order booker thinks about his chronic steroids and if we should discontinue or continue, if continuing will plan to start metformin at follow up appointment documented in this encounter [facility] Work Phone: 04-26-2023 History of Presen t illness Narrative Subjective: Annie Calderon is a 72 y.o. male who presents to clinic today for Follow-up (2 WK FU ) Got an injection in his right hip with pain management - he did not have pain his hip this morning for the first day today - he notes that he is trying to monitor his tylenol usage and decrease Diabetes: - he takes prednisone daily - he drinks sprite zero - he does eat occasional candy - he previously drank V8 juice - he is working on cutting back on this Lasix: - he notes that lasix was not disruptive to his life and he did not have to urinate too much - he does feel better and less short of breath -3 lbs weight loss in last week Review of Systems Assessment/Plan: Annie Calderon is a 72 y.o. male with a history of ILD, pulmonary hypertension, hypertension who presents to clinic today to address the following issues: 1. IPF (idiopathic pulmonary fibrosis) (CMS/HCC) furosemide (Lasix) 40 mg tablet Follow Up In Primary Care - Established 2. Chronic hypoxemic respiratory failure (CMS/HCC) furosemide (Lasix) 40 mg tablet Follow Up In Primary Care - Established 3. Respiratory crackles of both lungs furosemide (Lasix) 40 mg tablet Follow Up In Primary Care - Established 4. Hypokalemia potassium chloride CR (Klor-Con M20) 20 mEq ER tablet Basic metabolic panel Follow Up In Primary Care - Established 5. Type 2 diabetes mellitus without complication, without long-term current use of insulin (CMS/HCC) 6. Right leg pain Hypokalemia: - Acute problem, unresolved, new to this provider, requires further workup and treatment - discussed with Seymour that we should start potassium supplementation due to his low potassium and him starting lasix more regularly, will recheck in 1 week to see how it is adjusting ILD/Chronic lung failure/fluid overload: Chronic, improving - continue lasix 40mg daily until our follow up appointment - important to attend follow up with pulmonology next week Problem List Items Addressed This Visit IPF (idiopathic pulmonary fibrosis) ([facility]) - Primary Relevant Medications furosemide (Lasix) 40 mg tablet Other Relevant Orders Follow Up In Primary Care - Established Chronic hypoxemic respiratory failure (CMS/HCC) Relevant Medications furosemide (Lasix) 40 mg tablet Other Relevant Orders Follow Up In Primary Care - Established Right leg pain Overview Severe right leg/hip pain after torn quadriceps muscle. Following with pain management in [place]. Current Assessment & Plan Chronic, improving - continue to follow with pain management Type 2 diabetes mellitus without complication, without long-term current use of insulin ([facility]) Overview Previously controlled without medication but he has been on chronic steroids due to ILD. Most recent [id number] 04/21/23 7.8. Current Assessment & Plan Chronic, worsening - discussed with Seymour that we need to see what his order booker thinks about his chronic steroids and if we should discontinue or continue, if continuing will plan to start metformin at follow up appointment Other Visit Diagnoses Respiratory crackles of both lungs Relevant Medications furosemide (Lasix) 40 mg tablet Other Relevant Orders Follow Up In Primary Care - Established Hypokalemia Relevant Medications potassium chloride CR (Klor-Con M20) 20 mEq ER tablet Other Relevant Orders Basic metabolic panel Follow Up In Primary Care - Established Follow up: 3 weeks Return precautions discussed. An After Visit Summary was given to the patient. All questions were answered and patient in agreement with plan. Objective: BP 120/76 Pulse 84 Ht 1.676 m (5' 6 ) Wt 96.3 kg (212 lb 3.2 oz) SpO2 96% BMI 34.25 kg/m Physical Exam Vitals and nursing note reviewed. Constitutional: General: He is not in acute distress. Appearance: He is obese. He is not ill-appearing. HENT: Head: Normocephalic and atraumatic. Mouth/Throat: Mouth: Mucous membranes are moist. Eyes: General: No scleral icterus. Right eye: No discharge. Left eye: No discharge. Extraocular Movements: Extraocular movements intact. Conjunctiva/sclera: Conjunctivae normal. Cardiovascular: Rate and Rhythm: Normal rate. Pulmonary: Effort: Pulmonary effort is normal. No respiratory distress. Breath sounds: No wheezing. Comments: Decreasing crackles in lower lung carrera Musculoskeletal: Right lower leg: No edema. Comments: Trace pitting edema to left ankle Skin: General: Skin is dry. Neurological: General: No focal deficit present. Mental Status: He is alert and oriented to person, place, and time. Psychiatric: Thought Content: Thought content normal. Judgment: Judgment normal. I spent 22 minutes in total time for this visit including all related clinical activities before, during, and after the visit excluding other billable activities/procedure time. Sahra Holliday MD documented in this encounter [facility] Work Phone: 04-19-2023 Evaluation + Plan note Associated Problem(s): Chronic hypoxemic respiratory failure (CMS/HCC) - increased crackles today which he has not previously had, he also has increasing peripheral edema so will trial a short course of lasix to see if we ca nimprove resp. Status -close follow up in 1 week [facility] Work Phone: 04-19-2023 Miscellaneous Notes Associated Problem(s): Chronic hypoxemic respiratory failure (CMS/HCC) - increased crackles today which he has not previously had, he also has increasing peripheral edema so will trial a short course of lasix to see if we ca nimprove resp. Status -close follow up in 1 week Associated Problem(s): Interstitial lung disease (CMS/HCC) Chronic, possibly worsening - patient would like to trial decreased steroid dose which I think is very reasonable - prednisone 10mg daily - follow up with pulmonology April 30 documented in this encounter [facility] Work Phone: 04-19-2023 Evaluation + Plan note Associated Problem(s): Interstitial lung disease (CMS/HCC) Chronic, possibly worsening - patient would like to trial decreased steroid dose which I think is very reasonable - prednisone 10mg daily - follow up with pulmonology April 30 [facility] Work Phone: 04-19-2023 History of Presen t illness Narrative Subjective: Annie Calderon is a 72 y.o. male who presents to clinic today for Follow-up (2 WK CK ) Right hip pain: - it continues to worsen - he goes back to see Dr. Moreno on May 03 (pain management) - he notes that the norco is helpful - tylenol is the most helpful, he takes 1800mg of tylenol a few times a day He notes that he had an episode where he got stuck in mud trapping and didn't have his oxygen and was very hypoxic and short of breath He has started taking gabapentin only twice daily. He has not fallen again. He is using the bedside urinal He notes that he has removed his DNR from his will. He no longer feels comfortable with this. He has a nurse who is visiting him at home now and he finds it helpful. Review of Systems Assessment/Plan: Annie Calderon is a 72 y.o. male with a history of history of ILD, pulmonary hypertension, hypertension, who presents to clinic today to address the following issues: 1. Acetaminophen abuse Acetaminophen level Comprehensive metabolic panel 2. Type 2 diabetes mellitus without complication, without long-term current use of insulin ([facility]) Hemoglobin A1c 3. IPF (idiopathic pulmonary fibrosis) ([facility]) predniSONE (Deltasone) 10 mg tablet furosemide (Lasix) 40 mg tablet 4. Chronic hypoxemic respiratory failure ([facility]) predniSONE (Deltasone) 10 mg tablet furosemide (Lasix) 40 mg tablet 5. Respiratory crackles of both lungs furosemide (Lasix) 40 mg tablet 6. Interstitial lung disease (CMS/HCC) Acetaminophen abuse: - Chronic problem, unresolved, new to this provider, requires further workup and treatment - Discussed with pt that he is taking far to much tylenol daily and that he needs to reduce - will test tylenol levels as well as liver function tests Diabetes: Hx of diabetes not currently on any treatments - recheck hgb a1c Problem List Items Addressed This Visit Interstitial lung disease (CMS/HCC) Overview Thought to be possibly due to bird exposure. Follows at [facility]. Seeing a order booker. Currently on prednisone as well as trelegy ellipta. Current Assessment & Plan Chronic, possibly worsening - patient would like to trial decreased steroid dose which I think is very reasonable - prednisone 10mg daily - follow up with pulmonology April 30 IPF (idiopathic pulmonary fibrosis) (CMS/HCC) Relevant Medications predniSONE (Deltasone) 10 mg tablet furosemide (Lasix) 40 mg tablet Chronic hypoxemic respiratory failure (CMS/HCC) Current Assessment & Plan - increased crackles today which he has not previously had, he also has increasing peripheral edema so will trial a short course of lasix to see if we ca nimprove resp. Status -close follow up in 1 week Relevant Medications predniSONE (Deltasone) 10 mg tablet furosemide (Lasix) 40 mg tablet Other Visit Diagnoses Acetaminophen abuse - Primary Relevant Orders Acetaminophen level Comprehensive metabolic panel Type 2 diabetes mellitus without complication, without long-term current use of insulin (CMS/HCC) Relevant Orders Hemoglobin A1c Respiratory crackles of both lungs Relevant Medications furosemide (Lasix) 40 mg tablet There are no Patient Instructions on file for this visit. Follow up: 1 week Return precautions discussed. An After Visit Summary was given to the patient. All questions were answered and patient in agreement with plan. Objective: BP 126/60 Pulse 90 Ht 1.676 m (5' 6 ) Wt 97.6 kg (215 lb 3.2 oz) SpO2 (!) 89% BMI 34.73 kg/m Physical Exam Vitals and nursing note reviewed. Constitutional: General: He is not in acute distress. Appearance: He is obese. He is not ill-appearing. HENT: Head: Normocephalic and atraumatic. Mouth/Throat: Mouth: Mucous membranes are moist. Eyes: General: No scleral icterus. Right eye: No discharge. Left eye: No discharge. Extraocular Movements: Extraocular movements intact. Conjunctiva/sclera: Conjunctivae normal. Pulmonary: Effort: No respiratory distress. Comments: Crackles in both lung bases Musculoskeletal: Right lower leg: Edema present. Left lower leg: Edema present. Skin: General: Skin is dry. Neurological: General: No focal deficit present. Mental Status: He is alert and oriented to person, place, and time. Psychiatric: Thought Content: Thought content normal. Judgment: Judgment normal. I spent 35 minutes in total time for this visit including all related clinical activities before, during, and after the visit excluding other billable activities/procedure time. Sahra Holliday MD documented in this encounter [facility] Work Phone: 03-29-2023 History of Presen t illness Narrative Subjective: Annie Calderon is a 72 y.o. male who presents to clinic today for Follow-up (2 WK FU ) Right Hip Pain: - he saw the pain specialist in [place] - they are going to do an injection for him in his hip - they also prescribed him oxycodone which is helpful - he went to see the Surgeon Dr. Han and he was in agreement with this plan He has an evaluation for an in house nurse coming sometime this week - he just got his house cleaned for this Mitral valve/difficulty with breathing: - he had right and let heart catheterization and noted that he was told that his disease is not severe enough to warrant surgery - he is following up with pulmonology April 30 He notes that he fell over while walking to the bathroom in the middle of the night last week. He thinks he took his oxycodone the night before. He also thinks he took tylenol PM. Review of Systems Assessment/Plan: Annie Calderon is a 72 y.o. male with a history of ILD, pulmonary hypertension, hypertension, who presents to clinic today to address the following issues: 1. IPF (idiopathic pulmonary fibrosis) (CMS/HCC) predniSONE (Deltasone) 20 mg tablet 2. Chronic hypoxemic respiratory failure (CMS/HCC) predniSONE (Deltasone) 20 mg tablet 3. Right leg pain 4. Mitral valve insufficiency, unspecified etiology 5. Coordination of complex care IPF/Chronic Hypoxemic respiratory failure/ILD: - Chronic problem, unresolved, known to this provider, requires further workup and treatment - Discussed with pt that he can continue his steroids until he follows up with his order booker - refills provided Right leg Pain: Chronic problem - continue to follow with pain management Mitral valve Insufficiency: - no further workup indicated at this time Asked him to not take tylenol PM. This can interact with his medications. Problem List Items Addressed This Visit Mitral valve insufficiency IPF (idiopathic pulmonary fibrosis) (CMS/HCC) - Primary Relevant Medications predniSONE (Deltasone) 20 mg tablet Chronic hypoxemic respiratory failure (CMS/HCC) Relevant Medications predniSONE (Deltasone) 20 mg tablet Other Visit Diagnoses Right leg pain Coordination of complex care I wrote a message to Seymour's daughter Shantel. He was in agreement with this plan. Follow up: 2 weeks Return precautions discussed. An After Visit Summary was given to the patient. All questions were answered and patient in agreement with plan. Objective: BP 116/62 Pulse 72 Ht 1.676 m (5' 6 ) Wt 96.4 kg (212 lb 8 oz) SpO2 91% BMI 34.30 kg/m Physical Exam Vitals and nursing note reviewed. Constitutional: General: He is not in acute distress. Appearance: He is obese. He is not ill-appearing. HENT: Head: Normocephalic and atraumatic. Mouth/Throat: Mouth: Mucous membranes are moist. Eyes: General: No scleral icterus. Right eye: No discharge. Left eye: No discharge. Extraocular Movements: Extraocular movements intact. Conjunctiva/sclera: Conjunctivae normal. Pulmonary: Effort: No respiratory distress. Breath sounds: No wheezing. Comments: Diffuse crackles present Musculoskeletal: Right lower leg: No edema. Left lower leg: No edema. Skin: General: Skin is dry. Neurological: General: No focal deficit present. Mental Status: He is alert and oriented to person, place, and time. Psychiatric: Thought Content: Thought content normal. Judgment: Judgment normal. I spent 33 minutes in total time for this visit including all related clinical activities before, during, and after the visit excluding other billable activities/procedure time. Sahra Holliday MD documented in this encounter [facility] Work Phone: 03-27-2023 History of Presen t illness Narrative [facility] note-per Dr Gonzáles regarding recent HOSSEIN and cath, routine 6 months followup. Mild to Moderate MR. Scheduling recall placed. Called and spoke with pt regarding these recommendations, pt aware and verbalized understanding. documented in this encounter [facility] 03-15-2023 History of Presen t illness Narrative Subjective: Annie Calderon is a 72 y.o. male who presents to clinic today for 2 week CK Right hip Pain: - he continues to take pain killers and tylenol - oxycodone is making him dizzy and concerned that he might fall - norco 5-325mg does not make him dizzy - he is using a lot of tylenol and ibuprofen to deal with pain - he is having difficulty ambulating aroudn his home due to pain Dental Pain - unable to wear his bottom plates - significant pain with teeth Review of Systems Assessment/Plan: Annie Calderon is a 72 y.o. male with a history of ILD, pulmonary hypertension, hypertension, who presents to clinic today to address the following issues: 1. Injury of quadriceps muscle 2. Right leg pain - Chronic problem, unresolved, new to this provider, requires further workup and treatment - Discussed with pt that his pain is severe and debilitating, it is causing him to be unable to ambulate or do therapy - I do not want him taking oxycodone due to dizziness we discussed that I can do a short term prescription of norco which worked previously - will send to pain management for further management since he is not a candidate for operative management at this time Gave recommendations for local dentists who may be able to help with dentures Follow up: 2 weeks Return precautions discussed. An After Visit Summary was given to the patient. All questions were answered and patient in agreement with plan. Objective: BP 120/72 Pulse 93 Ht 1.676 m (5' 6 ) Wt 96.6 kg (212 lb 14.4 oz) SpO2 90% BMI 34.36 kg/m Physical Exam Vitals and nursing note reviewed. Constitutional: General: He is not in acute distress. Appearance: He is obese. He is not ill-appearing. HENT: Head: Normocephalic and atraumatic. Comments: Oxygen in place via nasal cannula Mouth/Throat: Mouth: Mucous membranes are moist. Eyes: General: No scleral icterus. Right eye: No discharge. Left eye: No discharge. Extraocular Movements: Extraocular movements intact. Conjunctiva/sclera: Conjunctivae normal. Pulmonary: Effort: No respiratory distress. Skin: General: Skin is dry. Neurological: General: No focal deficit present. Mental Status: He is alert and oriented to person, place, and time. Psychiatric: Thought Content: Thought content normal. Judgment: Judgment normal. I spent 21 minutes in total time for this visit including all related clinical activities before, during, and after the visit excluding other billable activities/procedure time. Sahra Holliday MD documented in this encounter [facility] Work Phone: 03-06-2023 History of Presen t illness Narrative [facility] note-pt called, rescheduled for hossein on 03/20, arrival 7 am for 9 am test at . Pt verbalized understanding. 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 Continue to monitor. 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 Continue to monitor. Associated Problem(s): Dependence on continuous supplemental oxygen - continue to follow with video network engineer for possible mitral valve repair - continue oxygen Associated Problem(s): IPF (idiopathic pulmonary fibrosis) (CMS/HCC) - see ILD Associated Problem(s): Interstitial lung disease (CMS/HCC) - continue to follow with pulmonology - continue trelegy - continue prednisone documented in this encounter [facility] Work Phone: 03-01-2023 Evaluation + Plan note Associated Problem(s): Dependence on continuous supplemental oxygen - continue to follow with video network engineer for possible mitral valve repair - continue oxygen [facility] Work Phone: 03-01-2023 Evaluation + Plan note Associated Problem(s): IPF (idiopathic pulmonary fibrosis) (CMS/HCC) - see ILD [facility] Work Phone: 03-01-2023 Evaluation + Plan note Associated Problem(s): Interstitial lung disease (CMS/HCC) - continue to follow with pulmonology - continue trelegy - continue prednisone [facility] Work Phone: 03-01-2023 History of Presen t illness Narrative Subjective: Annie Calderon is a 72 y.o. male who presents to clinic today for Follow-up (2 WK FU ) Saw cardiology at [facility] yesterday who is evaluating his mitral valve regurg - HOSSEIN March 17, 2023 - Heart cath March 24, 2023 - his grandson Kenny is going to take him for the appointment - video network engineer feels that mitral valve may be causing a significant amount of his respiratory difficulties - he does have some chest pressure with exertion - he is very symptomatic with bending over He has been coughing up a lot of stuff - he is coughing up thick mucous each morning - he is having difficulty with nasal congestion - nasal saline is helpful - he has been off of oxymetolazine for about a week - previously saw nasal specialist in [place] [facility] a few years ago Review of Systems Assessment/Plan: Annie Calderon is a 72 y.o. male with a history of ILD, pulmonary hypertension, hypertension who presents to clinic today to address the following issues: 1. Interstitial lung disease (CMS/HCC) 2. Mitral valve insufficiency, unspecified etiology 3. Dependence on continuous supplemental oxygen 4. Congestion of nasal sinus 5. 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 IPF (idiopathic pulmonary fibrosis) (CMS/HCC) 7. Chronic hypoxemic respiratory failure (CMS/HCC) Problem List Items Addressed This Visit Interstitial lung disease (CMS/HCC) - Primary Overview Thought to be possibly due to bird exposure. Follows at [facility]. Seeing a order booker. Currently on prednisone as well as trelegy ellipta. Current Assessment & Plan - continue to follow with pulmonology - continue trelegy - continue prednisone Dependence on continuous supplemental oxygen Overview Likely multifactorial between ILD as well as Mitral valve insufficiency. 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 Doing well and currently in remission. Current Assessment & Plan No symptoms of recurrence. Continue to monitor. IPF (idiopathic pulmonary fibrosis) (CMS/HCC) Current Assessment & Plan - see ILD Chronic hypoxemic respiratory failure (CMS/HCC) Other Visit Diagnoses Congestion of nasal sinus Encouraged Seymour to go to pharmacy and obtain flu and covid as well as RSV vaccinations. Follow up: 2 weeks, offered to cancel appointment and he wanted to keep it Return precautions discussed. An After Visit Summary was given to the patient. All questions were answered and patient in agreement with plan. Objective: BP 128/70 Pulse 98 Ht 1.676 m (5' 6 ) Wt 98.3 kg (216 lb 11.2 oz) SpO2 (!) 87% BMI 34.98 kg/m Physical Exam Vitals and nursing note reviewed. Constitutional: General: He is not in acute distress. Appearance: He is obese. He is not ill-appearing. HENT: Head: Normocephalic and atraumatic. Mouth/Throat: Mouth: Mucous membranes are moist. Eyes: General: No scleral icterus. Right eye: No discharge. Left eye: No discharge. Extraocular Movements: Extraocular movements intact. Conjunctiva/sclera: Conjunctivae normal. Pulmonary: Effort: No respiratory distress. Breath sounds: Rhonchi present. Comments: Oxygen in place Skin: General: Skin is dry. Neurological: General: No focal deficit present. Mental Status: He is alert and oriented to person, place, and time. Psychiatric: Thought Content: Thought content normal. Judgment: Judgment normal. I spent 34 minutes in total time for this visit including all related clinical activities before, during, and after the visit excluding other billable activities/procedure time. Sahra Holliday MD documented in this encounter [facility] Work Phone: 02-28-2023 History of Presen t illness Narrative [facility] note-in prep for HOSSEIN testing, while in clinic today, pt denies any history of or current issues of dysphagia. documented in this encounter [facility] 02-28-2023 History of Presen t illness Narrative [facility] note-Patient is scheduled for HOSSEIN on 03/17/23, to arrive at 7:00 AM for 9:00 AM HOSSEIN test at . His cath is scheduled on 03/24 arriving at 7:00 AM for 9:00 AM cath at . Reviewed these instructions with pt via phone, pt aware and verbalized understanding. documented in this encounter [facility] 02-28-2023 History of Presen t illness Narrative [facility] Consult Heart & Vascular [facility] 02/28/2023 Carlos Gonzáles MD [address] [place] [address] Medical Office [facility] [id number] Patient: Annie Calderon Date of : 1950 (72 y.o.) Referring Provider: Sahra Holliday MD PCP: Sabina Rivas MD Problem List Items Addressed This Visit None Visit Diagnoses Mitral valve insufficiency, unspecified etiology - Primary ILD (interstitial lung disease) (HCC) Pulmonary hypertension (HCC) #1 Mitral regurgitation He has recent echo done here in [place] and previously at [facility] showed at least moderate mitral valve insufficiency with anteriorly directed jet. I believe quantification of his MR is difficult given the eccentricity of his MR jet. He has had known chronic interstitial lung disease for which he had had course of steroids and antibiotics by his order booker which at times seems to improve his symptoms. But over last several months he has noticed increasing use of his oxygen which in the beginning was only as needed but now he is using it more often at home. He has known well documented pulmonary hypertension with PA pressures of 75 mmhg on his echocardiogram. He has not had a right heart done yet. It Is difficult ascertain how much of his symptoms are from his interstitial lung disease pulm hypertension or his mitral valve disease. Visually the mitral valve insufficiency appears quite significant. I think is reasonable for us to further evaluate and define his mitral insufficiency with a HOSSEIN to assess not only the severity but also the pathology of his mitral valve. Can consider cardiac MRI if this is inconclusive. Will also schedule him for right and left heart catheter to evaluate invasive hemodynamics and to classify his pulmonary hypertension as a treatment will change based upon his etiology. Meanwhile continue to follow with his order booker I will schedule him for HOSSEIN. Further management pending results of his HOSSEIN and right heart cath. Follow-up: No follow-ups on file. Chief Complaint: No chief complaint on file. Subjective History of Present Illness: Annie Calderon is a 72 y.o. male with known history of additional lung disease and a follow-up with order booker from an manual exposure to birds and other chemicals currently on daily prednisone, obesity, hypertension was referred to structural heart clinic by his primary care physician for further evaluation of his recently diagnosed mitral valve insufficiency. He follows with his video network engineer at [facility] and has echo done that shows at least moderate MR but was felt to be stable and then forward no further evaluation was done. He saw his order booker who has been treating him with oral steroids for 30 mg is now down to 20 mg. He has also been prescribed home oxygen which he uses at night but does not use it in the day consistently at home. He only uses them when he goes out and does any exertional activities outside that when he does his home his oxygen. He is noticed that the oxygen can drop as low as 70s to 80 when he is not on oxygen. Otherwise at night he has no complaints of orthopnea or nocturnal dyspnea. He does notice intermittent ankle edema. He has no exertional angina palpitations presyncope syncope. He has no current cough. No history of any recent nausea vomiting diarrhea headache or any visual disturbances. He has had no prior history of CAD IL diabetes peripheral arterial disease stroke Objective Imaging: I independently reviewed the EKG and Echo and agree with the interpretation(s) with the following comments. Normal sinus rhythm with PACs. 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 No pertinent surgical history. Family History Problem Relation Age of Onset Heart disease Mother COPD Sister Cancer Brother Heart disease Son Heart attack Son Social History Tobacco Use Smoking Status Former Packs/day: 2 Types: Cigarettes Smokeless Tobacco Never Tobacco Comments 20 years ago Allergies: Patient has no known allergies. HOME Medications: Current Outpatient Medications on File Prior to Visit Medication Sig Advair Diskus 250-50 mcg/dose diskus inhaler INHALE 1 PUFF TWICE DAILY EVERY DAY. Rinse mouth after use. albuterol 90 mcg/actuation inhaler 2 (two) puffs every 4 to 6 hours as needed . amLODIPine (NORVASC) 5 MG tablet Take 1 (one) tablet (5 mg total) by mouth daily Start: 05/30/20. carvediloL (COREG) 12.5 MG tablet Take 1 (one) tablet (12.5 mg total) by mouth 2 (two) times a day . celecoxib (CELEBREX) 200 MG capsule Take 1 (one) capsule (200 mg total) by mouth 2 (two) times a day . esomeprazole (NEXIUM) 20 MG capsule Take 1 (one) capsule (20 mg total) by mouth every morning before breakfast . finasteride (PROSCAR) 5 mg tablet Take 1 (one) tablet (5 mg total) by mouth daily . niexrashxed-gnalssugt-itxahhqz (Trelegy Ellipta) 200-62.5-25 mcg DsDv Inhale 1 (one) Inhalation. daily . HYDROcodone-acetaminophen (NORCO) 5-325 mg per tablet Take by mouth every 6 (six) hours as needed . losartan-hydrochlorothiazide (HYZAAR) 100-12.5 mg per tablet Take 1 (one) tablet by mouth daily . montelukast (SINGULAIR) 10 mg tablet Take 1 (one) tablet (10 mg total) by mouth every evening . multivitamin with minerals tablet Take 1 (one) tablet by mouth daily . tamsulosin (FLOMAX) 0.4 mg capsule TAKE 1 CAPSULE BY MOUTH EVERY DAY 1/2 HOUR following the same meal each day No current facility-administered medications on file prior to visit. Vital Signs: There were no vitals taken for this visit. Physical Exam Vitals reviewed. Constitutional: Appearance: Normal appearance. He is well-developed. He is not diaphoretic. Neck: Thyroid: No thyromegaly. Vascular: No JVD. Trachea: No tracheal deviation. Cardiovascular: Rate and Rhythm: Normal rate and regular rhythm. Pulses: Intact distal pulses. Heart sounds: Murmur heard. High-pitched blowing holosystolic murmur is present with a grade of 2/6 at the apex. No friction rub. No gallop. Pulmonary: Effort: Pulmonary effort is normal. No respiratory distress. Breath sounds: Normal breath sounds. No wheezing or rales. Musculoskeletal: Right lower leg: No edema. Left lower leg: No edema. Neurological: Mental Status: He is alert. No results found for: CHOL , LDLCALC , LDLDIRECT , TRIG , HDL documented in this encounter [facility] 02-24-2023 Instructions Haiely Guzman RN - 02/24/2023 3:10 PM EST How to contact your Care Team: Provider: Carlos Gonzáles MD Nurse: Hermelinda Guzman RN In case of an emergency please call 911. REFILLS: When in need for refills please call your care team or the office at [phone]. Please include medication name, pharmacy name, and specify 30-day or 90-day supply. Please check with your pharmacy within 24 hours of request for your refill. You must follow up as directed to continue current refills. Thank you! Transesophageal Echocardiogram (HOSSEIN) Appointment Date and arrival time: Be sure to tell the physician or nurse prior to the procedure if you have a problem swallowing or if you have any conditions involving your esophagus or stomach. This includes recent bleeding ulcers, vomiting blood, recent upper Endoscopies, black or tarry bowel movements, esophageal webs or diverticulum. Please remember to get your lab work drawn at least 48 hours prior to procedure (if needed-your RN will give further instruction regarding this). DO NOT eat or drink anything after Midnight prior to your procedure. You may take your morning medications, but use as little water as possible. If you take diabetic medications or insulin please discuss with nurse. Before the procedure, you will be given an explanation of the procedure, potential benefits, and possible risks. Please ask questions or share concerns you may have. Please remove dentures or oral prostheses prior to procedure, as they may interfere with the procedure. You will be given a sedative through your IV before the procedure begins. The physician will also treat your throat with a numbing agent prior to inserting the transducer. You must be accompanied by someone who is able to drive you home after the procedure. The physician will discuss the results following your procedure. Heart Cath Pre-Procedure Instructions Date: Check-In Time: The check in time is the time that you need to be at the hospital. This time allows adequate preparation time prior to your procedure. It is not the time of the procedure. 1. LOCATION: [facility]. Please park in the garage next to the medical office building. If needed, corporate events director parking is available at the front entrance of the hospital. Please report to the first floor visitor information desk inside the main entrance of the hospital to get registered. PLEASE DO NOT EAT OR DRINK ANYTHING AFTER MIDNIGHT THE NIGHT BEFORE YOUR PROCEDURE (this includes NO candy, gum, lozenges, or nicotine products of any kind) . You may have a small sip of water with your morning medications if needed. 2. MEDICATIONS: You may take your scheduled morning medications with a small sip of water with the exception of those listed below. We ask you bring an accurate medication list, or bring your medications in their bottles to the hospital with you. A. If you are currently on Plavix (clopidigrel), Effient (prasugrel), or Brilinta (ticagrelor), please be sure to take your medication, along with your daily aspirin, the morning of your procedure. B. Take all other medications as prescribed unless otherwise instructed by your nurse. Additional Instructions: 1. Please come prepared for an overnight stay. Please arrange to have someone drive you home the day you are discharged. 2. If you have an allergy to contrast dye, shellfish, or iodine, please notify your nurse. 3. No smoking or use of products containing nicotine for 24 hours prior to your procedure. This includes NO chewing tobacco, cigarettes, cigars, or vaping. Thank you for choosing [facility], we look forward to caring for you. documented in this encounter [facility] 02-23-2023 History of Presen t illness Narrative Subjective: Annie Calderon is a 72 y.o. male who presents to clinic today for discuss pending surgery Seymour came to the visit with his daughter, Shantel. She lives in [place] and works to assist him as well as she can from a distance. He lives with his grandson, Kenny. He recently changed his healthcare power of boom stick man to his good friend Waqar Brumfield. He is struggling to get adequate help at home because he has limited family support. He does cook for himself and still drives but has difficulty with doing all chores due to significant shortness of breath. Review of Systems Assessment/Plan: Annie Calderon is a 72 y.o. male with a history of ILD, pulmonary hypertension, hypertension, who presents to clinic today to address the following issues: 1. Benign prostatic hyperplasia with nocturia 2. Interstitial lung disease ([facility]) Called area peer counselor on aging per patient and daughter request and they will help with transportation as well as food resources. They will get into contact with Seymour. I requested that Seymour bring his new DPOA to his follow up appointment so that he can understand his health conditions and get to better understand his wishes. I will order a bedside commode to help with his nocturia and difficulty with ambulating to the bathroom without his oxygen. I ran all of his medications through an interaction job checker and based on interactions I recommended stopping zyrtec as well as hydroxyzine. Patient is not taking these every day anyways. Problem List Items Addressed This Visit Interstitial lung disease (CMS/HCC) Benign prostatic hyperplasia with nocturia - Primary Overview Currently taking Saw Avalon, Finasteride and tamsulosin and still having difficulty with nocturia and voiding every 1-2 hours. This is limiting how much he can wear his cpap and affecting his pulmonary hypertension. There are no Patient Instructions on file for this visit. Follow up: 1 week Return precautions discussed. An After Visit Summary was given to the patient. All questions were answered and patient in agreement with plan. Objective: BP 132/76 Pulse 96 Ht 1.676 m (5' 6 ) Wt 97.8 kg (215 lb 11.2 oz) SpO2 91% BMI 34.81 kg/m Physical Exam Vitals and nursing note reviewed. Constitutional: General: He is not in acute distress. Appearance: He is obese. He is not ill-appearing. HENT: Head: Normocephalic and atraumatic. Comments: Oxygen in place via nasal cannula Mouth/Throat: Mouth: Mucous membranes are moist. Eyes: General: No scleral icterus. Right eye: No discharge. Left eye: No discharge. Extraocular Movements: Extraocular movements intact. Conjunctiva/sclera: Conjunctivae normal. Pulmonary: Effort: No respiratory distress. Skin: General: Skin is dry. Neurological: General: No focal deficit present. Mental Status: He is alert and oriented to person, place, and time. Psychiatric: Thought Content: Thought content normal. Judgment: Judgment normal. I spent 55 minutes in total time for this visit including all related clinical activities before, during, and after the visit excluding other billable activities/procedure time. Sahra Holliday MD documented in this encounter [facility] Work Phone: 02-15-2023 History of Presen t illness Narrative Subjective: Annie Calderon is a 72 y.o. male who presents to clinic today for Follow-up (1 WK CK ) Two Appointments in [place] yesterday - got a spinal injection from Dr. Han, he feels that this was helpful - saw an orthopedic surgeon (Dr. Ortiz) who felt that his tear was inoperable - was prescribed oxycodone from Dr. Ortiz Congestion/Productive Cough - afebrile - no illness symptoms - bringing up phlegm with cough - overall feels well and does not feel sick - congestion clears out after the morning When he bends over he feels very short of breath - recently found to have mitral regurgitaiton - following up with cardiology Review of Systems Assessment/Plan: Annie Calderon is a 72 y.o. male with a history of ILD, pulmonary hypertension, hypertension who presents to clinic today to address the following issues: 1. Rupture of right quadriceps tendon, subsequent encounter Referral to Orthopaedic Surgery 2. Coordination of complex care 3. 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 - we discussed that this is his most bothersome problem though and he would like to at least seek another opinion ILD: - Chronic problem, unresolved, new to this provider, requires further workup and treatment - Discussed with pt that this is a progressive disease and that although he is attempting to modify it with steroids and other medications that it will likely progress - we are setting up a goals of care conversation with his daughter and grandson in order to discuss his wishes for the future He forgot to bring his medication bottles today so he will bring them to his next appointment so that we can provide refills as appropriate. Problem List Items Addressed This Visit Interstitial lung disease (CMS/HCC) Other Visit Diagnoses Rupture of right quadriceps tendon, subsequent encounter - Primary Relevant Orders Referral to Orthopaedic Surgery Coordination of complex care Patient Instructions Bring your medication bottles to your follow up appointment. 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 Follow up: 2 weeks Return precautions discussed. An After Visit Summary was given to the patient. All questions were answered and patient in agreement with plan. Objective: BP 112/58 Pulse 87 Ht 1.676 m (5' 6 ) Wt 95.6 kg (210 lb 12.8 oz) SpO2 96% BMI 34.02 kg/m Physical Exam Vitals and nursing note reviewed. Constitutional: General: He is not in acute distress. Appearance: He is obese. He is not ill-appearing. HENT: Head: Normocephalic and atraumatic. Mouth/Throat: Mouth: Mucous membranes are moist. Eyes: General: No scleral icterus. Right eye: No discharge. Left eye: No discharge. Extraocular Movements: Extraocular movements intact. Conjunctiva/sclera: Conjunctivae normal. Pulmonary: Comments: Nasal cannula in place, 3L oxygen Skin: General: Skin is dry. Neurological: General: No focal deficit present. Mental Status: He is alert and oriented to person, place, and time. Psychiatric: Thought Content: Thought content normal. Judgment: Judgment normal. I spent 33 minutes in total time for this visit including all related clinical activities before, during, and after the visit excluding other billable activities/procedure time. Sahra Holliday MD documented in this encounter [facility] Work Phone: 02-15-2023 Instructions Sahra Holliday MD - 02/15/2023 9:20 AM EST Bring your medication bottles to your follow up appointment. 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 documented in this encounter [facility] Work Phone: 02-08-2023 History of Presen t illness Narrative Subjective: Annie Calderon is a 72 y.o. male who presents to clinic today for Establish Care Left leg pain: - tore his hamstring last spring - seeing Dr. Han (orthopedics) - had MRIs yesterday , following up with Dr. Han in 2 days - very limiting to his life Lung Issues; - trellogy is helpful - taking prednisone 20mg daily - using 4L oxygen at home, 3L when traveling - not currently using his CPAP - seeing pulmonology at [facility] and in [place] - following up in April Cardiac Issues: - just informed by his PHTN specialist that he has mitral valve regurgitation and that he needs to follow up with cardiology - increasing dyspnea and shortness of breath Waking up to urinate multiple times nightly Review of Systems Assessment/Plan: Annie Calderon is a 72 y.o. male with a history of ILD, pulmonary hypertension, hypertension who presents to clinic today to address the following issues: 1. Encounter to establish care 2. Mitral valve insufficiency, unspecified etiology Referral to Cardiology 3. Interstitial lung disease (CMS/HCC) predniSONE (Deltasone) 20 mg tablet montelukast (Singulair) 10 mg tablet 4. Benign prostatic hyperplasia with urinary frequency tamsulosin (Flomax) 0.4 mg 24 hr capsule 5. Right leg pain Annie presented to the office to discuss establishing care today. He did not bring a list of his medications and was unsure of all of them. Due to this we will have close follow-up next week where he will bring all of his medications so we can figure out exactly what he is taking and why he is taking them. He noted that he was recently called by his pulmonary hypertension specialist and he needs a referral to cardiology due to mitral valve regurgitation which was given. I also feel that he would benefit from seeing cardiology due to his increasing dyspnea. Although he does have interstitial lung disease and follows with [facility]. He will continue oxygen therapy at this time and I refilled his prednisone since his dyspnea is not improving. -Refill of Flomax provided for BPH, will consider referral to urology Right leg pain: - Chronic problem, unresolved, new to this provider, requires further workup and treatment - Discussed with pt that he should continue to follow with Dr. Han in [place] for his pain and that we could consider physical therapy, although he will be limited by his lung capacity at this time Will attempt to get home health to [facility]'s home to help with medications. Patient Instructions Bring all of your medications to your next appointment May 01, 2023 Dr. Rowe 3:30PM [employer] Follow up: 1 week Return precautions discussed. An After Visit Summary was given to the patient. All questions were answered and patient in agreement with plan. Objective: BP 142/72 Pulse 78 Ht 1.676 m (5' 6 ) Wt 95.4 kg (210 lb 6.4 oz) SpO2 96% BMI 33.96 kg/m Physical Exam Vitals and nursing note reviewed. Constitutional: General: He is not in acute distress. Appearance: He is obese. He is not ill-appearing. HENT: Head: Normocephalic and atraumatic. Mouth/Throat: Mouth: Mucous membranes are moist. Eyes: General: No scleral icterus. Right eye: No discharge. Left eye: No discharge. Extraocular Movements: Extraocular movements intact. Conjunctiva/sclera: Conjunctivae normal. Cardiovascular: Rate and Rhythm: Normal rate and regular rhythm. Pulmonary: Effort: Pulmonary effort is normal. No respiratory distress. Comments: Oxygen tubing in place 3LM Musculoskeletal: Right lower leg: Edema present. Left lower leg: Edema present. Comments: Palpable muscle near patella and right hip Skin: General: Skin is dry. Neurological: General: No focal deficit present. Mental Status: He is alert and oriented to person, place, and time. Psychiatric: Thought Content: Thought content normal. Judgment: Judgment normal. I spent 65 minutes in total time for this visit including all related clinical activities before, during, and after the visit excluding other billable activities/procedure time. Sahra Holliday MD documented in this encounter [facility] Work Phone: 02-08-2023 Instructions Sahra Holliday MD - 02/08/2023 8:40 AM EST Bring all of your medications to your next appointment May 01, 2023 Dr. Rowe 3:30PM [employer] documented in this encounter [facility] Work Phone: 01-30-2023 History of Presen t illness Narrative 72 y.o. male presents for evaluation of insect bite to right hand that he noticed 1 week ago. Is unsure of type of insect. Denies fever, n/v/d, streaking, fatigue or any other associated symptoms. States he noticed purulent drainage this morning. No otc meds for symptoms. No other complaints. Vitals: 01/30/23 1151 BP: 136/90 Pulse: 77 Resp: 16 Temp: 36.6 C (97.9 F) SpO2: 93% No Known Allergies Medication Documentation Review Audit Reviewed by Vicky Schmitt MA (Civil Preparedness Training Officer) on 01/30/23 at 1150 Medication Order Taking? Sig Documenting Provider Last Dose Status Advair Diskus 250-50 mcg/dose diskus inhaler [id number] Yes INHALE 1 PUFF TWICE DAILY EVERY DAY. Rinse mouth after use. Historical ProviderMD Taking Active albuterol 90 mcg/actuation inhaler [id number] Yes Inhale 2 puffs every 4 hours if needed. Historical ProviderMD Taking Active amLODIPine (Norvasc) 5 mg tablet [id number] Yes Take 1 tablet (5 mg) by mouth once daily. Historical ProviderMD Taking Active carvedilol (Coreg) 12.5 mg tablet [id number] Yes Take 1 tablet (12.5 mg) by mouth twice a day. Historical ProviderMD Taking Active celecoxib (CeleBREX) 200 mg capsule [id number] Yes Take 1 capsule (200 mg) by mouth once daily. Historical ProviderMD Taking Active esomeprazole (NexIUM) [address] capsule [id number] Yes Take 1 capsule (20 mg) by mouth once daily. Historical ProviderMD Taking Active finasteride (Proscar) 5 mg tablet [id number] Yes Take 1 tablet (5 mg) by mouth once daily. Historical ProviderMD Taking Active gabapentin (Neurontin) 100 mg capsule [id number] Yes TAKE 1 CAPSULE BY MOUTH NIGHTLY FOR 3 DAYS then 1 capule EVERY MORNING and NIGHTLY FOR 3 DAYS then 1 capsule EVERY MORNING at lunch and NIGHTLY Historical ProviderMD Taking Active HYDROcodone-acetaminophen ([place]) 5-325 mg tablet [id number] Yes Take by mouth every 6 hours if needed. Historical ProviderMD Taking Active hydrOXYzine HCL (Atarax) 25 mg tablet [id number] Yes Take 1 tablet (25 mg) by mouth as needed at bedtime. Historical Provider, Taking Active losartan-hydrochlorothiazide (Hyzaar) 100-12.5 mg tablet [id number] Yes Take 1 tablet by mouth once daily. Historical Provider, Taking Active montelukast (Singulair) 10 mg tablet [id number] Yes Take 1 tablet (10 mg) by mouth once daily at bedtime. Historical Provider, Taking Active multivitamin with minerals tablet [id number] Yes Take 1 tablet by mouth once daily. Historical Provider, Taking Active mycophenolate (Cellcept) 500 mg tablet [id number] Yes Take by mouth. Historical Provider, Taking Active predniSONE (Deltasone) 20 mg tablet [id number] Yes Take by mouth. Historical Provider, Taking Active tamsulosin (Flomax) 0.4 mg 24 hr capsule [id number] Yes Take 1 capsule (0.4 mg) by mouth once daily. Historical Provider, Taking Active Trelegy Ellipta 200-62.5-25 mcg blister with device [id number] Yes Inhale 1 puff once daily. Historical Provider, Taking Active History reviewed. No pertinent past medical history. History reviewed. No pertinent surgical history. ROS See HPI Physical Exam Vitals and nursing note reviewed. Constitutional: General: He is not in acute distress. Appearance: Normal appearance. He is not ill-appearing or toxic-appearing. HENT: Head: Normocephalic and atraumatic. Lymphadenopathy: Cervical: No cervical adenopathy. Skin: Findings: Erythema (insect bite to right dorsal aspect of hand just distal to wrist with surrounding erythema, edema and purulent drainage) and rash present. Neurological: Mental Status: He is alert. Assessment/Plan/MDM Anine was seen today for insect bite. Diagnoses and all orders for this visit: Cellulitis of hand, right (Primary) - doxycycline (Adoxa) 100 mg tablet; Take 1 tablet (100 mg) by mouth 2 times a day for 10 days. Take with a full glass of water and do not lie down for at least 30 minutes after - Tissue/Wound Culture/Smear Patient's clinical presentation is otherwise unremarkable at this time. Patient is discharged with instructions to follow-up with primary care or seek emergency medical attention for worsening symptoms or any new concerns. Gabe Michele, [facility] [phone] documented in this encounter [facility] Work Phone: 12-26-2022 History of Presen t illness Narrative Patient verified full name and Images from the original note were not included. is a 72 y.o. male who was seen at the [facility] in consultation at the request of Dr. Bernal for evaluation of chronic hypoxemic respiratory failure secondary to ILD with some component of group 3 PH. Component Ref Range & Units 1 mo ago FEV1/FVC Predicted % 73 FEV1/FVC Pre % 85 FEV1/FVC %Pre Predicted % 117 FEV1/FVC Post % 84 FEV1/FVC %Post Predicted % 116 FEV1/FVC %Change % -1 FVC Predicted Liters 4 FVC Pre Liters 2.77 FVC %Pre Predicted % 69 FVC Post Liters 2.86 FVC %Post Predicted % 72 FVC %Change % 3 FEV1 Predicted Liters 2.91 FEV1 Pre Liters 2.36 FEV1 %Pre Predicted % 81 FEV1 Post Liters 2.41 FEV1 %Post Predicted % 83 FEV1 %Change % 2 DLCO Predicted mL/mmHg/min 21.6 DLCO Pre mL/mmHg/min 8.1 DLCO %Pre Predicted % 38 DLCO/VA Predicted mL/mmHg/min/L 3.36 DLCO/VA Pre mL/mmHg/min/L 2.22 DLCO/VA %Pre Predicted % 66 VC Predicted Liters 4.00 VC Pre Liters 2.78 VC %Pre Predicted % 70 TLC Predicted Liters 5.99 TLC Pre Liters 4.80 TLC %Pre Predicted % 80 RV Predicted Liters 2.46 RV Pre Liters 2.02 RV %Pre Predicted % 82 ERV Pre Liters 0.[address] Predicted Liters 3.[address] Liters 2.[address] %Pre Predicted % 79 Echocardiogram: 07/08/2022 Summary 1. Left ventricular systolic function is normal with an ejection fraction by Biplane Method of Discs of 60 %. 2. RV is mildly enlarged with normal RV function. 3. There is moderate mitral valve regurgitation. 4. There is mild tricuspid valve regurgitation. 5. There is pulmonary hypertension, estimated right ventricle systolic pressure is 73 mmHg. HPI: His understanding is that he has a lung disease but not specific. He occasionally needs o2. He has been using it and now under control. He desaturates on exertion. This has been new diagnosis in the last 3 month. He reports issues with his lungs last year. He was having similar symptoms feeling like he was running out of oxygen and dyspnea. 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 He reports harper flu affecting his birds. 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 He has been exposed to grain dust. He reports he has an allergy test coming up October. He reports recent steroids exposure about 1 month and states he feels it helps. He is unsure if it helps his breathing but generally feels well. He has historical imaging of his chest for flu symptoms. He is not entirely connected to his birds. He has pond in front yard and has lot of standing water. He lives about 1 hour away. He reports he takes a lot pills. He has been on celebrex and nexium for year. He has a history of uncontrolled reflux but this has been controlled for 10 years. Interval History: Currently he is not using oxygen regularly. He only needs it with heavy exertion or bending over. He does use it fairly consistently at rest in home, but not as much when he is doing work outside. His concentrator isn't lasting long, despite charging. He doesn't recall his [employer]. He was on steroids and felt fantastic. He was on antibiotics twice around 2-3 weeks and was coughing sputum that was kenny and thick. This responded to abx and then came back. His last dose of prednisone two weeks ago and started to feel much worse. His breathing was much worse and his R hip pain was bothering him a lot. He relates much of his issues to the hip pain. He was told by Dr. Bernal last week and she wanted him to go to the ED, but he didn't want to. She put him back on 40 mg prednisone and he feels better again. Past Medical History He has a past medical history of Hypertension and Lung disease. Past Surgical History has no past surgical history on file. Immunization History Administered Date(s) Administered [id number] COVID-19 monovalent vaccine, mRNA, Pfizer, 0.3 ML 04/08/2020, 04/30/2020, 11/26/2020 Medications He has a current medication list which includes the following prescription(s): albuterol, amlodipine, carvedilol, celecoxib, esomeprazole, finasteride, hydrocodone-acetaminophen, losartan-hydrochlorothiazide, montelukast, oxygen, tamsulosin hcl, and trelegy ellipta. Allergies He has No Known Allergies. Family History family history is not on file. Social History Social History Social History Narrative Not on file He reports that he has quit smoking. His smoking use included cigarettes. He has never used smokeless tobacco. He reports that he does not currently use drugs. No history on file for alcohol use. Review of Systems Please see scanned document for complete ROS. Physical Exam BP 120/78 (BP Location: Right arm, BP Position: Sitting) Pulse 78 Temp 97.4 F (36.3 C) (Infrared) Ht 1.727 m (5' 8 ) Wt 89.1 kg (196 lb 6.4 oz) SpO2 94% Comment: 4L BMI 29.86 kg/m Smoking Status Former Body mass index is 29.86 kg/m . GENERAL: Alert, oriented and in no acute distress. Harman hair HEENT: EYES: Pupils equal, round and reactive, extraocular muscles intact. Nose: membranes clear, no polyps. EARS: Tympanic membranes are clear. MOUTH: moist and pink with no exudates. Mallampati class 2. NECK: is supple, no thyromegaly. No stridor. HEART: regular rate and rhythm. No murmurs, rubs or gallops. LUNGS: Bibasilar crackles. No wheezing, rhonchi or rales. No dullness to percussion. ABDOMEN: Basilar Dry Crackles, soft, nontender. Abdominal obesity. EXTREMITIES: No cyanosis, clubbing. 1+ LE edema bilaterall, NEURO: grossly intact. Normal affect. Gait normal. SKIN: warm and dry, no obvious rashes. Diagnostic Review CBC No results found for: WBC , WBCCOUNT , WBCFETAL , HGB , HCT , PLATELET , MCV EDIF No results found for: RBCDISTRIBU , GRNLOCYT , LYMPHOCYT , MONOCYTELEC , EOSINOPHILS , BASOPHILS , GRNLOCTYABS , LYMPHOCYTABS , MONOSABSOLU , EOSINOPHLABS , BASOPHILSABS , PLATELET , MNPLATVOLME , MPV No results found for: ALT , TRANSFERASEA , AST , GGT , GAMMAGT , ALKPHOS , BILITOTAL , BILIDIRECT No results found for: SODIUM , POTASSIUM , CHLORIDE , CO2 , BUN , CREATSERUM , GLUCOSE Assessment and Plan: 71 yo male with at least 4 year history of ILD based upon imaging but recently becoming symptomatic and found to have O2 requirement of 6L via NC. 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 Unfortunately DLCO precludes lung biopsy at this time as too high risk. He responded well to prednisone and worsened off of it, so we will continue management with investigating steroid sparing agent and continuing to wean his prednisone down as able. He has signficiant PH with RVSP of 70+ and has established with Dr. Purcell, one of our PH specialists. We discussed this does ot entirely rule out IPF as his diagnosis but his clinical history for HP is very compelling. Unfortunately, PFTs today are worse, but may not reflect response to steroids given he was off for 2 weeks before these were done. We will start mycophenolate today and work to wean him down to 20 mg prednisone daily. We will plan on repeating PFTs in 2 months to accurately quantify response to steroids Annie was seen today for follow-up. Diagnoses and all orders for this visit: Interstitial lung disease Obesity (BMI 30.0-34.9) We will see him for follow-up in 2 months. Logan Larios MD, PGY-6 Fellow Pulmonary and Critical Care Medicine Pager: [phone] Images from the original note were not included. I saw and independently examined this patient today 12/26/2022. I discussed my findings and the therapeutic plan with Fellow I agree with the history, physical examination, and medical decisions as outlined. Please refer to their note for more specific details. He has required a couple course of antibiotics for colored sputum. Reports midline chest pain but no exertional related. Imaging Review: I have personally reviewed available imaging within [facility]. 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 PFTs show progressive decline but represent being off prednisone for 1 week. . Per chart review, appears to be feeling stable but continues to need supplemental O2. Parrot IgG 0.5 above upper limit of normal and flagged on HP panel. He has been treated with steroids and felt great. Will transition to steroid sparing agent with MMF and check baseline labs. He has been using inogen that is not working very well and will need supplemental O2 order sent to [facility]. Noted to desaturate down to the 70's when exerting himself without oxygen. Recommendations: - wean prednisone down to 20 mg and start mycophenolate with upward titration to 1gm BID. - O2 order to be sent to [facility]. - screening labs sent Oscar Payton MD [employer] Pulmonary, Critical Care and Sleep Medicine Pager [phone] documented in this encounter [facility] 12-26-2022 Instructions Oscar Payton MD - 12/26/2022 2:30 PM EDT Images from the original note were not included. Interstitial Lung Disease: Care Instructions Your Care Instructions Interstitial lung disease is a long-term (chronic) lung disease. It happens because of damage between the air sacs in the lung. The damage scars the lung and causes breathing problems. People with interstitial lung disease get breathless during exercise and may have a dry cough. These problems may get worse slowly or very quickly. Interstitial lung disease can be caused by breathing in dust from asbestos and silica. It also can be caused by infections and some medicines. Sometimes doctors cannot find the cause. You may get medicine to treat the problem. Corticosteroids can sometimes reduce the swelling of lung tissue and prevent more damage. Oxygen treatment may help your condition. Follow-up care is a fisher part of your treatment and safety. Be sure to make and go to all appointments, and call your doctor if you are having problems. It's also a good idea to know your test results and keep a list of the medicines you take. How can you care for yourself at home? Do not smoke. Smoking makes interstitial lung disease worse. If you need help quitting, talk to your doctor about stop-smoking programs and medicines. These can increase your chances of quitting for good. Take your medicines exactly as prescribed. Call your doctor if you have any problems with your medicine. Get flu and pneumococcal shots. Stay up to date on your COVID-19 vaccines. These vaccines help prevent lung infection. Make an exercise plan with help from your doctor or other health professional. Exercise can help you breathe more easily. Think about joining a support group. This can help you cope with problems caused by interstitial lung disease. When should you call for help? Call your doctor now or seek immediate medical care if: Your shortness of breath gets worse. You cough up blood. You have chest pain. Watch closely for changes in your health, and be sure to contact your doctor if you have any problems. Current as of: January 09, 2022 Content Version: 13.8 [employer]. Care instructions adapted under license by your healthcare professional. If you have questions about a medical condition or this instruction, always ask your healthcare professional. [employer] disclaims any warranty or liability for your use of this information. Please start prednisone and start the mycophenolate. The following attachments cannot be sent through Care Everywhere.Mycophenolate Mofetil Oral Capsule (MYCOPHENOLATE MOFETIL - ORAL) (Senegalese)documented in this encounter [facility] 11-03-2022 History of Presen t illness Narrative PULMONOLOGY PROGRESS 11/03/2022 Patient: Annie Calderon Date of : 1950 Site: [facility] Provider: Dawna Bernal MD ASSESSMENT/PLAN: Annie Calderon 71 y.o. male with history of reported asthma, referred for pulmonary fibrosis. Pulmonary fibrosis - Likely chronic hypersensitivity pneumonitis vs subclinic rheumatologic vs UIP -- based on the read on the HRCT would favor UIP but the elevated IgE and significant bir exposures make hypersensitivity more likely. I was able to find PFT reports in a note from 2020, Also Ordered complete PFTs, 6-minute walk testing, and ILD lab panel including rheum and myositis panels as well as IgE and Eos at last visit - results reviewed and show mild to moderate restriction with significantly decreased DLCO. 6 minute walk testing revealed a need for 6L of supplemental O2 with exertion to maintain a saturation > 87%. Labs reviewed and show elevated IgE, REBECCA 1:320 with a homogenous pattern - which can be seen with pulmonary fibrosis. All other labs including ANCA and myomarkers and fungal histology negative. TTE with evidence of pulmonary hypertension. Continue Trelegy which he feels helps with his cough. Continue singulair - refilled at this visit. Consider Xolair injections vs other biologic options - will defer to Allergy, and [facility] pulmonary. Advised patient that we will continue to follow him peripherally and once he feels he has a good plan established with [facility], he can transition his visits back to here for convenience if desired. Chronic hypoxemic respiratory failure - 6-min walk testing reviewed - revealed a need for 6L of supplemental O2 with exertion to maintain a saturation > 87%. Patient is generally opposed to wearing his supplemental O2 despite discussion of risks of chronic hypoxemia however did agree to allow me to prescribe for home use and says he has been using it some - though not when he goes outside. Has an O2 monitor at home - encouraged him to try to maintain a saturation > 88%. Probable WHO group 3 pHTN - TTE reviewed and grossly normal. Avoid volume overload. Following with Cardiology. Possible asthma - Continue Trelegy 100 as patient felt it helped with sx JOSE - nocturnal CPAP, has follow up with sleep - patient is not fully adherent due to issues with BPH and frequently needing to get up to urinate. RTC PRN pending [facility] plan Assessment & plan notes cannot be loaded without a specified hospital service. SUBJECTIVE: History Since Last Visit: Saw [facility] pulm, Cards, and allergy. Is currently undergoing significant lab evaluation and is on a prolonged steroid taper. The steroids have helped significantly and he feels his dyspnea is much improved. He is still not consistently wearing a mask when he interacts with his birds. He is not wearing oxygen as prescribed and is struggling to be adherent with his CPAP at night due to his need to wake up to urinate multiple times per night. Interpretation of Testing: I personally reviewed the Chest X-ray and agree with the interpretation(s). 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 Rinse mouth after use., Disp: , Rfl: albuterol 90 mcg/actuation inhaler, 2 (two) puffs every 4 to 6 hours as needed ., Disp: , Rfl: amLODIPine (NORVASC) 5 MG tablet, Take 1 (one) tablet (5 mg total) by mouth daily Start: 05/30/20., Disp: 30 tablet, Rfl: 0 carvediloL (COREG) 12.5 MG tablet, Take 1 (one) tablet (12.5 mg total) by mouth 2 (two) times a day ., Disp: , Rfl: celecoxib (CELEBREX) 200 MG capsule, Take 1 (one) capsule (200 mg total) by mouth 2 (two) times a day ., Disp: , Rfl: esomeprazole (NEXIUM) 20 MG capsule, Take 1 (one) capsule (20 mg total) by mouth every morning before breakfast ., Disp: , Rfl: finasteride (PROSCAR) 5 mg tablet, Take 1 (one) tablet (5 mg total) by mouth daily ., Disp: , Rfl: cijgxcuefvb-xbhjdydli-hsayxura (Trelegy Ellipta) 200-62.5-25 mcg DsDv, Inhale 1 (one) Inhalation. daily ., Disp: 60 each, Rfl: 11 losartan-hydrochlorothiazide (HYZAAR) 100-12.5 mg per tablet, Take 1 (one) tablet by mouth daily ., Disp: , Rfl: multivitamin with minerals tablet, Take 1 (one) tablet by mouth daily ., Disp: , Rfl: tamsulosin (FLOMAX) 0.4 mg capsule, TAKE 1 CAPSULE BY MOUTH EVERY DAY 1/2 HOUR following the same meal each day, Disp: , Rfl: OBJECTIVE: Physical Examination: Blood pressure (!) 169/98, pulse 71, temperature 98.2 F (36.8 C), temperature source Temporal, height 5' 8 , weight 93.2 kg (205 lb 8 oz), SpO2 94 %. Vital Signs Reviewed. Gen: Alert and oriented x 3, In no apparent distress HEENT: Head: Normocephalic, no lesions, without obvious abnormality. Neck: no stridor Cardio: regular rate and rhythm Resp: no tachypnea or accessory muscle use Abd: soft, nontender MSK: Moves all four extremities spontaneously. Neuro: Grossly normal without focal findings Skin: no rashes, no jaundice Laboratory and Additional Data Reviewed: Reviewed 11/03/22 7:48 AM: Laboratory, Microbiology, Radiology, Cardiology, and Medications documented in this encounter [facility] 09-01-2022 History of Presen t illness Narrative PULMONOLOGY PROGRESS 09/01/2022 Patient: Annie Calderon Date of : 1950 Site: [facility] Provider: Dawna Bernal MD ASSESSMENT/PLAN: Annie Calderon 71 y.o. male with history of reported asthma, referred for pulmonary fibrosis. Pulmonary fibrosis - chronic hypersensitivity pneumonitis vs subclinic rheumatologic vs UIP -- based on the read on the HRCT would favor UIP. I was able to find PFT reports in a note from 2020, Also Ordered complete PFTs, 6-minute walk testing, and ILD lab panel including rheum and myositis panels as well as IgE and Eos at last visit - results reviewed and show mild to moderate restriction with significantly decreased DLCO. 6 minute walk testing revealed a need for 6L of supplemental O2 with exertion to maintain a saturation > 87%. Labs reviewed and show elevated IgE, REBECCA 1:320 with a homogenous pattern - which can be seen with pulmonary fibrosis. All other labs including ANCA and myomarkers and fungal histology negative. TTE with evidence of pulmonary hypertension. Recommend anti-fibrotic medication. At last visit gave 14 days of steroids. Prescribed Trelegy which he feels helps with his cough. Consider Xolair injections. Consider starting an antifibrotic - patient is somewhat resistant to this idea due to concern for side effects. Did agree to allow me to prescribe Home O2 vi [facility]. Also agreed to a referral to Allergy and to [facility] for a second opinion. Chronic hypoxemic respiratory failure - 6-min walk testing reviewed - revealed a need for 6L of supplemental O2 with exertion to maintain a saturation > 87%. Patient is opposed to starting supplemental O2 despite discussion of risks of chronic hypoxemia however did agree to allow me to prescribe for home use. Probable WHO group 3 pHTN - TTE reviewed and grossly normal. Avoid volume overload. Possible asthma - Continue Trelegy 100 as patient felt it helped with sx JOSE - nocturnal CPAP, has follow up with sleep - patient is not fully adherent due to issues with BPH and frequently needing to get up to urinate. RTC after Second opinion with [facility] Assessment & plan notes cannot be loaded without a specified hospital service. SUBJECTIVE: History Since Last Visit: Continues to be dyspneic with exertion, reports he knows hs O2 is low but he doesn't feel that bad so is opposed to starting oxygen therapy. We discussed the results of all of his testing at length and at this time he is open to me prescribing O2 as well as he is open to seeing another order booker for a second opinion. His daughter accompanied him and does report that he likely has significant exposures in his home with mold and allergens as well as his known significant bird exposures. He does not use a mask. Interpretation of Testing: I personally reviewed the chest CT images and agree with the interpretation(s). 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 Rinse mouth after use., Disp: , Rfl: albuterol 90 mcg/actuation inhaler, 2 (two) puffs every 4 to 6 hours as needed ., Disp: , Rfl: amLODIPine (NORVASC) 5 MG tablet, Take 1 (one) tablet (5 mg total) by mouth daily Start: 05/30/20., Disp: 30 tablet, Rfl: 0 carvediloL (COREG) 12.5 MG tablet, Take 1 (one) tablet (12.5 mg total) by mouth 2 (two) times a day ., Disp: , Rfl: celecoxib (CELEBREX) 200 MG capsule, Take 1 (one) capsule (200 mg total) by mouth 2 (two) times a day ., Disp: , Rfl: esomeprazole (NEXIUM) 20 MG capsule, Take 1 (one) capsule (20 mg total) by mouth every morning before breakfast ., Disp: , Rfl: finasteride (PROSCAR) 5 mg tablet, Take 1 (one) tablet (5 mg total) by mouth daily ., Disp: , Rfl: ajpdvadyfaj-yimqywoce-iwncmeim (Trelegy Ellipta) 200-62.5-25 mcg DsDv, Inhale 1 (one) Inhalation. daily ., Disp: 60 each, Rfl: 11 losartan-hydrochlorothiazide (HYZAAR) 100-12.5 mg per tablet, Take 1 (one) tablet by mouth daily ., Disp: , Rfl: multivitamin with minerals tablet, Take 1 (one) tablet by mouth daily ., Disp: , Rfl: tamsulosin (FLOMAX) 0.4 mg capsule, TAKE 1 CAPSULE BY MOUTH EVERY DAY 1/2 HOUR following the same meal each day, Disp: , Rfl: OBJECTIVE: Physical Examination: Blood pressure 134/78, pulse 60, temperature 99.1 F (37.3 C), resp. rate 16, height 5' 8 , weight 94.6 kg (208 lb 8 oz), SpO2 (!) 88 %. Vital Signs Reviewed. Gen: Alert and oriented x 3, In no apparent distress HEENT: Head: Normocephalic, no lesions, without obvious abnormality. Neck: nontender Cardio: regular rate and rhythm Resp: distant breath sounds bilaterally, no wheezes or crackles, no tachypnea or accessory muscle use Abd: soft, nontender, nondistended, no hepatosplenomegaly, no mass, normal bowel sounds MSK: Moves all four extremities spontaneously. Neuro: Grossly normal without focal findings Skin: no rashes, no jaundice Laboratory and Additional Data Reviewed: Reviewed 09/01/22 8:02 AM: Laboratory, Microbiology, Radiology, Cardiology, and Medications documented in this encounter [facility] 07-06-2022 History of Presen t illness Narrative PULMONOLOGY CONSULT 07/06/2022 Patient: Annie Calderon Date of : 1950 Site: [facility] Referring Provider: Refer to consult order in electronic medical record Provider: Dawna Bernal MD ASSESSMENT/PLAN: Annie Calderon 71 y.o. male with history of reported asthma, referred for pulmonary fibrosis - unfortunately I do not have access to his PFTs or his imaging - only have a CT report to review which will limit evaluation. Pulmonary fibrosis - chronic hypersensitivity pneumonitis vs subclinic rheumatologic vs UIP -- based on the read on the HRCT would favor UIP, but without actually visualizing the images it is difficult to fully comment. I was able to find PFT reports in a note from 2020, but I do not see more recent PFTs, Ordered complete PFTs, 6-minute walk testing, and ILD lab panel including rheum and myositis panels as well as IgE and Eos. Pending results consider anti-fibrotic medication. 14 days of steroids. Trial Trelegy 100 sample. Chronic hypoxemic respiratory failure - 6-min walk testing ordered, patient had a sat of 76% in clinic today with minimal exertion, improved to 91% with rest. Patient is opposed to starting supplemental O2 despite discussion of risks of chronic hypoxemia. Probable WHO group 3 pHTN - TTE ordered Possible asthma - trial Trelegy 100 JOSE - nocturnal CPAP, has follow up with sleep RTC after PFTs and TTE - 1-2 mo Assessment & plan notes cannot be loaded without a specified hospital service. SUBJECTIVE: Chief Complaint/Reason for Visit: Shortness of breath History of Present Illness: Annie Calderon is a 71 y.o. male presenting from home with complaint of shortness of breath which has been progressive. Patient has had multiple insults to his lungs over the years including chronic exposure to large volumes of birds, prior chemical exposures, exposures and tobacco use. He reports feeling well until about 2020 - since then he has had progressive shortness of breath with exertion and cough productive of white sputum more in the morning than in the evening. Non-adherent to CPAP therapy. Interpretation of Testing: I personally reviewed the chest CT report and agree with the interpretation(s). Review of Systems: Constitutional:No fever, no weight loss Eyes:No diplopia CV:No chest pain. 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 Family History Problem Relation Age of Onset Heart disease Mother Heart disease Son Heart attack Son Social History Tobacco Use Smoking Status Former Smokeless Tobacco Never Allergies: Patient has no known allergies. Current Outpatient Medications Medication Sig Dispense Refill amLODIPine (NORVASC) 5 MG tablet Take 1 (one) tablet (5 mg total) by mouth daily Start: 05/30/20. 30 tablet 0 carvediloL (COREG) 12.5 MG tablet Take 1 (one) tablet (12.5 mg total) by mouth 2 (two) times a day . celecoxib (CELEBREX) 200 MG capsule Take 1 (one) capsule (200 mg total) by mouth 2 (two) times a day . esomeprazole (NEXIUM) 20 MG capsule Take 1 (one) capsule (20 mg total) by mouth every morning before breakfast . losartan-hydrochlorothiazide (HYZAAR) 100-12.5 mg per tablet Take 1 (one) tablet by mouth daily . multivitamin with minerals tablet Take 1 (one) tablet by mouth daily . No current facility-administered medications for this visit. OBJECTIVE: Physical Examination: Blood pressure (!) 167/81, pulse 76, temperature 99.1 F (37.3 C), temperature source Temporal, resp. rate 16, height 5' 8 , weight 97.8 kg (215 lb 8 oz), SpO2 (!) 76 %. Vital Signs Reviewed. Gen: Alert and oriented x 3, In no apparent distress HEENT: Head: Normocephalic, no lesions, without obvious abnormality. Neck: nontender Cardio: regular rate and rhythm Resp: no tachypnea or accessory muscle use, diffuse inspiratory crackles - worse in the bases Abd: soft, nontender, nondistended, no hepatosplenomegaly, no mass, normal bowel sounds MSK: Moves all four extremities spontaneously. 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 Elevated IgE level Other and unspecified nonspecific immunological findings Chronic respiratory failure with hypoxia ([facility] Diagnosis Pneumonitis, hypersensitivity, 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 [facility] Diagnosis Bronchitis- Primary Bronchitis, not specified as acute or chronic [facility] Diagnosis Interstitial lung disease- Primary Postinflammatory pulmonary fibrosis Obesity (BMI 30.0-34.9) Obesity, unspecified Chronic hypoxemic respiratory failure Chronic respiratory failure Hypersensitivity pneumonitis Unspecified allergic alveolitis and pneumonitis High risk medication use Encounter for long-term (current) use of other medications [facility] Pulmonary hypertension Other chronic pulmonary heart diseases Interstitial lung disease Postinflammatory pulmonary fibrosis [facility] Diagnosis Cellulitis of hand, right- Primary documented in this encounter [facility] Work Phone: Evaluation note* Diagnosis Encounter to establish care- Primary Mitral valve insufficiency, unspecified etiology Interstitial lung disease (CMS/HCC) Postinflammatory pulmonary fibrosis Benign prostatic hyperplasia with urinary frequency Right leg pain Pain in soft tissues of limb documented in this encounter [facility] Work Phone: Evaluation note* Diagnosis Mitral valve insufficiency, unspecified etiology- Primary [facility] Diagnosis Rupture of right quadriceps tendon, subsequent encounter- Primary Coordination of complex care Interstitial lung disease (CMS/HCC) Postinflammatory pulmonary fibrosis documented in this encounter [facility] Work Phone: Evaluation note* Diagnosis Benign prostatic hyperplasia with nocturia- Primary Interstitial lung disease (CMS/HCC) Postinflammatory pulmonary fibrosis Dependence on continuous supplemental oxygen documented in this encounter [facility] Work Phone: Evaluation note* Diagnosis Mitral valve insufficiency, unspecified etiology- Primary [facility] Diagnosis Mitral valve insufficiency, unspecified etiology- Primary ILD (interstitial lung disease) (HCC) Postinflammatory pulmonary fibrosis Pulmonary hypertension (HCC) Other chronic pulmonary heart diseases [facility] Interstitial lung disease (CMS/HCC)- Primary Postinflammatory pulmonary fibrosis Mitral valve insufficiency, unspecified etiology Dependence on continuous supplemental oxygen Congestion of nasal sinus Other diseases of nasal cavity and sinuses 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 (idiopathic pulmonary fibrosis) (CMS/HCC) Idiopathic fibrosing alveolitis Chronic hypoxemic respiratory failure (CMS/HCC) Chronic respiratory failure documented in this encounter [facility] Work Phone: Evaluation note* Diagnosis Injury of quadriceps muscle- Primary Right leg pain Pain in soft tissues of limb documented in this encounter [facility] Work Phone: Evaluation note* Diagnosis IPF (idiopathic pulmonary fibrosis) (CMS/HCC)- Primary Idiopathic fibrosing alveolitis Chronic hypoxemic respiratory failure (CMS/HCC) Chronic respiratory failure Right leg pain Pain in soft tissues of limb Mitral valve insufficiency, unspecified etiology Coordination of complex care documented in this encounter [facility] Work Phone: Evaluation note* Diagnosis Acetaminophen abuse- Primary Type 2 diabetes mellitus without complication, without long-term current use of insulin (CMS/HCC) IPF (idiopathic pulmonary fibrosis) (CMS/HCC) Idiopathic fibrosing alveolitis Chronic hypoxemic respiratory failure (CMS/HCC) Chronic respiratory failure Respiratory crackles of both lungs Interstitial lung disease (CMS/HCC) Postinflammatory pulmonary fibrosis documented in this encounter [facility] Work Phone: Evaluation note* Diagnosis IPF (idiopathic pulmonary fibrosis) (CMS/HCC)- Primary Idiopathic fibrosing alveolitis Chronic hypoxemic respiratory failure (CMS/HCC) Chronic respiratory failure Respiratory crackles of both lungs Hypokalemia Hypopotassemia Type 2 diabetes mellitus without complication, without long-term current use of insulin (CMS/HCC) Right leg pain Pain in soft tissues of limb documented in this encounter [facility] Work Phone: Evaluation note* Diagnosis Interstitial lung disease Postinflammatory pulmonary fibrosis Hypersensitivity pneumonitis Unspecified allergic alveolitis and pneumonitis High risk medication use Encounter for long-term (current) use of other medications [facility] Diagnosis Watery eyes- Primary Epiphora, unspecified as to cause IPF (idiopathic pulmonary fibrosis) (CMS/HCC) Idiopathic fibrosing alveolitis Chronic hypoxemic respiratory failure (CMS/HCC) Chronic respiratory failure Respiratory crackles of both lungs Hypokalemia Hypopotassemia Benign prostatic hyperplasia with urinary frequency Interstitial lung disease (CMS/HCC) Postinflammatory pulmonary fibrosis documented in this encounter [facility] Work Phone: Evaluation note* Diagnosis 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- Primary Epiphora due to insufficient drainage Meibomian gland dysfunction (MGD) of upper and lower lids of both eyes Punctate keratitis of both eyes Punctate keratitis Nonexudative age-related macular degeneration, bilateral, early dry stage Combined forms of age-related cataract of both eyes Other and combined forms of senile cataract Essential hypertension Unspecified essential hypertension IPF (idiopathic pulmonary fibrosis) (HCC) Idiopathic pulmonary fibrosis Benign prostatic hyperplasia with lower urinary tract symptoms, symptom details unspecified [facility] Congestion of nasal sinus- Primary Other diseases of nasal cavity and sinuses IPF (idiopathic pulmonary fibrosis) (CMS/HCC) Idiopathic fibrosing alveolitis Chronic hypoxemic respiratory failure (CMS/HCC) Chronic respiratory failure documented in this encounter [facility] Work Phone: Evaluation note* Diagnosis Congestion of nasal sinus- Primary Other diseases of nasal cavity and sinuses Hypertension, unspecified type Right leg pain Pain in soft tissues of limb 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 Chronic hypoxemic respiratory failure (Multi) Chronic respiratory failure Respiratory crackles of both lungs Peripheral edema Edema documented in this encounter [facility] Work Phone: Evaluation note* Diagnosis Right leg pain- Primary Pain in soft tissues of limb Laceration of left lower extremity, subsequent encounter documented in this encounter [facility] Work Phone: Evaluation note* Diagnosis Interstitial lung disease (Multi)- Primary Postinflammatory pulmonary fibrosis Pulmonary hypertension (Multi) Other chronic pulmonary heart diseases Benign prostatic hyperplasia with nocturia Nonrheumatic mitral valve regurgitation Chronic hypoxemic respiratory failure (Multi) Chronic respiratory failure documented in this encounter [facility] Work Phone: Evaluation note* Diagnosis Laceration of left lower extremity, subsequent encounter- Primary Pulmonary hypertension (Multi) Other chronic pulmonary heart diseases Benign prostatic hyperplasia with nocturia Hypertension, unspecified type 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 Chronic hypoxemic respiratory failure (Multi) Chronic respiratory failure Peripheral edema Edema documented in this encounter [facility] Work Phone: Evaluation note* Diagnosis Nasal congestion- Primary Other diseases of nasal cavity and sinuses Laceration of left lower extremity, subsequent encounter Interstitial lung disease (Multi) Postinflammatory pulmonary fibrosis Right leg pain Pain in soft tissues of limb documented in this encounter [facility] Work Phone: Evaluation note* Diagnosis Right hip pain- Primary Pain in joint, pelvic region and thigh [facility] Diagnosis Chest pain, unspecified type- Primary Mitral valve insufficiency, unspecified etiology Mitral valve insufficiency, unspecified etiology [facility] Diagnosis Lumbosacral radiculopathy Thoracic or lumbosacral neuritis or radiculitis, unspecified [facility]* Diagnosis Medication management- Primary [facility] Diagnosis Lumbosacral radiculopathy Thoracic or lumbosacral neuritis or radiculitis, unspecified [facility]* Diagnosis Interstitial lung disease (Multi)- Primary Postinflammatory pulmonary fibrosis Mitral valve insufficiency, unspecified etiology Dependence on continuous supplemental oxygen Congestion of nasal sinus Other diseases of nasal cavity and sinuses 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 Chronic hypoxemic respiratory failure (Multi) Chronic respiratory failure Acetaminophen abuse- Primary Type 2 diabetes mellitus without complication, without long-term current use of insulin (Multi) 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 Chronic hypoxemic respiratory failure (Multi) Chronic respiratory failure Respiratory crackles of both lungs Interstitial lung disease (Multi) 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 Chronic hypoxemic respiratory failure (Multi) Chronic respiratory failure Respiratory crackles of both lungs Hypokalemia Hypopotassemia Type 2 diabetes mellitus without complication, without long-term current use of insulin (Multi) Right leg pain Pain in soft tissues of limb Watery eyes- Primary Epiphora, unspecified as to cause 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 Chronic hypoxemic respiratory failure (Multi) Chronic respiratory failure Respiratory crackles of both lungs Hypokalemia Hypopotassemia Benign prostatic hyperplasia with urinary frequency Interstitial lung disease (Multi) Postinflammatory pulmonary fibrosis Congestion of nasal sinus- Primary Other diseases of nasal cavity and sinuses Hypertension, unspecified type Right leg pain Pain in soft tissues of limb 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 Chronic hypoxemic respiratory failure (Multi) Chronic respiratory failure Respiratory crackles of both lungs Peripheral edema Edema Nasal congestion- Primary Other diseases of nasal cavity and sinuses Laceration of left lower extremity, subsequent encounter Interstitial lung disease (Multi) Postinflammatory pulmonary fibrosis Right leg pain Pain in soft tissues of limb Right leg pain- Primary Pain in soft tissues of limb Interstitial lung disease (Multi) Postinflammatory pulmonary fibrosis Pulmonary hypertension (Multi)- Primary Other chronic pulmonary heart diseases Interstitial lung disease (Multi) Postinflammatory pulmonary fibrosis Hip pain, right Pain in joint, pelvic region and thigh 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 Chronic hypoxemic respiratory failure (Multi) Chronic respiratory failure Peripheral edema Edema Obesity, morbid (Multi) Morbid obesity Interstitial lung disease (Multi) Postinflammatory pulmonary fibrosis Productive cough Cough documented in this encounter [facility] Work Phone: Evaluation note* Diagnosis Interstitial lung disease (Multi)- Primary Postinflammatory pulmonary fibrosis Mitral valve insufficiency, unspecified etiology Dependence on continuous supplemental oxygen Congestion of nasal sinus Other diseases of nasal cavity and sinuses 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 Chronic hypoxemic respiratory failure (Multi) Chronic respiratory failure Acetaminophen abuse- Primary Type 2 diabetes mellitus without complication, without long-term current use of insulin (Multi) 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 Chronic hypoxemic respiratory failure (Multi) Chronic respiratory failure Respiratory crackles of both lungs Interstitial lung disease (Multi) 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 Chronic hypoxemic respiratory failure (Multi) Chronic respiratory failure Respiratory crackles of both lungs Hypokalemia Hypopotassemia Type 2 diabetes mellitus without complication, without long-term current use of insulin (Multi) Right leg pain Pain in soft tissues of limb Watery eyes- Primary Epiphora, unspecified as to cause 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 Chronic hypoxemic respiratory failure (Multi) Chronic respiratory failure Respiratory crackles of both lungs Hypokalemia Hypopotassemia Benign prostatic hyperplasia with urinary frequency Interstitial lung disease (Multi) Postinflammatory pulmonary fibrosis Congestion of nasal sinus- Primary Other diseases of nasal cavity and sinuses Hypertension, unspecified type Right leg pain Pain in soft tissues of limb 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 Chronic hypoxemic respiratory failure (Multi) Chronic respiratory failure Respiratory crackles of both lungs Peripheral edema Edema Nasal congestion- Primary Other diseases of nasal cavity and sinuses Laceration of left lower extremity, subsequent encounter Interstitial lung disease (Multi) Postinflammatory pulmonary fibrosis Right leg pain Pain in soft tissues of limb Right leg pain- Primary Pain in soft tissues of limb Interstitial lung disease (Multi) Postinflammatory pulmonary fibrosis Pulmonary hypertension (Multi)- Primary Other chronic pulmonary heart diseases Interstitial lung disease (Multi) Postinflammatory pulmonary fibrosis Hip pain, right Pain in joint, pelvic region and thigh 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 Chronic hypoxemic respiratory failure (Multi) Chronic respiratory failure Peripheral edema Edema Obesity, morbid (Multi) Morbid obesity Hypokalemia- Primary Hypopotassemia Interstitial lung disease (Multi) Postinflammatory pulmonary fibrosis Productive cough Cough Type 2 diabetes mellitus without complication, without long-term current use of insulin (Multi) Right leg pain Pain in soft tissues of limb Interstitial lung disease (Multi) Postinflammatory pulmonary fibrosis Productive cough Cough documented in this encounter [facility] Work Phone: Evaluation note* Diagnosis Lateral femoral cutaneous neuropathy, right- Primary Hip pain, right Pain in joint, pelvic region and thigh Encounter for medication monitoring Encounter for therapeutic drug monitoring [facility]* Diagnosis Interstitial lung disease (Multi)- Primary Postinflammatory pulmonary fibrosis Mitral valve insufficiency, unspecified etiology Dependence on continuous supplemental oxygen Congestion of nasal sinus Other diseases of nasal cavity and sinuses 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 Chronic hypoxemic respiratory failure (Multi) Chronic respiratory failure Acetaminophen abuse- Primary Type 2 diabetes mellitus without complication, without long-term current use of insulin (Multi) 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 Chronic hypoxemic respiratory failure (Multi) Chronic respiratory failure Respiratory crackles of both lungs Interstitial lung disease (Multi) 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 Chronic hypoxemic respiratory failure (Multi) Chronic respiratory failure Respiratory crackles of both lungs Hypokalemia Hypopotassemia Type 2 diabetes mellitus without complication, without long-term current use of insulin (Multi) Right leg pain Pain in soft tissues of limb Watery eyes- Primary Epiphora, unspecified as to cause 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 Chronic hypoxemic respiratory failure (Multi) Chronic respiratory failure Respiratory crackles of both lungs Hypokalemia Hypopotassemia Benign prostatic hyperplasia with urinary frequency Interstitial lung disease (Multi) Postinflammatory pulmonary fibrosis Congestion of nasal sinus- Primary Other diseases of nasal cavity and sinuses Hypertension, unspecified type Right leg pain Pain in soft tissues of limb 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 Chronic hypoxemic respiratory failure (Multi) Chronic respiratory failure Respiratory crackles of both lungs Peripheral edema Edema Nasal congestion- Primary Other diseases of nasal cavity and sinuses Laceration of left lower extremity, subsequent encounter Interstitial lung disease (Multi) Postinflammatory pulmonary fibrosis Right leg pain Pain in soft tissues of limb Right leg pain- Primary Pain in soft tissues of limb Interstitial lung disease (Multi) Postinflammatory pulmonary fibrosis Pulmonary hypertension (Multi)- Primary Other chronic pulmonary heart diseases Interstitial lung disease (Multi) Postinflammatory pulmonary fibrosis Hip pain, right Pain in joint, pelvic region and thigh 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 Chronic hypoxemic respiratory failure (Multi) Chronic respiratory failure Peripheral edema Edema Obesity, morbid (Multi) Morbid obesity Right leg pain Pain in soft tissues of limb Interstitial lung disease (Multi) Postinflammatory pulmonary fibrosis documented in this encounter [facility] Work Phone: Repiwx for referral (narrative)* Consultation (Routine) - Authorized Specialty Diagnoses / Procedures Referred By Contac t Referred To Contact Orthopaedic Surgery Diagnoses Rupture of right quadriceps tendon, subsequent encounter Sahra Holliday MD [address] [place] [address] Referral ID Status Reason Start Date Expiration Date Visits Requested Visits Authorized [id number] Authorized Specialty Services Required 3 02/15/[address] [facility] Work Phone: reason for referral (narrative)* Consultation (Routine) - Authorized Specialty Diagnoses / Procedures Referred By Torsten ramos Referred To Contact Pain Medicine Diagnoses Right leg pain Injury of quadriceps muscle Sahra Holliday MD [address] [place] [address] Willie Barr MD [address] [place] [address] Referral ID Status Reason Start Date Expiration Date Visits Requested Visits Authorized [id number] Authorized Specialty Services Required 03/15/2023 03/14/[address] [facility] Work Phone: reason for referral (narrative)* Consultation (Routine) - Authorized Specialty Diagnoses / Procedures Referred By Contac t Referred To Contact Primary Care Diagnoses IPF (idiopathic pulmonary fibrosis) (CMS/HCC) Chronic hypoxemic respiratory failure (CMS/HCC) Respiratory crackles of both lungs Hypokalemia Procedures Follow Up In Primary Care - Established Sahra Holliday MD [address] [place] [id number] Referral ID Status Reason Start Date Expiration Date V isits Requested Visits Authorized [id number] Authorized 04/26/2023 04/25/2024 1 1 [facility] Work Phone: Reuaal for referral (narrative)* Consultation (Routine) - Authorized Specialty Diagnoses / Procedures Referred By Contac t Referred To Contact Ophthalmology Diagnoses Watery eyes Sahra Holliday MD [address] [place], [place] [phone] Referral ID Status Reason Start Date Expiration Date Visits Requested Visits Authorized [id number] Authorized Specialty Services Required 05/18/2023 05/17/2024 1 1 * Consultation (Routine) - Authorized Specialty Diagnoses / Procedures Referred By Contac t Referred To Contact Primary Care Diagnoses IPF (idiopathic pulmonary fibrosis) (CMS/HCC) Chronic hypoxemic respiratory failure (CMS/HCC) Procedures Follow Up In Primary Care - Established Sahra Holliday MD [address] [place] [address] Referral ID Status Reason Start Date Expiration Date V isits Requested Visits Authorized [id number] Authorized 05/18/2023 05/17/2024 1 1 [facility] Work Phone: Rejpjh for referral (narrative)* Consultation (Routine) - Authorized Specialty Diagnoses / Procedures Referred By Contac t Referred To Contact Orthopaedic Surgery Diagnoses Right leg pain Sahra Holliday MD [address] [place] [address] [facility] Referral ID Status Reason Start Date Expiration Date Visits Requested Visits Authorized [id number] Authorized Specialty Services Required 06/14/2023 06/13/2024 1 1 * Consultation (Routine) - Authorized Specialty Diagnoses / Procedures Referred By Contac t Referred To Contact Otolaryngology Diagnoses Congestion of nasal sinus Sahra Holliday MD [address] [place], [place] [id number] Referral ID Status Reason Start Date Expiration Date Visits Requested Visits Authorized [id number] Authorized Specialty Services Required 06/14/2023 06/13/2024 1 1 [facility] Work Phone: reason for referral (narrative)* Consultation (Routine) - Authorized Specialty Diagnoses / Procedures Referred By Contac t Referred To Contact Sleep Medicine Diagnoses Benign prostatic hyperplasia with nocturia Sahra Holliday MD [address] [place] [address] Referral ID Status Reason Start Date Expiration Date Visits Requested Visits Authorized [id number] Authorized Specialty Services Required 07/13/2023 07/12/2024 1 1 [facility] Work Phone: reason for referral (narrative)* Consultation (Routine) - New Request Specialty Diagnoses / Procedures Referred By Contact Referred To Contact Physical Medicine & Rehabilitation Diagnoses Right hip pain Jerrod Norman MD [address] [place] [address] Sabina Perez DO [address] [place] [address] Referral ID Status Reason Start Date Expiration Date V isits Requested Visits Authorized [id number] New Request 09/28/2023 10/22/2024 1 1 * Diagnostic X-Ray (Routine) - New Request Specialty Diagnoses / Procedures Referred By Torsten ramos Referred To Contact Diagnoses Right hip pain Procedures XR HIP WITH PELVIS RIGHT Jerrod Norman MD [address] [place] [address] Referral ID Status Reason Start Date Expiration Date V isits Requested Visits Authorized [id number] New Request 09/18/2023 10/12/2024 1 1 [facility] for visit Narrative* Imaging (Routine) - Authorized Specialty Diagnoses / Procedures Referred By Torsten ramos Referred To Contact Radiology Diagnoses Interstitial lung disease (Multi) Productive cough Procedures XR chest 2 views Sahra Holliday MD [address] [address] Phone: tel: fax: Referral ID Status Reason Start Date Expiration Date Visits Requested Visits Authorized [id number] Authorized Perform Procedure 4 12/13/2024 1 1 [facility] Work Phone: Summary Purpose Family History No Family History Records FoundNo Family History Records FoundNo Family History Records FoundNo Family History Records FoundNo Family History Records FoundNo Family History Records FoundNo Family History Records FoundNo Family History Records FoundNo Family History Records FoundNo Family History Records FoundNo Family History Records FoundNo Family History Records FoundNo Family History Records FoundNo Family History Records Found Advance Directives No Advanced Directives Records FoundDocuments on File Type Date Recorded 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 Advance Directives and Livin g Will 05/27/2020 12:17 PM Latest Code Status on File Code Status Date Activated Date Inactivated Comments Full Code - Unverified 05/27/2020 8:31 PM Documents on File Type Date Recorded 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 Advance Directives and Livin g Will 05/27/2020 12:17 PM Latest Code Status on File Code Status Date Activated Date Inactivated Comments Full Code - Unverified 05/27/2020 8:31 PM 05/29/2020 3:27 PM Latest Code Status on File Code Status Date Activated Date Inactivated Comments Full Code - Unverified 05/27/2020 8:31 PM 05/29/2020 3:27 PM Latest Code Status on File Code Status Date Activated Date Inactivated Comments Full Code - Unverified 05/27/2020 8:31 PM 05/29/2020 3:27 PM Latest Code Status on File Code Status Date Activated Date Inactivated Comments Full Code 03/24/2023 7:09 AM 03/24/2023 10:49 AM Code Status History Code Status Date Activated Date Inactivated Comments Full Code - Unverified 05/27/2020 8:31 PM 05/29/2020 3:27 PM Date Activated Date Inactivated Comments 06/27/2023 3:15 PM Question Answer Comments Plan of Care: Code Status Discussion Completed Decision Maker: Patient Date Activated Date Inactivated Comments 06/27/2023 3:15 PM Question Answer Comments Plan of Care: Code Status Discussion Completed Decision Maker: Patient Date Activated Date Inactivated Comments 03/24/2023 7:09 AM 03/24/2023 10:49 AM Date Activated Date Inactivated Comments 05/27/2020 8:31 PM 05/29/2020 3:27 PM Date Activated Date Inactivated Comments 03/24/2023 7:09 AM 03/24/2023 10:49 AM Date Activated Date Inactivated Comments 05/27/2020 8:31 PM 05/29/2020 3:27 PM Assessments Diagnosis Community acquired pneumonia, unspecified laterality- Primary Dizziness Dizziness and giddiness Diagnosis Pneumonia- Primary Pneumonia, organism unspecified Hospital Course * Nhan Mendez MD - 05/29/2020 12:31 PM EDT HOSPITALIST DISCHARGE SUMMARY Patient: Annie Calderon Account: [id number] Admitted: 05/27/2020 Discharge Date/Time: 05/29/2020 Clinical Summary FINAL DIAGNOSIS: Principal Problem: Pneumonia REASON FOR HOSPITALIZATION AND ADMITTING DIAGNOSIS: No chief complaint on file. Pneumonia [J18.9] HOSPITAL COURSE: Annie Calderon is a 69 y.o. 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, will continue levofloxacin and check on urine which pneumococcus antigens, oxygen support and place the patient telemetry, overall looks stable not septic, seems missing taking one of the blood pressure medications lately we will resume home regimen and follow the trend blood pressure and address adjustment if needed 4/ Patient denies shortness of breath nausea dizziness feeling better Vital signs blood pressure still not well controlled Add Norvasc 5 mg daily Patient did not have any symptoms of pneumonia no leukocytosis I will DC IV Levaquin Order echocardiogram to assess ejection fraction heart structure Reevaluate after noon for discharge / Patient feeling better denies any chest pain shortness of breath nausea or dizziness Echocardiogram report reviewed findings of chronic diastolic heart failure and moderate mitral valve regurgitation likely secondary to chronic lung issue Patient is to follow-up with PCP and pulmonary I added amlodipine during hospitalizations to get blood pressure controlled Discharge home CONDITION AT DISCHARGE: Stable Physical Examination: Blood pressure 124/76, pulse 63, temperature 98 F (36.7 C), temperature source Oral, resp. rate 16,height 5' 8 , weight 96.6 kg (213 lb), SpO2 96 %. General appearance: alert, cooperative, in no acute distress. Head/Neck: Head- normocephalic. Neck- supple, non-tender, without lymphadenopathy Eyes: No Scleral icterus or pallor; EOMI ENT: Trachea midline. Cardiovascular: regular rate and rhythm; normal S1, S2; no murmurs, rubs, clicks or gallops; No/+ peripheral edema. Respiratory: lungs clear to auscultation; without wheezes, rales or rhonchi. Abdomen: soft, non tender, non-distended; positive bowel sounds. Neurological: alert, oriented, normal speech; no focal findings or movement disorder noted. Musculoskeletal: no significant deformity noted. Skin: normal coloration, texture and turgor; no lesions or eruptions. Procedures: No orders of the defined types were placed in this encounter. Consults: No orders of the defined types were placed in this encounter. Other Tests: Procedures Echocardiogram complete LAST LABS: Results from last 7 days Lab Units 05/28/20 0751 SODIUM mmol/L 138 POTASSIUM mmol/L 3.9 CHLORIDE mmol/L 106 BUN mg/dL 16 CREATININE mg/dL 1.30 GLUCOSE mg/dL 129* CALCIUM mg/dL 9.3 Invalid input(s): LABALBU Results from last 7 days Lab Units 05/27/20 1256 POCINR 1.0 Results from last 7 days Lab Units 05/28/20 0751 WBC K/mcL 6.01 HGB g/dL 14.0 HCT % 40.5* PLT K/mcL 165 Results from last 7 days Lab Units 05/28/20 0751 TSH mcIU/mL 1.40 Allergies: Patient has no known allergies. Discharge Diet: Diet Special; Cardiac Disposition: Another Health Care Institution Not Defined Discharge Medications Medication List START taking these medications amLODIPine 5 MG tablet Commonly known as: NORVASC Take 1 (one) tablet (5 mg total) by mouth daily Start: 05/30/20. Start taking on: May 30, 2020 CONTINUE taking these medications carvediloL 12.5 MG tablet Commonly known as: COREG celecoxib 200 MG capsule Commonly known as: CELEBREX esomeprazole 20 MG capsule Commonly known as: NEXIUM losartan-hydrochlorothiazide 100-12.5 mg per tablet Commonly known as: HYZAAR multivitamin with minerals tablet Where to Get Your Medications These medications were sent to [id number] - [place], [place] - [address] [facility] [address] [facility] [address] amLODIPine 5 MG tablet Physician(s) Family: Sabina Rivas MD, , Address: [address] / [facility] [address] Follow Up: No follow-up provider specified. Patient instructions, including activity, were given to the patient/family at discharge. Please seethe After Visit Summary in the medical record for details. Time spent on discharge: > 30 minutes Completed by: Nhan Mendez on 05/29/20, 12:31 PM documented in this encounter Discharge Instructions * Attachments The following attachments cannot be sent through Care Everywhere. * COPD: Prevent Lung Infections: General Info (Senegalese) documented in this encounter History of Present Illness * Natali Jerez RN - 05/29/2020 12:49 PM EDT IV and tele removed from pt. AVS reviewed, pt denies questions, and expresses understanding. transportation to be provided by family members. pt escorted to front by staff. pt discharged without incident. * Nhan Mendez MD - 05/28/2020 1:01 PM EDT [facility] Medicine Inpatient H&P 05/28/2020 Nhan Mendez MD [facility] Patient: Annie Calderon Date of : 1950 (69 y.o.) PCP: Sabina Rivas MD Assessment Annie Calderon is a 69 y.o. 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, will continue levofloxacin and check on urine which pneumococcus antigens, oxygen support and place the patient telemetry, overall looks stable not septic, seems missing taking one of the blood pressure medications lately we will resume home regimen and follow the trend blood pressure and address adjustment if needed 05/28 Patient denies shortness of breath nausea dizziness feeling better Vital signs blood pressure still not well controlled Add Norvasc 5 mg daily Patient did not have any symptoms of pneumonia no leukocytosis I will DC IV Levaquin Order echocardiogram to assess ejection fraction heart structure Reevaluate after noon for discharge SUBJECTIVE: Chief Complaint: Dizziness and high blood pressure fever and chills History of Presenting Illness: Annie Calderon is a 69 y.o. male is known for hypertension and questionable asthma is here due to dizziness reported high blood pressure fever and chills last night, was evaluated emergency department noticed infiltrates in both lungs and hypoxia, dizziness, elevated blood pressure since last night. He also reports chills. No cough no difficulty breathing no chest pain no abdominal pain no other complaints. 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 No pertinent surgical history. History reviewed. No pertinent family history. Social History Tobacco Use Smoking Status Former Smoker Smokeless Tobacco Never Used Social History Substance and Sexual Activity Alcohol Use Not Currently Family and Social History reviewed and non-pertinent to this visit Allergies: Patient has no known allergies. Home Medications: No current outpatient medications on file as of 05/28/2020. OBJECTIVE: Physical Examination: BP (!) 164/84 Pulse 72 Temp 98.8 F (37.1 C) (Oral) Resp 16 Ht 5' 8 Wt 96.6 kg (213 lb) SpO2 95% BMI 32.39 kg/m General Appearance: Alert, well appearing, and in no acute distress. HEENT: Head - Normocephalic, atraumatic. Eyes - JANE bilaterally and EOMI. Ears - normal external appearance, hearing intact. Nose - normal, no erythema. Throat - mucous membranes moist, pharynx without lesions. Neck: Supple, trachea midline. Cardiovascular: S1, S2 normal. No murmurs, rubs, clicks or gallops appreciated. No pedal edema. Respiratory: Lungs clear to auscultation, no wheezes, rales or rhonchi heard. Abdomen: Soft, non-tender, normal bowel sounds, non-distended, no masses or organomegaly appreciated. Neurological: Grossly normal motor and sensory exam. No focal deficits. Musculoskeletal: No joint tenderness, deformity or swelling. Skin: Normal coloration and turgor. No rashes. Psych: Alert, oriented x 3. Normal mood and affect. Laboratory and Additional Data Reviewed: Results/Medications Reviewed 05/28/20 1:01 PM: Results from last 7 days Lab Units 05/28/20 0751 05/27/20 1304 SODIUM mmol/L 138 -- POTASSIUM mmol/L 3.9 -- CHLORIDE mmol/L 106 -- BUN mg/dL 16 -- POC BUN mg/dL -- 19 CREATININE mg/dL 1.30 -- POC CREATININE (EPOC) mg/dL -- 1.02 GLUCOSE mg/dL 129* -- CALCIUM mg/dL 9.3 -- Results from last 7 days Lab Units 05/28/20 0751 05/27/20 1248 WBC K/mcL 6.01 4.17* HGB g/dL 14.0 13.4* HCT % 40.5* 39.4* PLT K/mcL 165 162 Results from last 7 days Lab Units 05/27/20 1256 POCINR 1.0 Invalid input(s): LABALBU CULTURES: Reviewed 1:01 PM IMAGING: Reviewed 1:01 PM * Iglesia Hinson RN - 05/27/2020 11:03 PM EDT Pt refusing Heparin injections. Dr. Yeung notified. documented in this encounter Reason for Referral Specialty Diagnoses / Procedures Referred By Contac t Referred To Contact Cardiology Diagnoses ILD (interstitial lung disease) (HCC) Pulmonary hypertension (HCC) Procedures Echocardiogram complete Dawna Bernal MD [address] [place] [address] Referral ID Status Reason Start Date Expiration Date V isits Requested Visits Authorized [id number] New Request 07/06/2022 07/06/2023 1 1 Specialty Diagnoses / Procedures Referred By Contac t Referred To Contact Pulmonology Diagnoses ILD (interstitial lung disease) (HCC) Procedures 6 minute walk Dawna Bernal MD [address] [place] [phone] Referral ID Status Reason Start Date Expiration Date V isits Requested Visits Authorized [id number] Authorized 07/06/2022 07/06/2023 1 1 Specialty Diagnoses / Procedures Referred By Contac t Referred To Contact Pulmonology Diagnoses ILD (interstitial lung disease) (HCC) Procedures Complete PFT with Pre and Post Bronchodilator Dawna Bernal MD [address] [place] [address] Referral ID Status Reason Start Date Expiration Date V isits Requested Visits Authorized [id number] Authorized 07/06/2022 07/06/2023 1 1 Specialty Diagnoses / Procedures Referred By Contac t Referred To Contact Allergy/Immunology Diagnoses Elevated IgE level Dawna Bernal MD [address] [place] [phone] Maryam Ricci MD [address] [place] [address] Referral ID Status Reason Start Date Expiration Date V isits Requested Visits Authorized [id number] Closed Specialty Services Required/Kelly ent's Best Interest 09/01/2022 09/01/2023 1 1 Specialty Diagnoses / Procedures Referred By Contac t Referred To Contact Pulmonology Diagnoses IPF (idiopathic pulmonary fibrosis) ([facility] Dawna Bernal MD [address] [place] [address] Ruddy Mckeon MD [address] [place] [phone] Referral ID Status Reason Start Date Expiration Date V isits Requested Visits Authorized [id number] Closed Specialty Services Required/Kelly ent's Best Interest 09/01/2022 09/01/2023 1 1 Specialty Diagnoses / Procedures Referred By Contac t Referred To Contact Diagnoses Interstitial lung disease Hypersensitivity pneumonitis High risk medication use Procedures PFT STANDARD Oscar Payton MD [address] [phone] Referral ID Status Reason Start Date Expiration Date V isits Requested Visits Authorized [id number] New Request 12/26/2022 01/20/2024 1 1 Specialty Diagnoses / Procedures Referred By Contac t Referred To Contact Diagnoses Pulmonary hypertension Interstitial lung disease Procedures PFT STANDARD Oscar Payton MD [address] [phone] Referral ID Status Reason Start Date Expiration Date V isits Requested Visits Authorized [id number] New Request 09/19/2022 10/14/2023 1 1 Specialty Diagnoses / Procedures Referred By Contac t Referred To Contact Home Health Services Diagnoses Interstitial lung disease (CMS/HCC) Sahra Holliday MD [address] [place] [address] [facility] [address] [place] [address] Referral ID Status Reason Start Date Expiration Date Visits Requested Visits Authorized [id number] Pending Review Specialty Services Required 3 02/08/[phone] Specialty Diagnoses / Procedures Referred By Contac t Referred To Contact Cardiology Diagnoses Mitral valve insufficiency, unspecified etiology Sahra Holliday MD [address] [place] [address] Referral ID Status Reason Start Date Expiration Date Visits Requested Visits Authorized [id number] Authorized Specialty Services Required 3 02/08/2024 1 1 Specialty Diagnoses / Procedures Referred By Contac t Referred To Contact Cardiology Diagnoses Mitral valve insufficiency, unspecified etiology Procedures Echocardiogram limited Carlos Gonzáles MD [address] [place] [address] Referral ID Status Reason Start Date Expiration Date V isits Requested Visits Authorized [id number] Authorized 02/10/2023 02/10/2024 1 1 Specialty Diagnoses / Procedures Referred By Contac t Referred To Contact Cardiology Diagnoses Mitral valve insufficiency, unspecified etiology Procedures Echocardiogram transesophageal Carlos Gonzáles MD [address] [place] [address] Referral ID Status Reason Start Date Expiration Date V isits Requested Visits Authorized [id number] New Request 02/28/2023 02/28/2024 1 1 Specialty Diagnoses / Procedures Referred By Contac t Referred To Contact Cardiology Diagnoses Mitral valve insufficiency, unspecified etiology Procedures ECG 12 lead Carlos Gonzáles MD [address] [place] [address] Referral ID Status Reason Start Date Expiration Date Visits Re quested Visits Authorized [id number] Closed 02/28/2023 02/28/2024 1 1 Specialty Diagnoses / Procedures Referred By Contac t Referred To Contact Cardiology Diagnoses Chest pain, unspecified type Procedures ECG 12 lead Dana Elder, ADMINISTRATIVE ASSISTANT OFFICE MANAGER [address] [place] [address] Referral ID Status Reason Start Date Expiration Date V isits Requested Visits Authorized [id number] Authorized 10/27/2023 10/26/2024 1 1 Specialty Diagnoses / Procedures Referred By Contac t Referred To Contact Magnetic Resonance Imaging Diagnoses Lumbosacral radiculopathy Procedures MRI SPINE LUMBAR WITHOUT CONTRAST CHG MRI SPINAL CANAL LUMBAR W/O CONTRAST MATERIAL Sabina Perez, DO [address] [place] [address] Wilfredo Ont Mri [address] [place] [address] Referral ID Status Reason Start Date Expiration Date Visits Re quested Visits Authorized [id number] Closed 10/31/2023 11/24/2024 1 1 Specialty Diagnoses / Procedures Referred By Contac t Referred To Contact Diagnoses Lateral femoral cutaneous neuropathy, right Hip pain, right Mega eRed APRN-ADMINISTRATIVE ASSISTANT OFFICE MANAGER [address] [place] [address] Referral ID Status Reason Start Date Expiration Date V isits Requested Visits Authorized [id number] Authorized 12/22/2023 01/15/2025 1 1 Scheduling Instructions Please PA and schedule: right Lateral femoral cutaneous nerve block 1 CPT 14123 kx right Referral ID Status Reason Start Date Expiration Date V isits Requested Visits Authorized [id number] New Request 12/22/2023 01/15/2025 1 1 Scheduling Instructions Please PA and schedule: right Lateral femoral cutaneous nerve block 2 CPT 45406 kx right Additional Source Comments (unrecognized sect ion and content) No Status Records FoundNo Status Records FoundNo Status Records FoundNo Status Records FoundNo Status Records FoundNo Status Records FoundNo Status Records FoundNo Status Records FoundNo Status Records FoundNo Status Records FoundNo Status Records FoundNo Status Records FoundNo Status Records FoundNo Status Records Found INFORMATION SOURCE (unrecogn ized section and content) DATE CREATED AUTHOR 10/31/2018 [facility] DATE CREATED AUTHOR AUTHOR'S ORGANIZ ATION 05/05/2021 [facility] DATE CREATED AUTHOR AUTHOR'S ORGANIZ ATION 06/22/2022 [facility] DATE CREATED AUTHOR AUTHOR'S ORGANIZ ATION 09/02/2022 [facility] DATE CREATED AUTHOR AUTHOR'S ORGANIZ ATION 05/02/2023 [facility] DATE CREATED AUTHOR AUTHOR'S ORGANIZ ATION 05/22/2023 [facility] DATE CREATED AUTHOR AUTHOR'S ORGANIZ ATION 07/05/2023 [facility] DATE CREATED AUTHOR AUTHOR'S ORGANIZ ATION 12/08/2023 [facility] DATE CREATED AUTHOR AUTHOR'S ORGANIZ ATION 12/12/2023 [facility] DATE CREATED AUTHOR AUTHOR'S ORGANIZ ATION 12/18/2023 [facility] DATE CREATED AUTHOR AUTHOR'S ORGANIZ ATION 12/19/2023 [facility] DATE CREATED AUTHOR AUTHOR'S ORGANIZ ATION 12/24/2023 [facility] DATE CREATED AUTHOR AUTHOR'S ORGANIZ ATION 12/24/2023 [facility] DATE CREATED AUTHOR AUTHOR'S ORGANIZ ATION 12/28/2023 [facility] Reason for Visit (unrecogniz ed section and content) Reason Comments Follow-up Specialty Diagnoses / Procedures Referred By Torsten ramos Referred To Contact Cardiology Diagnoses Mitral valve insufficiency, unspecified etiology Sahra Holliday MD [address] [place] [address] [facility] [address] [place] [address] Referral ID Status Reason Start Date Expiration Date Visits Requested Visits Authorized [id number] Pending Review Specialty Services Required/Pat ient's Best Interest 1202/13/2024 1 1 Reason Comments Hypertension Status Reason Specialty Diagnoses / Procedures Referre d By Contact Referred To Contact Diagnoses Pneumonia bilateral pneumonia Reason Comments Consult Pulmonary Fibrosis Reason Comments Follow-up Reason Comments Follow-up 2 month f/u Specialty Diagnoses / Procedures Referred By Contac t Referred To Contact Pulmonary Disease Diagnoses IPF (idiopathic pulmonary fibrosis) Dawna Bernal MD [facility] [address] [place] [address] [address] Phone: [phone] Referral ID Status Reason Start Date Expiration Date Visits Re quested Visits Authorized [id number] Denied 09/01/2022 09/26/2023 1 0 Specialty Diagnoses / Procedures Referred By Contac t Referred To Contact Diagnoses Pulmonary hypertension Interstitial lung disease Procedures PFT STANDARD Oscar Payton MD [address] [address] Referral ID Status Reason Start Date Expiration Date V isits Requested Visits Authorized [id number] New Request 09/19/2022 10/14/2023 1 1 Reason Comments Insect Bite Pt thinks some sort of insect bite x 1 week ago on rt hand and seems to be worsening since this AM Reason Comments Establish Care Reason Comments Follow-up 1 WK CK Reason Comments discuss pending surgery Reason Comments Follow-up 2 WK FU Reason Comments 2 week CK Reason Comments Follow-up 2 WK CK Reason Comments Follow-up 2 WK FU Specialty Diagnoses / Procedures Referred By Torsten t Referred To Contact Diagnoses Interstitial lung disease Hypersensitivity pneumonitis High risk medication use Procedures PFT STANDARD Oscar Payton MD [address] [address] Referral ID Status Reason Start Date Expiration Date V isits Requested Visits Authorized [id number] New Request 12/26/2022 01/20/2024 1 1 Reason Comments Follow-up 3 WK FU LABS Specialty Diagnoses / Procedures Referred By Contac t Referred To Contact Primary Care Diagnoses IPF (idiopathic pulmonary fibrosis) (CMS/HCC) Chronic hypoxemic respiratory failure (CMS/HCC) Respiratory crackles of both lungs Hypokalemia Procedures Follow Up In Primary Care - Established Sahra Holliday MD [address] [place] [address] Referral ID Status Reason Start Date Expiration Date V isits Requested Visits Authorized [id number] Authorized 04/26/2023 04/25/2024 1 1 Reason Comments Tearing Both Eyes Specialty Diagnoses / Procedures Referred By Contact Referred To Contact Ophthalmology / OPHTHALMOLOGY Diagnoses Watery eyes watery eyes referred by dr holliday Procedures EST ADULT Juan Carlos Fitzgerald MD [address] [place] [address] Juan Carlos Fitzgerald MD [address] [place] [address] Referral ID Status Reason Start Date Expiration Date V isits Requested Visits Authorized [id number] Authorized 05/19/2023 08/17/2023 12 12 Reason Comments Cough HEAD AND CHEST CONGE STION, [id number] Reason Comments Follow-up 1 WK FU Reason Comments ER FU Anomi in leg Reason Comments Family discussion Reason Comments Suture / Staple Removal Reason Comments Follow-up 1 MO FU Specialty Diagnoses / Procedures Referred By Contac t Referred To Contact Diagnoses Right hip pain Procedures XR HIP WITH PELVIS RIGHT Jerrod Norman MD [address] [place] [address] Referral ID Status Reason Start Date Expiration Date V isits Requested Visits Authorized [id number] New Request 09/18/2023 10/12/2024 1 1 Reason Comments Pain Reason Comments Follow-up Low dull cp Specialty Diagnoses / Procedures Referred By Contac t Referred To Contact Magnetic Resonance Imaging Diagnoses Lumbosacral radiculopathy Procedures MRI SPINE LUMBAR WITHOUT CONTRAST CHG MRI SPINAL CANAL LUMBAR W/O CONTRAST MATERIAL Sabina Perez, [address] [place] [address] [facility] [address] [place] [id number] Referral ID Status Reason Start Date Expiration Date Visits Re quested Visits Authorized [id number] Closed 10/31/2023 11/24/2024 1 1 Reason Comments Cough X 4 DAYS Nasal Congestion NEG COVID Reason Comments Follow-up 1 MO Sherita Pro LPN - 05/27/2020 2:27 PM Dorita Simental MD - 05/27/2020 1:41 PM Neida Hayes RN - 05/27/2020 12:00 PM EDT ED Notes (unrecognized secti on and content) Took pt to restroom, once returning to room pt pulse ox 88% room air. Pt denies SOB or difficulty breathing. Once seated for a moment pt pulse ox returned to normal. Bp 187/106 Dr Gaona informed. ED PROVIDER NOTE [facility] EMERGENCY DEPARTMENT NAME: Annie Calderon AGE: 69 y.o. : 1950 VISIT DATE: 05/27/2020 CSN: [id number] PCP: Sabina Rivas MD Chief Complaint Patient presents with Hypertension Patient is a 69-year-old male presents to emergency complaining of dizziness, elevated blood pressure since last night. He also reports chills. No cough no difficulty breathing no chest pain no abdominal pain no other complaints. 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 No family history on file. Social History Socioeconomic History Marital status: Spouse name: Not on file Number of children: Not on file Years of education: Not on file Highest education level: Not on file Occupational History Not on file Social Needs Financial resource strain: Not on file Food insecurity Worry: Not on file Inability: Not on file Transportation needs Medical: Not on file Non-medical: Not on file Tobacco Use Smoking status: Not on file Substance and Sexual Activity Alcohol use: Not on file Drug use: Not on file Sexual activity: Not on file Lifestyle Physical activity Days per week: Not on file Minutes per session: Not on file Stress: Not on file Relationships Social connections Talks on phone: Not on file Gets together: Not on file Attends caodaism service: Not on file Active member of club or organization: Not on file Attends meetings of clubs or organizations: Not on file Relationship status: Not on file Other Topics Concern Not on file Social History Narrative Not on file Previous Medications Medication Sig carvediloL (COREG) 12.5 MG tablet Take 12.5 mg by mouth 2 (two) times a day . celecoxib (CELEBREX) 200 MG capsule Take 200 mg by mouth 2 (two) times a day . esomeprazole (NEXIUM) 20 MG capsule Take 20 mg by mouth every morning before breakfast . losartan-hydrochlorothiazide (HYZAAR) 100-12.5 mg per tablet Take 1 tablet by mouth daily . multivitamin with minerals tablet Take 1 tablet by mouth daily . No Known Allergies Review of Systems All other systems reviewed and are negative. Patient Vitals for the past 24 hrs: BP Temp Temp src Pulse Resp SpO2 Height Weight 05/27/20 1600 (!) 167/104 68 97 % 05/27/20 1545 (!) 157/84 61 (!) 88 % 05/27/20 1530 (!) 161/101 62 (!) 24 91 % 05/27/20 1426 (!) 187/106 70 18 94 % 05/27/20 1230 (!) 164/89 96 % 05/27/20 1201 96 % 05/27/20 1146 (!) 166/100 98.5 F (36.9 C) Oral 65 95 % 5' 7 96.6 kg (213 lb) Physical Exam Laboratory & Radiographic Imaging (if done): Results for orders placed or performed during the hospital encounter of 05/27/20 POC CBC and Differential Result Value Ref Range WBC 4.17 (L) 4.50 - 11.00 K/mcL RBC 3.68 (L) 4.50 - 5.90 M/mcL Hemoglobin 13.4 (L) 13.5 - 17.5 g/dL Hematocrit 39.4 (L) 41.0 - 53.0 % MCV 107.1 (H) 80.0 - 100.0 fL MCH 36.4 (H) 26.0 - 34.0 pg MCHC 34.0 31.0 - 37.0 g/dL RDW - CV 12.1 11.6 - 14.8 % Platelets 162 150 - 400 K/mcL MPV 9.5 9.4 - 12.4 fL Neutrophils 63.3 % Lymphocytes 27.6 % Monocytes 7.9 % Eosinophils 0.5 % Basophils 0.2 % IG Percent 0.50 % Neutrophils Abs 2.64 1.70 - 7.00 K/mcL Lymphocytes Abs 1.15 0.90 - 4.00 K/mcL Monocytes Abs 0.33 0.30 - 0.90 K/mcL Eosinophils Abs 0.02 0.00 - 0.50 K/mcL Basophils Abs 0.01 0.00 - 0.30 K/mcL IG Absolute 0.02 0.00 - 0.30 K/mcL COVID-19, Molecular Specimen: Nasopharyngeal; Swab Result Value Ref Range SARS-CoV-2 Not Detected Not Detected POC Urinalysis Dipstick, Auto Result Value Ref Range Spec Grav, UA 1.025 1.005 - 1.025 pH, UA 5.5 5.0 - 7.0 Protein, UA Negative Negative mg/dL Glucose, UA Negative Negative mg/dL Ketones, UA Negative Negative mg/dL Bilirubin, UA Negative Negative Urobilinogen, UA 0.2 <2.0 mg/dL Blood, UA Negative Negative Nitrite, UA Negative Negative Leukocyte Esterase, UA Negative Negative POC PT/INR Result Value Ref Range POC INR 1.0 0.8 - 1.1 POC Liver Panel Plus Result Value Ref Range Albumin 3.7 3.2 - 5.2 g/dL Alkaline Phosphatase 42 40 - 150 U/L ALT (SGPT) 44 (H) 0 - 40 U/L AST (SGOT) 42 0 - 45 U/L Bilirubin, Total 0.9 0.0 - 1.3 mg/dL Total Protein 7.4 6.0 - 8.0 g/dL Amylase 64 25 - 115 U/L GGT 39 11 - 51 U/L POC Basic Metabolic Panel Result Value Ref Range Glucose 147 (H) 65 - 99 mg/dL BUN 19 8 - 25 mg/dL Creatinine 1.02 0.80 - 1.30 mg/dL GFR 74 >=60 mL/min/1.73 m2 Sodium 139 135 - 145 mmol/L Potassium 3.4 (L) 3.5 - 5.1 mmol/L Chloride 103 98 - 108 mmol/L TCO2 25 21 - 32 mmol/L Ionized Calcium 4.6 4.5 - 5.3 mg/dL POC Troponin I Result Value Ref Range Troponin I <0.05 <0.05 ng/mL POC Troponin I Result Value Ref Range Troponin I <0.05 <0.05 ng/mL CT Pulmonary Arteries Preliminary Result No evidence of pulmonary embolism. Normal caliber abdominal aorta without dissection. Mild multifocal, multilobar peripherally oriented ground-glass opacities. Differential considerations include atypical pneumonia or pulmonary fibrosis. No recent comparison is available. Recommend 2-month CT follow-up. Mildly prominent mediastinal and hilar lymph nodes, favored to be reactive. Small sliding-type hiatal hernia. ST/[facility] Workstation ID: [id number] CT Head Or Brain Without Contrast Preliminary Result No intracranial hemorrhage or mass effect. ST/trn Workstation ID: [id number] XR Chest 1 View Preliminary Result Ill-defined ground-glass opacities scattered throughout the mid and lower lung zones, suggestive of multifocal pneumonia/atypical viral infectious process. ST/trn Workstation ID: [id number] Procedures MDM Number of Diagnoses or Management Options Community acquired pneumonia, unspecified laterality Dizziness Diagnosis management comments: Labs, CT scan of the brain and x-ray results reviewed and discussed with the patient. EKG: Sinus bradycardia, heart rate of 58. No acute ST elevation noted. Normal MI interval. X-ray showed bilateral lung field opacities, blood cultures are ordered, patient treated with IV antibiotics. I have spoken with Dr. Guerra, hospitalist on-call at [facility] and thought that the patient can be discharged home on oral antibiotics and follow-up with primary care doctor. Patient was reexamined few times during the emergency stay. His pulse oxygenation started to drop, his post ambulation pulse ox is around 88. And intermittently in 88 to 90 % while resting. Patient was subsequently put on 2 L of oxygen via nasal cannula. Repeat EKG at 14:46, normal sinus rhythm, heart rate of 66. No acute ST elevation noted. Normal MI interval. No PVCs noted. I have again contacted [facility] to initiate the transfer process. Total critical care time 20 minutes . Clinical Impression: 1. Community acquired pneumonia, unspecified laterality 2. Dizziness ED Disposition ED Disposition Condition Comment Transfer to Another Facility Annie Matthews Calderon to be transferred to [facility] Follow-up Information Follow-up information has not been specified. Contact information for after-discharge care Follow-up information has not been specified. Dorita Gaona MD 05/27/20 3387 Pt thought one of his BP pills was also part of another pill he takes, so he stopped taking the one. BP high today and yesterday, nausea and dizziness since yesterday. documented in this encounter Kel Yeung MD - 05/27/2020 9:47 PM EDT H&P Notes (unrecognized sect ion and content) [facility] Inpatient H&P 05/27/2020 Kel Yeung MD [facility] Patient: Annie Calderon Date of : 1950 (69 y.o.) PCP: Sabina Rivas MD Assessment Annie Calderon is a 69 y.o. 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 male is known for hypertension and questionable asthma is here due to dizziness reported high blood pressure fever and chills last night, was evaluated emergency department noticed infiltrates in both lungs and hypoxia, dizziness, elevated blood pressure since last night. He also reports chills. No cough no difficulty breathing no chest pain no abdominal pain no other complaints. 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 No pertinent surgical history. History reviewed. No pertinent family history. Social History Tobacco Use Smoking Status Former Smoker Smokeless Tobacco Never Used Social History Substance and Sexual Activity Alcohol Use Not Currently Family and Social History reviewed and non-pertinent to this visit Allergies: Patient has no known allergies. Home Medications: Outpatient Medications as of 05/27/2020 Medication Sig carvediloL (COREG) 12.5 MG tablet Take 12.5 mg by mouth 2 (two) times a day . esomeprazole (NEXIUM) 20 MG capsule Take 20 mg by mouth every morning before breakfast . losartan-hydrochlorothiazide (HYZAAR) 100-12.5 mg per tablet Take 1 tablet by mouth daily . multivitamin with minerals tablet Take 1 tablet by mouth daily . OBJECTIVE: Physical Examination: Ht 5' 8 Wt 96.6 kg (213 lb) BMI 32.39 kg/m General Appearance: Alert, well appearing, and in no acute distress. HEENT: Head - Normocephalic, atraumatic. Eyes - JANE bilaterally and EOMI. Ears - normal external appearance, hearing intact. Nose - normal, no erythema. Throat - mucous membranes moist, pharynx without lesions. Neck: Supple, trachea midline. Cardiovascular: S1, S2 normal. No murmurs, rubs, clicks or gallops appreciated. No pedal edema. Respiratory: Lungs clear to auscultation, no wheezes, rales or rhonchi heard. Abdomen: Soft, non-tender, normal bowel sounds, non-distended, no masses or organomegaly appreciated. Neurological: Grossly normal motor and sensory exam. No focal deficits. Musculoskeletal: No joint tenderness, deformity or swelling. Skin: Normal coloration and turgor. No rashes. Psych: Alert, oriented x 3. Normal mood and affect. Laboratory and Additional Data Reviewed: Results/Medications Reviewed 05/27/20 9:47 PM: Results from last 7 days Lab Units 05/27/20 1304 POC BUN mg/dL 19 POC CREATININE (EPOC) mg/dL 1.02 Results from last 7 days Lab Units 05/27/20 1248 WBC K/mcL 4.17* HGB g/dL 13.4* HCT % 39.4* PLT K/mcL 162 Results from last 7 days Lab Units 05/27/20 1256 POCINR 1.0 Invalid input(s): LABALBU CULTURES: Reviewed 9:47 PM IMAGING: Reviewed 9:47 PM documented in this encounter Utilization Review - Kamilla Wynn RN - 05/29/2020 12:50 PM EDTPlan of Care - Kamilla Salomon RN - 05/29/2020 12:25 AM EDTPlan of Care - Natali Jerez RN - 05/28/2020 11:42 AM EDT Miscellaneous Notes (unrecog nized section and content) [facility] Utilization Review Notes HISTORY OF PRESENT ILLNESS:Annie Calderon is a 69 y.o. male is known for hypertension and questionable asthma is here due to dizziness reported high blood pressure fever and chills last night, was evaluated emergency department noticed infiltrates in both lungs and hypoxia, dizziness, elevated blood pressure since last night. He also reports chills. No cough no difficulty breathing no chest pain no abdominal pain no other complaints. VITAL SIGNS: 05/27 98.5, 65, 18, 166/100, 88% RA with ambulation > 94% at rest 05/28 98.0, 70, 14, 164/75, 94% RA 05/29 98.0, 63, 16, 124/75, 96% RA EKG: Sinus bradycardia Otherwise normal ECG WEIGHT: 96.6 kg (213 lb) LABS: 05/27 wbc 4.17, hgb 13.4, hct 39.4 05/28 wbc 6.01, hgb 14, hct 40.5, na 138, k 3.9, glucose 129, bun 16, creat 1.30, Hgb A1c 6.2 IMAGING: Echocardiogram report reviewed findings of chronic diastolic heart failure and moderate mitral valve regurgitation likely secondary to chronic lung issue ED TX: Rocephin 1 gm iv, Levaquin 500 mg iv DX:Community-acquired pneumonia, Hypertensive urgency ASSESSMENT / PLAN: -continue levofloxacin -check on urine which pneumococcus antigens -oxygen support -place Telemetry - resume home regimen and follow the trend blood pressure 05/28 Patient denies shortness of breath nausea dizziness feeling better Blood pressure still not well controlled Add Norvasc 5 mg daily Patient did not have any symptoms of pneumonia no leukocytosis I will DC IV Levaquin Echocardiogram to assess ejection fraction heart structure 05/29 Patient feeling better denies any chest pain shortness of breath nausea or dizziness Echocardiogram report reviewed findings of chronic diastolic heart failure and moderate mitral valve regurgitation likely secondary to chronic lung issue Patient is to follow-up with PCP and pulmonary IV MEDS: as noted above DISPO: pt discharge 05/29/2020 Problem: Actual or potential alteration in health Goal: Knowledge of Interdisciplinary Plan of Care Outcome: Partially Met Note: Plan of care reviewed with patient. Discussed plan for Echo today and probable discharge afterward. Problem: Pain Goal: Manage acute pain Outcome: Partially Met Note: Patient complains of some shoulder pain from prior injury. Tylenol every 6 hours PRN. Problem: Cardiac Function - Impaired Goal: Maintain uncomplicated cardiac function Outcome: Partially Met Note: Patient admitted for elevated blood pressure. Started on new blood pressure medication, Norvasc. Blood pressure decreasing and patient denies any further symptoms related to elevated blood pressure. Problem: Plan for Discharge Goal: Knowledge of discharge plan and instructions Outcome: Partially Met Note: Patient to have Echo today and probable discharge afterward. Pt denies needs documented in this encounter Care Teams (unrecognized sec tion and content) Stonecutter Assistant Relationship Specialty Start Date End Date Sabina Rivas MD [address] [place] [address] PCP - General Family Medicine 05/27/20 Stonecutter Assistant Relationship Specialty Start Date End Date Sabina Rivas MD [address] [place] [address] PCP - General Family Medicine 05/27/20 Stonecutter Assistant Relationship Specialty Start Date End Date Sabina Rivas MD [address] [place] [address] PCP - General Family Medicine 05/27/20 Stonecutter Assistant Relationship Specialty Start Date End Date Sabina Rivas MD [address] [place] [address] PCP - General Family Medicine 05/27/20 Stonecutter Assistant Relationship Specialty Start Date End Date Sabina Rivas MD [address] [place] [id number] PCP - General Family Medicine 09/19/22 Stonecutter Assistant Relationship Specialty Start Date End Date Sabina Rivas MD [address] [place] [phone] PCP - General Family Medicine 09/19/22 Stonecutter Assistant Relationship Specialty Start Date End Date Sabina Rivas MD [address] [place] [address] [place] [address] PCP - General 04/28/19 Stonecutter Assistant Relationship Specialty Start Date End Date Sahra Holliday MD [address] [place] [address] PCP - General Family Medicine 02/08/23 Stonecutter Assistant Relationship Specialty Start Date End Date Sabina Rivas MD [address] [place] [address] PCP - General Family Medicine 05/27/20 Stonecutter Assistant Relationship Specialty Start Date End Date Sahra Holliday MD [address] [place] [address] PCP - General Family Medicine 02/08/23 Stonecutter Assistant Relationship Specialty Start Date End Date Sahra Holliday MD [address] [place] [address] PCP - General Family Medicine 02/08/23 Stonecutter Assistant Relationship Specialty Start Date End Date Sabina Rivas MD [address] [place] [address] PCP - General Family Medicine 05/27/20 Sahra Holliday MD [address] [place] [address] Family Medicine 02/13/23 Stonecutter Assistant Relationship Specialty Start Date End Date Sabina Rivas MD [address] [place] [address] PCP - General Family Medicine 05/27/20 Sahra Holliday MD [address] [place] [address] Family Medicine 02/13/23 Stonecutter Assistant Relationship Specialty Start Date End Date Sabina Rivas MD [address] [place] [address] PCP - General Family Medicine 05/27/20 Sahra Holliday MD [address] [place] [address] Family Medicine 02/13/23 Stonecutter Assistant Relationship Specialty Start Date End Date Sabina Rivas MD [address] [place] [address] PCP - General Family Medicine 05/27/20 Sahra Holliday MD [address] [place] [address] Family Medicine 02/13/23 Stonecutter Assistant Relationship Specialty Start Date End Date Sahra Holliday MD [address] [place] [address] PCP - General Family Medicine 02/08/23 Stonecutter Assistant Relationship Specialty Start Date End Date Sahra Holliday MD [address] [place] [address] PCP - General Family Medicine 02/08/23 Stonecutter Assistant Relationship Specialty Start Date End Date Sabina Rivas MD [address] [place] [address] PCP - General Family Medicine 05/27/20 Sahra Holliday MD [address] [place] [address] Family Medicine 02/13/23 Sahra Holliday MD [address] [place] [address] Family Medicine 03/27/23 Stonecutter Assistant Relationship Specialty Start Date End Date Sahra Holliday MD [address] [place] [address] PCP - General Family Medicine 02/08/23 Stonecutter Assistant Relationship Specialty Start Date End Date Sahra Holliday MD [address] [place] [address] PCP - General Family Medicine 02/08/23 Stonecutter Assistant Relationship Specialty Start Date End Date Sahra Holliday MD [address] [place] [address] PCP - General Family Medicine 02/08/23 Stonecutter Assistant Relationship Specialty Start Date End Date Sabina Rivas MD [address] [place] [phone] PCP - General Family Medicine 09/19/22 Stonecutter Assistant Relationship Specialty Start Date End Date Sahra Holliday MD [address] [place] [address] PCP - General Family Medicine 02/08/23 Stonecutter Assistant Relationship Specialty Start Date End Date Sahra Holliday MD [address] [place] [address] PCP - General Family Medicine 05/19/23 Stonecutter Assistant Relationship Specialty Start Date End Date Sahra Holliday MD [address] [place] [address] PCP - General Family Medicine 02/08/23 Stonecutter Assistant Relationship Specialty Start Date End Date Sahra Holliday MD [address] [place] [address] PCP - General Family Medicine 02/08/23 Stonecutter Assistant Relationship Specialty Start Date End Date Sahra Holliday MD [address] [place] [address] PCP - General Family Medicine 02/08/23 Stonecutter Assistant Relationship Specialty Start Date End Date Sahra Holliday MD [address] [place] [address] PCP - General Family Medicine 02/08/23 Stonecutter Assistant Relationship Specialty Start Date End Date Sahra Holliday MD [address] [place] [address] PCP - General Family Medicine 02/08/23 Stonecutter Assistant Relationship Specialty Start Date End Date Sabina Rivas MD PCP - General Family Medicine 09/19/22 Stonecutter Assistant Relationship Specialty Start Date End Date Sabina Rivas MD PCP - General Family Medicine 09/19/22 Stonecutter Assistant Relationship Specialty Start Date End Date Sahra Holliday MD [address] [place] [address] PCP - General Family Medicine 06/28/23 Sahra Holliday MD [address] [place] [address] Family Medicine 02/13/23 Sahra Holliday MD [address] [place] [address] Family Medicine 03/27/23 Stonecutter Assistant Relationship Specialty Start Date End Date Sabina Rivas MD PCP - General Family Medicine 09/19/22 Stonecutter Assistant Relationship Specialty Start Date End Date Sahra Holliday MD [address] [place] [address] PCP - General Family Medicine 06/28/23 Sahra Holliday MD [address] [place] [address] Family Medicine 02/13/23 Sahra Holliday MD [address] [place] [address] Family Medicine 03/27/23 Stonecutter Assistant Relationship Specialty Start Date End Date Sabina Rivas MD PCP - General Family Medicine 09/19/22 Stonecutter Assistant Relationship Specialty Start Date End Date Sahra Holliday MD [address] [id number] PCP - General Family Medicine 02/08/23 Stonecutter Assistant Relationship Specialty Start Date End Date Sahra Holliday MD [address] [id number] PCP - General Family Medicine 02/08/23 Stonecutter Assistant Relationship Specialty Start Date End Date Sabina Rivas MD PCP - General Family Medicine 09/19/22 Stonecutter Assistant Relationship Specialty Start Date End Date Sahra Holliday MD [address] [address] PCP - General Family Medicine 02/08/23 Source Comments (unrecognize d section and content) In the event this informatio n is protected by the Federal Confidentiality of Alcohol and Drug Abuse Patient Records regulations: The Federal rules restrict any use of the information to criminally investigate or prosecute any alcohol or drug abuse patient.[facility] FOR RECORDS PERTAINING TO PATIENTS WHO ARE OR HAVE BEEN ENROLLED IN A CHEMICAL DEPENDENCY/SUBSTANCEABUSE PROGRAM, SOME INFORMATION MAY BE OMITTED. This clinical summary was aggregated from multiple sources. Caution should be exercised in using it in the provision of clinical care. This summary normalizes information from multiple sources, and as a consequence, information in this document may materially change the coding, format and clinical context of patient data. In addition, data may be omitted in some cases. CLINICAL DECISIONS SHOULD BE BASED ON THE PRIMARY CLINICAL RECORDS. [facility] [employer] [facility]. provides no warranty or guarantee of the accuracy or completeness of information in this document.
== END | disposition home or self-care (01) ==
LOC: SL 20:53
PROVIDERS: PCP Family Medicine; Referring Provider Nurse Practitioner Acute Care; Visit Provider Nurse Practitioner Acute Care
DX: G47.33 Obstructive sleep apnea (adult) (pediatric) (principal)
CPT/HCPCS: 95811